=== PATIENT | female | born 1975 | race Caucasian/White ===

== ENCOUNTER → 2017-01-15 | Outpatient (CLI) | payer OTHER ==
--- NOTE | 2017-01-16 10:35 | MM ---
Reason for exam: screening (asymptomatic). Last mammogram was performed 1 year ago. History: Family history of breast cancer in maternal aunt. Physical Findings: A clinical breast exam by your physician is recommended on an annual basis and results should be correlated with mammographic findings. MG Screening Mammo w CAD Bilateral CC and MLO view(s) were taken. Prior study comparison: January 13, 2016, bilateral MG 3d screening mammo w/cad. July 21, 2014, bilateral MG screening mammo w CAD. The breast tissue is extremely dense which could obscure a lesion on mammography. Finding: There are typically benign round calcifications. There is no discrete abnormality. No significant changes in finding since January 13, 2016 and July 21, 2014. ASSESSMENT: Benign, BI-RAD 2 RECOMMENDATION: Routine screening mammogram of both breasts in 1 year.
== END | disposition home or self-care (01) ==
LOC: RADMAMWWP 08:58
PROVIDERS: ATTEND Obstetrics & Gynecology
DX: Z12.31 Encounter for screening mammogram for malignant neoplasm of breast (principal)

== ENCOUNTER 2018-01-26 17:43 | Inpatient (IN) | payer MEDICAID, OTHER ==
[2018-01-26 17:58] VITALS: RESP 16
--- NOTE | 2018-01-26 18:12 | ED ---
General Adult HPI - General Source: patient, RN notes reviewed Mode of arrival: ambulatory Limitations: no limitations <Deven Feng - Last Filed: 01/26/18 18:11> <Bob Sharma - Last Filed: 01/26/18 21:58> - General Chief complaint: Psychiatric Symptoms Stated complaint: SUICIDAL Time Seen by Provider: 01/26/18 17:58 - History of Present Illness Initial comments: Patient 42-year-old female who presents emergency room today with a chief complaint of suicidal ideation. Patient does admit that she stopped taking her medications. She states he will causing weight gain. She states she stopped them one week ago. Patient denies any thoughts of hurting anyone else. She denies any other physical complaints. Patient denies any recent fever, chills, shortness of breath, chest pain, back pain, abdominal pain, nausea or vomiting, headaches or visual changes, or any other complaints. (Deven Feng) - Related Data Home Medications Medication Instructions Recorded Confirmed ARIPiprazole [Abilify] 10 mg PO DAILY 01/26/18 01/26/18 Multivitamins, Thera [Multivitamin 1 tab PO DAILY 01/26/18 01/26/18 (formulary)] Vilazodone HCl [Viibryd] 20 mg PO DAILY 01/26/18 01/26/18 Allergies Allergy/AdvReac Type Severity Reaction Status Date / Time ibuprofen [From Motrin] Allergy Intermediate Rash/Hives Verified 01/26/18 18:09 Review of Systems ROS Other: All systems not noted in ROS Statement are negative. <Deven Feng - Last Filed: 01/26/18 18:11> ROS Other: All systems not noted in ROS Statement are negative. <Bob Sharma - Last Filed: 01/26/18 21:58> ROS Statement: Those systems with pertinent positive or pertinent negative responses have been documented in the HPI. Past Medical History Past Medical History: No Reported History, COPD Additional Past Medical History / Comment(s): scoliosis History of Any Multi-Drug Resistant Organisms: None Reported Past Surgical History: Tubal Ligation Past Anesthesia/Blood Transfusion Reactions: No Reported Reaction Past Psychological History: Anxiety, Depression Smoking Status: Current every day smoker Past Alcohol Use History: None Reported Past Drug Use History: None Reported - Past Family History Mother Family Medical History: No Reported History <Deven Feng - Last Filed: 01/26/18 18:11> General Exam Limitations: no limitations <Deven Feng - Last Filed: 01/26/18 18:11> <Bob Sharma - Last Filed: 01/26/18 21:58> - General Exam Comments Initial Comments: General: The patient is awake and alert, in no distress, and does not appear acutely ill. Eye: Pupils are equal, round and reactive to light, extra-ocular movements are intact. No nystagmus. There is normal conjunctiva bilaterally. No signs of icterus. Ears, nose, mouth and throat: There are moist mucous membranes and no oral lesions. Neck: The neck is supple, there is no tenderness or JVD. Cardiovascular: There is a regular rate and rhythm. No murmur, rub or gallop is appreciated. Respiratory: Lungs are clear to auscultation, respirations are non-labored, breath sounds are equal. No wheezes, stridor, rales, or rhonchi. Musculoskeletal: Normal ROM, no tenderness. Strength 5/5. Sensation intact. Pulses equal bilaterally 2+. Neurological: A&O x 3. CN II-XII intact, There are no obvious motor or sensory deficits. Coordination appears grossly intact. Speech is normal. Skin: Skin is warm and dry and no rashes or lesions are noted. Psychiatric: Cooperative. (Deven Feng) Vital Signs 01/26/18 17:54 Temperature 96.2 F L Pulse Rate 101 H Respiratory 16 Rate Blood Pressure 126/73 O2 Sat by Pulse 98 Oximetry - Lab Data Lab Results 01/26/18 Range/Units 18:44 Urine Opiates Screen Not Detected (NotDetected) Ur Oxycodone Screen Not Detected (NotDetected) Urine Methadone Screen Not Detected (NotDetected) Ur Propoxyphene Screen Not Detected (NotDetected) Ur Barbiturates Screen Not Detected (NotDetected) U Tricyclic Antidepress Not Detected (NotDetected) Ur Phencyclidine Scrn Not Detected (NotDetected) Ur Amphetamines Screen Not Detected (NotDetected) U Methamphetamines Scrn Not Detected (NotDetected) U Benzodiazepines Scrn Not Detected (NotDetected) Urine Cocaine Screen Not Detected (NotDetected) U Marijuana (THC) Screen Not Detected (NotDetected) Disposition <Deven Feng - Last Filed: 01/26/18 18:11> <Bob Sharma - Last Filed: 01/26/18 21:58> Clinical Impression: Depression, Suicidal ideation Disposition: ADMITTED IP TO THIS HOSP Condition: Stable
[2018-01-26 19:09] LABS: Amphetamine Screen,Urine Not Detected (NotDetected); Benzodiazepines Screen,Urine Not Detected (NotDetected); Cocaine Screen,Urine Not Detected (NotDetected); Opiate Screen,Urine Not Detected (NotDetected); Phencyclidine Screen,Urine Not Detected (NotDetected); Tricyclic Antidepressant,Urine Not Detected (NotDetected); Urn Cannabinoid Scrn Not Detected (NotDetected)
[2018-01-26 19:10] LABS: Barbiturate Screen,Urine Not Detected (NotDetected); Methadone Screen, Urine Not Detected (NotDetected); Oxycodone Screen, Urine Not Detected (NotDetected)
[2018-01-26] MEDS ORDERED: LORazepam 1 MG TAB PO PRN (22:16)
[2018-01-26] MEDS ORDERED: MAG HYDROX/AL HYDROX/SIMETH 30 ML CUP PO PRN (22:16)
[2018-01-26] MEDS ORDERED: MAGNESIUM HYDROXIDE 2,400 MG/10 ML CUP PO PRN (22:16)
[2018-01-26] MEDS ORDERED: ACETAMINOPHEN TAB 325 MG TAB PO PRN (22:16)
[2018-01-27 09:12] LABS: Basophils % (A) 0 %; Eosinophils # (A) 0.3 k/uL (0-0.7); Eosinophils % (A) 3 %; HCT 43.4 % (34.0-46.0); HGB 14.4 gm/dL (11.4-16.0); Lymphocytes # (A) 2.3 k/uL (1.0-4.8); Lymphocytes % (A) 20 %; MCH 31.2 pg (25.0-35.0); MCHC 33.1 g/dL (31.0-37.0); MCV 94.2 fL (80.0-100.0); Mean Platelet Volume 6.9; Monocytes # (A) 0.4 k/uL (0-1.0); Monocytes % (A) 3 %; Neutrophils # (A) 8.5 k/uL (1.3-7.7); Neutrophils % (A) 73 %; Platelet Count 392 k/uL (150-450); RBC 4.61 m/uL (3.80-5.40); RDW 12.8 % (11.5-15.5); WBC 11.6 k/uL (3.8-10.6)
[2018-01-27 09:15] LABS: ALT 26 U/L (9-52); AST 24 U/L (14-36); Albumin 3.8 g/dL (3.5-5.0); Alkaline Phosphatase 64 U/L (38-126); Anion Gap 8 mmol/L; Blood Urea Nitrogen 7 mg/dL (7-17); Calcium 9.2 mg/dL (8.4-10.2); Carbon Dioxide 25 mmol/L (22-30); Chloride 107 mmol/L (98-107); Cholesterol 188 mg/dL (<200); Glucose 140 mg/dL (74-99); HDL Cholesterol 45 mg/dL (40-60); LDL Cholesterol,Calculated 111 mg/dL (0-99); Potassium 4.3 mmol/L (3.5-5.1); Sodium 140 mmol/L (137-145); Total Bilirubin 0.2 mg/dL (0.2-1.3); Total Protein 6.2 g/dL (6.3-8.2); Triglycerides 159 mg/dL (<150)
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
[2018-01-27] MEDS: VENLAFAXINE HCL ER 37.5 MG CAP PO SCH (10:12)
[2018-01-27] MEDS: NICOTINE 14MG/24HR PATCH TRANSDERM SCH (10:12)
[2018-01-27] MEDS: ARIPiprazole 5 MG TAB PO SCH (10:12)
--- NOTE | 2018-01-27 14:01 | P.CONS ---
History of Present Illness - Reason for Consult Consult date: 01/27/18 Medical management - Chief Complaint Severe depression - History of Present Illness This is this is a 42-year-old female with past medical history noted below significant for underlying depression presented to the emergency room with suicidal thought. Patient said that she quit taking her medication a while ago with concerns about weight gain. She started feeling more depressed recently. She presented to the emergency room with suicidal thoughts. There was no specific plan or weapons involved. Patient was evaluated by psychiatry and is currently admitted for further evaluation. She does not have any specific concerns are now. I was asked to see her for medical management. Review of Systems Review of system: 14 points review of systems were obtained and were negative except to what were mentioned in the HPI. Past Medical History Past Medical History: No Reported History, COPD Additional Past Medical History / Comment(s): scoliosis History of Any Multi-Drug Resistant Organisms: None Reported Past Surgical History: Tubal Ligation Past Anesthesia/Blood Transfusion Reactions: No Reported Reaction Past Psychological History: Anxiety, Depression Smoking Status: Current every day smoker Past Alcohol Use History: None Reported Additional Past Alcohol Use History / Comment(s): "through seventh month of " Past Drug Use History: None Reported - Past Family History Mother Family Medical History: No Reported History Medications and Allergies Home Medications Medication Instructions Recorded Confirmed Type ARIPiprazole [Abilify] 10 mg PO DAILY 01/26/18 01/27/18 History Multivitamins, Thera [Multivitamin 1 tab PO DAILY 01/26/18 01/27/18 History (formulary)] Vilazodone HCl [Viibryd] 20 mg PO DAILY 01/26/18 01/27/18 History Allergies Allergy/AdvReac Type Severity Reaction Status Date / Time ibuprofen [From Motrin] Allergy Intermediate Rash/Hives Verified 01/26/18 18:09 Physical Exam Vitals: Vital Signs Temp Pulse Pulse Resp BP BP Pulse Ox 01/27/18 04:22 97.6 F 97 16 109/59 01/26/18 21:41 97.5 F L 85 16 147/81 01/26/18 17:54 96.2 F L 101 H 16 126/73 98 Intake and Output 01/26/18 01/27/18 01/27/18 22:59 06:59 14:59 Other: Weight 71.8 kg General: The patient is awake and alert, in no distress Eye: there is normal conjunctiva bilaterally. Neck: The neck is supple, there is no JVD. Cardiovascular: Normal S1-S2, no S3-S4, no murmurs. Respiratory: Lungs clear to auscultation bilaterally Gastrointestinal: Abdomen is soft, nontender Musculoskeletal: There is no pedal edema. Neurological:. Speech is normal. Skin: Skin is warm and dry Results CBC & Chem 7: 01/27/18 08:42 01/27/18 08:42 Labs: Abnormal Lab Results - Last 24 Hours (Table) 01/27/18 01/27/18 Range/Units 08:42 08:42 WBC 11.6 H (3.8-10.6) k/uL Neutrophils # 8.5 H (1.3-7.7) k/uL Glucose 140 H (74-99) mg/dL Total Protein 6.2 L (6.3-8.2) g/dL Triglycerides 159 H (<150) mg/dL LDL Cholesterol, Calc 111 H (0-99) mg/dL Assessment and Plan Assessment: 1. Major depressive disorder with suicidal thoughts. Patient is evaluated and managed by psychiatry. Today, I reviewed her medication list and lab work results. She is stable from a medical standpoint. Continue psychiatric management. I will follow-up on her on as needed basis.
[2018-01-27 18:35] VITALS: BMI 28.9
[2018-01-27 20:22] LABS: Hemoglobin A1C 5.1 % (4.0-6.0)
[2018-01-27] MEDS ORDERED: MELATONIN 3 MG TABLET PO SCH (21:00)
[2018-01-28 07:05] VITALS: BP 113/57; PULSE 76; TEMP 98.5
[2018-01-28] MEDS: VENLAFAXINE HCL ER 37.5 MG CAP PO SCH (09:01)
[2018-01-28] MEDS: NICOTINE 14MG/24HR PATCH TRANSDERM SCH (09:01)
[2018-01-28] MEDS: ARIPiprazole 5 MG TAB PO SCH (09:01)
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
== END 2018-01-28 14:52 | disposition home or self-care (01) | DRG 885 ==
LOC: EC 17:43 → 3MHU 21:05
PROVIDERS: ADMIT Psychiatry & Neurology Psychiatry; ATTEND Psychiatry & Neurology Psychiatry
DX: F33.1 Major depressive disorder, recurrent, moderate (principal); R45.851 Suicidal ideations; M41.9 Scoliosis, unspecified; F17.200 Nicotine dependence, unspecified, uncomplicated; J44.9 Chronic obstructive pulmonary disease, unspecified; F41.9 Anxiety disorder, unspecified; Z79.899 Other long term (current) drug therapy; Z88.6 Allergy status to analgesic agent; Z91.5 Personal history of self-harm
CPT/HCPCS: 80053; 80061; 80306; 82075; 83036; 84443; 85025; 99285

== ENCOUNTER → 2018-01-31 | Outpatient (CLI) | payer OTHER | END | disposition home or self-care (01) | LOC: LABWHC1 13:55 | PROVIDERS: ATTEND Family Medicine | DX: Z77.011 Contact with and (suspected) exposure to lead (principal) | CPT/HCPCS: 36415; 83655 ==

== ENCOUNTER → 2018-08-23 | Outpatient (CLI) | payer OTHER ==
--- NOTE | 2018-08-23 13:22 | XR ---
Lumbar spine HISTORY: Trauma and pain 3 views of the lumbar spine, correlation 07/10/2014 lumbar spine There is a levoscoliosis centered at L2. Lumbar vertebral bodies show preserved height and bone mineralization. Loss of disc height present L4 -5, L5-S1 and there is associated spondylosis, vacuum phenomenon. Sclerosis present in the posterior elements compatible with facet arthropathy. IMPRESSION: Degenerative disc disease, facet arthropathy, scoliosis. Findings may progressed in the i nterval.
== END ==
LOC: RADUSYALE 12:52
PROVIDERS: ATTEND Emergency Medicine
DX: M51.36 Other intervertebral disc degeneration, lumbar region (principal); M46.96 Unspecified inflammatory spondylopathy, lumbar region; M41.86 Other forms of scoliosis, lumbar region
CPT/HCPCS: 72100

== ENCOUNTER → 2019-03-25 | Outpatient (CLI) | payer BC ==
[2019-03-26 01:10] LABS: Progesterone 0.5 ng/mL
== END | disposition home or self-care (01) ==
LOC: LABWHC1 15:57
PROVIDERS: ATTEND Obstetrics & Gynecology
DX: N93.8 Other specified abnormal uterine and vaginal bleeding (principal); Z13.29 Encounter for screening for other suspected endocrine disorder
CPT/HCPCS: 36415; 82670; 83001; 83002; 84144; 84146; 84439; 84443; 84479

== ENCOUNTER → 2019-03-27 | Outpatient (CLI) | payer BC ==
--- NOTE | 2019-03-28 13:03 | MM ---
Reason for exam: screening (asymptomatic). Last mammogram was performed 2 years and 2 months ago. History: Family history of breast cancer in maternal aunt. Took hormonal contraceptives for 16 years beginning at age 18. Physical Findings: A clinical breast exam by your physician is recommended on an annual basis and results should be correlated with mammographic findings. MG Screening Mammo w CAD Bilateral CC and MLO view(s) were taken. Prior study comparison: January 15, 2017, bilateral MG screening mammo w CAD. January 13, 2016, bilateral MG 3d screening mammo w/cad. The breast tissue is heterogeneously dense. This may lower the sensitivity of mammography. There are benign appearing scattered round calcifications bilaterally. There is no discrete abnormality. ASSESSMENT: Negative, BI-RAD 1 RECOMMENDATION: Routine screening mammogram of both breasts in 1 year.
== END | disposition home or self-care (01) ==
LOC: RADMAMWWP 15:20
PROVIDERS: ATTEND Obstetrics & Gynecology
DX: Z12.31 Encounter for screening mammogram for malignant neoplasm of breast (principal)
CPT/HCPCS: 77067

== ENCOUNTER 2019-05-12 15:45 | Emergency (ER) | payer BC, OTHER ==
[2019-05-12 15:57] VITALS: BP 124/83; PULSE 106; RESP 18; TEMP 98.8
--- NOTE | 2019-05-12 16:29 | ED ---
General Adult HPI - General Chief complaint: Recheck/Abnormal Lab/Rx Stated complaint: Fatigue Time Seen by Provider: 05/12/19 16:05 Source: patient, RN notes reviewed Mode of arrival: ambulatory Limitations: no limitations - History of Present Illness Initial comments: Patient is a pleasant 43-year-old female presenting to the emergency department with fatigue. Patient states symptoms have progressively worsened over the past days. Patient is sleeping October 13 hours per day. Patient does not have interest in activities. Patient admits she does feel depressed. Patient states she stopped her antidepressant medication around 1 month ago. Patient denies any suicidal or homicidal thoughts. No hallucinations. Patient is sometimes having concentration issues. Patient uses as an example that she went into a room today and forgot when she went into the room. Patient states she has had some sinus congestion and left ear discomfort. Patient did go to urgent care 2 days ago and was started on amoxicillin. Patient states there might be mild improvement of symptoms. No fevers. - Related Data Home Medications Medication Instructions Recorded Confirmed Amoxicillin 500 mg PO Q8H 05/12/19 05/12/19 Ibuprofen [Motrin] 300 mg PO Q8HR PRN 05/12/19 05/12/19 Venlafaxine HCl [Effexor XR] 75 mg PO DAILY 05/12/19 05/12/19 Previous Rx's Medication Instructions Recorded ARIPiprazole [Abilify] 5 mg PO DAILY #14 tab 01/28/18 Allergies Allergy/AdvReac Type Severity Reaction Status Date / Time ibuprofen [From Motrin] Allergy Intermediate Rash/Hives Verified 05/12/19 16:09 Review of Systems ROS Statement: Those systems with pertinent positive or pertinent negative responses have been documented in the HPI. ROS Other: All systems not noted in ROS Statement are negative. Constitutional: Denies: fever Eyes: Denies: eye pain ENT: Denies: ear pain Respiratory: Denies: cough Cardiovascular: Denies: chest pain Endocrine: Reports: fatigue Gastrointestinal: Denies: abdominal pain Genitourinary: Denies: urgency Musculoskeletal: Denies: back pain Skin: Denies: rash Neurological: Denies: headache Psychiatric: Reports: depression. Denies: homicidal thoughts, suicidal thoughts Past Medical History Past Medical History: COPD Additional Past Medical History / Comment(s): scoliosis History of Any Multi-Drug Resistant Organisms: None Reported Past Surgical History: Tubal Ligation Past Anesthesia/Blood Transfusion Reactions: No Reported Reaction Past Psychological History: Anxiety, Depression Smoking Status: Current every day smoker Past Alcohol Use History: Occasional Past Drug Use History: None Reported - Past Family History Mother Family Medical History: No Reported History General Exam Limitations: no limitations General appearance: alert, in no apparent distress Head exam: Present: atraumatic Eye exam: Present: normal appearance, PERRL ENT exam: Present: normal oropharynx, TM's normal bilaterally Neck exam: Present: normal inspection Respiratory exam: Present: normal lung sounds bilaterally Cardiovascular Exam: Present: regular rate, normal rhythm GI/Abdominal exam: Present: soft. Absent: tenderness Extremities exam: Present: normal inspection Neurological exam: Present: alert. Absent: motor sensory deficit Psychiatric exam: Present: normal affect, normal mood Skin exam: Present: normal color Course Vital Signs 05/12/19 15:53 Temperature 98.8 F Pulse Rate 106 H Respiratory 18 Rate Blood Pressure 124/83 O2 Sat by Pulse 95 Oximetry Medical Decision Making - Medical Decision Making Lungs discussion had with patient regarding her symptoms and she agrees her symptoms are likely related to her depression and admits that she also did recently lose her job. Patient states she does have a follow-up appointment with [facility] tomorrow. Patient also is agreeable to close follow-up to primary care physician. Patient is offered further evaluation including blood work and urinalysis however refuses. Disposition Clinical Impression: Fatigue Disposition: HOME SELF-CARE Condition: Stable Instructions (If sedation given, give patient instructions): Fatigue (ED), Depression (ED) Additional Instructions: Please do follow-up with your primary care physician in the next couple days for recheck. Please do follow-up with [facility] tomorrow as planned. Return for thoughts of self-harm, ear sinus problems, worsening symptoms or other concerns. Continue antibiotics as prescribed. [id number] Claritin as directed. Saline nasal spray. Is patient prescribed a controlled substance at d/c from ED?: No Referrals: Qi Smith MD [Primary Care Provider] - 1-2 days Time of Disposition: 16:29
== END 2019-05-12 16:30 | disposition home or self-care (01) ==
LOC: EC 15:45
DX: R53.83 Other fatigue (principal); F32.9 Major depressive disorder, single episode, unspecified; R09.81 Nasal congestion; Z56.0 Unemployment, unspecified; R41.0 Disorientation, unspecified; F41.9 Anxiety disorder, unspecified; F17.200 Nicotine dependence, unspecified, uncomplicated; Z88.6 Allergy status to analgesic agent; Z79.899 Other long term (current) drug therapy
CPT/HCPCS: 99283

== ENCOUNTER 2019-09-09 13:17 | Emergency (ER) | payer OTHER ==
[2019-09-09 13:23] VITALS: TEMP 97.9
--- NOTE | 2019-09-09 14:19 | ED ---
ENT HPI - General Source: patient Mode of arrival: ambulatory Limitations: no limitations <Nataly Osman - Last Filed: 09/09/19 14:48> <Maryellen Eng - Last Filed: 09/13/19 23:41> - General Chief complaint: ENT Stated complaint: Ear Pain/Diarrhea Time Seen by Provider: 09/09/19 13:58 - History of Present Illness Initial comments: 43-year-old female with history of recurrent ear infections, hearing aides presented emergency department for chief complaint of left ear pain and drainage 6 days. Patient states that she has had ear pain with some drainage for the past 6 days. Patient states she was concerned to another infection. Patient admits to sinus pressure and congestion. Patient states she felt like she had a fever yesterday. Denies rashes. Denies ringing of the ears or hearing loss. Denies dizziness. No visual changes. Admits to a few loose stools. Denies namita diarrhea or abdominal pain. Patient denies any vomiting. Patient denies cough chest pain. Patient states she cannot get in to her primary care provider she decided to present to emergency department for evaluation of the left ear pain. Upon arrival patient appears well signs of acute distress. Patient states she is tolerating oral intake. State she was vaccinated as a child. (Nataly Osman) - Related Data Home Medications Medication Instructions Recorded Confirmed Amoxicillin 500 mg PO Q8H 05/12/19 05/12/19 Ibuprofen [Motrin] 300 mg PO Q8HR PRN 05/12/19 05/12/19 Venlafaxine HCl [Effexor XR] 75 mg PO DAILY 05/12/19 05/12/19 Previous Rx's Medication Instructions Recorded ARIPiprazole [Abilify] 5 mg PO DAILY #14 tab 01/28/18 Amoxicillin 875 mg PO Q12HR 10 Days #20 tablet 09/09/19 Fluticasone Nasal [place] [Flonase 1 spray EA NOSTRIL DAILY 7 Days #1 09/09/19 Nasal [place]] bottle Allergies Allergy/AdvReac Type Severity Reaction Status Date / Time ibuprofen [From Motrin] Allergy Intermediate Rash/Hives Verified 09/09/19 13:23 Review of Systems ROS Other: All systems not noted in ROS Statement are negative. <Nataly Osman - Last Filed: 09/09/19 14:48> ROS Other: All systems not noted in ROS Statement are negative. <Maryellen Eng - Last Filed: 09/13/19 23:41> ROS Statement: Those systems with pertinent positive or pertinent negative responses have been documented in the HPI. Past Medical History Past Medical History: COPD Additional Past Medical History / Comment(s): scoliosis History of Any Multi-Drug Resistant Organisms: None Reported Past Surgical History: Tubal Ligation Past Anesthesia/Blood Transfusion Reactions: No Reported Reaction Past Psychological History: Anxiety, Depression Smoking Status: Current every day smoker Past Alcohol Use History: Occasional Past Drug Use History: None Reported - Past Family History Mother Family Medical History: No Reported History <Yenny Osmanbonnie Bustamatne - Last Filed: 09/09/19 14:48> General Exam Limitations: no limitations <Yenny Osmanbonnie Bustamante - Last Filed: 09/09/19 14:48> - General Exam Comments Initial Comments: General: The patient is awake and alert, in no distress, and does not appear acutely ill. Eye: +3 mm pupils are equal, round and reactive to light, extra-ocular movements are intact. No nystagmus. There is normal conjunctiva bilaterally. No signs of icterus. Tympanic membrane of the left ear reveals effusion. There is no lesions of the external auditory canal. No obvious tympanic membrane perforation. No blood in the tympanic membrane or external auditory canal. Normal examination of the right tympanic membrane. No tenderness to palpation of the auricle or pinna. Patient has no tenderness to palpation of the mastoid, no mastoid swelling/redness. Ears, nose, mouth and throat: There are moist mucous membranes and no oral lesions. No nuchal rigidity. Neck: The neck is supple, there is no tenderness or JVD. Cardiovascular: There is a regular rate and rhythm. No murmur, rub or gallop is appreciated. Respiratory: Lungs are clear to auscultation, respirations are non-labored, breath sounds are equal. No wheezes, stridor, rales, or rhonchi. Gastrointestinal: Soft, non-distended, non-tender abdomen without masses or organomegaly noted. There is no rebound or guarding present. Musculoskeletal: Normal ROM, no tenderness. Strength 5/5. Sensation intact. Radial pulses equal bilaterally 2+. Neurological: A&O x 3. CN II-XII intact, There are no obvious motor or sensory deficits. Coordination appears grossly intact. Speech is normal. Skin: Skin is warm and dry and no rashes or lesions are noted. Psychiatric: Cooperative, appropriate mood & affect, normal judgment. (Nataly Osman) Course Vital Signs 09/09/19 09/09/19 13:22 14:26 Temperature 97.9 F Pulse Rate 101 H 84 Respiratory 16 18 Rate Blood Pressure 131/91 130/86 O2 Sat by Pulse 96 98 Oximetry Medical Decision Making <Nataly Osman - Last Filed: 09/09/19 14:48> <Maryellen Eng - Last Filed: 09/13/19 23:41> - Medical Decision Making 43-year-old female presents immersed her in for evaluation of left ear pain x 6 days. Physical exam concerning for otitis media. Patient be treated with amoxicillin. Patient given ENT follow-up. Return parameters were discussed. Patient was discharged appearing well agreeable to discharge care plan and importance of follow-up. Discussed case and care plan with attending who was agreeable. (Nataly Osman) I was available for consultation in the emergency department. The history and physical exam were done by the midlevel provider. I was consulted for this patients care. I reviewed the case with the midlevel provider and based on their presentation of the patient, I agree with the assessment, medical decision making and plan of care as documented. Chart was dictated using JumpChat dictation software. Attempts were made to correct any dictation errors however some typographical errors may persist. (Maryellen Eng) Disposition Is patient prescribed a controlled substance at d/c from ED?: No Time of Disposition: 14:16 <Nataly Osman - Last Filed: 09/09/19 14:48> <Maryellen Eng - Last Filed: 09/13/19 23:41> Clinical Impression: Otitis media, Acute effusion of left ear, Left ear pain Disposition: HOME SELF-CARE Condition: Good Instructions (If sedation given, give patient instructions): Ear Infection (ED) Additional Instructions: Please use medication as discussed. Please follow-up with family doctor in the next 2 days, if symptoms persist please follow-up with ENT or present to the ER. Please return to emergency room if the symptoms increase or worsen or for any other concerns-increasing pain, pain behind the ear. Prescriptions: Amoxicillin 875 mg PO Q12HR 10 Days #20 tablet Fluticasone Nasal [place] [Flonase Nasal [place]] 1 spray EA NOSTRIL DAILY 7 Days #1 bottle Referrals: Qi Smith MD [Primary Care Provider] - 1-2 days Tito Frausto MD [STAFF PHYSICIAN] - 1-2 days
[2019-09-09 14:47] VITALS: BP 130/86; PULSE 84; RESP 18
== END 2019-09-09 14:26 | disposition home or self-care (01) ==
LOC: EC 13:17
DX: H65.192 Other acute nonsuppurative otitis media, left ear (principal); F41.9 Anxiety disorder, unspecified; F32.9 Major depressive disorder, single episode, unspecified; F17.200 Nicotine dependence, unspecified, uncomplicated; Z79.899 Other long term (current) drug therapy; Z88.6 Allergy status to analgesic agent
CPT/HCPCS: 99282

== ENCOUNTER 2019-09-21 11:20 | Emergency (ER) | payer OTHER ==
[2019-09-21 11:46] VITALS: BP 121/84; PULSE 100; RESP 18; TEMP 98.6
--- NOTE | 2019-09-21 12:55 | ED ---
General Adult HPI - General Chief complaint: ENT Stated complaint: ear pain Time Seen by Provider: 09/21/19 11:59 Source: patient, RN notes reviewed Mode of arrival: ambulatory Limitations: no limitations - History of Present Illness Initial comments: 43-year-old female since to the emergency department for left ear pain. States she has had left ear pain for about 10 days. States she was seen at that time and diagnosed with an ear infection. States the pain has improved somewhat but it is still painful. States she has decreased hearing out of this ear. States she did not follow up with ENT or primary care. She did take her antibiotic as directed.Patient has no other complaints at this time including shortness of breath, chest pain, abdominal pain, nausea or vomiting, headache, or visual changes. - Related Data Home Medications Medication Instructions Recorded Confirmed Amoxicillin 500 mg PO Q8H 05/12/19 05/12/19 Ibuprofen [Motrin] 300 mg PO Q8HR PRN 05/12/19 05/12/19 Venlafaxine HCl [Effexor XR] 75 mg PO DAILY 05/12/19 05/12/19 Previous Rx's Medication Instructions Recorded ARIPiprazole [Abilify] 5 mg PO DAILY #14 tab 01/28/18 Amoxicillin 875 mg PO Q12HR 10 Days #20 tablet 09/09/19 Fluticasone Nasal [place] [Flonase 1 spray EA NOSTRIL DAILY 7 Days #1 09/09/19 Nasal [place]] bottle Amoxicillin/Potassium Clav 1 tab PO Q12HR #20 tab 09/21/19 [Augmentin 875-125 Tablet] Allergies Allergy/AdvReac Type Severity Reaction Status Date / Time ibuprofen [From Motrin] Allergy Intermediate Rash/Hives Verified 09/21/19 11:46 Review of Systems ROS Statement: Those systems with pertinent positive or pertinent negative responses have been documented in the HPI. ROS Other: All systems not noted in ROS Statement are negative. Past Medical History Past Medical History: COPD Additional Past Medical History / Comment(s): scoliosis History of Any Multi-Drug Resistant Organisms: None Reported Past Surgical History: Tubal Ligation Past Anesthesia/Blood Transfusion Reactions: No Reported Reaction Past Psychological History: Anxiety, Depression Smoking Status: Current every day smoker Past Alcohol Use History: Occasional Past Drug Use History: None Reported - Past Family History Mother Family Medical History: No Reported History General Exam Limitations: no limitations General appearance: alert, in no apparent distress Head exam: Present: atraumatic, normocephalic, normal inspection Eye exam: Present: normal appearance, PERRL, EOMI. Absent: scleral icterus, conjunctival injection, periorbital swelling ENT exam: Present: normal exam, normal oropharynx, mucous membranes moist, normal external ear exam. Absent: TM's normal bilaterally (Left him in a memory and is not erythematous however there is a small rupture noted in the mid eardrum) Neck exam: Present: normal inspection, full ROM. Absent: tenderness, meningismus, lymphadenopathy Respiratory exam: Present: normal lung sounds bilaterally. Absent: respiratory distress, wheezes, rales, rhonchi, stridor Cardiovascular Exam: Present: regular rate, normal rhythm, normal heart sounds. Absent: systolic murmur, diastolic murmur, rubs, gallop, clicks Course Vital Signs 09/21/19 11:44 Temperature 98.6 F Pulse Rate 100 Respiratory 18 Rate Blood Pressure 121/84 O2 Sat by Pulse 97 Oximetry Medical Decision Making - Medical Decision Making HPI and physical exam as documented. There is a small tympanic membrane perforation. Patient did finish course of amoxicillin. I see any erythema however given that there is perforation patient will be placed on Augmentin and continue nasal spray. I stressed that she needs to follow up with ENT as well as primary care. Patient will keep water out of her ear. Discussed methods of doing this. She will return if she has any worsening symptoms. Disposition Clinical Impression: Tympanic membrane perforation Disposition: HOME SELF-CARE Condition: Good Instructions (If sedation given, give patient instructions): Ruptured Eardrum (ED), Ear Infection (ED) Additional Instructions: Please continue to use nasal spray. Take Augmentin as directed. This was prescribed to [place] on . Take Motrin and Tylenol for pain. Keep water out of ear year even when showering. Follow up with primary care and ENT in 1-2 days. Return to the emergency department if you have any worsening symptoms. Prescriptions: Amoxicillin/Potassium Clav [Augmentin 875-125 Tablet] 1 tab PO Q12HR #20 tab Is patient prescribed a controlled substance at d/c from ED?: No Referrals: Qi Smith MD [Primary Care Provider] - 1-2 days Diimtris Reese DO [Doctor of Osteopathic Medicine] - 1-2 days Time of Disposition: 12:53
== END 2019-09-21 13:10 | disposition home or self-care (01) ==
LOC: EC 11:20
DX: H72.92 Unspecified perforation of tympanic membrane, left ear (principal); F41.9 Anxiety disorder, unspecified; F32.9 Major depressive disorder, single episode, unspecified; F17.200 Nicotine dependence, unspecified, uncomplicated; Z79.899 Other long term (current) drug therapy; Z88.6 Allergy status to analgesic agent
CPT/HCPCS: 99282

== ENCOUNTER → 2019-09-29 | Outpatient (CLI) | payer OTHER ==
--- NOTE | 2019-09-29 08:33 | US ---
EXAMINATION TYPE: US pelvic complete DATE OF EXAM: 09/29/2019 COMPARISON: NONE CLINICAL HISTORY: R10.2 pelvic pain, N93.8 dysfunctional uterine. DUB TECHNIQUE: Transabdominal (TA). Transabdominal sonographic images of the pelvis were acquired. Date of LMP: 08/31/2019 EXAM MEASUREMENTS: Uterus: 9.1 x 5.2 x 5.6 cm Endometrial Stripe: .5 cm Right Ovary: 2.9 x 1.4 x 1.9 cm Left Ovary: 2.2 x 2.7 x 1.9 cm 1. Uterus: Anteverted wnl 2. Endometrium: wnl 3. Right Ovary: wnl 4. Left Ovary: wnl 5. Bilateral Adnexa: wnl 6. Posterior cul-de-sac: wnl IMPRESSION: Unremarkable pelvic ultrasound. Endometrial thickness is within normal limits. No discret e uterine mass is seen.
== END | disposition home or self-care (01) ==
LOC: RADUSWWP 08:00
PROVIDERS: ATTEND Obstetrics & Gynecology
DX: N93.8 Other specified abnormal uterine and vaginal bleeding (principal); R10.2 Pelvic and perineal pain
CPT/HCPCS: 76856

== ENCOUNTER 2019-09-30 11:39 | Emergency (ER) | payer OTHER ==
[2019-09-30 11:50] VITALS: TEMP 97.8
[2019-09-30] MEDS ORDERED: SODIUM CHLORIDE 0.9% 1,000 ML IV STA ×2 (12:00)
[2019-09-30] MEDS ORDERED: ONDANSETRON 4 MG/2 ML VIAL IVP STA (12:00)
--- NOTE | 2019-09-30 12:03 | ED ---
Abdominal Pain HPI - General Chief Complaint: Abdominal Pain Stated Complaint: rt sided abd pain Time Seen by Provider: 09/30/19 11:52 Source: patient, RN notes reviewed, old records reviewed Mode of arrival: ambulatory Limitations: no limitations - History of Present Illness Initial Comments: This patient's a 43-year-old female presents emergency department today for chief complaint of right lower quadrant abdominal pain, with some radiation towards her back. Patient reports that she has had no significant fevers or chills. She reports that she's been having this pain for the past 3 days. Patient denies any associated chest pain or shortness of breath. She denies any change in urination or bowel habits Patient is currently on her menstrual cycle. She reports that history of irregular menses for the past few months. - Related Data Home Medications Medication Instructions Recorded Confirmed Amoxicillin 500 mg PO Q8H 05/12/19 05/12/19 Ibuprofen [Motrin] 300 mg PO Q8HR PRN 05/12/19 05/12/19 Venlafaxine HCl [Effexor XR] 75 mg PO DAILY 05/12/19 05/12/19 Previous Rx's Medication Instructions Recorded ARIPiprazole [Abilify] 5 mg PO DAILY #14 tab 01/28/18 Amoxicillin 875 mg PO Q12HR 10 Days #20 tablet 09/09/19 Fluticasone Nasal [place] [Flonase 1 spray EA NOSTRIL DAILY 7 Days #1 09/09/19 Nasal [place]] bottle Amoxicillin/Potassium Clav 1 tab PO Q12HR #20 tab 09/21/19 [Augmentin 875-125 Tablet] Docusate [Colace] 100 mg PO DAILY #12 capsule 09/30/19 Allergies Allergy/AdvReac Type Severity Reaction Status Date / Time ibuprofen [From Motrin] Allergy Intermediate Rash/Hives Verified 09/21/19 11:46 Review of Systems ROS Statement: Those systems with pertinent positive or pertinent negative responses have been documented in the HPI. ROS Other: All systems not noted in ROS Statement are negative. Past Medical History Past Medical History: COPD Additional Past Medical History / Comment(s): scoliosis History of Any Multi-Drug Resistant Organisms: None Reported Past Surgical History: Tubal Ligation Past Anesthesia/Blood Transfusion Reactions: No Reported Reaction Past Psychological History: Anxiety, Depression Smoking Status: Current every day smoker Past Alcohol Use History: Rare Past Drug Use History: None Reported - Past Family History Mother Family Medical History: No Reported History General Exam - General Exam Comments Initial Comments: 43-year-old female. No distress. Limitations: no limitations Head exam: Present: atraumatic, normocephalic, normal inspection Eye exam: Present: normal appearance, PERRL, EOMI. Absent: scleral icterus, conjunctival injection, periorbital swelling ENT exam: Present: normal exam, mucous membranes moist Neck exam: Present: normal inspection. Absent: tenderness, meningismus, lymphadenopathy Respiratory exam: Present: normal lung sounds bilaterally. Absent: respiratory distress, wheezes, rales, rhonchi, stridor Cardiovascular Exam: Present: regular rate, normal rhythm, normal heart sounds. Absent: systolic murmur, diastolic murmur, rubs, gallop, clicks GI/Abdominal exam: Present: soft, tenderness (minmal RLQ tenderness), normal bowel sounds. Absent: distended, guarding, rebound, rigid Extremities exam: Present: normal inspection, full ROM, normal capillary refill. Absent: tenderness, pedal edema, joint swelling, calf tenderness Back exam: Present: normal inspection Neurological exam: Present: alert, oriented X3, CN II-XII intact Course Vital Signs 09/30/19 09/30/19 11:47 15:10 Temperature 97.8 F Pulse Rate 81 78 Respiratory 18 16 Rate Blood Pressure 128/86 119/80 O2 Sat by Pulse 98 99 Oximetry Medical Decision Making - Medical Decision Making 43-year-old male presents today for a urinalysis for concern for lower quadrant abdominal pain. Symptoms for the past 3 days. She had an outpatient ultrasound yesterday done by her [facility]. This was negative for any acute process. Patient's blood work was reviewed and urinalysis was negative for any acute process. Due to persistent pain discussed week and do further imaging today such as CT for rule out appendicitis. CT was completed and shows evidence of any acute changes. There is a solitary pulmonary nodule discussed follow-up with her primary care doctor regards to this. Discussed the patient's pain could seem to be ligament strain and close PCP follow-up. All questions were answered. - Lab Data Result diagrams: 09/30/19 12:48 09/30/19 12:48 Lab Results 09/30/19 09/30/19 09/30/19 Range/Units 12:48 12:48 12:48 WBC 10.9 H (3.8-10.6) k/uL RBC 4.41 (3.80-5.40) m/uL Hgb 14.1 (11.4-16.0) gm/dL Hct 41.3 (34.0-46.0) % MCV 93.6 (80.0-100.0) fL MCH 32.1 (25.0-35.0) pg MCHC 34.3 (31.0-37.0) g/dL RDW 12.4 (11.5-15.5) % Plt Count 436 (150-450) k/uL Neutrophils % 66 % Lymphocytes % 25 % Monocytes % 4 % Eosinophils % 2 % Basophils % 0 % Neutrophils # 7.3 (1.3-7.7) k/uL Lymphocytes # 2.8 (1.0-4.8) k/uL Monocytes # 0.4 (0-1.0) k/uL Eosinophils # 0.2 (0-0.7) k/uL Basophils # 0.0 (0-0.2) k/uL PT (9.0-12.0) sec INR (<1.2) APTT (22.0-30.0) sec Sodium 141 (137-145) mmol/L Potassium 4.6 (3.5-5.1) mmol/L Chloride 107 (98-107) mmol/L Carbon Dioxide 26 (22-30) mmol/L Anion Gap 8 mmol/L BUN 17 (7-17) mg/dL Creatinine 0.68 (0.52-1.04) mg/dL Est GFR (CKD-EPI)AfAm >90 (>60 ml/min/1.73 sqM) Est GFR (CKD-EPI)NonAf >90 (>60 ml/min/1.73 sqM) Glucose 95 (74-99) mg/dL Calcium 9.8 (8.4-10.2) mg/dL Total Bilirubin 0.4 (0.2-1.3) mg/dL AST 18 (14-36) U/L ALT 14 (9-52) U/L Alkaline Phosphatase 80 (38-126) U/L Total Protein 7.6 (6.3-8.2) g/dL Albumin 4.4 (3.5-5.0) g/dL Amylase 34 (30-110) U/L Lipase 48 (23-300) U/L Urine Color Urine Appearance (Clear) Urine pH (5.0-8.0) Ur Specific [place] (1.001-1.035) Urine Protein (Negative) Urine Glucose (UA) (Negative) Urine Ketones (Negative) Urine Blood (Negative) Urine Nitrite (Negative) Urine Bilirubin (Negative) Urine Urobilinogen (<2.0) mg/dL Ur Leukocyte Esterase (Negative) Urine HCG, Qual Not Detected (Not Detectd) 09/30/19 09/30/19 Range/Units 12:48 12:48 WBC (3.8-10.6) k/uL RBC (3.80-5.40) m/uL Hgb (11.4-16.0) gm/dL Hct (34.0-46.0) % MCV (80.0-100.0) fL MCH (25.0-35.0) pg MCHC (31.0-37.0) g/dL RDW (11.5-15.5) % Plt Count (150-450) k/uL Neutrophils % % Lymphocytes % % Monocytes % % Eosinophils % % Basophils % % Neutrophils # (1.3-7.7) k/uL Lymphocytes # (1.0-4.8) k/uL Monocytes # (0-1.0) k/uL Eosinophils # (0-0.7) k/uL Basophils # (0-0.2) k/uL PT 9.8 (9.0-12.0) sec INR 0.9 (<1.2) APTT 27.0 (22.0-30.0) sec Sodium (137-145) mmol/L Potassium (3.5-5.1) mmol/L Chloride (98-107) mmol/L Carbon Dioxide (22-30) mmol/L Anion Gap mmol/L BUN (7-17) mg/dL Creatinine (0.52-1.04) mg/dL Est GFR (CKD-EPI)AfAm (>60 ml/min/1.73 sqM) Est GFR (CKD-EPI)NonAf (>60 ml/min/1.73 sqM) Glucose (74-99) mg/dL Calcium (8.4-10.2) mg/dL Total Bilirubin (0.2-1.3) mg/dL AST (14-36) U/L ALT (9-52) U/L Alkaline Phosphatase (38-126) U/L Total Protein (6.3-8.2) g/dL Albumin (3.5-5.0) g/dL Amylase (30-110) U/L Lipase (23-300) U/L Urine Color Light Yellow Urine Appearance Clear (Clear) Urine pH 6.0 (5.0-8.0) Ur Specific [place] 1.005 (1.001-1.035) Urine Protein Negative (Negative) Urine Glucose (UA) Negative (Negative) Urine Ketones Negative (Negative) Urine Blood Negative (Negative) Urine Nitrite Negative (Negative) Urine Bilirubin Negative (Negative) Urine Urobilinogen <2.0 (<2.0) mg/dL Ur Leukocyte Esterase Negative (Negative) Urine HCG, Qual (Not Detectd) - Radiology Data Radiology results: report reviewed No CT evidence for acute process. No bowel structure. Mild. Colonic fecal stasis. 7 x 6 monitor left basal nodule nodule consolidation nonemergent follow-up CT chest to assess for additional pulmonary nodules. The patient's pelvic ultrasound yesterday shows no evidence of any acute changes. Disposition Clinical Impression: Constipation, Pulmonary nodule, Right sided abdominal pain Disposition: HOME SELF-CARE Condition: Good Instructions (If sedation given, give patient instructions): Abdominal Pain (ED) Additional Instructions: Patient advised use a stool softeners as prescribed. Follow-up with your [facility] care physician in regards to further testing for possible lung nodule. Patient should rest, remain hydrated. Prescriptions: Docusate [Colace] 100 mg PO DAILY #12 capsule Is patient prescribed a controlled substance at d/c from ED?: No Referrals: Efren Madera MD [Primary Care Provider] - 1-2 days Time of Disposition: 15:07
--- NOTE | 2019-09-30 12:50 | XR ---
EXAMINATION TYPE: XR KUB DATE OF EXAM: 09/30/2019 12:42 PM CLINICAL HISTORY: Abdominal pain. TECHNIQUE: Two Upright KUB images of the abdomen are obtained. COMPARISON: None. FINDINGS: Scattered gas is seen in non-distended stomach and small bowel loops. Gas and fecal materia l is seen in non-distended colon. Tubal ligation clips in the pelvis are present. Slight levoconvex s coliotic curvature lumbar spine. Lung bases are clear. IMPRESSION: Overall nonobstructive bowel gas pattern.
[2019-09-30 13:03] LABS: Basophils % (A) 0 %; Eosinophils # (A) 0.2 k/uL (0-0.7); Eosinophils % (A) 2 %; HCT 41.3 % (34.0-46.0); HGB 14.1 gm/dL (11.4-16.0); Lymphocytes # (A) 2.8 k/uL (1.0-4.8); Lymphocytes % (A) 25 %; MCH 32.1 pg (25.0-35.0); MCHC 34.3 g/dL (31.0-37.0); MCV 93.6 fL (80.0-100.0); Mean Platelet Volume 5.7; Monocytes # (A) 0.4 k/uL (0-1.0); Monocytes % (A) 4 %; Neutrophils # (A) 7.3 k/uL (1.3-7.7); Neutrophils % (A) 66 %; Platelet Count 436 k/uL (150-450); RBC 4.41 m/uL (3.80-5.40); RDW 12.4 % (11.5-15.5); WBC 10.9 k/uL (3.8-10.6)
[2019-09-30 13:12] LABS: ALT 14 U/L (9-52); AST 18 U/L (14-36); African American GFR (CKD) >90 (>60 ml/min/1.73 sqM); Albumin 4.4 g/dL (3.5-5.0); Alkaline Phosphatase 80 U/L (38-126); Amylase 34 U/L (30-110); Anion Gap 8 mmol/L; Blood Urea Nitrogen 17 mg/dL (7-17); Calcium 9.8 mg/dL (8.4-10.2); Carbon Dioxide 26 mmol/L (22-30); Chloride 107 mmol/L (98-107); Glucose 95 mg/dL (74-99); Potassium 4.6 mmol/L (3.5-5.1); Sodium 141 mmol/L (137-145); Total Bilirubin 0.4 mg/dL (0.2-1.3); Total Protein 7.6 g/dL (6.3-8.2)
[2019-09-30 13:18] LABS: INR 0.9 (<1.2); Prothrombin Time 9.8 sec (9.0-12.0)
[2019-09-30 13:22] LABS: Appearance,Urine Clear (Clear); Bilirubin,Urine Negative (Negative); Blood,Urine Negative (Negative); Color,Urine Light Yellow; Glucose,Urine (UA) Negative (Negative); Ketones,Urine Negative (Negative); Leukocyte Esterase,Urine Negative (Negative); Nitrite,Urine Negative (Negative); Protein,Urine Negative (Negative); Specific Gravity,Urine 1.005 (1.001-1.035); Urobilinogen,Urine <2.0 mg/dL (<2.0)
--- NOTE | 2019-09-30 14:45 | CT ---
EXAMINATION TYPE: CT abdomen pelvis w con DATE OF EXAM: 09/30/2019 HISTORY: right lower quadrant pain CT DLP: 678.6mGycm Automated Exposure Control for Dose Reduction was Utilized. CONTRAST: CT scan of the abdomen and pelvis is performed without oral but with IV Contrast, patient injected wi th 100 mL of Isovue 300. COMPARISON: KUB x-ray earlier today. FINDINGS: LUNG BASES: Dependent atelectasis left lung base. There is 7 x 6 mm subpleural nodule or nodular cons olidation left lower lobe axial image 4. Additional mild scattered linear scarring and/or atelectasis bilaterally. LIVER/GB: No significant abnormality is appreciated. PANCREAS: No significant abnormality is seen. SPLEEN: Small splenule anterior to the spleen axial image 16. ADRENALS: No significant abnormality is seen. KIDNEYS: Symmetric cortical medullary uptake and excretion without hydronephrosis seen bilaterally. S imple appearing exophytic 2.4 cm cyst laterally midpole of the left kidney. Subcentimeter lesion lowe r pole right kidney coronal image 47 too small to further characterize presumed benign. BOWEL: Low-lying cecum into the anterior right pelvis. Appendix within normal limits ascending from c ecum coronal image 41 for reference. No surrounding inflammatory change noted. Prominence of fecal ma terial in the cecum. No suspicious bowel dilatation UTERUS/ADNEXA: Anteverted heterogeneous uterus. Tubal ligation clips along the periphery. LYMPH NODES: No greater than 1cm abdominal or pelvic lymph nodes are appreciated. OSSEOUS STRUCTURES: Levoconvex scoliotic curvature. Disc space narrowing with endplate sclerosis left L4-L5 level. Mild to moderate disc space narrowing L5-S1 level. Facet arthropathy lower lumbar level s. OTHER: No significant abnormality noted. IMPRESSION: 1. No CT evidence for acute appendicitis. No bowel obstruction. Mild to moderate proximal colonic fec al stasis. 2. There is 7 x 6 mm left basilar nodule or nodular consolidation. Nonemergent follow-up chest CT is advised to assess for additional pulmonary nodules.
[2019-09-30 15:11] VITALS: BP 119/80; PULSE 78; RESP 16
== END 2019-09-30 15:37 | disposition home or self-care (01) ==
LOC: EC 11:39
DX: K59.00 Constipation, unspecified (principal); R91.1 Solitary pulmonary nodule; F41.9 Anxiety disorder, unspecified; F32.9 Major depressive disorder, single episode, unspecified; F17.200 Nicotine dependence, unspecified, uncomplicated; Z79.899 Other long term (current) drug therapy; Z88.6 Allergy status to analgesic agent
CPT/HCPCS: 36415; 80053; 82150; 83690; 85025; 85610; 85730; 81003; 81025; 74018; 74177; 99285; 96374; 96361 ×2; J2405; Q9967

== ENCOUNTER → 2019-10-03 | Outpatient (CLI) | payer OTHER ==
--- NOTE | 2019-10-03 11:06 | XR ---
EXAMINATION TYPE: XR chest 2V DATE OF EXAM: 10/03/2019 COMPARISON: 08/15/1915 TECHNIQUE: PA and lateral views submitted. HISTORY: Left lower lobe nodule FINDINGS: The lungs are clear and there is no pneumothorax, pleural effusion, or focal pneumonia. Curvature t he spine. Hypertrophic changes seen. Mild hyperinflation correlate for COPD. No definite pulmonary no dule by standard chest x-ray. IMPRESSION: 1. No acute process. No definite pulmonary nodule seen by x-ray. If there is a history of previous pu lmonary nodule consider follow-up CT scan
[2019-10-03 11:07] LABS: Basophils # (A) 0.1 k/uL (0-0.2); Basophils % (A) 1 %; Eosinophils # (A) 0.2 k/uL (0-0.7); Eosinophils % (A) 2 %; HCT 45.3 % (34.0-46.0); HGB 14.5 gm/dL (11.4-16.0); Lymphocytes # (A) 2.1 k/uL (1.0-4.8); Lymphocytes % (A) 21 %; MCH 30.5 pg (25.0-35.0); MCHC 32.1 g/dL (31.0-37.0); MCV 95.2 fL (80.0-100.0); Mean Platelet Volume 6.4; Monocytes # (A) 0.6 k/uL (0-1.0); Monocytes % (A) 5 %; Neutrophils # (A) 7.1 k/uL (1.3-7.7); Neutrophils % (A) 70 %; Platelet Count 453 k/uL (150-450); RBC 4.76 m/uL (3.80-5.40); RDW 12.6 % (11.5-15.5); WBC 10.2 k/uL (3.8-10.6)
--- NOTE | 2019-10-03 11:07 | XR ---
EXAMINATION TYPE: XR Hip RT and AP Pelvis DATE OF EXAM: 10/03/2019 COMPARISON: NONE HISTORY: Pain TECHNIQUE: 3 views submitted FINDINGS: There is postsurgical change involving the pelvis. Joint spaces preserved and there is no e rosive change. No acute fracture. Sclerosis involving the right SI joint suggestive of sacroiliitis. Mild hypertrophic change of the acetabulum. IMPRESSION: 1. Right sided sacroiliitis. 2. Correlate for femoral acetabular impingement.
[2019-10-03 16:24] LABS: C Reactive Protein <0.4 mg/dL (0.0-0.8); Chol/HDL Ratio 4.79; Cholesterol 206 mg/dL (0-200); Creatine Kinase 106 U/L (26-186); Glucose 90 mg/dL (70-110); LDL Cholesterol,Calculated 141.4 mg/dL (0.0-131.0)
[2019-10-03 17:20] LABS: Hepatitis A Antibody IgM Non-Reactive (Non-Reactive); Hepatitis B Core IgM Non-Reactive (Non-Reactive); Hepatitis B Surface Antigen Non-Reactive (Non-Reactive); Hepatitis C IgG Antibody Non-Reactive (Non-Reactive)
== END | disposition home or self-care (01) ==
LOC: LABWHC1 09:55
PROVIDERS: ATTEND Internal Medicine
DX: M46.1 Sacroiliitis, not elsewhere classified (principal); R91.1 Solitary pulmonary nodule; E03.9 Hypothyroidism, unspecified; E55.9 Vitamin D deficiency, unspecified; D64.9 Anemia, unspecified; M81.0 Age-related osteoporosis without current pathological fracture; Z13.0 Encounter for screening for diseases of the blood and blood-forming organs and certain disorders involving the immune mechanism
CPT/HCPCS: 36415; 71046; 73502; 80061; 80074; 82306; 82550; 82947; 84439; 84443; 85025; 86140

== ENCOUNTER 2019-10-07 20:10 | Emergency (ER) | payer OTHER ==
--- NOTE | 2019-10-07 20:36 | ED ---
General Adult HPI - General Chief complaint: Abdominal Pain Stated complaint: Pelvic pain, back pain Time Seen by Provider: 10/07/19 20:17 Source: patient Mode of arrival: ambulatory Limitations: no limitations - History of Present Illness Initial comments: 43-year-old female presenting with multiple complaints. Patient states she is concerned that she has constipation, possible vaginal infection or a urinary tract infection. Patient states that she has pressure in her bladder. She states she is also had increased vaginal discharge. She states she occasionally has a pain in her low back. She denies any upper or mid back pain. Patient denies history of kidney stones. Denies hematuria. Denies diarrhea or vomiting. Denies any upper abdominal pain, chest pain or SOB. Denies any severe unilateral pelvic pain. Patient states is more midline she states it feels like when she was constipated last week. Last normal bowel movements 3-4 days ago, 1 very tiny hard stool yesterday. Patient denies . She states she is monogamous. She denies concern for sexually transmitted diseases. Denies external lesions. Patient denies fevers or flulike symptoms. Remaining ROS (-). Upon arrival patient appears well, no signs of acute distress. - Related Data Home Medications Medication Instructions Recorded Confirmed Amoxicillin 500 mg PO Q8H 05/12/19 05/12/19 Ibuprofen [Motrin] 300 mg PO Q8HR PRN 05/12/19 05/12/19 Venlafaxine HCl [Effexor XR] 75 mg PO DAILY 05/12/19 05/12/19 Previous Rx's Medication Instructions Recorded ARIPiprazole [Abilify] 5 mg PO DAILY #14 tab 01/28/18 Amoxicillin 875 mg PO Q12HR 10 Days #20 tablet 09/09/19 Fluticasone Nasal [place] [Flonase 1 spray EA NOSTRIL DAILY 7 Days #1 09/09/19 Nasal [place]] bottle Amoxicillin/Potassium Clav 1 tab PO Q12HR #20 tab 09/21/19 [Augmentin 875-125 Tablet] Docusate [Colace] 100 mg PO DAILY #12 capsule 09/30/19 Polyethylene Glycol 3350 [Miralax] 17 gm PO DAILY PRN #7 packet 10/07/19 Allergies Allergy/AdvReac Type Severity Reaction Status Date / Time ibuprofen [From Motrin] Allergy Intermediate Rash/Hives Verified 10/07/19 20:15 Review of Systems ROS Statement: Those systems with pertinent positive or pertinent negative responses have been documented in the HPI. ROS Other: All systems not noted in ROS Statement are negative. Past Medical History Past Medical History: COPD Additional Past Medical History / Comment(s): scoliosis History of Any Multi-Drug Resistant Organisms: None Reported Past Surgical History: Tubal Ligation Past Anesthesia/Blood Transfusion Reactions: No Reported Reaction Past Psychological History: Anxiety, Depression Smoking Status: Current every day smoker Past Alcohol Use History: None Reported Past Drug Use History: None Reported - Past Family History Mother Family Medical History: No Reported History General Exam - General Exam Comments Initial Comments: General: The patient is awake and alert, in no distress, and does not appear acutely ill. Eye: +3 mm pupils are equal, round and reactive to light, extra-ocular movements are intact. No nystagmus. There is normal conjunctiva bilaterally. No signs of icterus. Ears, nose, mouth and throat: There are moist mucous membranes and no oral lesions. Neck: The neck is supple, there is no tenderness or JVD. Cardiovascular: There is a regular rate and rhythm. No murmur, rub or gallop is appreciated. Respiratory: Lungs are clear to auscultation, respirations are non-labored, breath sounds are equal. No wheezes, stridor, rales, or rhonchi. Gastrointestinal: Soft, non-distended, non-tender abdomen without masses or organomegaly noted. There is no rebound or guarding present. No CVA tenderness. Bowel sounds are unremarkable. Pelvic exam revealed scant amount of white vaginal discharge with some mild vaginal mucosal irritation. No external lesions. No cervical motion or adnexal tenderness. Musculoskeletal: Normal ROM, no tenderness. Strength 5/5. Sensation intact. Pulses equal bilaterally 2+. Neurological: A&O x 3. CN II-XII intact grossly, There are no obvious motor or sensory deficits. Coordination appears grossly intact. Speech is normal. Skin: Skin is warm and dry and no rashes or lesions are noted. Psychiatric: Cooperative, appropriate mood & affect, normal judgment. Limitations: no limitations Course Vital Signs 10/07/19 10/07/19 20:11 22:20 Temperature 97.6 F 98.0 F Pulse Rate 114 H 89 Respiratory 16 19 Rate Blood Pressure 144/90 124/76 O2 Sat by Pulse 98 96 Oximetry Medical Decision Making - Medical Decision Making 43-year-old female presents emergency department for evaluation of lower abdominal discomfort midline. Concerned she is constipated versus urinary tract infection. Urinalysis unremarkable. Patient did have a CT last week with no acute intra-abdominal process. Patient is minimal tenderness on examination. No rebound or guarding. KUB revealed colonic stool. No evidence of obstruction. Pelvic exam revealed mild amount of thick white discharge. This some vaginal mucosa irritation concerning for vaginitis. Given 1 tablet of Diflucan. Patient will was given an enema she states she had a bowel movement. Requesting discharge. At this afternoon discussing case attained provider if the patient is stable for discharge with outpatient primary care follow-up. Return parameters discussed patient was discharged appearing well - Lab Data Lab Results 10/07/19 10/07/19 10/07/19 Range/Units 20:30 20:30 21:20 Urine Color Colorless Urine Appearance Clear (Clear) Urine pH 6.5 (5.0-8.0) Ur Specific [place] 1.001 (1.001-1.035) Urine Protein Negative (Negative) Urine Glucose (UA) Negative (Negative) Urine Ketones Negative (Negative) Urine Blood Negative (Negative) Urine Nitrite Negative (Negative) Urine Bilirubin Negative (Negative) Urine Urobilinogen <2.0 (<2.0) mg/dL Ur Leukocyte Esterase Negative (Negative) Urine HCG, Qual Not Detected (Not Detectd) Trichomonas Ag (Rapid) Negative (Negative) Disposition Clinical Impression: Constipation, Vaginal discharge, Vaginitis Disposition: HOME SELF-CARE Condition: Good Instructions (If sedation given, give patient instructions): Constipation (ED), High Fiber Diet (ED) Additional Instructions: Please use medication as discussed. Please follow-up with family doctor in the next 2 days. Please return to emergency room if the symptoms increase or worsen or for any other concerns. Prescriptions: Polyethylene Glycol 3350 [Miralax] 17 gm PO DAILY PRN #7 packet PRN Reason: Constipation Is patient prescribed a controlled substance at d/c from ED?: No Referrals: Efren Madera MD [Primary Care Provider] - 1-2 days Time of Disposition: 22:14
[2019-10-07 20:50] LABS: Appearance,Urine Clear (Clear); Bilirubin,Urine Negative (Negative); Blood,Urine Negative (Negative); Color,Urine Colorless; Glucose,Urine (UA) Negative (Negative); Ketones,Urine Negative (Negative); Leukocyte Esterase,Urine Negative (Negative); Nitrite,Urine Negative (Negative); PH, Urine 6.5 (5.0-8.0); Protein,Urine Negative (Negative); Specific Gravity,Urine 1.001 (1.001-1.035); Urobilinogen,Urine <2.0 mg/dL (<2.0)
--- NOTE | 2019-10-07 21:04 | XR ---
EXAMINATION TYPE: XR KUB 2 views DATE OF EXAM: 10/07/2019 8:41 PM CLINICAL HISTORY: Pain, particularly on the right TECHNIQUE: 2 upright views COMPARISON: 09/30/2019 FINDINGS: Scattered gas is seen in non-distended small bowel loops. Gas and fecal material is seen in non-distended colon. Gas distended, but not dilated, hepatic flexure is noted in the right upper daksha drant - associated with evidence of excessive stool within the descending and sigmoid colon. These no nspecific findings can correlate with clinical diagnosis of constipation. There is no pneumoperitoneu m. There is no visceromegaly or mass. No abnormal calcification appreciated. Visualized lung bases and pleural spaces are negative. IMPRESSION: No definite acute process as discussed.
[2019-10-07] MEDS ORDERED: FLUCONAZOLE 150 MG TAB PO STA (21:14)
[2019-10-07 22:30] VITALS: BP 124/76; PULSE 89; RESP 19; TEMP 98
[2019-10-09 13:45] LABS: C. trachomatis,PCR Negative (Neg,Equiv); Chlamydia trachomatis Source Vagina; N. gonorrhoeae,PCR Negative (Neg,Equiv); Neisseria Source Vagina
== END 2019-10-07 22:22 | disposition home or self-care (01) ==
LOC: EC 20:10
DX: K59.00 Constipation, unspecified (principal); N76.0 Acute vaginitis; M54.5 Low back pain; F41.9 Anxiety disorder, unspecified; F32.9 Major depressive disorder, single episode, unspecified; F17.200 Nicotine dependence, unspecified, uncomplicated; Z98.51 Tubal ligation status; Z79.899 Other long term (current) drug therapy; Z88.6 Allergy status to analgesic agent
CPT/HCPCS: 74018; 81003; 81025; 87070; 87491; 87591; 87808; 99284

== ENCOUNTER → 2019-12-29 | Outpatient (CLI) | payer OTHER ==
--- NOTE | 2019-12-30 10:33 | XR ---
Right wrist and right hand HISTORY: Carpal tunnel, pain For views of the right wrist, 3 views of the right hand Slight remodeling present at the radiocarpal joint. No fracture or dislocation. Alignment and bone mi neralization maintained. Question some widening of the scapholunate distance. Small ossific density p resent at the dorsal aspect of the proximal interphalangeal joint of the fourth digit of the right menard nd appears well-corticated and not felt likely to be acute. IMPRESSION: No acute abnormality. Question scapholunate distance widening, wrist MRI may be of benefi t. Additional findings above.
[2019-12-30 20:22] LABS: DNA Double-Stranded NEGATIVE (NEGATIVE)
== END | disposition home or self-care (01) ==
LOC: LABWHC1 15:45
PROVIDERS: ATTEND Internal Medicine
DX: M79.641 Pain in right hand (principal); M81.0 Age-related osteoporosis without current pathological fracture; G56.01 Carpal tunnel syndrome, right upper limb; R22.31 Localized swelling, mass and lump, right upper limb
CPT/HCPCS: 36415; 85652; 86038; 86225; 86431

== ENCOUNTER → 2020-09-14 | Outpatient (CLI) | payer OTHER ==
--- NOTE | 2020-09-15 07:10 | CT ---
EXAMINATION TYPE: CT chest w con DATE OF EXAM: 09/14/2020 COMPARISON: CT abdomen and pelvis September 30, 2019 HISTORY: nodules. Prior abnormal exam. Chest mass/lump. Wheezing per patient. CT DLP: 347.3 mGycm. Automated Exposure Control for Dose Reduction was Utilized. TECHNIQUE: CT scan of the thorax is performed following with IV Contrast, patient injected with 100 mL of Isovue 300. FINDINGS: LUNGS: Stable 7 x 6 mm subpleural groundglass nodule left lower lobe axial image 40. Mild linear scar ring in both bases just above diaphragm. No additional suspicious nodules measuring over 4 mm in size . No pleural effusion or pneumothorax seen bilaterally. Tracheobronchial tree is patent. MEDIASTINUM: There are no greater than 1 cm hilar or mediastinal lymph nodes. No cardiomegaly or pe ricardial effusion is seen. OTHER: Hyperdense 1.1 cm focus posterior right hepatic dome image 50 is nonspecific favored benign, p ossible transient vascular phenomenon. Prominence of bilateral renal pelvis without calyceal dilatati on the right extrarenal pelvis. Simple appearing 2.4 cm thin-walled cyst laterally midpole of left ki dney. Dextroconvex scoliosis centered mid thoracic spine. IMPRESSION: Stable 7 x 6 mm subpleural groundglass nodule left lower lobe presumed benign. No additio nal suspicious greater than 4 mm nodules or thoracic adenopathy noted.
== END | disposition home or self-care (01) ==
LOC: RADCTMAIN 18:07
PROVIDERS: ATTEND Internal Medicine
DX: R91.1 Solitary pulmonary nodule (principal); Z88.6 Allergy status to analgesic agent
CPT/HCPCS: 71260; Q9967

== ENCOUNTER → 2020-09-27 | Outpatient (CLI) | payer OTHER ==
--- NOTE | 2020-09-27 20:47 | US ---
EXAMINATION TYPE: US pelvic complete DATE OF EXAM: 09/27/2020 COMPARISON: 09/29/2019 CLINICAL HISTORY: 44-year-old female N93.8 Dysfunctional uterine bleeding. DUB, 4, para 3, mi scarriage 1, history of tubal ligation. TECHNIQUE: Transabdominal sonographic images of the pelvis were acquired. Date of LMP: 08/25/2020 FINDINGS: EXAM MEASUREMENTS: Uterus: 9.6 x 5.7 x 6.1 cm Endometrial Stripe: 1.2 cm Right Ovary: 3.6 x 2.3 x 2.6 cm Left Ovary: 2.9 x 1.1 x 1.9 cm 1. Uterus: Anteverted. 2. Endometrium: appears wnl 3. Right Ovary: 2.3 x 1.7 x 1.9cm hypoechoic area 4. Left Ovary: wnl 5. Bilateral Adnexa: wnl 6. Posterior cul-de-sac: wnl IMPRESSION: 1. Endometrial stripe is thickened at 1.2 cm and should correspond to the secretory phase of the mens trual cycle. Clinically correlate. 2. A 2.3 cm hemorrhagic cyst or corpus luteum in the right ovary.
== END | disposition home or self-care (01) ==
LOC: RADUSWWP 16:26
PROVIDERS: ATTEND Obstetrics & Gynecology
DX: R93.89 Abnormal findings on diagnostic imaging of other specified body structures (principal); N83.201 Unspecified ovarian cyst, right side
CPT/HCPCS: 76856

== ENCOUNTER → 2020-10-18 | Outpatient (CLI) | payer OTHER ==
[2020-10-18 23:52] LABS: Estradiol 57.8 pg/mL; Luteinizing Hormone 2.7 mIU/mL; T4, Free (Free Thyroxine) 1.1 ng/dL (0.80-1.80)
[2020-10-18 23:53] LABS: Follicle Stimulating Hormone 16.6 mIU/mL
== END | disposition home or self-care (01) ==
LOC: LABWHC1 15:16
PROVIDERS: ATTEND Obstetrics & Gynecology
DX: N93.8 Other specified abnormal uterine and vaginal bleeding (principal)
CPT/HCPCS: 36415; 82670; 83001; 83002; 84439; 84443

== ENCOUNTER → 2021-02-18 | Outpatient (CLI) | payer OTHER ==
[2021-02-18 12:51] LABS: Basophils # (A) 0.1 k/uL (0-0.2); Basophils % (A) 0 %; Eosinophils # (A) 0.2 k/uL (0-0.7); Eosinophils % (A) 1 %; HCT 41.4 % (34.0-46.0); HGB 13.1 gm/dL (11.4-16.0); Lymphocytes # (A) 2.2 k/uL (1.0-4.8); Lymphocytes % (A) 19 %; MCH 28.3 pg (25.0-35.0); MCHC 31.8 g/dL (31.0-37.0); MCV 89.2 fL (80.0-100.0); Mean Platelet Volume 6.8; Monocytes # (A) 0.6 k/uL (0-1.0); Monocytes % (A) 5 %; Neutrophils # (A) 8.8 k/uL (1.3-7.7); Neutrophils % (A) 73 %; Platelet Count 396 k/uL (150-450); RBC 4.64 m/uL (3.80-5.40); RDW 14.9 % (11.5-15.5)
[2021-02-18 13:02] LABS: ALT 25 U/L (4-34); AST 32 U/L (14-36); African American GFR (CKD) >90 (>60 ml/min/1.73 sqM); Albumin 4.5 g/dL (3.5-5.0); Alkaline Phosphatase 118 U/L (38-126); Anion Gap 8 mmol/L; Blood Urea Nitrogen 15 mg/dL (7-17); Calcium 9.5 mg/dL (8.4-10.2); Carbon Dioxide 27 mmol/L (22-30); Chloride 101 mmol/L (98-107); GGT 30 U/L (12-43); Glucose 94 mg/dL (74-99); Non-African American GFR(CKD) >90 (>60 ml/min/1.73 sqM); Potassium 4.7 mmol/L (3.5-5.1); Sodium 136 mmol/L (137-145); Total Bilirubin 0.2 mg/dL (0.2-1.3); Total Protein 7.7 g/dL (6.3-8.2)
--- NOTE | 2021-02-18 15:49 | XR ---
Right foot and right calcaneus HISTORY: S 90.31 XA 2 views of the calcaneus, 3 views the right foot There is no radio opaque foreign body. Bone mineralization, joint spaces and alignment are maintained . There is a plantar calcaneal spur present. Some spurring present at the tibiotalar joint suspected suggesting osteoarthritic change. There is no fracture or dislocation. IMPRESSION: No acute abnormality.
== END | disposition home or self-care (01) ==
LOC: RADXRMAIN 10:52
PROVIDERS: ATTEND Internal Medicine
DX: S90.31XA Contusion of right foot, initial encounter (principal)
CPT/HCPCS: 36415; 80053; 82977; 85025

== ENCOUNTER 2021-04-22 10:51 | Emergency (ER) | payer OTHER ==
[2021-04-22] MEDS ORDERED: SODIUM CHLORIDE 0.9% 1,000 ML IV STA (11:27)
--- NOTE | 2021-04-22 11:32 | ED ---
General Adult HPI - General Chief complaint: Dizziness Stated complaint: Dizziness, Cough Time Seen by Provider: 04/22/21 11:00 Source: patient Mode of arrival: wheelchair Limitations: no limitations - History of Present Illness Initial comments: 45-year-old female with a past medical history of COPD, scoliosis presents to the emergency room for a chief complaint of lightheadedness. Patient reports this lightheadedness started yesterday when she woke up. She denies the room spinning. She denies losing consciousness or falling. Patient states that smoking seemed to worsen her lightheadedness throat the day yesterday. Today she felt a little bit better however the lightheadedness returned. Patient did notice lightheadedness worsening yesterday when going from sitting to standing but does not really notice that today.patient also admits to a dry cough. She reports she felt wheezy this morning but that has since resolved. Patient has no other complaints at this time including shortness of breath, chest pain, abdominal pain, nausea or vomiting, headache, or visual changes. - Related Data Home Medications Medication Instructions Recorded Confirmed Atorvastatin Calcium [Lipitor] 20 mg PO DAILY 04/22/21 04/22/21 Metoprolol Succinate (ER) [Toprol 25 mg PO DAILY 04/22/21 04/22/21 Xl] Venlafaxine HCl ER [Effexor Xr] 150 mg PO DAILY 04/22/21 04/22/21 lisinopriL 10 mg PO BID 04/22/21 04/22/21 Previous Rx's Medication Instructions Recorded ARIPiprazole [Abilify] 5 mg PO DAILY #14 tab 01/28/18 Allergies Allergy/AdvReac Type Severity Reaction Status Date / Time ibuprofen [From Motrin] Allergy Intermediate Rash/Hives Verified 04/22/21 11:36 Review of Systems ROS Statement: Those systems with pertinent positive or pertinent negative responses have been documented in the HPI. ROS Other: All systems not noted in ROS Statement are negative. Past Medical History Past Medical History: COPD Additional Past Medical History / Comment(s): scoliosis History of Any Multi-Drug Resistant Organisms: None Reported Past Surgical History: Tubal Ligation Past Anesthesia/Blood Transfusion Reactions: No Reported Reaction Past Psychological History: Anxiety, Depression Smoking Status: Current every day smoker Past Alcohol Use History: None Reported Past Drug Use History: None Reported - Past Family History Mother Family Medical History: No Reported History General Exam Limitations: no limitations General appearance: alert, in no apparent distress Head exam: Present: atraumatic, normocephalic, normal inspection Eye exam: Present: normal appearance, PERRL, EOMI. Absent: scleral icterus, conjunctival injection, periorbital swelling ENT exam: Present: normal exam, mucous membranes moist Neck exam: Present: normal inspection, full ROM. Absent: tenderness, meningismus, lymphadenopathy Respiratory exam: Present: normal lung sounds bilaterally. Absent: respiratory distress, wheezes, rales, rhonchi, stridor Cardiovascular Exam: Present: regular rate, normal rhythm, normal heart sounds. Absent: systolic murmur, diastolic murmur, rubs, gallop, clicks GI/Abdominal exam: Present: soft, normal bowel sounds. Absent: distended, tenderness, guarding, rebound, rigid Neurological exam: Present: alert Course Vital Signs 04/22/21 04/22/21 04/22/21 10:53 11:52 12:44 Temperature 98.2 F Pulse Rate 95 78 Pulse Rate [ 68 Sitting Concrete Laborer] Pulse Rate [ 84 Standing Concrete Laborer ] Pulse Rate [ 66 Supine Concrete Laborer] Respiratory 18 18 Rate Blood Pressure 138/82 136/96 Blood Pressure 124/78 [Right Arm Sitting] Blood Pressure 130/83 [Right Arm Standing] Blood Pressure 111/71 [Right Arm Supine] O2 Sat by Pulse 99 99 Oximetry EKG Findings - EKG Comments: EKG Findings:: Normal sinus rhythm, ventricular rate 84, MA interval 160, QTC 451 Medical Decision Making - Medical Decision Making Vitals are stable. Patient is well-appearing. CBC CMP unremarkable. EKG nonischemic. Troponin is negative. Browne virus is negative. Chest x-ray shows no acute pulmonary disease. Patient was given a liter of fluid and had significant improvement in symptoms. No longer having any lightheadedness. Vitals have remained stable. At this time patient is febrile discharge home and follow up with primary care. If she has any worsening symptoms or expenses any syncopal events she will immediately return to the emergency room. - Lab Data Result diagrams: 04/22/21 11:42 04/22/21 11:42 Lab Results 04/22/21 04/22/21 04/22/21 Range/Units 11:42 11:42 11:42 WBC 12.2 H (3.8-10.6) k/uL RBC 4.49 (3.80-5.40) m/uL Hgb 13.5 (11.4-16.0) gm/dL Hct 39.9 (34.0-46.0) % MCV 88.9 (80.0-100.0) fL MCH 30.2 (25.0-35.0) pg MCHC 33.9 (31.0-37.0) g/dL RDW 14.4 (11.5-15.5) % Plt Count 376 (150-450) k/uL MPV 6.8 Neutrophils % 73 % Lymphocytes % 18 % Monocytes % 5 % Eosinophils % 3 % Basophils % 0 % Neutrophils # 8.9 H (1.3-7.7) k/uL Lymphocytes # 2.2 (1.0-4.8) k/uL Monocytes # 0.6 (0-1.0) k/uL Eosinophils # 0.3 (0-0.7) k/uL Basophils # 0.0 (0-0.2) k/uL Sodium 138 (137-145) mmol/L Potassium 4.1 (3.5-5.1) mmol/L Chloride 106 (98-107) mmol/L Carbon Dioxide 24 (22-30) mmol/L Anion Gap 8 mmol/L BUN 10 (7-17) mg/dL Creatinine 0.67 (0.52-1.04) mg/dL Est GFR (CKD-EPI)AfAm >90 (>60 ml/min/1.73 sqM) Est GFR (CKD-EPI)NonAf >90 (>60 ml/min/1.73 sqM) Glucose 118 H (74-99) mg/dL Calcium 9.1 (8.4-10.2) mg/dL Magnesium 1.8 (1.6-2.3) mg/dL Total Bilirubin 0.2 (0.2-1.3) mg/dL AST 24 (14-36) U/L ALT 17 (4-34) U/L Alkaline Phosphatase 104 (38-126) U/L Troponin I <0.012 (0.000-0.034) ng/mL Total Protein 7.4 (6.3-8.2) g/dL Albumin 4.3 (3.5-5.0) g/dL Coronavirus (PCR) (Not Detectd) 04/22/21 Range/Units 11:42 WBC (3.8-10.6) k/uL RBC (3.80-5.40) m/uL Hgb (11.4-16.0) gm/dL Hct (34.0-46.0) % MCV (80.0-100.0) fL MCH (25.0-35.0) pg MCHC (31.0-37.0) g/dL RDW (11.5-15.5) % Plt Count (150-450) k/uL MPV Neutrophils % % Lymphocytes % % Monocytes % % Eosinophils % % Basophils % % Neutrophils # (1.3-7.7) k/uL Lymphocytes # (1.0-4.8) k/uL Monocytes # (0-1.0) k/uL Eosinophils # (0-0.7) k/uL Basophils # (0-0.2) k/uL Sodium (137-145) mmol/L Potassium (3.5-5.1) mmol/L Chloride (98-107) mmol/L Carbon Dioxide (22-30) mmol/L Anion Gap mmol/L BUN (7-17) mg/dL Creatinine (0.52-1.04) mg/dL Est GFR (CKD-EPI)AfAm (>60 ml/min/1.73 sqM) Est GFR (CKD-EPI)NonAf (>60 ml/min/1.73 sqM) Glucose (74-99) mg/dL Calcium (8.4-10.2) mg/dL Magnesium (1.6-2.3) mg/dL Total Bilirubin (0.2-1.3) mg/dL AST (14-36) U/L ALT (4-34) U/L Alkaline Phosphatase (38-126) U/L Troponin I (0.000-0.034) ng/mL Total Protein (6.3-8.2) g/dL Albumin (3.5-5.0) g/dL Coronavirus (PCR) Not Detected (Not Detectd) Disposition Clinical Impression: Lightheadedness Disposition: HOME SELF-CARE Condition: Good Instructions (If sedation given, give patient instructions): Lightheadedness (ED) Additional Instructions: Please follow-up with your doctor in one to 2 days. Return to the emergency room for any worsening symptoms. Is patient prescribed a controlled substance at d/c from ED?: No Referrals: Efren Madera MD [Primary Care Provider] - 1-2 days Time of Disposition: 13:16
[2021-04-22 12:07] LABS: Basophils % (A) 0 %; Eosinophils # (A) 0.3 k/uL (0-0.7); Eosinophils % (A) 3 %; HCT 39.9 % (34.0-46.0); HGB 13.5 gm/dL (11.4-16.0); Lymphocytes # (A) 2.2 k/uL (1.0-4.8); Lymphocytes % (A) 18 %; MCH 30.2 pg (25.0-35.0); MCHC 33.9 g/dL (31.0-37.0); MCV 88.9 fL (80.0-100.0); Mean Platelet Volume 6.8; Monocytes # (A) 0.6 k/uL (0-1.0); Monocytes % (A) 5 %; Neutrophils # (A) 8.9 k/uL (1.3-7.7); Neutrophils % (A) 73 %; Platelet Count 376 k/uL (150-450); RBC 4.49 m/uL (3.80-5.40); RDW 14.4 % (11.5-15.5); WBC 12.2 k/uL (3.8-10.6)
--- NOTE | 2021-04-22 12:15 | XR ---
EXAMINATION TYPE: XR chest 2V DATE OF EXAM: 04/22/2021 COMPARISON: 10/03/2019 CT 09/14/2020 HISTORY: Dizziness for 2 days TECHNIQUE: Frontal and lateral views of the chest are obtained. FINDINGS: Heart size is within normal limits. Multiple overlying leads. Trachea is midline. No pleur al effusion or pneumothorax. Mild bibasilar densities most likely due to overlying soft tissues. No d efinite focal consolidation. Mild degenerative changes of the thoracic spine. IMPRESSION: 1. No acute pulmonary disease.
[2021-04-22 12:21] LABS: ALT 17 U/L (4-34); AST 24 U/L (14-36); African American GFR (CKD) >90 (>60 ml/min/1.73 sqM); Albumin 4.3 g/dL (3.5-5.0); Alkaline Phosphatase 104 U/L (38-126); Anion Gap 8 mmol/L; Blood Urea Nitrogen 10 mg/dL (7-17); Calcium 9.1 mg/dL (8.4-10.2); Carbon Dioxide 24 mmol/L (22-30); Chloride 106 mmol/L (98-107); Glucose 118 mg/dL (74-99); Magnesium 1.8 mg/dL (1.6-2.3); Non-African American GFR(CKD) >90 (>60 ml/min/1.73 sqM); Potassium 4.1 mmol/L (3.5-5.1); Sodium 138 mmol/L (137-145); Total Bilirubin 0.2 mg/dL (0.2-1.3); Total Protein 7.4 g/dL (6.3-8.2)
[2021-04-22 13:49] VITALS: BP 114/66; PULSE 77; RESP 16; TEMP 98.6
== END 2021-04-22 13:51 | disposition home or self-care (01) ==
LOC: EC 10:51
DX: R42 Dizziness and giddiness (principal); J44.9 Chronic obstructive pulmonary disease, unspecified; F17.200 Nicotine dependence, unspecified, uncomplicated; Z79.899 Other long term (current) drug therapy; Z88.6 Allergy status to analgesic agent
CPT/HCPCS: 36415; 71046; 80053; 83735; 84484; 85025; 87635; 93005; 96360; 96361; 99284

== ENCOUNTER → 2021-08-05 | Outpatient (CLI) | payer OTHER ==
[2021-08-05 18:21] LABS: Basophils # (A) 0.04 X 10*3/uL (0.00-0.10); Basophils % (A) 0.3 %; Eosinophils # (A) 0.15 X 10*3/uL (0.04-0.35); Eosinophils % (A) 1.2 %; HCT 42.9 % (37.2-46.3); HGB 13.9 g/dL (12.0-15.0); Lymphocytes # (A) 2.31 X 10*3/uL (0.90-5.00); Lymphocytes % (A) 17.9 %; MCH 30.4 pg (27.0-32.0); MCHC 32.4 g/dL (32.0-37.0); MCV 93.9 fL (80.0-97.0); Mean Platelet Volume 9.8 fL (9.5-12.2); Monocytes # (A) 0.85 X 10*3/uL (0.20-1.00); Monocytes % (A) 6.6 %; Neutrophils # (A) 9.49 X 10*3/uL (1.80-7.70); Neutrophils % (A) 73.6 %; Platelet Count 371 X 10*3/uL (140-440); RBC 4.57 X 10*6/uL (4.10-5.20); RDW 13.6 % (11.5-14.5); WBC 12.89 X 10*3/uL (4.50-10.00)
[2021-08-05 20:22] LABS: Erythrocyte Sedimentation Rate 8 mm/Hr (0-20)
[2021-08-05 23:44] LABS: ALT 25 U/L (8-44); AST 31 U/L (13-35); African American GFR (CKD) 120.4 (60.0-200.0); Alkaline Phosphatase 112 U/L (41-126); BUN/Creat Ratio 17.14 Ratio (12.00-20.00); C Reactive Protein <0.4 mg/dL (0.0-0.8); Calcium 9.1 mg/dL (8.7-10.3); Carbon Dioxide 22.5 mmol/L (21.6-31.8); Chloride 106 mmol/L (96-109); Chol/HDL Ratio 3.22; Cholesterol 158 mg/dL (0-200); Creatine Kinase 263 U/L (26-186); Globulin 2.3 g/dL (1.6-3.3); Glucose 101 mg/dL (70-110); LDL Cholesterol,Calculated 84.2 mg/dL (0.0-131.0); Magnesium 1.9 mg/dL (1.5-2.4); Non-African American GFR(CKD) 103.9 (60.0-200.0); Phosphorus 2.6 mg/dL (2.4-5.1); Potassium 4.3 mmol/L (3.5-5.5); Sodium 138 mmol/L (135-145); Total Bilirubin 0.2 mg/dL (0.3-1.2); Total Protein 6.9 g/dL (6.2-8.2)
== END | disposition home or self-care (01) ==
LOC: LABWHC1 09:07
PROVIDERS: ATTEND Internal Medicine
DX: Z00.00 Encounter for general adult medical examination without abnormal findings (principal); E78.5 Hyperlipidemia, unspecified; E87.8 Other disorders of electrolyte and fluid balance, not elsewhere classified; E03.9 Hypothyroidism, unspecified; E55.9 Vitamin D deficiency, unspecified; D64.9 Anemia, unspecified; I10 Essential (primary) hypertension; J44.9 Chronic obstructive pulmonary disease, unspecified; R32 Unspecified urinary incontinence
CPT/HCPCS: 36415; 80053; 80061; 82306; 82550; 83735; 84100; 84443; 85025; 85652; 86140

== ENCOUNTER → 2021-09-21 | Outpatient (CLI) | payer OTHER ==
--- NOTE | 2021-09-21 14:22 | XR ---
KUB HISTORY: Left flank pain Portable KUB on 2 images correlated to prior KUB 10/07/2019, CT 09/30/2019 Fallopian tubal ligation clips are present within the pelvis. Bone mineralization is stable, there is a spinal curvature. There is retained fecal debris present throughout the distribution of the colon. There are overlying artifacts. No evident pneumoperitoneum or bowel obstruction. No pathologic calci fication evident. IMPRESSION: Correlate for possible fecal stasis.
== END | disposition home or self-care (01) ==
LOC: RADXRMAIN 10:38
PROVIDERS: ATTEND Internal Medicine
DX: R10.9 Unspecified abdominal pain (principal)
CPT/HCPCS: 74018

== ENCOUNTER → 2021-10-06 | Outpatient (CLI) | payer OTHER ==
[2021-10-06 23:21] LABS: Basophils # (A) 0.05 X 10*3/uL (0.00-0.10); Basophils % (A) 0.3 %; Eosinophils # (A) 0.19 X 10*3/uL (0.04-0.35); Eosinophils % (A) 1.3 %; HCT 41.1 % (37.2-46.3); HGB 13.2 g/dL (12.0-15.0); Lymphocytes # (A) 3.31 X 10*3/uL (0.90-5.00); Lymphocytes % (A) 22.4 %; MCH 29.5 pg (27.0-32.0); MCHC 32.1 g/dL (32.0-37.0); MCV 91.9 fL (80.0-97.0); Mean Platelet Volume 10.1 fL (9.5-12.2); Monocytes # (A) 0.84 X 10*3/uL (0.20-1.00); Monocytes % (A) 5.7 %; Neutrophils # (A) 10.33 X 10*3/uL (1.80-7.70); Neutrophils % (A) 69.8 %; Platelet Count 407 X 10*3/uL (140-440); RBC 4.47 X 10*6/uL (4.10-5.20); RDW 14.9 % (11.5-14.5)
[2021-10-07 00:54] LABS: Erythrocyte Sedimentation Rate 7 mm/Hr (0-20)
[2021-10-07 04:44] LABS: Chol/HDL Ratio 3.39 Ratio; Creatine Kinase 119 U/L (26-186); LDL Cholesterol,Calculated 64.6 mg/dL (0.0-131.0); Magnesium 1.7 mg/dL (1.5-2.4); Phosphorus 3.2 mg/dL (2.4-5.1)
[2021-10-07 05:37] LABS: ALT 16 U/L (8-44); AST 16 U/L (13-35); African American GFR (CKD) 119.6 (60.0-200.0); Albumin 3.8 g/dL (3.8-4.9); Alkaline Phosphatase 79 U/L (41-126); Blood Urea Nitrogen 4.9 mg/dL (9.0-27.0); C Reactive Protein <0.30 mg/dL (0.00-0.80); Carbon Dioxide 21.6 mmol/L (21.6-31.8); Chloride 101 mmol/L (96-109); Globulin 2.2 g/dL (1.6-3.3); Glucose 122 mg/dL (70-110); Non-African American GFR(CKD) 103.2 (60.0-200.0); Potassium 3.7 mmol/L (3.5-5.5); Sodium 139 mmol/L (135-145); Total Bilirubin <0.20 mg/dL (0.30-1.20); Total Protein 6.1 g/dL (6.2-8.2)
--- NOTE | 2021-10-07 09:02 | XR ---
EXAM TYPE: LUMBAR SPINE X RAY SERIES COMPARISON: NONE HISTORY: Low back pain TECHNIQUE: 4 views are submitted. FINDINGS: Alignment is anatomic. The pedicles are intact. The transverse processes are intact. There is no s pondylolysis or spondylolisthesis. Curvature of the spine facet arthropathy L5-S1. There is generati ve disc disease at all levels most marked at L4-5 and L5-S1. Facet arthropathy involving the lower rosa m mbar spine. IMPRESSION: 1. Multilevel moderate to severe degenerative disc disease with facet arthropathy. Foraminal encroach ment L4-5 and L5-S1 is SPECT with severe degenerative disc disease. Recommend follow-up MRI.
--- NOTE | 2021-10-07 09:03 | XR ---
EXAMINATION TYPE: XR thoracic spine complete DATE OF EXAM: 10/06/2021 COMPARISON: NONE HISTORY: Pain TECHNIQUE: 3 views submitted FINDINGS: Alignment is anatomic. There is no compression deformities. Hypertrophic and degenerative changes sp ine. No compression deformities. IMPRESSION: 1. Multilevel moderate degenerative disc disease
== END | disposition home or self-care (01) ==
LOC: LABWHC1 16:20
PROVIDERS: ATTEND Internal Medicine
DX: M51.36 Other intervertebral disc degeneration, lumbar region (principal); M51.34 Other intervertebral disc degeneration, thoracic region; M51.37 Other intervertebral disc degeneration, lumbosacral region; J44.9 Chronic obstructive pulmonary disease, unspecified; I10 Essential (primary) hypertension; E78.5 Hyperlipidemia, unspecified; E03.9 Hypothyroidism, unspecified; E55.9 Vitamin D deficiency, unspecified; F32.9 Major depressive disorder, single episode, unspecified; E66.9 Obesity, unspecified; M47.819 Spondylosis without myelopathy or radiculopathy, site unspecified; M19.90 Unspecified osteoarthritis, unspecified site
CPT/HCPCS: 36415; 72072; 72110; 80053; 80061; 82306; 82550; 83735; 84100; 84443; 85025; 85652; 86140

== ENCOUNTER 2021-10-12 12:55 | Emergency (ER) | payer OTHER ==
--- NOTE | 2021-10-12 15:35 | ED ---
Psych HPI - General Chief Complaint: Psychiatric Symptoms Stated Complaint: Withdrawal from medication Time Seen by Provider: 10/12/21 14:45 Source: patient, RN notes reviewed Mode of arrival: ambulatory Limitations: no limitations - History of Present Illness Initial Comments: This a 45-year-old female presents emergency from chief complaint of needing psychiatric help. Patient states that she recently stopped her Risperdal SHE did not like the way of feeling. Patient states that she started having hallucinations, paranoia. Patient states that she is not using any illicit drug use no alcohol abuse. No physical complaints of the recent back pain which is improving. She was on Flexeril 5 mg for this. - Related Data Home Medications Medication Instructions Recorded Confirmed Atorvastatin Calcium [Lipitor] 20 mg PO DAILY 04/22/21 04/22/21 Metoprolol Succinate (ER) [Toprol 25 mg PO DAILY 04/22/21 04/22/21 Xl] Venlafaxine HCl ER [Effexor Xr] 150 mg PO DAILY 04/22/21 04/22/21 lisinopriL 10 mg PO BID 04/22/21 04/22/21 Previous Rx's Medication Instructions Recorded ARIPiprazole [Abilify] 5 mg PO DAILY #14 tab 01/28/18 Allergies Allergy/AdvReac Type Severity Reaction Status Date / Time ibuprofen [From Motrin] Allergy Intermediate Rash/Hives Verified 10/12/21 13:39 Review of Systems ROS Statement: Those systems with pertinent positive or pertinent negative responses have been documented in the HPI. ROS Other: All systems not noted in ROS Statement are negative. Past Medical History Past Medical History: COPD Additional Past Medical History / Comment(s): scoliosis History of Any Multi-Drug Resistant Organisms: None Reported Past Surgical History: Tubal Ligation Past Anesthesia/Blood Transfusion Reactions: No Reported Reaction Past Psychological History: Anxiety, Depression Smoking Status: Current every day smoker Past Alcohol Use History: None Reported Past Drug Use History: None Reported - Past Family History Mother Family Medical History: No Reported History General Exam Limitations: no limitations General appearance: alert, in no apparent distress Head exam: Present: atraumatic, normocephalic, normal inspection Neck exam: Present: normal inspection, full ROM. Absent: tenderness, meningismus, lymphadenopathy Respiratory exam: Present: normal lung sounds bilaterally. Absent: respiratory distress, wheezes, rales, rhonchi, stridor Cardiovascular Exam: Present: regular rate, normal rhythm, normal heart sounds. Absent: systolic murmur, diastolic murmur, rubs, gallop, clicks Psychiatric exam: Present: flat affect Skin exam: Present: warm, dry, intact, normal color. Absent: rash Course Vital Signs 10/12/21 13:39 Temperature 98.9 F Pulse Rate 100 Respiratory 20 Rate Blood Pressure 138/94 O2 Sat by Pulse 96 Oximetry Medical Decision Making - Medical Decision Making patient was evaluated by EPS patient will be discharged in stable condition. Psychiatrists did not recommend inpatient treatment. Disposition Clinical Impression: Depression, Medication reaction Disposition: HOME SELF-CARE Condition: Stable Instructions (If sedation given, give patient instructions): Depression (ED) Additional Instructions: Please return to the Emergency Department if symptoms worsen or any other concerns. Is patient prescribed a controlled substance at d/c from ED?: No Referrals: Efren Madera MD [Primary Care Provider] - 1-2 days Time of Disposition: 17:09
[2021-10-12 17:35] VITALS: BP 132/88; PULSE 89; RESP 18; TEMP 97.8
== END 2021-10-12 17:34 | disposition home or self-care (01) ==
LOC: EC 12:55
DX: F32.A Depression, unspecified (principal); J44.9 Chronic obstructive pulmonary disease, unspecified; F41.9 Anxiety disorder, unspecified; F17.200 Nicotine dependence, unspecified, uncomplicated; Z98.51 Tubal ligation status; Z88.6 Allergy status to analgesic agent
CPT/HCPCS: 82075; 99283

== ENCOUNTER 2022-09-01 01:40 | Emergency (ER) | payer OTHER ==
[2022-09-01 02:32] VITALS: BP 130/42; PULSE 107; RESP 18; TEMP 97.5
--- NOTE | 2022-09-01 03:19 | ED ---
General Adult HPI - General Chief complaint: Anxiety Stated complaint: emotional distress Time Seen by Provider: 09/01/22 03:06 Source: patient Mode of arrival: ambulatory - History of Present Illness Initial comments: Dictation was produced using [employer] dictation software. please excuse any grammatical, word or spelling errors. Chief Complaint: 46-year-old male presents emergency department for feelings of emotional distress History of Present Illness: [id number] female she presents emergency department for feeling emotionally distressed. Patient is a frequent or of [facility]. States that she's been talking to her ex and her interactions with that person has caused her to feel area upset causing her to cry a lot. Patient states she is on depression medications however has not been compliant. She has an appointment with [facility] in a month. Patient has no other complaints. The ROS documented in this emergency department record has been reviewed and confirmed by me. Those systems with pertinent positive or negative responses have been documented in the HPI. All other systems are other negative and/or noncontributory. PHYSICAL EXAM: General Impression: Alert and oriented x3, not in acute distress HEENT: Normocephalic atraumatic, extra-ocular movements intact, pupils equal and reactive to light bilaterally, mucous membranes moist. Cardiovascular: Heart regular rate and rhythm Chest: Able to complete full sentences, no retractions, no tachypnea Abdomen: abdomen soft, non-tender, non-distended, no organomegaly Musculoskeletal: Pulses present and equal in all extremities, no peripheral edema Motor: no focal deficits noted Neurological: CN II-XII grossly intact, no focal motor or sensory deficits noted Skin: Intact with no visualized rashes Psych: Normal affect and mood ED course: 46-year-old well-appearing female presents emergency Department feeling anxious and emotionally distressed because of recent interactions with her ex significant other. Vital signs upon arrival are within acceptable limits. Patient's well-appearing at the bedside. Patient has no medical complaints. Patient given one pill of [facility] preferred pharmacy. Patient told to follow-up with the mental health. - Related Data Home Medications Medication Instructions Recorded Confirmed Atorvastatin Calcium [Lipitor] 20 mg PO DAILY 04/22/21 04/22/21 Metoprolol Succinate (ER) [Toprol 25 mg PO DAILY 04/22/21 04/22/21 Xl] Venlafaxine HCl ER [Effexor Xr] 150 mg PO DAILY 04/22/21 04/22/21 lisinopriL [Prinivil] 10 mg PO BID 04/22/21 04/22/21 Previous Rx's Medication Instructions Recorded ARIPiprazole [Abilify] 5 mg PO DAILY #14 tab 01/28/18 ALPRAZolam [Xanax] 0.25 mg PO ONCE PRN #1 tab 09/01/22 Allergies Allergy/AdvReac Type Severity Reaction Status Date / Time ibuprofen [From Motrin] Allergy Intermediate Rash/Hives Verified 09/01/22 02:32 Review of Systems ROS Statement: Those systems with pertinent positive or pertinent negative responses have been documented in the HPI. ROS Other: All systems not noted in ROS Statement are negative. Past Medical History Past Medical History: COPD Additional Past Medical History / Comment(s): scoliosis History of Any Multi-Drug Resistant Organisms: None Reported Past Surgical History: Tubal Ligation Past Anesthesia/Blood Transfusion Reactions: No Reported Reaction Past Psychological History: Anxiety, Depression Smoking Status: Current every day smoker Past Alcohol Use History: None Reported Past Drug Use History: None Reported - Past Family History Mother Family Medical History: No Reported History Course Vital Signs 09/01/22 02:28 Temperature 97.5 F L Pulse Rate 107 H Respiratory 18 Rate Blood Pressure 130/42 O2 Sat by Pulse 98 Oximetry Disposition Clinical Impression: Anxiety Disposition: HOME SELF-CARE Instructions (If sedation given, give patient instructions): Generalized Anxiety Disorder (ED) Prescriptions: ALPRAZolam [Xanax] 0.25 mg PO ONCE PRN #1 tab PRN Reason: Anxiety Is patient prescribed a controlled substance at d/c from ED?: Yes If prescribed controlled substance>3 days was MAPS reviewed?: Prescribed <3 Days Referrals: Efren Madera MD [Primary Care Provider] - 1-2 days Time of Disposition: 03:18
== END 2022-09-01 03:40 | disposition home or self-care (01) ==
LOC: EC 01:40
DX: F41.9 Anxiety disorder, unspecified (principal); F17.200 Nicotine dependence, unspecified, uncomplicated; Z88.6 Allergy status to analgesic agent
CPT/HCPCS: 99283

== ENCOUNTER 2022-09-01 03:51 | Inpatient (IN) | payer MEDICAID, OTHER ==
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
[2022-09-01] MEDS ORDERED: MAG HYDROX/AL HYDROX/SIMETH 30 ML CUP PO PRN (05:33)
[2022-09-01] MEDS ORDERED: ACETAMINOPHEN TAB 325 MG TAB PO PRN (05:33)
[2022-09-01] MEDS ORDERED: HALOPERIDOL LACTATE 5 MG/ML 1 ML VIAL IM PRN (05:33)
[2022-09-01] MEDS ORDERED: LORazepam 1 MG TAB PO PRN (05:33)
[2022-09-01] MEDS ORDERED: MAGNESIUM HYDROXIDE 2,400 MG/10 ML CUP PO PRN (05:33)
[2022-09-01] MEDS ORDERED: LORazepam 2 MG/ML INJ IM PRN (05:36)
[2022-09-01] MEDS ORDERED: haloperidoL 5 MG TAB PO PRN (05:37)
[2022-09-01 06:56] LABS: Appearance,Urine Clear (Clear); Bilirubin,Urine Negative (Negative); Blood,Urine Negative (Negative); Color,Urine Colorless; Glucose,Urine (UA) Negative (Negative); Ketones,Urine Negative (Negative); Leukocyte Esterase,Urine Negative (Negative); Nitrite,Urine Negative (Negative); PH, Urine 6.5 (5.0-8.0); Protein,Urine Negative (Negative); Specific Gravity,Urine 1.003 (1.001-1.035); Urobilinogen,Urine <2.0 mg/dL (<2.0)
[2022-09-01] MEDS ORDERED: ARIPiprazole 2 MG TAB PO SCH (09:00)
[2022-09-01] MEDS: NICOTINE 14MG/24HR PATCH TRANSDERM SCH (09:40)
[2022-09-01] MEDS: VENLAFAXINE HCL ER 150 MG CAP PO SCH (09:41)
[2022-09-01] MEDS: lisinopriL 10 MG TAB PO SCH ×2 (09:41→21:03)
[2022-09-01] MEDS: ATORVASTATIN 20 MG TAB PO SCH (09:41)
[2022-09-01] MEDS ORDERED: traZODone HCL 50 MG TAB PO PRN (11:43)
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
[2022-09-01] MEDS ORDERED: LORazepam 1 MG/0.5 ML VIAL IM PRN (16:29)
[2022-09-01 20:48] LABS: Urine Alcohol Negative (Negative); Urine Barbiturate Negative (Negative); Urine Cocaine Negative (Negative); Urine Methadone Negative (Negative); Urine Opiates Negative (Negative); Urine Phencyclidine Negative (Negative)
[2022-09-01] MEDS: PALIPERIDONE 3 MG TAB.ER.24 PO SCH (21:03)
[2022-09-02] MEDS: VENLAFAXINE HCL ER 150 MG CAP PO SCH (08:02)
[2022-09-02] MEDS: lisinopriL 10 MG TAB PO SCH ×2 (08:02→20:12)
[2022-09-02] MEDS: NICOTINE 14MG/24HR PATCH TRANSDERM SCH (08:02)
[2022-09-02] MEDS: ATORVASTATIN 20 MG TAB PO SCH (08:02)
[2022-09-02 10:36] LABS: Basophils # (A) 0.1 k/uL (0-0.2); Basophils % (A) 1 %; Eosinophils # (A) 0.2 k/uL (0-0.7); Eosinophils % (A) 2 %; HCT 40.4 % (34.0-46.0); HGB 13.3 gm/dL (11.4-16.0); Lymphocytes # (A) 2.6 k/uL (1.0-4.8); Lymphocytes % (A) 23 %; MCHC 32.9 g/dL (31.0-37.0); MCV 94.3 fL (80.0-100.0); Mean Platelet Volume 7.6; Monocytes # (A) 0.6 k/uL (0-1.0); Monocytes % (A) 5 %; Neutrophils # (A) 7.5 k/uL (1.3-7.7); Neutrophils % (A) 68 %; Platelet Count 373 k/uL (150-450); RBC 4.28 m/uL (3.80-5.40); RDW 13.1 % (11.5-15.5); WBC 11.1 k/uL (3.8-10.6)
[2022-09-02 10:57] LABS: ALT 18 U/L (4-34); AST 21 U/L (14-36); African American GFR (CKD) >90 (>60 ml/min/1.73 sqM); Albumin 3.7 g/dL (3.5-5.0); Alkaline Phosphatase 89 U/L (38-126); Anion Gap 8 mmol/L; Bilirubin, Delta 0.3 mg/dL (0.0-0.2); Blood Urea Nitrogen 6 mg/dL (7-17); Calcium 8.7 mg/dL (8.4-10.2); Carbon Dioxide 23 mmol/L (22-30); Chloride 105 mmol/L (98-107); Glucose 94 mg/dL (74-99); Non-African American GFR(CKD) >90 (>60 ml/min/1.73 sqM); Potassium 4.1 mmol/L (3.5-5.1); Sodium 136 mmol/L (137-145); Total Bilirubin 0.3 mg/dL (0.2-1.3); Total Protein 6.1 g/dL (6.3-8.2)
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
[2022-09-02 16:52] LABS: Chol/HDL Ratio 3.25 Ratio; LDL Cholesterol,Calculated 91.3 mg/dL (0.0-131.0)
[2022-09-02] MEDS: PALIPERIDONE 3 MG TAB.ER.24 PO SCH (20:12)
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
[2022-09-03] MEDS: NICOTINE 14MG/24HR PATCH TRANSDERM SCH (08:58)
[2022-09-03] MEDS: lisinopriL 10 MG TAB PO SCH ×2 (08:58→20:22)
[2022-09-03] MEDS: ATORVASTATIN 20 MG TAB PO SCH (08:58)
[2022-09-03] MEDS: VENLAFAXINE HCL ER 150 MG CAP PO SCH (08:58)
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
[2022-09-03] MEDS: PALIPERIDONE 3 MG TAB.ER.24 PO SCH (20:22)
[2022-09-04] MEDS: lisinopriL 10 MG TAB PO SCH ×2 (08:41→20:44)
[2022-09-04] MEDS: VENLAFAXINE HCL ER 150 MG CAP PO SCH (08:41)
[2022-09-04] MEDS: NICOTINE 14MG/24HR PATCH TRANSDERM SCH (08:41)
[2022-09-04] MEDS: ATORVASTATIN 20 MG TAB PO SCH (08:41)
[2022-09-04] MEDS ORDERED: traZODone HCL 50 MG TAB PO PRN (18:15)
[2022-09-04] MEDS: PALIPERIDONE 3 MG TAB.ER.24 PO SCH (20:44)
[2022-09-05 07:10] VITALS: BP 107/58; PULSE 80; RESP 16; TEMP 98.1
[2022-09-05] MEDS: VENLAFAXINE HCL ER 150 MG CAP PO SCH (08:53)
[2022-09-05] MEDS: lisinopriL 10 MG TAB PO SCH (08:53)
[2022-09-05] MEDS: ATORVASTATIN 20 MG TAB PO SCH (08:53)
[2022-09-05] MEDS: NICOTINE 14MG/24HR PATCH TRANSDERM SCH (08:53)
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
== END 2022-09-05 12:48 | disposition home or self-care (01) | DRG 885 ==
LOC: EC 03:51 → 3MHU 05:23
PROVIDERS: ADMIT Psychiatry & Neurology Psychiatry; ATTEND Psychiatry & Neurology Psychiatry
DX: F31.9 Bipolar disorder, unspecified (principal); R45.851 Suicidal ideations; D72.829 Elevated white blood cell count, unspecified; E78.5 Hyperlipidemia, unspecified; F17.210 Nicotine dependence, cigarettes, uncomplicated; F43.23 Adjustment disorder with mixed anxiety and depressed mood; G47.00 Insomnia, unspecified; I10 Essential (primary) hypertension; J44.9 Chronic obstructive pulmonary disease, unspecified; M41.9 Scoliosis, unspecified; Z20.822 Contact with and (suspected) exposure to COVID-19; Z59.00 Homelessness unspecified; Z59.86 Financial insecurity; Z79.899 Other long term (current) drug therapy
CPT/HCPCS: 80053; 80061; 80306; 81003; 81025; 82075; 82248; 83036; 84443; 85025; 87635; 99285

== ENCOUNTER 2022-10-03 20:19 | Inpatient (IN) | payer MEDICAID, OTHER ==
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
[2022-10-03 20:52] LABS: Appearance,Urine Clear (Clear); Bilirubin,Urine Negative (Negative); Blood,Urine Negative (Negative); Color,Urine Light Yellow; Glucose,Urine (UA) Negative (Negative); Ketones,Urine 1+ (Negative); Leukocyte Esterase,Urine Negative (Negative); Nitrite,Urine Negative (Negative); Protein,Urine Negative (Negative); Specific Gravity,Urine 1.003 (1.001-1.035); Urobilinogen,Urine <2.0 mg/dL (<2.0)
[2022-10-04] MEDS ORDERED: MAG HYDROX/AL HYDROX/SIMETH 30 ML CUP PO PRN (03:15)
[2022-10-04] MEDS ORDERED: MAGNESIUM HYDROXIDE 2,400 MG/10 ML CUP PO PRN (03:15)
[2022-10-04] MEDS ORDERED: LORazepam 2 MG/ML INJ IM PRN (03:19)
[2022-10-04] MEDS ORDERED: LORazepam 1 MG TAB PO PRN (03:19)
[2022-10-04] MEDS ORDERED: HALOPERIDOL LACTATE 5 MG/ML 1 ML VIAL IM PRN (03:20)
[2022-10-04] MEDS ORDERED: haloperidoL 5 MG TAB PO PRN (03:20)
[2022-10-04] MEDS ORDERED: LORazepam 1 MG/0.5 ML VIAL IM PRN (08:02)
[2022-10-04] MEDS: NICOTINE 14MG/24HR PATCH TRANSDERM SCH (09:04)
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
[2022-10-04] MEDS: PALIPERIDONE 3 MG TAB.ER.24 PO SCH (13:01)
[2022-10-04] MEDS ORDERED: ALBUTEROL HFA INHALER INHALATION PRN (16:31)
--- NOTE | 2022-10-04 16:34 | P.CONS ---
History of Present Illness - Reason for Consult Consult date: 10/04/22 - History of Present Illness Patient is a 46-year-old female with PMH of COPD, hypertension, nicotine abuse, dyslipidemia that presents the ED for behavioral disturbances. She has been admitted to mental health unit for further management of symptoms. [facility] has been consulted for medical management of this patient. Patient has no complaints today. Patient reports drinking alcohol socially. Patient reports marijuana occasionally She also smokes a pack of cigarettes daily. Patient currently denies any headache, lower extremity edema, nausea vomiting, fever chills, cough, chest pain, shortness of breath, palpitations, changes in urination or bowel habits. No changes in appetite or weight. She denies any dizziness, numbness/weakness/tingling of the extremities. Review of systems is performed and is negative except above. General: non toxic, no distress, appears at stated age Derm: warm, dry Head: atraumatic, normocephalic, symmetric Eyes: EOMI, no lid lag, anicteric sclera Mouth: no lip lesion, mucus membranes moist Cardiovascular: S1S2 reg, no murmur, positive posterior tibial pulse bilateral Lungs: Decreased BS bilateral, no rhonchi, no rales , no accessory muscle use Abdominal: soft, nontender to palpation, no guarding, no appreciable organomegaly Ext: no gross muscle atrophy, no edema, no contractures Neuro: no focal neuro deficits Psych: Alert, oriented, appropriate affect #COPD not in acute exacerbation #Dyslipidemia #Hypertension #Nicotine abuse #Marijuana use Albuterol nebulized treatments as needed for shortness of breath and wheezing. Restart Lipitor. Restart Lisinopril. Monitor vitals, adjust medications as necessary. Continue nicotine patch. Patient advised against illicit substance abuse. Thank you for this consultation. Please call [facility] with additional questions or concerns. Past Medical History Past Medical History: COPD Additional Past Medical History / Comment(s): scoliosis History of Any Multi-Drug Resistant Organisms: None Reported Past Surgical History: Tubal Ligation Past Anesthesia/Blood Transfusion Reactions: No Reported Reaction Past Psychological History: Anxiety, Depression Smoking Status: Current every day smoker Past Alcohol Use History: None Reported Additional Past Alcohol Use History / Comment(s): "through seventh month of " Past Drug Use History: None Reported - Past Family History Mother Family Medical History: Cancer Medications and Allergies Home Medications Medication Instructions Recorded Confirmed Type Atorvastatin Calcium [Lipitor] 20 mg PO DAILY 04/22/21 09/01/22 History lisinopriL [Prinivil] 10 mg PO BID 04/22/21 09/01/22 History Nicotine 14Mg/24Hr Patch [Habitrol] 1 patch TRANSDERM DAILY 14 Days 09/05/22 Rx patch Paliperidone [Invega] 3 mg PO HS 30 Days tab 09/05/22 Rx Venlafaxine HCl ER [Effexor XR] 150 mg PO DAILY 30 Days cap 09/05/22 Rx traZODone HCL [Desyrel] 25 mg PO HS PRN 30 Days tab 09/05/22 Rx Allergies Allergy/AdvReac Type Severity Reaction Status Date / Time ibuprofen [From Motrin] Allergy Intermediate Rash/Hives Verified 09/01/22 05:37 Physical Exam Vitals: Vital Signs Temp Pulse Pulse Resp BP BP Pulse Ox 10/04/22 08:00 98 F 96 16 122/79 96 10/04/22 03:43 97.7 F 96 18 116/76 96 10/04/22 03:31 71 16 107/72 98 10/03/22 20:40 98.2 F 72 18 116/54 98 Intake and Output 10/04/22 10/04/22 10/04/22 06:59 14:59 22:59 Other: Weight 68.039 kg Results Labs: Abnormal Lab Results - Last 24 Hours (Table) 10/03/22 Range/Units 20:43 Urine Ketones 1+ H (Negative)
[2022-10-04] MEDS: lisinopriL 10 MG TAB PO SCH (20:38)
[2022-10-05] MEDS: ACETAMINOPHEN TAB 325 MG TAB PO PRN ×2 (01:09→20:08)
[2022-10-05] MEDS: lisinopriL 10 MG TAB PO SCH ×2 (08:56→20:04)
[2022-10-05] MEDS: NICOTINE 14MG/24HR PATCH TRANSDERM SCH (08:56)
[2022-10-05] MEDS: PALIPERIDONE 3 MG TAB.ER.24 PO SCH (08:57)
[2022-10-05] MEDS: ATORVASTATIN 20 MG TAB PO SCH (08:57)
[2022-10-05] MEDS: VENLAFAXINE HCL 75 MG TAB PO SCH (08:57)
--- NOTE | 2022-10-05 10:17 | P.PN ---
Progress Note - Text Progress Note Date: 10/05/22 S&O: Patient was seen in rounds. She took her morning medicines of Invega and Effexor. She said she feels better today. She said she slept better also last night. She denies any adverse effects from her medications. She does not have any specific complaint. This is a right ambulatory female with good hygiene. She does not show any psychomotor agitation or retardation. Her speech is spontaneous relevant and goal-directed. Mood is mildly angry and affect is somewhat constricted in rang e. But she did not cry/weep like she did yesterday. Continues to deny suicide, homicide thoughts, hallucinations and delusional thinking. She is well oriented with good memory. She is planning on finding a different job to support herself. A: Patient is with depression don't get better overnight without any medication. So personality disorder unspecified appears to be correct diagnosis. P: Continue current medications, therapy and supervision.
[2022-10-05 15:45] LABS: Basophils # (A) 0.1 k/uL (0-0.2); Basophils % (A) 1 %; Eosinophils # (A) 0.2 k/uL (0-0.7); Eosinophils % (A) 2 %; HCT 39.8 % (34.0-46.0); HGB 13.2 gm/dL (11.4-16.0); Hypochromasia Slight; Lymphocytes # (A) 2.7 k/uL (1.0-4.8); Lymphocytes % (A) 26 %; MCH 31.1 pg (25.0-35.0); MCHC 33.2 g/dL (31.0-37.0); MCV 93.7 fL (80.0-100.0); Mean Platelet Volume 7.5; Monocytes # (A) 0.7 k/uL (0-1.0); Monocytes % (A) 7 %; Neutrophils # (A) 6.7 k/uL (1.3-7.7); Neutrophils % (A) 64 %; Platelet Count 384 k/uL (150-450); RBC 4.25 m/uL (3.80-5.40); RDW 12.7 % (11.5-15.5); WBC 10.5 k/uL (3.8-10.6)
[2022-10-05 15:56] LABS: ALT 23 U/L (4-34); AST 27 U/L (14-36); African American GFR (CKD) >90 (>60 ml/min/1.73 sqM); Albumin 4.6 g/dL (3.5-5.0); Alkaline Phosphatase 94 U/L (38-126); Anion Gap 7 mmol/L; Blood Urea Nitrogen 8 mg/dL (7-17); Calcium 9.7 mg/dL (8.4-10.2); Carbon Dioxide 28 mmol/L (22-30); Chloride 103 mmol/L (98-107); Glucose 86 mg/dL (74-99); Non-African American GFR(CKD) >90 (>60 ml/min/1.73 sqM); Potassium 4.4 mmol/L (3.5-5.1); Sodium 138 mmol/L (137-145); Total Bilirubin <0.1 mg/dL (0.2-1.3); Total Protein 7.3 g/dL (6.3-8.2)
[2022-10-05 17:32] VITALS: BMI 24.2
[2022-10-06] MEDS: NICOTINE 14MG/24HR PATCH TRANSDERM SCH (09:14)
[2022-10-06] MEDS: ATORVASTATIN 20 MG TAB PO SCH (09:15)
[2022-10-06] MEDS: lisinopriL 10 MG TAB PO SCH ×2 (09:15→19:57)
[2022-10-06] MEDS: VENLAFAXINE HCL 75 MG TAB PO SCH ×2 (09:15→09:17)
[2022-10-06] MEDS: PALIPERIDONE 3 MG TAB.ER.24 PO SCH (09:15)
--- NOTE | 2022-10-06 09:35 | P.PN ---
Progress Note - Text Progress Note Date: 10/06/22 S&O: Patient was seen in rounds. She is taking her medications and has started to socialize with peers. He said she was crying last night when she was drinking about something that happened in the past. She thinks she is getting better and wishes to go and stay with her brother after discharge. She takes her medications and denies any adverse effects from medication. She participates in group activities. She said she had a good conversation with the father of her children yesterday. This is a right ambulatory female with good hygiene. She does not show any psychomotor agitation or retardation. Her speech is spontaneous relevant and goal-directed. Mood is euthymic and affect is rather labile and got almost tearful at one point today. She denies hallucinations delusional thinking suicide and homicide thoughts. Her sensorium is clear. A&P: Continue Latuda Effexor, therapy and supervision.
[2022-10-06] MEDS: ACETAMINOPHEN TAB 325 MG TAB PO PRN (19:57)
[2022-10-07] MEDS: NICOTINE 14MG/24HR PATCH TRANSDERM SCH (08:58)
[2022-10-07] MEDS: PALIPERIDONE 3 MG TAB.ER.24 PO SCH (08:58)
[2022-10-07] MEDS: ATORVASTATIN 20 MG TAB PO SCH (08:58)
[2022-10-07] MEDS: lisinopriL 10 MG TAB PO SCH ×2 (09:44→20:57)
[2022-10-07] MEDS: ACETAMINOPHEN TAB 325 MG TAB PO PRN (20:57)
--- NOTE | 2022-10-07 23:01 | P.PN ---
Progress Note - Text Progress Note Date: 10/07/22 Interval history: Patient was directable and agreeable to speak with movie writer. She is pleasant on assessment. She reports she is more active, going to groups more but still had crying spells this morning. She reports her mood is "pretty good" despite the crying spells, reports good sleep and appetite. At this time, patient denies any suicidal or homicidal ideation, intent or plan. Denies any auditory or visual hallucinations. Patient denies any side effects from the medications and has been compliant with meds. She prefers to keep her meds the same today. Mental status exam: General Appearance: Patient appears to be stated age is alert, directable, and cooperative. Behavior: No agitated behavior. Patient is calm and directable. Speech: Patient's speech is fluent and non-pressured. Mood/Affect: Mood is improving mildly, affect is congruent and constricted. Suicidality/Homicidality: Patient denies having any suicidal or homicidal ideation intent or plan. Perceptions: Patient denies any auditory or visual hallucinations. Though content/process: There is no evidence of any delusional thought content and thought process is linear and goal-directed. Memory and concentration: AOX3, grossly intact for the purposes of this session Judgment and insight: improving mildly Assessment/Plan: Continue with current diagnosis. Patient continues to meet criteria for inpatient psychiatric admission for symptom stabilization and safety. Patient will be maintained on current psychotropic medication regimen. Monitor for medication compliance and for any psychotropic medication side effects. Will continue to monitor ongoing response to treatment. Encouraged participation in milieu.
[2022-10-08] MEDS: ACETAMINOPHEN TAB 325 MG TAB PO PRN ×2 (08:57→21:19)
[2022-10-08] MEDS: ATORVASTATIN 20 MG TAB PO SCH (08:57)
[2022-10-08] MEDS: NICOTINE 14MG/24HR PATCH TRANSDERM SCH (08:57)
[2022-10-08] MEDS: lisinopriL 10 MG TAB PO SCH ×2 (08:57→21:19)
[2022-10-08] MEDS: PALIPERIDONE 3 MG TAB.ER.24 PO SCH (08:57)
[2022-10-08] MEDS: VENLAFAXINE HCL 75 MG TAB PO SCH (08:58)
[2022-10-08 11:19] VITALS: RESP 16; TEMP 97.3
--- NOTE | 2022-10-08 20:39 | P.PN ---
Progress Note - Text Progress Note Date: 10/08/22 Interval history: Patient was found socializing with her roommates in her room and was directable and agreeable to speak with typewriter tester. She is pleasant on assessment. She reports good mood, sleep and appetite today. At this time, patient denies any suicidal or homicidal ideation, intent or plan. Denies any auditory or visual hallucinations. Patient denies any side effects from the medications and has been compliant with meds. She prefers to keep her meds the same today. Mental status exam: General Appearance: Patient appears to be stated age is alert, directable, and cooperative. Behavior: No agitated behavior. Patient is calm and directable. Speech: Patient's speech is fluent and non-pressured. Mood/Affect: Mood is improving mildly, affect is congruent and constricted. Suicidality/Homicidality: Patient denies having any suicidal or homicidal ideation intent or plan. Perceptions: Patient denies any auditory or visual hallucinations. Though content/process: There is no evidence of any delusional thought content and thought process is linear and goal-directed. Memory and concentration: AOX3, grossly intact for the purposes of this session Judgment and insight: improving mildly Assessment/Plan: Continue with current diagnosis. Patient continues to meet criteria for inpatient psychiatric admission for symptom stabilization and safety. Patient will be maintained on current psychotropic medication regimen. Monitor for medication compliance and for any psychotropic medication side effects. Will continue to monitor ongoing response to treatment. Encouraged participation in milieu.
[2022-10-09 09:11] VITALS: BP 117/68; PULSE 94
[2022-10-09] MEDS: VENLAFAXINE HCL 75 MG TAB PO SCH (09:11)
[2022-10-09] MEDS: NICOTINE 14MG/24HR PATCH TRANSDERM SCH (09:12)
[2022-10-09] MEDS: lisinopriL 10 MG TAB PO SCH (09:12)
[2022-10-09] MEDS: ATORVASTATIN 20 MG TAB PO SCH (09:12)
[2022-10-09] MEDS: PALIPERIDONE 3 MG TAB.ER.24 PO SCH (09:12)
[2022-10-09] MEDS: ACETAMINOPHEN TAB 325 MG TAB PO PRN (09:13)
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
== END 2022-10-09 13:57 | disposition home or self-care (01) | DRG 881 ==
LOC: EC 20:19 → 3MHU 10-04 03:09
PROVIDERS: ADMIT Psychiatry & Neurology Psychiatry; ATTEND Psychiatry & Neurology Psychiatry
DX: F32.9 Major depressive disorder, single episode, unspecified (principal); R45.851 Suicidal ideations; E78.5 Hyperlipidemia, unspecified; F60.89 Other specific personality disorders; J44.9 Chronic obstructive pulmonary disease, unspecified; Z20.822 Contact with and (suspected) exposure to COVID-19; F12.90 Cannabis use, unspecified, uncomplicated; Z28.310 Unvaccinated for COVID-19; F41.9 Anxiety disorder, unspecified; I10 Essential (primary) hypertension; M41.9 Scoliosis, unspecified; M54.30 Sciatica, unspecified side; Z71.6 Tobacco abuse counseling; F17.210 Nicotine dependence, cigarettes, uncomplicated; Z79.899 Other long term (current) drug therapy; Z56.0 Unemployment, unspecified; Z62.811 Personal history of psychological abuse in childhood; Z59.86 Financial insecurity; Z88.6 Allergy status to analgesic agent; Z71.41 Alcohol abuse counseling and surveillance of alcoholic; Z71.51 Drug abuse counseling and surveillance of drug abuser
CPT/HCPCS: 80053; 81003; 81025; 82075; 84439; 84443; 85025; 87635; 99285

== ENCOUNTER 2023-02-24 13:42 | Emergency (ER) | payer OTHER ==
[2023-02-24 13:47] VITALS: BP 130/87; PULSE 90; RESP 16; TEMP 97.9
[2023-02-24] MEDS ORDERED: ACETAMINOPHEN TAB 500 MG TAB PO STA (13:51)
[2023-02-24] MEDS ORDERED: PHENAZOPYRIDINE 200 MG TAB PO STA (13:51)
[2023-02-24 14:12] LABS: Appearance,Urine Clear (Clear); Bilirubin,Urine Negative (Negative); Blood,Urine Negative (Negative); Color,Urine Colorless; Glucose,Urine (UA) Negative (Negative); Ketones,Urine Negative (Negative); Leukocyte Esterase,Urine Negative (Negative); Nitrite,Urine Negative (Negative); Protein,Urine Negative (Negative); Specific Gravity,Urine 1.001 (1.001-1.035); Urobilinogen,Urine <2.0 mg/dL (<2.0)
[2023-02-24] MEDS ORDERED: ACET/COD 300 MG/30 MG STARTER PACK 6 TAB BTL PO STA (15:02)
[2023-02-24] MEDS ORDERED: Acetaminophen-Codeine 300-30mg TAB PO STA (15:02)
--- NOTE | 2023-02-24 15:09 | ED ---
Back Pain HPI - General Chief Complaint: Back Pain/Injury Stated Complaint: R leg/back pain Time Seen by Provider: 02/24/23 13:51 Source: patient, RN notes reviewed, old records reviewed Limitations: no limitations - History of Present Illness Initial Comments: This is a 47-year-old female to the ER for evaluation patient presents today for evaluation of possible urinary tract infection history of the same with started recently on antibiotics yesterday for possible urinary infection versus upper respiratory infection. Patient has no recent trauma she also has a history of chronic back pain and headache or complaints today for headaches. Also complaining of back pain today. This patient does state that his back pain is similar to prior back pain. Again no trauma. MD Complaint: back pain, back injury, other (History of sciatica) -: days(s) Similar Symptoms Previously: Yes Radiation: buttocks, right leg Severity: moderate Severity scale (1-10): 4 Quality: sharp Consistency: constant Improves With: none Worsens With: none Context: unknown Associated Symptoms: denies other symptoms - Related Data Home Medications Medication Instructions Recorded Confirmed Atorvastatin Calcium [Lipitor] 20 mg PO DAILY 04/22/21 09/01/22 lisinopriL [Prinivil] 10 mg PO BID 04/22/21 09/01/22 Previous Rx's Medication Instructions Recorded Nicotine 14Mg/24Hr Patch [Habitrol] 1 patch TRANSDERM DAILY 15 Days 10/09/22 patch Paliperidone [Invega] 3 mg PO DAILY 30 Days tab 10/09/22 Venlafaxine HCl [Effexor] 150 mg PO DAILY 30 Days tab 10/09/22 Albuterol Inhaler [Ventolin Hfa 2 puff INHALATION TID #8 gm 01/05/23 Inhaler] Albuterol Nebulized [Ventolin 2.5 mg INHALATION Q4H PRN #75 ml 01/05/23 Nebulized] Azithromycin [Zithromax Z Pack] 1 tab PO DIRECTED #6 tab 01/05/23 predniSONE 50 mg PO DAILY #5 tab 01/05/23 Allergies Allergy/AdvReac Type Severity Reaction Status Date / Time ibuprofen [From Motrin] Allergy Intermediate Rash/Hives Verified 01/05/23 11:39 Review of Systems ROS Statement: Those systems with pertinent positive or pertinent negative responses have been documented in the HPI. ROS Other: All systems not noted in ROS Statement are negative. Past Medical History Past Medical History: COPD, Osteoarthritis (OA) Additional Past Medical History / Comment(s): scoliosis History of Any Multi-Drug Resistant Organisms: None Reported Past Surgical History: Tubal Ligation Past Anesthesia/Blood Transfusion Reactions: No Reported Reaction Past Psychological History: Anxiety, Depression Smoking Status: Current every day smoker Past Alcohol Use History: None Reported Past Drug Use History: None Reported - Past Family History Mother Family Medical History: Cancer General Exam - General Exam Comments Initial Comments: Patient is able to amply without difficulty patient was able to amply to the emergency department under her own strength, patient denies any neurological dysfunction, able to urinate with normal bowel movements. No loss of bowel or bladder, no sensation or weakness Limitations: no limitations General appearance: alert, in no apparent distress Head exam: Present: atraumatic, normocephalic, normal inspection Eye exam: Present: normal appearance, PERRL, EOMI. Absent: scleral icterus, conjunctival injection, periorbital swelling ENT exam: Present: normal exam, mucous membranes moist Neck exam: Present: normal inspection. Absent: tenderness, meningismus, lymphadenopathy Respiratory exam: Present: normal lung sounds bilaterally. Absent: respiratory distress, wheezes, rales, rhonchi, stridor Cardiovascular Exam: Present: regular rate, normal rhythm, normal heart sounds. Absent: systolic murmur, diastolic murmur, rubs, gallop, clicks GI/Abdominal exam: Present: soft, normal bowel sounds. Absent: distended, tenderness, guarding, rebound, rigid Extremities exam: Present: normal inspection, full ROM, normal capillary refill. Absent: tenderness, pedal edema, joint swelling, calf tenderness Back exam: Present: normal inspection Neurological exam: Present: alert, oriented X3, CN II-XII intact Psychiatric exam: Present: normal affect, normal mood Skin exam: Present: warm, dry, intact, normal color. Absent: rash Course Vital Signs 02/24/23 13:44 Temperature 97.9 F Pulse Rate 90 Respiratory 16 Rate Blood Pressure 130/87 O2 Sat by Pulse 98 Oximetry - Reevaluation(s) Reevaluation #1: 02/24/23 15:04 Medical records reviewed Reevaluation #2: 02/24/23 15:04 patient informed results and questions answered Reevaluation #3: 02/24/23 15:04 Patient's pain is improved Reevaluation #4: 02/24/23 15:05 Was pt. sent in by a medical professional or institution? @ -no p Did you speak to anyone other than the patient for history? @ -no Did you review nursing and triage notes? @ -agree Were old charts reviewed? @ -prior admissions and ER evaluaions are reviewed Differential Diagnosis? @ -Sciatica, chronic back pain EKG interpreted by me (3pts min.)? @ -no X-rays interpreted by me (1pt min.)? @ -no CT interpreted by me (1pt min.)? @ -no U/S interpreted by me (1pt. min.)? @ -no What testing was considered but not performed? (CT, X-rays, U/S, labs)? Why? @ -no What meds were considered but not given? Why? @ -no patient with no current complaints Did you discuss the management of the patient with other professionals? @ -no Did you reconcile home meds? @ -no Was smoking cessation discussed for >3mins.? @ -no Was critical care preformed (if so, how long)? @ -no Were there social determinants of health that impacted care today? How? (Homelessness, low income, unemployed, alcoholism, drug addiction, transportation, low edu. Level, literacy, decrease access to med. care, penitentiary, rehab)? @ -no Was there de-escalation of care discussed even if they declined? (Discuss DNR or withdrawal of care, Hospice)? @ -no What co-morbidities impacted this encounter? (DM, HTN, Smoking, COPD, CAD, Cancer, CVA, Hep., AIDS, mental health diagnosis, sleep apnea, morbid obesity)? @ -none Was patient admitted / discharged? @ -DC Undiagnosed new problem with uncertain prognosis? @ -multiple falls history of, R elbow abrasion Drug Therapy requiring intensive monitoring for toxicity (Heparin, Nitro, Insulin, Cardizem)? @ -no Were any procedures done? @ -no Diagnosis/symptom? @ -fall, arm abrasion Acute, or Chronic, or Acute on Chronic? @ -acute on chronic Uncomplicated (without systemic symptoms) or Complicated (systemic symptoms)? @ -uncompicated Side effects of treatment? @ -none Exacerbation, Progression, or Severe Exacerbation] @ -no Poses a threat to life or bodily function? @ -no Reevaluation #5: 02/24/23 15:06 Differential Back Pain: Strain, zoster, cauda equina syndrome, epidural abscess, vertebral osteomyelitis, discitis, fracture, subluxation, disc herniation, DJD, spinal stenosis, dissection, AAA, pancreatitis, peptic ulcer disease, pyelonephritis, kidney stone, this is not meant to be an all-inclusive list. Medical Decision Making - Medical Decision Making 47 female to the emergency department for evaluation of sciatic pain, back pain. Possible urinary tract infection, saw primary care yesterday with associated not have the tract infection, still has no urinary tract infection today as well, patient symptoms are improved here in the ER this is just acute on chronic back pain and she'll be discharged home with no recent trauma - Lab Data Lab Results 02/24/23 02/24/23 Range/Units 14:00 14:00 Urine Color Colorless Urine Appearance Clear (Clear) Urine pH 6.0 (5.0-8.0) Ur Specific [place] 1.001 (1.001-1.035) Urine Protein Negative (Negative) Urine Glucose (UA) Negative (Negative) Urine Ketones Negative (Negative) Urine Blood Negative (Negative) Urine Nitrite Negative (Negative) Urine Bilirubin Negative (Negative) Urine Urobilinogen <2.0 (<2.0) mg/dL Ur Leukocyte Esterase Negative (Negative) Urine HCG, Qual Not Detected (Not Detectd) Disposition Clinical Impression: Mid back pain, Thoracic back pain, Sciatica, Chronic pain Disposition: HOME SELF-CARE Condition: Good Instructions (If sedation given, give patient instructions): Chronic Pain (ED) Is patient prescribed a controlled substance at d/c from ED?: No Referrals: Efren Madera MD [Primary Care Provider] - 1-2 days Time of Disposition: 03:05
== END 2023-02-24 15:25 | disposition home or self-care (01) ==
LOC: EC 13:42
DX: G89.29 Other chronic pain (principal); M54.30 Sciatica, unspecified side; J44.9 Chronic obstructive pulmonary disease, unspecified; F17.200 Nicotine dependence, unspecified, uncomplicated; Z79.899 Other long term (current) drug therapy; Z88.6 Allergy status to analgesic agent
CPT/HCPCS: 81003; 81025; 99284

== ENCOUNTER 2023-03-01 14:28 | Emergency (ER) | payer OTHER ==
[2023-03-01] MEDS ORDERED: ORPHENADRINE 30 MG/ML 2 ML VIAL IM STA (14:58)
--- NOTE | 2023-03-01 15:05 | ED ---
Back Pain HPI - General Chief Complaint: Back Pain/Injury Stated Complaint: Abd pain Time Seen by Provider: 03/01/23 14:49 Source: patient, RN notes reviewed, old records reviewed Limitations: no limitations - History of Present Illness Initial Comments: This is a 47-year-old female who presents ambulatory with complaints of right flank pain that wraps around to her right groin. Patient states pain occurred on Sunday after lifting a 40 pound bin of parts at work. She states that she was in the hospital on February 24 for pain and given Tylenol 3 at that time but she does not have anymore left. She believes this is a muscle spasm. Denies any hematuria, no fevers, no dysuria, no nausea vomiting diarrhea. MD Complaint: back pain -: days(s) (2) Similar Symptoms Previously: Yes Place: work Radiation: other (right groin) Severity scale (1-10): 9 Consistency: constant Improves With: immobilization Worsens With: movement (bending or twisting) Context: while lifting (40 pound bin at work) Associated Symptoms: denies other symptoms Treatments Prior to Arrival: other (tyelnol #3) - Related Data Home Medications Medication Instructions Recorded Confirmed Atorvastatin Calcium [Lipitor] 20 mg PO DAILY 04/22/21 03/01/23 lisinopriL [Prinivil] 10 mg PO BID 04/22/21 03/01/23 Amoxic-Pot Clav 875-125Mg 1 tab PO Q12HR 03/01/23 03/01/23 [Augmentin 875-125] Cholecalciferol [Vitamin D3 (25 25 mcg PO DAILY 03/01/23 03/01/23 Mcg = 1000 Iu)] Fluticasone Nasal [place] [Flonase 1 spray EA NOSTRIL DAILY PRN 03/01/23 03/01/23 Nasal [place]] Metoprolol Succinate [Toprol XL] 50 mg PO DAILY 03/01/23 03/01/23 Previous Rx's Medication Instructions Recorded Cyclobenzaprine [Flexeril] 10 mg PO TID PRN #15 tab 03/01/23 Allergies Allergy/AdvReac Type Severity Reaction Status Date / Time ibuprofen [From Motrin] Allergy Intermediate Rash/Hives Verified 03/01/23 14:53 Review of Systems ROS Statement: Those systems with pertinent positive or pertinent negative responses have been documented in the HPI. ROS Other: All systems not noted in ROS Statement are negative. Past Medical History Past Medical History: COPD, Osteoarthritis (OA) Additional Past Medical History / Comment(s): scoliosis History of Any Multi-Drug Resistant Organisms: None Reported Past Surgical History: Tubal Ligation Past Anesthesia/Blood Transfusion Reactions: No Reported Reaction Past Psychological History: Anxiety, Depression Smoking Status: Current every day smoker Past Alcohol Use History: None Reported Past Drug Use History: None Reported - Past Family History Mother Family Medical History: Cancer General Exam Limitations: no limitations General appearance: alert, in no apparent distress Head exam: Present: atraumatic Eye exam: Absent: scleral icterus, conjunctival injection, periorbital swelling Neck exam: Present: full ROM. Absent: tenderness, meningismus Respiratory exam: Absent: respiratory distress, accessory muscle use Cardiovascular Exam: Present: regular rate GI/Abdominal exam: Present: soft Back exam: Present: full ROM, tenderness (Right paraspinal lumbar), paraspinal tenderness (right lumbar). Absent: CVA tenderness (R), CVA tenderness (L), vertebral tenderness, rash noted Neurological exam: Present: alert, oriented X3 Psychiatric exam: Present: normal affect, normal mood Skin exam: Present: warm, dry, normal color. Absent: cyanosis, diaphoretic, petechiae, pallor Course Vital Signs 03/01/23 03/01/23 14:35 16:45 Temperature 98.2 F 98.3 F Pulse Rate 92 80 Respiratory 20 18 Rate Blood Pressure 141/93 119/75 O2 Sat by Pulse 96 99 Oximetry Medical Decision Making - Medical Decision Making Urinalysis shows no evidence of infection, no gross blood. Symptoms are more consistent with musculoskeletal back strain after she states occurred after lifting a 40 pound bin at work. Pain is worse with palpation, bending or twisting motions. She denies any trauma. No bowel or bladder incontinence, no saddle anesthesias. Denies any dysuria. She was given a shot of Norflex and a Lidoderm patch in the ER. Prescription for Flexeril was prescribed. She is agreeable to discharge and following up with her primary care doctor case discussed with Dr. Lezama. Was pt. sent in by a medical professional or institution (, PA, CELL TUBER HAND, urgent care, hospital, or detention...) When possible be specific @ -No Did you speak to anyone other than the patient for history (EMS, parent, family, police, friend...)? What history was obtained from this source @ -No Did you review nursing and triage notes (agree or disagree)? Why? @ -I reviewed and agree with nursing and triage notes Were old charts reviewed (outside hosp., previous admission, EMS record, old EKG, old radiological studies, urgent care reports/EKG's, detention records)? Report findings @ -No old charts were reviewed Differential Diagnosis (chest pain, altered mental status, abdominal pain women, abdominal pain men, vaginal bleeding, weakness, fever, dyspnea, syncope, headache, dizziness, GI bleed, back pain, seizure, CVA, palpatations, mental health, musculoskeletal)? @ -Differential Back Pain: Strain, zoster, cauda equina syndrome, epidural abscess, vertebral osteomyelitis, discitis, fracture, subluxation, disc herniation, DJD, spinal stenosis, dissection, AAA, pancreatitis, peptic ulcer disease, pyelonephritis, kidney stone, this is not meant to be an all-inclusive list. EKG interpreted by me (3pts min.). @ -n/a X-rays interpreted by me (1pt min.). @ -None done CT interpreted by me (1pt min.). @ -None done U/S interpreted by me (1pt. min.). @ -None done What testing was considered but not performed or refused? (CT, X-rays, U/S, labs)? Why? @ -X-ray of the lumbar spine was considered however patient's pain is consistent with a musculoskeletal pain with no pain with palpation to the vertebra. CT was considered however no red flag symptoms including no evidence of bowel or bladder incontinence, saddle anesthesia, history of cancers, fevers or weight loss. What meds were considered but not given or refused? Why? @ -None Did you discuss the management of the patient with other professionals (professionals i.e. , PA, CELL TUBER HAND, lab, RT, psych nurse, oncology social worker, coroner, teacher, president and chief commercial officer, egg caser)? Give summary @ -No Was smoking cessation discussed for >3mins.? @ -No Was critical care preformed (if so, how long)? @ -No Were there social determinants of health that impacted care today? How? (Rut elessness, low income, unemployed, alcoholism, drug addiction, transportation, low edu. Level, literacy, decrease access to med. care, detention, rehab)? @ -No Was there de-escalation of care discussed even if they declined (Discuss DNR or withdrawal of care, Hospice)? DNR status @ -No What co-morbidities impacted this encounter? (DM, HTN, Smoking, COPD, CAD, Cancer, CVA, ARF, Chemo, Hep., AIDS, mental health diagnosis, sleep apnea, morbid obesity)? @ -Scoliosis, depression, COPD Was patient admitted / discharged? Hospital course, mention meds given and route, prescriptions, significant lab abnormalities, going to OR and other pertinent info. @ -Discharged Undiagnosed new problem with uncertain prognosis? @ -No Drug Therapy requiring intensive monitoring for toxicity (Heparin, Nitro, Insulin, Cardizem)? @ -No Were any procedures done? @ -No Diagnosis/symptom? @ -Musculoskeletal back pain Acute, or Chronic, or Acute on Chronic? @ -Acute Uncomplicated (without systemic symptoms) or Complicated (systemic symptoms)? @ -Uncomplicated Side effects of treatment? @ -No Exacerbation, Progression, or Severe Exacerbation? @ -No Poses a threat to life or bodily function? How? (Chest pain, USA, [place], pneumonia, PE, COPD, DKA, ARF, appy, cholecystitis, CVA, Diverticulitis, Homicidal, Suicidal, threat to staff... and all critical care pts) @ -No - Lab Data Lab Results 03/01/23 Range/Units 15:37 Urine Color Yellow Urine Appearance Clear (Clear) Urine pH 6.0 (5.0-8.0) Ur Specific [place] 1.017 (1.001-1.035) Urine Protein Trace H (Negative) Urine Glucose (UA) Negative (Negative) Urine Ketones Trace H (Negative) Urine Blood Trace H (Negative) Urine Nitrite Negative (Negative) Urine Bilirubin Negative (Negative) Urine Urobilinogen 2.0 (<2.0) mg/dL Ur Leukocyte Esterase Negative (Negative) Urine RBC 1 (0-5) /hpf Urine WBC 1 (0-5) /hpf Ur Squamous Epith Cells 1 (0-4) /hpf Hyaline Casts 1 (0-2) /lpf Urine Mucus Few H (None) /hpf Disposition Clinical Impression: Musculoskeletal back pain Disposition: HOME SELF-CARE Condition: Good Instructions (If sedation given, give patient instructions): Acute Low Back Pain (ED), Musculoskeletal Pain (ED) Additional Instructions: Increase your fluid intake. Take Tylenol and Motrin as needed for any pain or discomfort. You can also take the Flexeril as prescribed for any muscle spasms. Do not drink alcohol, drive or operate heavy machinery when taking the Flexeril and follow-up with your primary care doctor this week. Return to the emergency room with any new or concerning symptoms. Prescriptions: Cyclobenzaprine [Flexeril] 10 mg PO TID PRN #15 tab PRN Reason: Muscle Spasm Is patient prescribed a controlled substance at d/c from ED?: No Referrals: Efren Madera MD [Primary Care Provider] - 1-2 days Time of Disposition: 16:07
[2023-03-01 16:03] LABS: Appearance,Urine Clear (Clear); Bilirubin,Urine Negative (Negative); Blood,Urine Trace (Negative); Color,Urine Yellow; Glucose,Urine (UA) Negative (Negative); Hyaline Casts,Urine 1 /lpf (0-2); Ketones,Urine Trace (Negative); Leukocyte Esterase,Urine Negative (Negative); Mucus,Urine Few /hpf; Nitrite,Urine Negative (Negative); Protein,Urine Trace (Negative); RBC,Urine 1 /hpf (0-5); Specific Gravity,Urine 1.017 (1.001-1.035); Squamous Epithelial Cell,Urine 1 /hpf (0-4); WBC,Urine 1 /hpf (0-5)
[2023-03-01] MEDS ORDERED: LIDOCAINE 5% PATCH TOPICAL SCH (16:15)
[2023-03-01 17:04] VITALS: BP 119/75; PULSE 80; RESP 18; TEMP 98.3
== END 2023-03-01 16:46 | disposition home or self-care (01) ==
LOC: EC 14:28
DX: M54.50 Low back pain, unspecified (principal); J44.9 Chronic obstructive pulmonary disease, unspecified; M19.90 Unspecified osteoarthritis, unspecified site; F17.200 Nicotine dependence, unspecified, uncomplicated; Z79.51 Long term (current) use of inhaled steroids; Z79.899 Other long term (current) drug therapy; Z88.6 Allergy status to analgesic agent; X50.0XXA Overexertion from strenuous movement or load, initial encounter
CPT/HCPCS: 81001; 99283; 96372; J2360

== ENCOUNTER 2023-03-06 06:12 | Emergency (ER) | payer OTHER ==
[2023-03-06 06:17] VITALS: TEMP 97
[2023-03-06] MEDS ORDERED: DEXAMETHASONE SOD PHOSPHATE 10 MG/ML 1 ML VIAL IM STA (06:29)
--- NOTE | 2023-03-06 06:34 | ED ---
Back Pain HPI - General Chief Complaint: Back Pain/Injury Stated Complaint: lower back pain Time Seen by Provider: 03/06/23 06:17 Source: patient, RN notes reviewed, old records reviewed Limitations: no limitations - History of Present Illness Initial Comments: This is a nontoxic-appearing 47-year-old female who presents to the emergency room ambulatory with complaints of lower right-sided back pain that radiates down to the front of her right thigh. Patient states she was taking Flexeril as prescribed last week and is now out and requesting more. MD Complaint: back pain -: week(s) Similar Symptoms Previously: Yes Place: home Severity scale (1-10): 10 Quality: sharp Consistency: intermittent Context: while lifting Associated Symptoms: denies other symptoms Treatments Prior to Arrival: other (flexeril) - Related Data Home Medications Medication Instructions Recorded Confirmed Atorvastatin Calcium [Lipitor] 20 mg PO DAILY 04/22/21 03/06/23 lisinopriL [Prinivil] 10 mg PO BID 04/22/21 03/06/23 Amoxic-Pot Clav 875-125Mg 1 tab PO Q12HR 03/01/23 03/06/23 [Augmentin 875-125] Cholecalciferol [Vitamin D3 (25 25 mcg PO DAILY 03/01/23 03/06/23 Mcg = 1000 Iu)] Fluticasone Nasal [place] [Flonase 1 spray EA NOSTRIL DAILY PRN 03/01/23 03/06/23 Nasal [place]] Metoprolol Succinate [Toprol XL] 50 mg PO DAILY 03/01/23 03/06/23 Previous Rx's Medication Instructions Recorded Cyclobenzaprine [Flexeril] 10 mg PO TID PRN #15 tab 03/01/23 methylPREDNISolone Dose Pack 4 mg PO DIRECTED #21 tab 03/06/23 [Medrol Dose Pack] Allergies Allergy/AdvReac Type Severity Reaction Status Date / Time ibuprofen [From Motrin] Allergy Intermediate Rash/Hives Verified 03/06/23 06:15 Review of Systems ROS Statement: Those systems with pertinent positive or pertinent negative responses have been documented in the HPI. ROS Other: All systems not noted in ROS Statement are negative. Past Medical History Past Medical History: COPD, Osteoarthritis (OA) Additional Past Medical History / Comment(s): scoliosis History of Any Multi-Drug Resistant Organisms: None Reported Past Surgical History: Tubal Ligation Past Anesthesia/Blood Transfusion Reactions: No Reported Reaction Past Psychological History: Anxiety, Depression Smoking Status: Current every day smoker Past Alcohol Use History: None Reported Past Drug Use History: None Reported - Past Family History Mother Family Medical History: Cancer General Exam Limitations: no limitations General appearance: alert, in no apparent distress Head exam: Present: atraumatic Eye exam: Present: normal appearance. Absent: scleral icterus, conjunctival injection, periorbital swelling Neck exam: Present: full ROM. Absent: tenderness, meningismus Respiratory exam: Absent: respiratory distress, accessory muscle use Cardiovascular Exam: Present: regular rate Back exam: Present: full ROM. Absent: CVA tenderness (R), CVA tenderness (L), rash noted Expanded Back exam: Absent: saddle anesthesia Neurological exam: Present: alert, oriented X3 Psychiatric exam: Present: normal affect, normal mood Skin exam: Present: warm, dry, normal color. Absent: cyanosis, diaphoretic, petechiae, pallor Course Vital Signs 03/06/23 03/06/23 06:15 13:28 Temperature 97 F L Pulse Rate 95 106 H Respiratory 16 18 Rate Blood Pressure 143/91 118/79 O2 Sat by Pulse 95 97 Oximetry Medical Decision Making - Medical Decision Making I personally seen this patient last week for back pain she states developed after lifting a 40 pound bin of parts at work. Pain was worse with movement. Lumbar paraspinal right sided. I did prescribe a muscle relaxer for her at that time. Patient states that she was taking two 10 mg Flexeril pills at a time to help relieve her back pain and it was not working. She did have an X-ray of her lumbar spine performed September 2021 showing multi level moderate to severe degenerative disc disease with facet arthropathy. Foraminal encroachment L4-L5 L5-S1 with severe degenerative disc disease. Patient has no bowel or bladder incontinence. She ambulates with steady gait. Denies trauma. No fevers. No red flag symptoms. Patient describes pain as radiating from her right lower back to the front of her right thigh. She does have a history of degenerative disc disease. This is likely radiculopathy. She'll be treated with a shot of Decadron and Medrol dose pack. She was encouraged to use topical pain relief creams. I explained that I do not believe the muscle relaxers will improve her pain. Patient also did admit to taking 20 mg of flexeril at a time. She was directed to follow up with her primary care doctor and referred to or thopedi. Case discussed with Dr. Langford Upon discharge patient states now that she is suicidal. EPS will be notified to evaluate patient. EPS did evaluate the patient and patient denies any suicidal ideations. She was discharged home and [facility] Was pt. sent in by a medical professional or institution (, PA, FRONT DESK MANAGER, urgent care, hospital, or [facility]...) When possible be specific @ -No Did you speak to anyone other than the patient for history (EMS, parent, family, police, friend...)? What history was obtained from this source @ -No Did you review nursing and triage notes (agree or disagree)? Why? @ -I reviewed and agree with nursing and triage notes Were old charts reviewed (outside hosp., previous admission, EMS record, old EKG, old radiological studies, urgent care reports/EKG's, [facility] records)? Report findings @ -Previous ER records from last week Differential Diagnosis (chest pain, altered mental status, abdominal pain women, abdominal pain men, vaginal bleeding, weakness, fever, dyspnea, syncope, headache, dizziness, GI bleed, back pain, seizure, CVA, palpatations, mental health, musculoskeletal)? @ -Differential Back Pain: Strain, zoster, cauda equina syndrome, epidural abscess, vertebral osteomyelitis, discitis, fracture, subluxation, disc herniation, DJD, spinal stenosis, dissection, AAA, pancreatitis, peptic ulcer disease, pyelonephritis, kidney stone, this is not meant to be an all-inclusive list. Differential Mental Health Depression, anxiety, bipolar, psychosis, schizophrenia, borderline personality, situational depression, adjustment disorder, behavioral disorder, brain tumor, malingering, substance abuse, encephalopathy, medication reaction, dementia, hypothyroidism, degenerative neurologic disorder, lupus.... This is not meant to be all-inclusive list EKG interpreted by me (3pts min.). @ -n/a X-rays interpreted by me (1pt min.). @ -None done CT interpreted by me (1pt min.). @ -None done U/S interpreted by me (1pt. min.). @ -None done What testing was considered but not performed or refused? (CT, X-rays, U/S, labs)? Why? @ -None What meds were considered but not given or refused? Why? @ -None Did you discuss the management of the patient with other professionals (professionals i.e. , PA, FRONT DESK MANAGER, lab, RT, psych nurse, nephrology social worker, farm management adviser, te acher, commanding officer homicide squad, family independence case manager)? Give summary @ -No Was smoking cessation discussed for >3mins.? @ -No Was critical care preformed (if so, how long)? @ -No Were there social determinants of health that impacted care today? How? (Homelessness, low income, unemployed, alcoholism, drug addiction, transportation, low edu. Level, literacy, decrease access to med. care, care home, rehab)? @ -No Was there de-escalation of care discussed even if they declined (Discuss DNR or withdrawal of care, Hospice)? DNR status @ -No What co-morbidities impacted this encounter? (DM, HTN, Smoking, COPD, CAD, Cancer, CVA, ARF, Chemo, Hep., AIDS, mental health diagnosis, sleep apnea, morbid obesity)? @ -Suicidal ideation at discharge, she did speak with EPS and denied suicidal thoughts. Was patient admitted / discharged? Hospital course, mention meds given and route, prescriptions, significant lab abnormalities, going to OR and other pertinent info. @ -Discharged Undiagnosed new problem with uncertain prognosis? @ -No Drug Therapy requiring intensive monitoring for toxicity (Heparin, Nitro, Insulin, Cardizem)? @ -No Were any procedures done? @ -No Diagnosis/symptom? @ -Back pain, mood disorder Acute, or Chronic, or Acute on Chronic? @ -Acute on chronic Uncomplicated (without systemic symptoms) or Complicated (systemic symptoms)? @ -default Side effects of treatment? @ -No Exacerbation, Progression, or Severe Exacerbation? @ -No Poses a threat to life or bodily function? How? (Chest pain, USA, MD, pneumonia, PE, COPD, DKA, ARF, appy, cholecystitis, CVA, Diverticulitis, Homicidal, Suicidal, threat to staff... and all critical care pts) @ -No - Lab Data Lab Results 03/06/23 03/06/23 Range/Units 07:00 07:00 Urine Color Light Yellow Urine Appearance Clear (Clear) Urine pH 6.0 (5.0-8.0) Ur Specific [place] 1.008 (1.001-1.035) Urine Protein Negative (Negative) Urine Glucose (UA) Negative (Negative) Urine Ketones Negative (Negative) Urine Blood Trace H (Negative) Urine Nitrite Negative (Negative) Urine Bilirubin Negative (Negative) Urine Urobilinogen <2.0 (<2.0) mg/dL Ur Leukocyte Esterase Negative (Negative) Urine RBC 1 (0-5) /hpf Urine WBC <1 (0-5) /hpf Urine Mucus Rare H (None) /hpf Urine Opiates Screen Not Detected (NotDetected) Ur Oxycodone Screen Not Detected (NotDetected) Urine Methadone Screen Not Detected (NotDetected) Ur Propoxyphene Screen Not Detected (NotDetected) Ur Barbiturates Screen Not Detected (NotDetected) U Tricyclic Antidepress Not Detected (NotDetected) Ur Phencyclidine Scrn Not Detected (NotDetected) Ur Amphetamines Screen Not Detected (NotDetected) U Methamphetamines Scrn Not Detected (NotDetected) U Benzodiazepines Scrn Not Detected (NotDetected) Urine Cocaine Screen Not Detected (NotDetected) U Marijuana (THC) Screen Not Detected (NotDetected) Coronavirus (PCR) Not Detected (Not Detectd) Disposition Clinical Impression: Lumbar radiculopathy, Mood disorder Disposition: HOME SELF-CARE Instructions (If sedation given, give patient instructions): Mood Disorders (ED), Acute Low Back Pain (ED) Additional Instructions: Take the Medrol Dose pack as prescribed. Tylenol as needed for pain. You can also use [id number] topical pain medications like BenGay, icy hot, tiger balm or capsaicin creams. Follow-up with your primary care doctor this week. Follow-up with orthopedics for continuation of care of your low back pain. Prescriptions: methylPREDNISolone Dose Pack [Medrol Dose Pack] 4 mg PO DIRECTED #21 tab Is patient prescribed a controlled substance at d/c from ED?: No Referrals: Efren Madera MD [Primary Care Provider] - 1-2 days Ramón Markham MD [Medical Doctor] - 1-2 days Time of Disposition: 13:11
[2023-03-06 07:29] LABS: Amphetamine Screen,Urine Not Detected (NotDetected); Barbiturate Screen,Urine Not Detected (NotDetected); Benzodiazepines Screen,Urine Not Detected (NotDetected); Cocaine Screen,Urine Not Detected (NotDetected); Methadone Screen, Urine Not Detected (NotDetected); Opiate Screen,Urine Not Detected (NotDetected); Oxycodone Screen, Urine Not Detected (NotDetected); Phencyclidine Screen,Urine Not Detected (NotDetected); Tricyclic Antidepressant,Urine Not Detected (NotDetected); Urn Cannabinoid Scrn Not Detected (NotDetected)
[2023-03-06 07:35] LABS: Appearance,Urine Clear (Clear); Bilirubin,Urine Negative (Negative); Blood,Urine Trace (Negative); Color,Urine Light Yellow; Glucose,Urine (UA) Negative (Negative); Ketones,Urine Negative (Negative); Leukocyte Esterase,Urine Negative (Negative); Mucus,Urine Rare /hpf; Nitrite,Urine Negative (Negative); Protein,Urine Negative (Negative); RBC,Urine 1 /hpf (0-5); Specific Gravity,Urine 1.008 (1.001-1.035); Urobilinogen,Urine <2.0 mg/dL (<2.0); WBC,Urine <1 /hpf (0-5)
[2023-03-06 13:30] VITALS: BP 118/79; PULSE 106; RESP 18
== END 2023-03-06 13:46 | disposition home or self-care (01) ==
LOC: EC 06:12
DX: M54.16 Radiculopathy, lumbar region (principal); F39 Unspecified mood [affective] disorder; J44.9 Chronic obstructive pulmonary disease, unspecified; F41.9 Anxiety disorder, unspecified; F32.A Depression, unspecified; F17.200 Nicotine dependence, unspecified, uncomplicated; M19.90 Unspecified osteoarthritis, unspecified site; Z79.1 Long term (current) use of non-steroidal anti-inflammatories (NSAID); Z79.51 Long term (current) use of inhaled steroids; Z88.6 Allergy status to analgesic agent; Z20.822 Contact with and (suspected) exposure to COVID-19
CPT/HCPCS: 82075; 81001; 80306; 87635; 99284; 96372; J1100

== ENCOUNTER 2023-06-26 18:30 | Emergency (ER) | payer OTHER ==
[2023-06-26 19:50] VITALS: BP 134/93; PULSE 89; RESP 18; TEMP 98.2
[2023-06-26] MEDS ORDERED: AMOXIC-POT CLAV 875-125MG 1 EACH TAB PO STA (20:42)
[2023-06-26] MEDS ORDERED: ACET/COD 300 MG/30 MG STARTER PACK 6 TAB BTL PO STA (20:47)
--- NOTE | 2023-06-26 20:51 | ED ---
General Adult HPI - General Chief complaint: Headache Stated complaint: Migraine,Toothache Time Seen by Provider: 06/26/23 20:28 Source: patient Mode of arrival: ambulatory Limitations: no limitations - History of Present Illness Initial comments: Patient is a 47-year-old female presents to the emergency department for dental pain. Patient woke up with dental pain in her left upper teeth this morning which radiates to her ear. States she has had an intermittent headache throughout the day which resolved once arriving to her room in the emergency de partment. Patient states she cannot get in to her dentist for a couple weeks. She denies fever, chills, nausea, vomiting. Denies numbness and tingling, weakness. Denies upper respiratory symptoms. - Related Data Home Medications Medication Instructions Recorded Confirmed Atorvastatin Calcium [Lipitor] 20 mg PO DAILY 04/22/21 03/06/23 lisinopriL [Prinivil] 10 mg PO BID 04/22/21 03/06/23 Amoxic-Pot Clav 875-125Mg 1 tab PO Q12HR 03/01/23 03/06/23 [Augmentin 875-125] Cholecalciferol [Vitamin D3 (25 25 mcg PO DAILY 03/01/23 03/06/23 Mcg = 1000 Iu)] Fluticasone Nasal [place] [Flonase 1 spray EA NOSTRIL DAILY PRN 03/01/23 03/06/23 Nasal [place]] Metoprolol Succinate [Toprol XL] 50 mg PO DAILY 03/01/23 03/06/23 Previous Rx's Medication Instructions Recorded Cyclobenzaprine [Flexeril] 10 mg PO TID PRN #15 tab 03/01/23 methylPREDNISolone Dose Pack 4 mg PO DIRECTED #21 tab 03/06/23 [Medrol Dose Pack] Amoxic-Pot Clav 875-125Mg 1 tab PO BID #14 tab 06/26/23 [Augmentin 875-125] Clindamycin [Cleocin] 450 mg PO Q6H 7 Days #84 cap 07/01/23 HYDROcodone/APAP 7.5-325MG [[place] 1 tab PO Q6HR PRN 3 Days #12 tab 07/01/23 7.5-325] Allergies Allergy/AdvReac Type Severity Reaction Status Date / Time ibuprofen [From Motrin] Allergy Intermediate Rash/Hives Verified 06/28/23 18:37 Review of Systems ROS Statement: Those systems with pertinent positive or pertinent negative responses have been documented in the HPI. ROS Other: All systems not noted in ROS Statement are negative. Past Medical History Past Medical History: COPD, Osteoarthritis (OA) Additional Past Medical History / Comment(s): scoliosis History of Any Multi-Drug Resistant Organisms: None Reported Past Surgical History: Tubal Ligation Past Anesthesia/Blood Transfusion Reactions: No Reported Reaction Past Psychological History: Anxiety, Depression Smoking Status: Current every day smoker Past Alcohol Use History: None Reported Past Drug Use History: None Reported - Past Family History Mother Family Medical History: Cancer General Exam Limitations: no limitations General appearance: alert ENT exam: Present: TM's normal bilaterally. Absent: normal oropharynx (Erythematous gingiva left upper molar. No fluctuance or drainable abscess) Neck exam: Present: normal inspection, full ROM Respiratory exam: Present: normal lung sounds bilaterally. Absent: respiratory distress, wheezes, rales, rhonchi, stridor Cardiovascular Exam: Present: regular rate, normal rhythm, normal heart sounds. Absent: systolic murmur, diastolic murmur, rubs, gallop, clicks Neurological exam: Present: alert Expanded Sensory exam: Upper Extremity Light Touch: Normal, Lower Extremity Light Touch: Normal Motor strength exam: RUE: 5, LUE: 5, RLE: 5, LLE: 5 Skin exam: Present: warm, dry, intact, normal color. Absent: rash Course Vital Signs 06/26/23 19:46 Temperature 98.2 F Pulse Rate 89 Respiratory 18 Rate Blood Pressure 134/93 O2 Sat by Pulse 98 Oximetry Medical Decision Making - Medical Decision Making Was pt. sent in by a medical professional or institution (, PA, FRAME CLEANER, urgent care, hospital, or detention...) When possible be specific @ -No Did you speak to anyone other than the patient for history (EMS, parent, family, police, friend...)? What history was obtained from this source @ -No Did you review nursing and triage notes (agree or disagree)? Why? @ -I reviewed and agree with nursing and triage notes Were old charts reviewed (outside hosp., previous admission, EMS record, old EKG, old radiological studies, urgent care reports/EKG's, detention records)? Report findings @ -No old charts were reviewed Differential Diagnosis (chest pain, altered mental status, abdominal pain women, abdominal pain men, vaginal bleeding, weakness, fever, dyspnea, syncope, head ache, dizziness, GI bleed, back pain, seizure, CVA, palpatations, mental health)? @ -Dental infection, dental abscess, ear infection. EKG interpreted by me (3pts min.). @ -As above X-rays interpreted by me (1pt min.). @ -None done CT interpreted by me (1pt min.). @ -None done U/S interpreted by me (1pt. min.). @ -None done What testing was considered but not performed or refused? (CT, X-rays, U/S, labs)? Why? @ -None What meds were considered but not given or refused? Why? @ -None Did you discuss the management of the patient with other professionals (professionals i.e. , PA, FRAME CLEANER, lab, RT, psych nurse, social service agency director, public safety director, teacher, parking control officer, machine adjuster leader case trim)? Give summary @ -No Was smoking cessation discussed for >3mins.? @ -No Was critical care preformed (if so, how long)? @ -No Were there social determinants of health that impacted care today? How? (Homelessness, low income, unemployed, alcoholism, drug addiction, transportation, low edu. Level, literacy, decrease access to med. care, [facility], rehab)? @ -No Was there de-escalation of care discussed even if they declined (Discuss DNR or withdrawal of care, Hospice)? DNR status @ -No What co-morbidities impacted this encounter? (DM, HTN, Smoking, COPD, CAD, Cancer, CVA, ARF, Chemo, Hep., AIDS, mental health diagnosis, sleep apnea, morbid obesity)? @ -None Was patient admitted / discharged? Hospital course, mention meds given and route, prescriptions, significant lab abnormalities, going to OR and other pertinent info. @ -Suspect patient has dental infection. No fluctuance or drainable abscess. Patient has no systemic symptoms or signs and is discharged in stable condition with antibiotics. She will take Tylenol for pain at home. Undiagnosed new problem with uncertain prognosis? @ -No Drug Therapy requiring intensive monitoring for toxicity (Heparin, Nitro, Insulin, Cardizem)? @ -No Were any procedures done? @ -No Diagnosis/symptom? @ -dental infection Acute, or Chronic, or Acute on Chronic? @ -acute Uncomplicated (without systemic symptoms) or Complicated (systemic symptoms)? @ -uncomplicated Side effects of treatment? @ -No Exacerbation, Progression, or Severe Exacerbation? @ -No Poses a threat to life or bodily function? How? (Chest pain, [place], [place], pneumonia, PE, COPD, DKA, ARF, appy, cholecystitis, CVA, Diverticulitis, Homicidal, Suicidal, threat to staff... and all critical care pts) @ -No Dr. Chopra is my attending Disposition Clinical Impression: Dental infection Disposition: HOME SELF-CARE Condition: Good Instructions (If sedation given, give patient instructions): Dental Abscess (ED), Toothache (ED) Additional Instructions: Take Tylenol for pain. Save Tylenol 3 for severe pain. Please follow-up with your primary care provider and dentist in 1-2 days. Return to the emergency department if you experience new, concerning, or worsening symptoms. Prescriptions: Amoxic-Pot Clav 875-125Mg [Augmentin 875-125] 1 tab PO BID #14 tab Is patient prescribed a controlled substance at d/c from ED?: No Referrals: Efren Madera MD [Primary Care Provider] - 1-2 days
== END 2023-06-26 21:09 | disposition home or self-care (01) ==
LOC: EC 18:30
DX: K04.7 Periapical abscess without sinus (principal); J44.9 Chronic obstructive pulmonary disease, unspecified; F41.9 Anxiety disorder, unspecified; F32.A Depression, unspecified; F17.200 Nicotine dependence, unspecified, uncomplicated; Z79.899 Other long term (current) drug therapy; Z88.6 Allergy status to analgesic agent
CPT/HCPCS: 99283

== ENCOUNTER 2023-06-28 17:17 | Emergency (ER) | payer OTHER ==
--- NOTE | 2023-06-28 18:36 | ED ---
General Adult HPI - General Stated complaint: Near Syncope Source: patient, RN notes reviewed Mode of arrival: ambulatory Limitations: no limitations - History of Present Illness Initial comments: 47-year-old female presents to the emergency department via ems for chief complaint of dental pain x3 days. She states that she was evaluated in our emergency department and states she has tooth infection and has been on antibiotics which she is taking as prescribed. She states that she has associated ear pain on the same side as the dental pain and started along the same time. Patient denies fever, chills, nausea, vomiting. She denies any other symptoms at this time. She was brought in by EMS who states that she had some dizziness but the patient denies dizziness and lightheadedness at this time. - Related Data Home Medications Medication Instructions Recorded Confirmed Atorvastatin Calcium [Lipitor] 20 mg PO DAILY 04/22/21 03/06/23 lisinopriL [Prinivil] 10 mg PO BID 04/22/21 03/06/23 Amoxic-Pot Clav 875-125Mg 1 tab PO Q12HR 03/01/23 03/06/23 [Augmentin 875-125] Cholecalciferol [Vitamin D3 (25 25 mcg PO DAILY 03/01/23 03/06/23 Mcg = 1000 Iu)] Fluticasone Nasal [place] [Flonase 1 spray EA NOSTRIL DAILY PRN 03/01/23 03/06/23 Nasal [place]] Metoprolol Succinate [Toprol XL] 50 mg PO DAILY 03/01/23 03/06/23 Previous Rx's Medication Instructions Recorded Cyclobenzaprine [Flexeril] 10 mg PO TID PRN #15 tab 03/01/23 methylPREDNISolone Dose Pack 4 mg PO DIRECTED #21 tab 03/06/23 [Medrol Dose Pack] Amoxic-Pot Clav 875-125Mg 1 tab PO BID #14 tab 06/26/23 [Augmentin 875-125] Clindamycin [Cleocin] 450 mg PO Q6H 7 Days #84 cap 07/01/23 HYDROcodone/APAP 7.5-325MG [[place] 1 tab PO Q6HR PRN 3 Days #12 tab 07/01/23 7.5-325] Allergies Allergy/AdvReac Type Severity Reaction Status Date / Time ibuprofen [From Motrin] Allergy Intermediate Rash/Hives Verified 06/28/23 18:37 Review of Systems ROS Statement: Those systems with pertinent positive or pertinent negative responses have been documented in the HPI. ROS Other: All systems not noted in ROS Statement are negative. Past Medical History Past Medical History: COPD, Osteoarthritis (OA) Additional Past Medical History / Comment(s): scoliosis History of Any Multi-Drug Resistant Organisms: None Reported Past Surgical History: Tubal Ligation Past Anesthesia/Blood Transfusion Reactions: No Reported Reaction Past Psychological History: Anxiety, Depression Smoking Status: Current every day smoker Past Alcohol Use History: None Reported Past Drug Use History: None Reported - Past Family History Mother Family Medical History: Cancer General Exam - General Exam Comments Initial Comments: Visual Physical Exam Vital signs reviewed General: Well-appearing, nontoxic, no acute distress. Head: Normocephalic, atraumatic Eyes: PERRLA, EOMI ENT: Airway patent Chest: Nonlabored breathing Skin: No visual rash, normal skin tone Neuro: Alert and oriented 3 Musculoskeletal: No gross abnormalities Limitations: no limitations General appearance: alert, in no apparent distress Head exam: Present: atraumatic, normocephalic, normal inspection Eye exam: Present: normal appearance, PERRL, EOMI. Absent: scleral icterus, conjunctival injection, periorbital swelling ENT exam: Present: mucous membranes moist, TM's normal bilaterally, normal external ear exam, other (Overall poor dentition with dental caries, right sided impacted molar) Neck exam: Present: normal inspection. Absent: tenderness, meningismus, lymphadenopathy Respiratory exam: Present: normal lung sounds bilaterally. Absent: respiratory distress, wheezes, rales, rhonchi, stridor Cardiovascular Exam: Present: regular rate, normal rhythm, normal heart sounds. Absent: systolic murmur, diastolic murmur, rubs, gallop, clicks GI/Abdominal exam: Present: soft, normal bowel sounds. Absent: distended, tenderness, guarding, rebound, rigid Extremities exam: Present: normal inspection, full ROM, normal capillary refill. Absent: tenderness, pedal edema, joint swelling, calf tenderness Back exam: Present: normal inspection Neurological exam: Present: alert, oriented X3 Psychiatric exam: Present: normal affect, normal mood Skin exam: Present: warm, dry, intact, normal color. Absent: rash Course Vital Signs 06/28/23 06/28/23 18:33 19:27 Temperature 98.2 F 97.6 F Pulse Rate 83 82 Respiratory 18 16 Rate Blood Pressure 111/74 111/72 O2 Sat by Pulse 96 Oximetry Medical Decision Making - Medical Decision Making Was pt. sent in by a medical professional or institution (SUZANNE Armijo, KNOWLEDGE MANAGER, urgent ca re, hospital, or shelter...) When possible be specific @ -[No] Did you speak to anyone other than the patient for history (EMS, parent, family, police, friend...)? What history was obtained from this source @ -[EMS] Did you review nursing and triage notes (agree or disagree)? Why? @ -[I reviewed and agree with nursing and triage notes] Were old charts reviewed (outside hosp., previous admission, EMS record, old EKG, old radiological studies, urgent care reports/EKG's, shelter records)? Report findings @ -[No old charts were reviewed] Differential Diagnosis (chest pain, altered mental status, abdominal pain women, abdominal pain men, vaginal bleeding, weakness, fever, dyspnea, syncope, headache, dizziness, GI bleed, back pain, seizure, CVA, palpatations, mental health, musculoskeletal)? @ -[Dental impaction, dental caries, otitis media, otitis externa, this list is not all-inclusive] EKG interpreted by me (3pts min.). @ -[None] X-rays interpreted by me (1pt min.). @ -[None done] CT interpreted by me (1pt min.). @ -[None done] U/S interpreted by me (1pt. min.). @ -[None done] What testing was considered but not performed or refused? (CT, X-rays, U/S, labs)? Why? @ -[None] What meds were considered but not given or refused? Why? @ -[None] Did you discuss the management of the patient with other professionals (professionals i.e. SUZANNE Armijo, KNOWLEDGE MANAGER, lab, RT, psych nurse, social work program coordinator, adult parole officer, teacher, giving officer, child support case officer)? Give summary @ -[No] Was smoking cessation discussed for >3mins.? @ -[No] Was critical care preformed (if so, how long)? @ -[No] Were there social determinants of health that impacted care today? How? (Homele ssness, low income, unemployed, alcoholism, drug addiction, transportation, low edu. Level, literacy, decrease access to med. care, detention, rehab)? @ -[No] Was there de-escalation of care discussed even if they declined (Discuss DNR or withdrawal of care, Hospice)? DNR status @ -[No] What co-morbidities impacted this encounter? (DM, HTN, Smoking, COPD, CAD, Cancer, CVA, ARF, Chemo, Hep., AIDS, mental health diagnosis, sleep apnea, morbid obesity)? @ -[None] Was patient admitted / discharged? Hospital course, mention meds given and route, prescriptions, significant lab abnormalities, going to OR and other pertinent info. @ -[Discharged. Patient presented to emergency department chief complaint of dental pain that has been going on for around 3 days. She was evaluated in the emergency department was given antibiotics Tylenol 3 starter pack. She reports continued pain. She states that she is continuing her antibiotics. Today patient would like something for her pain. Patient has extensive dental caries and an impacted molar on the right side. She is complaining of ear pain. Her ear canals are clear and TMs are nonerythematous, nonbulging. Discussed with patient that the origin of her ear pain is likely from her teeth. Patient was given another Tylenol #3 started pack and strongly encouraged to follow up with a dentist. Patient stable at time of discharge. ] Undiagnosed new problem with uncertain prognosis? @ -[No] Drug Therapy requiring intensive monitoring for toxicity (Heparin, Nitro, Insulin, Cardizem)? @ -[No] Were any procedures done? @ -[No] Diagnosis/symptom? @ -[dental caries] Acute, or Chronic, or Acute on Chronic? @ -acute Uncomplicated (without systemic symptoms) or Complicated (systemic symptoms)? @ -uncomplicated Side effects of treatment? @ -[No] Exacerbation, Progression, or Severe Exacerbation? @ -[No] Poses a threat to life or bodily function? How? (Chest pain, [place], [place], pneumonia, PE, COPD, DKA, ARF, appy, cholecystitis, CVA, Diverticulitis, Homicidal, Suicidal, threat to staff... and all critical care pts) @ -[No] Disposition Clinical Impression: Pain due to dental caries Disposition: HOME SELF-CARE Condition: Stable Instructions (If sedation given, give patient instructions): Toothache (ED) Additional Instructions: Continue antibiotics as prescribed. Follow-up with a local dentist for further management. Return to the emergency department for new or worsening symptoms. Is patient prescribed a controlled substance at d/c from ED?: No Referrals: None,Stated [REFERRING] - 1-2 days Time of Disposition: 19:21
[2023-06-28] MEDS ORDERED: ACET/COD 300 MG/30 MG STARTER PACK 6 TAB BTL PO STA (19:20)
[2023-06-28 19:28] VITALS: BP 111/72; PULSE 82; RESP 16; TEMP 97.6
== END 2023-06-28 19:29 | disposition home or self-care (01) ==
LOC: EC 17:17
DX: K02.9 Dental caries, unspecified (principal); J44.9 Chronic obstructive pulmonary disease, unspecified; F41.9 Anxiety disorder, unspecified; F32.A Depression, unspecified; M19.90 Unspecified osteoarthritis, unspecified site; F17.200 Nicotine dependence, unspecified, uncomplicated; Z79.899 Other long term (current) drug therapy; Z88.6 Allergy status to analgesic agent
CPT/HCPCS: 99284

== ENCOUNTER 2023-07-01 00:05 | Emergency (ER) | payer OTHER ==
[2023-07-01 00:33] VITALS: RESP 18; TEMP 98.9
[2023-07-01] MEDS ORDERED: DEXAMETHASONE SOD PHOSPHATE 4 MG/ML 1 ML VIAL IM STA (02:03)
[2023-07-01] MEDS ORDERED: CLINDAMYCIN 150 MG CAP PO STA (02:03)
[2023-07-01] MEDS ORDERED: Acetaminophen-Codeine 300-30mg TAB PO STA (02:03)
[2023-07-01] MEDS ORDERED: ACET/COD 300 MG/30 MG STARTER PACK 6 TAB BTL PO STA (02:05)
--- NOTE | 2023-07-01 02:07 | ED ---
General Adult HPI - General Chief complaint: Dental/Oral Stated complaint: toothache Time Seen by Provider: 07/01/23 01:41 Source: patient, EMS, RN notes reviewed, old records reviewed Mode of arrival: EMS Limitations: no limitations - History of Present Illness Initial comments: Patient is a 47-year-old female with past medical history remarkable for a nxiety, COPD presents in the department complaining of tooth pain. Has been ongoing for over a week. Was seen last week for similar complaints. Was given antibiotics as well as follow-up with dentistry. Has yet to follow up with a dentist. Antibiotic is complete and she still having pain. I have some swelling over the right side of her face as well. Presents for further evaluation. No trauma. No fevers. No nausea, vomiting, diarrhea. No other acute complaints. No difficulty swallowing. No floor the mouth swelling. No stridor. No difficulty breathing. - Related Data Home Medications Medication Instructions Recorded Confirmed Atorvastatin Calcium [Lipitor] 20 mg PO DAILY 04/22/21 03/06/23 lisinopriL [Prinivil] 10 mg PO BID 04/22/21 03/06/23 Amoxic-Pot Clav 875-125Mg 1 tab PO Q12HR 03/01/23 03/06/23 [Augmentin 875-125] Cholecalciferol [Vitamin D3 (25 25 mcg PO DAILY 03/01/23 03/06/23 Mcg = 1000 Iu)] Fluticasone Nasal [place] [Flonase 1 spray EA NOSTRIL DAILY PRN 03/01/23 03/06/23 Nasal [place]] Metoprolol Succinate [Toprol XL] 50 mg PO DAILY 03/01/23 03/06/23 Previous Rx's Medication Instructions Recorded Cyclobenzaprine [Flexeril] 10 mg PO TID PRN #15 tab 03/01/23 methylPREDNISolone Dose Pack 4 mg PO DIRECTED #21 tab 03/06/23 [Medrol Dose Pack] Amoxic-Pot Clav 875-125Mg 1 tab PO BID #14 tab 06/26/23 [Augmentin 875-125] Clindamycin [Cleocin] 450 mg PO Q6H 7 Days #84 cap 07/01/23 Allergies Allergy/AdvReac Type Severity Reaction Status Date / Time ibuprofen [From Motrin] Allergy Intermediate Rash/Hives Verified 06/28/23 18:37 Review of Systems ROS Statement: Those systems with pertinent positive or pertinent negative responses have been documented in the HPI. Review of Systems: CONST: Denies fever EYES: Denies blurry vision ENT: Endorses toothache C/V: Denies Chest pain RESP: Denies shortness of breath GI: Denies abdominal pain : Denies dysuria SKIN: Denies rash. MSK: Denies joint pain. NEURO: Denies headache ROS Other: All systems not noted in ROS Statement are negative. Past Medical History Past Medical History: COPD, Osteoarthritis (OA) Additional Past Medical History / Comment(s): scoliosis History of Any Multi-Drug Resistant Organisms: None Reported Past Surgical History: Tubal Ligation Past Anesthesia/Blood Transfusion Reactions: No Reported Reaction Past Psychological History: Anxiety, Depression Smoking Status: Current every day smoker Past Alcohol Use History: None Reported Past Drug Use History: None Reported - Past Family History Mother Family Medical History: Cancer General Exam - General Exam Comments Initial Comments: General: Appears in no acute distress. HEAD: Normal with no signs of head trauma. EYES: PERRLA, EOMI, conjunctiva normal, no discharge. Pupils are 3 mm equal bilaterally. ENT: Hearing grossly intact, normal oropharynx. Uvula midline. No floor the mouth swelling. Mild tongue was swelling on the right but it appears that there is abrasion there as well. Tenderness to palpation of tooth #32. No obvious abscess seen. Gumline is erythematous. Mild swelling in the cheek. No stridor. Tolerating oral secretions without difficulty. Posterior oropharynx within acceptable limits. No obvious edema or erythema. RESPIRATORY: Clear breath sounds bilaterally. No wheezes, rales, or rhonchi. C/V: Regular rate and rhythm. S1 and S2 auscultated, peripheral pulses 2+ and intact throughout ABD: Abd is soft, nontender, nondistended EXT: Normal range of motion, no obvious deformity SKIN: No rashes or lesions observed on exposed skin. NEURO: Alert and oriented x 4. Cranial nerves II-XII intact. No focal sensory or strength deficits. Limitations: no limitations Course Vital Signs 07/01/23 00:30 Temperature 98.9 F Pulse Rate 84 Respiratory 18 Rate Blood Pressure 154/93 O2 Sat by Pulse 98 Oximetry Medical Decision Making - Medical Decision Making Was pt. sent in by a medical professional or institution (, PA, GLASS PRESSER, urgent care, hospital, or alf...) When possible be specific @ -No Did you speak to anyone other than the patient for history (EMS, parent, family, police, friend...)? What history was obtained from this source @ -No Did you review nursing and triage notes (agree or disagree)? Why? @ -I reviewed and agree with nursing and triage notes Were old charts reviewed (outside hosp., previous admission, EMS record, old EKG, old radiological studies, urgent care reports/EKG's, alf records)? Report findings @ -No old charts were reviewed Differential Diagnosis (chest pain, altered mental status, abdominal pain women, abdominal pain men, vaginal bleeding, weakness, fever, dyspnea, syncope, headache, dizziness, GI bleed, back pain, seizure, CVA, palpatations, mental health, musculoskeletal)? @ -Toothache, cavity, dental abscess, Harjit angina, this is not all inclusive. EKG interpreted by me (3pts min.). @ -None done X-rays interpreted by me (1pt min.). @ -None done CT interpreted by me (1pt min.). @ -None done U/S interpreted by me (1pt. min.). @ -None done What testing was considered but not performed or refused? (CT, X-rays, U/S, labs)? Why? @ -None What meds were considered but not given or refused? Why? @ -None Did you discuss the management of the patient with other professionals (professionals i.e. , PA, GLASS PRESSER, lab, RT, psych nurse, health care social worker, watch repairer, teacher, public information officer, patient case manager)? Give summary @ -No Was smoking cessation discussed for >3mins.? @ -No Was critical care preformed (if so, how long)? @ -No Were there social determinants of health that impacted care today? How? (Homelessness, low income, unemployed, alcoholism, drug addiction, transportation, low edu. Level, literacy, decrease access to med. care, half-way, rehab)? @ -No Was there de-escalation of care discussed even if they declined (Discuss DNR or withdrawal of care, Hospice)? DNR status @ -No What co-morbidities impacted this encounter? (DM, HTN, Smoking, COPD, CAD, Cancer, CVA, ARF, Chemo, Hep., AIDS, mental health diagnosis, sleep apnea, morbid obesity)? @ -None Was patient admitted / discharged? Hospital course, mention meds given and route, prescriptions, significant lab abnormalities, going to OR and other pertinent info. @ -Based on the patient's presentation and physical exam, presents to toothache. Exam is relatively unremarkable except for her tooth pain and some localized swelling. Was on antibiotics, but states that since they stopped she is still having pain. Requesting additional antibiotics and treatment. Has not yet followed up with a dentist. No evidence of Harjit syndrome at this time. Patient was started on clindamycin, given a dose of steroid, as well as a starter pack Tylenol threes. She was in agreement with this plan. Vital signs within acceptable limits. Strict return precautions discussed. She is to follow-up with a dentist which she understands. I will provide the patient with a prescription for clindamycin. I instructed the patient to follow up with their PCP in the next 1-3 days. . I explained that the patient should return to the emergency department if they experience any worsening symptoms. Strict return precautions were discussed with the patient. The patient expressed understanding of these instructions. I answered all questions that the patient had. The patient was discharged home in good condition with their prescriptions and follow up information. Undiagnosed new problem with uncertain prognosis? @ -No Drug Therapy requiring intensive monitoring for toxicity (Heparin, Nitro, Insulin, Cardizem)? @ -No Were any procedures done? @ -No Diagnosis/symptom? @ -Toothache Acute, or Chronic, or Acute on Chronic? @ -Acute Uncomplicated (without systemic symptoms) or Complicated (systemic symptoms)? @ -Complicated Side effects of treatment? @ -No Exacerbation, Progression, or Severe Exacerbation? @ -No Poses a threat to life or bodily function? How? (Chest pain, [place], [place], pneumonia, PE, COPD, DKA, ARF, appy, cholecystitis, CVA, Diverticulitis, Homicidal, Suicidal, threat to staff... and all critical care pts) @ -No Disposition Clinical Impression: Tooth ache Disposition: HOME SELF-CARE Condition: Good Instructions (If sedation given, give patient instructions): Toothache (ED) Prescriptions: Clindamycin [Cleocin] 450 mg PO Q6H 7 Days #84 cap Is patient prescribed a controlled substance at d/c from ED?: No Referrals: Efren Madera MD [Primary Care Provider] - 1-2 days Time of Disposition: 01:58
[2023-07-01 02:29] VITALS: BP 155/96; PULSE 91
== END 2023-07-01 02:29 | disposition home or self-care (01) ==
LOC: EC 00:05
DX: K08.89 Other specified disorders of teeth and supporting structures (principal); J44.9 Chronic obstructive pulmonary disease, unspecified; M19.90 Unspecified osteoarthritis, unspecified site; F41.9 Anxiety disorder, unspecified; F32.A Depression, unspecified; F17.200 Nicotine dependence, unspecified, uncomplicated; Z79.899 Other long term (current) drug therapy; Z88.6 Allergy status to analgesic agent
CPT/HCPCS: 99283; 96372; J1100

== ENCOUNTER 2023-07-01 19:58 | Emergency (ER) | payer OTHER ==
[2023-07-01 20:02] VITALS: BP 109/74; PULSE 100; RESP 20; TEMP 98
[2023-07-01] MEDS ORDERED: HYDROcodone/APAP 7.5-325MG 1 EACH TAB PO ONE (20:32)
--- NOTE | 2023-07-01 20:38 | ED ---
ENT HPI - General Chief complaint: Dental/Oral Stated complaint: Dental pain Time Seen by Provider: 07/01/23 20:05 Source: patient Mode of arrival: ambulatory Limitations: no limitations - History of Present Illness Initial comments: 47-year-old female presents to the emergency department reporting a toothache. States that she was seen yesterday in the emergency room for same complaint. She was started on antibiotics and Tylenol threes. States she's been taking the Tylenol threes however continues to have pain. She denies any difficulty swallowing. No shortness of breath. She has been taking the antibiotics as directed. No fevers. Patient requesting additional pain control. No other alleviating, precipitating or modifying factors - Related Data Home Medications Medication Instructions Recorded Confirmed Atorvastatin Calcium [Lipitor] 20 mg PO DAILY 04/22/21 03/06/23 lisinopriL [Prinivil] 10 mg PO BID 04/22/21 03/06/23 Amoxic-Pot Clav 875-125Mg 1 tab PO Q12HR 03/01/23 03/06/23 [Augmentin 875-125] Cholecalciferol [Vitamin D3 (25 25 mcg PO DAILY 03/01/23 03/06/23 Mcg = 1000 Iu)] Fluticasone Nasal [place] [Flonase 1 spray EA NOSTRIL DAILY PRN 03/01/23 03/06/23 Nasal [place]] Metoprolol Succinate [Toprol XL] 50 mg PO DAILY 03/01/23 03/06/23 Previous Rx's Medication Instructions Recorded Cyclobenzaprine [Flexeril] 10 mg PO TID PRN #15 tab 03/01/23 methylPREDNISolone Dose Pack 4 mg PO DIRECTED #21 tab 03/06/23 [Medrol Dose Pack] Amoxic-Pot Clav 875-125Mg 1 tab PO BID #14 tab 06/26/23 [Augmentin 875-125] Clindamycin [Cleocin] 450 mg PO Q6H 7 Days #84 cap 07/01/23 HYDROcodone/APAP 7.5-325MG [[place] 1 tab PO Q6HR PRN 3 Days #12 tab 07/01/23 7.5-325] Allergies Allergy/AdvReac Type Severity Reaction Status Date / Time ibuprofen [From Motrin] Allergy Intermediate Rash/Hives Verified 06/28/23 18:37 Review of Systems ROS Statement: Those systems with pertinent positive or pertinent negative responses have been documented in the HPI. ROS Other: All systems not noted in ROS Statement are negative. Past Medical History Past Medical History: COPD, Osteoarthritis (OA) Additional Past Medical History / Comment(s): scoliosis History of Any Multi-Drug Resistant Organisms: None Reported Past Surgical History: Tubal Ligation Past Anesthesia/Blood Transfusion Reactions: No Reported Reaction Past Psychological History: Anxiety, Depression Smoking Status: Current every day smoker Past Alcohol Use History: None Reported Past Drug Use History: None Reported - Past Family History Mother Family Medical History: Cancer General Exam Limitations: no limitations General appearance: alert, in no apparent distress Head exam: Present: atraumatic, normocephalic, normal inspection Eye exam: Present: normal appearance, PERRL, EOMI. Absent: scleral icterus, conjunctival injection, periorbital swelling ENT exam: Present: normal exam, mucous membranes moist, other (No signs of ludwigs. No dental abscess. no drooling, trismus, hoarseness, stridor) Neck exam: Present: normal inspection. Absent: tenderness, meningismus, lymphadenopathy Respiratory exam: Present: normal lung sounds bilaterally. Absent: respiratory distress, wheezes, rales, rhonchi, stridor Cardiovascular Exam: Present: regular rate, normal rhythm, normal heart sounds. Absent: systolic murmur, diastolic murmur, rubs, gallop, clicks GI/Abdominal exam: Present: soft, normal bowel sounds. Absent: distended, tenderness, guarding, rebound, rigid Extremities exam: Present: normal inspection, full ROM, normal capillary refill. Absent: tenderness, pedal edema, joint swelling, calf tenderness Back exam: Present: normal inspection Neurological exam: Present: alert, oriented X3, CN II-XII intact Psychiatric exam: Present: normal affect, normal mood Skin exam: Present: warm, dry, intact, normal color. Absent: rash Course Vital Signs 07/01/23 20:00 Temperature 98 F Pulse Rate 100 Respiratory 20 Rate Blood Pressure 109/74 O2 Sat by Pulse 98 Oximetry Medical Decision Making - Medical Decision Making Was pt. sent in by a medical professional or institution (, PA, CASING TRIMMER, urgent care, hospital, or longterm...) When possible be specific @ -No Did you speak to anyone other than the patient for history (EMS, parent, family, police, friend...)? What history was obtained from this source @ -No Did you review nursing and triage notes (agree or disagree)? Why? @ -I reviewed and agree with nursing and triage notes Were old charts reviewed (outside hosp., previous admission, EMS record, old EKG, old radiological studies, urgent care reports/EKG's, longterm records)? Report findings @ -I reviewed the patient's ER chart from yesterday Differential Diagnosis (chest pain, altered mental status, abdominal pain women, abdominal pain men, vaginal bleeding, weakness, fever, dyspnea, syncope, headache, dizziness, GI bleed, back pain, seizure, CVA, palpatations, mental health, musculoskeletal)? @ -Dental abscess, Harjit's angina, dentalgia, dental carries, impacted molar EKG interpreted by me (3pts min.). @ -Not done X-rays interpreted by me (1pt min.). @ -None done CT interpreted by me (1pt min.). @ -None done U/S interpreted by me (1pt. min.). @ -None done What testing was considered but not performed or refused? (CT, X-rays, U/S, labs)? Why? @ -None What meds were considered but not given or refused? Why? @ -None Did you discuss the management of the patient with other professionals (professionals i.e. , PA, CASING TRIMMER, lab, RT, psych nurse, criminal justice social worker, brick and blocker aid labor, teacher, senior administrative services officer, case worker)? Give summary @ -No Was smoking cessation discussed for >3mins.? @ -No Was critical care preformed (if so, how long)? @ -No Were there social determinants of health that impacted care today? How? (Homelessness, low income, unemployed, alcoholism, drug addiction, transportation, low edu. Level, literacy, decrease access to med. care, halfway, rehab)? @ -No Was there de-escalation of care discussed even if they declined (Discuss DNR or withdrawal of care, Hospice)? DNR status @ -No What co-morbidities impacted this encounter? (DM, HTN, Smoking, COPD, CAD, Cancer, CVA, ARF, Chemo, Hep., AIDS, mental health diagnosis, sleep apnea, mor bid obesity)? @ -None Was patient admitted / discharged? Hospital course, mention meds given and route, prescriptions, significant lab abnormalities, going to OR and other pertinent info. @ -Upon arrival patient was placed in room 33. Thorough history and physical exam was performed. I did order her a [place]. Patient will be discharged home with a 3 day supply. Instructed on proper use and side effects. Patient is to continue to take her antibiotic. Follow up with her dentist return for any new or worsening symptoms Undiagnosed new problem with uncertain prognosis? @ -No Drug Therapy requiring intensive monitoring for toxicity (Heparin, Nitro, Insulin, Cardizem)? @ -No Were any procedures done? @ -No Diagnosis/symptom? @ -acute dentalgia Acute, or Chronic, or Acute on Chronic? @ -acute Uncomplicated (without systemic symptoms) or Complicated (systemic symptoms)? @ -uncomplicated Side effects of treatment? @ -No Exacerbation, Progression, or Severe Exacerbation? @ -No Poses a threat to life or bodily function? How? (Chest pain, [place], [place], pneumonia, PE, COPD, DKA, ARF, appy, cholecystitis, CVA, Diverticulitis, Homicidal, Suicidal, threat to staff... and all critical care pts) @ -No Disposition Clinical Impression: Toothache Disposition: HOME SELF-CARE Condition: Stable Instructions (If sedation given, give patient instructions): Toothache (ED) Additional Instructions: Take the pain medication and antibiotics as directed. Follow up with your dentist and return for any new or worsening symptoms Prescriptions: HYDROcodone/APAP 7.5-325MG [[place] 7.5-325] 1 tab PO Q6HR PRN 3 Days #12 tab PRN Reason: Pain Is patient prescribed a controlled substance at d/c from ED?: Yes When asked, does pt state using other controlled substances?: No If prescribed controlled substance>3 days was MAPS reviewed?: Prescribed <3 Days If opioid is for acute pain is fill amount 7 days or less?: Yes Referrals: Efren Madera MD [Primary Care Provider] - 1-2 days Time of Disposition: 20:38
== END 2023-07-01 20:42 | disposition home or self-care (01) ==
LOC: EC 19:58
DX: K08.89 Other specified disorders of teeth and supporting structures (principal); J44.9 Chronic obstructive pulmonary disease, unspecified; F17.200 Nicotine dependence, unspecified, uncomplicated; Z88.6 Allergy status to analgesic agent; Z86.59 Personal history of other mental and behavioral disorders
CPT/HCPCS: 99282

== ENCOUNTER 2023-07-23 10:02 | Emergency (ER) | payer OTHER ==
--- NOTE | 2023-07-23 10:41 | ED ---
Recheck HPI - General Chief Complaint: Recheck/Abnormal Lab/Rx Stated Complaint: Found Black Mold in Home Time Seen by Provider: 07/23/23 10:20 Source: patient, RN notes reviewed Mode of arrival: ambulatory - History of Present Illness Initial Comments: This is a 47-year-old female who presents to the emergency department for black mold exposure. Patient states that the health department found back mold in their home 2 weeks ago. She has remained asymptomatic. States that the house is in the process of being cleaned out and she is in the process of moving. She presents here with her family per the instruction of the health department for a chest x-ray. Denies any fevers, chills, sore throat, cough, dyspnea, chest pain, palpitations, abdominal pain, nausea, vomiting, diarrhea, back pain, or headaches. MD Complaint: other (Black mold exposure) - Related Data Home Medications Medication Instructions Recorded Confirmed Atorvastatin Calcium [Lipitor] 20 mg PO DAILY 04/22/21 03/06/23 lisinopriL [Prinivil] 10 mg PO BID 04/22/21 03/06/23 Amoxic-Pot Clav 875-125Mg 1 tab PO Q12HR 03/01/23 03/06/23 [Augmentin 875-125] Cholecalciferol [Vitamin D3 (25 25 mcg PO DAILY 03/01/23 03/06/23 Mcg = 1000 Iu)] Fluticasone Nasal [place] [Flonase 1 spray EA NOSTRIL DAILY PRN 03/01/23 03/06/23 Nasal [place]] Metoprolol Succinate [Toprol XL] 50 mg PO DAILY 03/01/23 03/06/23 Previous Rx's Medication Instructions Recorded Cyclobenzaprine [Flexeril] 10 mg PO TID PRN #15 tab 03/01/23 methylPREDNISolone Dose Pack 4 mg PO DIRECTED #21 tab 03/06/23 [Medrol Dose Pack] Amoxic-Pot Clav 875-125Mg 1 tab PO BID #14 tab 06/26/23 [Augmentin 875-125] Clindamycin [Cleocin] 450 mg PO Q6H 7 Days #84 cap 07/01/23 HYDROcodone/APAP 7.5-325MG [[place] 1 tab PO Q6HR PRN 3 Days #12 tab 07/01/23 7.5-325] Allergies Allergy/AdvReac Type Severity Reaction Status Date / Time ibuprofen [From Motrin] Allergy Intermediate Rash/Hives Verified 07/23/23 10:18 Review of Systems ROS Statement: Those systems with pertinent positive or pertinent negative responses have been documented in the HPI. ROS Other: All systems not noted in ROS Statement are negative. Past Medical History Past Medical History: COPD, Osteoarthritis (OA) Additional Past Medical History / Comment(s): scoliosis History of Any Multi-Drug Resistant Organisms: None Reported Past Surgical History: Tubal Ligation Past Anesthesia/Blood Transfusion Reactions: No Reported Reaction Past Psychological History: Anxiety, Depression Smoking Status: Current every day smoker Past Alcohol Use History: None Reported Past Drug Use History: None Reported - Past Family History Mother Family Medical History: Cancer General Exam Limitations: no limitations General appearance: alert, in no apparent distress Head exam: Present: atraumatic, normocephalic, normal inspection Respiratory exam: Present: normal lung sounds bilaterally. Absent: respiratory distress, wheezes, rales, rhonchi, stridor Cardiovascular Exam: Present: regular rate, normal rhythm, normal heart sounds. Absent: systolic murmur, diastolic murmur, rubs, gallop, clicks Neurological exam: Present: alert, oriented X3, CN II-XII intact Psychiatric exam: Present: normal affect, normal mood Skin exam: Present: warm, dry, intact, normal color. Absent: rash Course Vital Signs 07/23/23 07/23/23 10:16 11:35 Temperature 98.0 F 97.8 F Pulse Rate 68 62 Respiratory 18 16 Rate Blood Pressure 113/74 109/73 O2 Sat by Pulse 96 97 Oximetry Medical Decision Making - Medical Decision Making This is a 39-year-old female who presents to the emergency department for black mold exposure. Was pt. sent in by a medical professional or institution? @ -No Did you speak to anyone other than the patient for history? @ -No Did you review nursing and triage notes? @ -Yes, and I agree, it is accurate with regards to the patient's symptoms. Were old charts reviewed? @ -No Differential Diagnosis? @ -Not applicable EKG interpreted by me (3pts min.)? @ -Not obtained X-rays interpreted by me (1pt min.)? @ -Chest x-ray obtained, my interpretation identifies no localized consolidations or infiltrates. CT interpreted by me (1pt min.)? @ -Not obtained U/S interpreted by me (1pt. min.)? @ -Not obtained What testing was considered but not performed? (CT, X-rays, U/S, labs)? Why? @ -None What meds were considered but not given? Why? @ -None Did you discuss the management of the patient with other professionals? @ -No Did you reconcile home meds? @ -No Was smoking cessation discussed for >3mins.? @ -I discussed smoking cessation for greater than 3 minutes. The risk of smoking were discussed with the patient including but not limited to risks of cancer, stroke, coronary artery disease and COPD. Also discussed with patient were multiple methods of quitting smoking. Lastly we discussed the financial cost of smoking. Was critical care preformed (if so, how long)? @ -No Were there social determinants of health that impacted care today? How? (Homelessness, low income, unemployed, alcoholism, drug addiction, transportation, low edu. Level, literacy, decrease access to med. care, retirement, rehab)? @ -No Was there de-escalation of care discussed even if they declined? (Discuss DNR or withdrawal of care, Hospice)? @ -No What co-morbidities impacted this encounter? (DM, HTN, Smoking, COPD, CAD, Cancer, CVA, Hep., AIDS, mental health diagnosis, sleep apnea, morbid obesity)? @ -COPD, smoking Was patient admitted / discharged? @ -Discharged. Chest x-ray obtained revealing no acute process. Patient discharged home in stable condition. Advised to limit the exposure to the mold as much as possible to reduce the risk of developing symptoms and to otherwise follow up with her primary care provider. Undiagnosed new problem with uncertain prognosis? @ -None Drug Therapy requiring intensive monitoring for toxicity (Heparin, Nitro, Insulin, Cardizem)? @ -None Were any procedures done? @ -None Diagnosis/symptom? @ -Mold exposure Acute, or Chronic, or Acute on Chronic? @ -Acute Uncomplicated (without systemic symptoms) or Complicated (systemic symptoms)? @ -Uncomplicated Side effects of treatment? @ -None Exacerbation, Progression, or Severe Exacerbation] @ -Not applicable Poses a threat to life or bodily function? @ -No Return precautions reviewed in depth, the patient is instructed to return to the emergency department with any new, worsening, or concerning symptoms. Patient verbalized understanding. This case was discussed in detail with the attending ED physician, Dr. Langford. Presentation, findings, and treatment plan discussed in detail as well. - Radiology Data Radiology results: report reviewed, image reviewed Disposition Clinical Impression: Mold exposure, Nicotine dependence Disposition: HOME SELF-CARE Instructions (If sedation given, give patient instructions): How Your Lungs Work (ED) Additional Instructions: Return to the emergency department with any new, worsening, or concerning symptoms. Follow up with your primary care provider in 1-2 days. Is patient prescribed a controlled substance at d/c from ED?: No Referrals: Efren Madera MD [Primary Care Provider] - 1-2 days
--- NOTE | 2023-07-23 11:07 | XR ---
EXAMINATION TYPE: XR chest 2V DATE OF EXAM: 07/23/2023 COMPARISON: 01/05/2023 HISTORY: Chest pain TECHNIQUE: Frontal and lateral views of the chest are obtained. FINDINGS: There is no focal air space opacity. No evidence for pneumothorax. No pleural effusion. The cardiac silhouette size is within normal limits. The osseous structures are grossly intact. IMPRESSION: 1. No acute cardiopulmonary process.
[2023-07-23 11:36] VITALS: BP 109/73; PULSE 62; RESP 16; TEMP 97.8
== END 2023-07-23 11:42 | disposition home or self-care (01) ==
LOC: EC 10:02
DX: Z77.120 Contact with and (suspected) exposure to mold (toxic) (principal); F17.200 Nicotine dependence, unspecified, uncomplicated; J44.9 Chronic obstructive pulmonary disease, unspecified; M19.90 Unspecified osteoarthritis, unspecified site; F41.9 Anxiety disorder, unspecified; F32.A Depression, unspecified; Z88.6 Allergy status to analgesic agent; Z79.51 Long term (current) use of inhaled steroids; Z79.899 Other long term (current) drug therapy
CPT/HCPCS: 71046; 99283; 99406

== ENCOUNTER 2023-08-11 15:33 | Emergency (ER) | payer OTHER ==
[2023-08-11 18:39] LABS: Appearance,Urine Cloudy (Clear); Bilirubin,Urine Negative (Negative); Blood,Urine Large (Negative); Color,Urine Red; Glucose,Urine (UA) Negative (Negative); Ketones,Urine 2+ (Negative); Leukocyte Esterase,Urine Small (Negative); Nitrite,Urine Negative (Negative); PH, Urine 5.5 (5.0-8.0); Protein,Urine 1+ (Negative); RBC,Urine >182 /hpf (0-5); Specific Gravity,Urine 1.018 (1.001-1.035); Squamous Epithelial Cell,Urine 5 /hpf (0-4); Urobilinogen,Urine <2.0 mg/dL (<2.0); WBC,Urine >182 /hpf (0-5)
[2023-08-11 18:41] LABS: Amphetamine Screen,Urine Not Detected (NotDetected); Barbiturate Screen,Urine Not Detected (NotDetected); Benzodiazepines Screen,Urine Not Detected (NotDetected); Cocaine Screen,Urine Not Detected (NotDetected); Methadone Screen, Urine Not Detected (NotDetected); Opiate Screen,Urine Not Detected (NotDetected); Oxycodone Screen, Urine Not Detected (NotDetected); Phencyclidine Screen,Urine Not Detected (NotDetected); Tricyclic Antidepressant,Urine Not Detected (NotDetected); Urn Cannabinoid Scrn Not Detected (NotDetected)
--- NOTE | 2023-08-11 18:44 | ED ---
Psych HPI - General Source: patient Mode of arrival: ambulatory <Jreel Peterson - Last Filed: 08/12/23 04:10> <Nasir Mabry - Last Filed: 08/12/23 12:00> - General Chief Complaint: Psychiatric Symptoms Stated Complaint: suicidal/mental health Time Seen by Provider: 08/11/23 16:07 - History of Present Illness Initial Comments: 47-year-old female presenting for mental health evaluation. Patient states that she has been having thoughts of suicide. She states that she intends to take a bottle of Seroquel. She has no homicidal ideations. She denies any physical complaints today no abdominal pain, chest pain, difficulty breathing, extremity pain. (Jerel Peterson) - Related Data Home Medications Medication Instructions Recorded Confirmed Atorvastatin Calcium [Lipitor] 20 mg PO DAILY 04/22/21 08/11/23 lisinopriL [Prinivil] 10 mg PO BID 04/22/21 08/11/23 Cholecalciferol [Vitamin D3 (25 25 mcg PO DAILY 03/01/23 08/11/23 Mcg = 1000 Iu)] Metoprolol Succinate [Toprol XL] 50 mg PO DAILY 03/01/23 08/11/23 Albuterol Inhaler [Ventolin Hfa 1 - 2 puff INHALATION RT-Q6H PRN 08/11/23 08/11/23 Inhaler] Nystatin 100,000 Unit/gm Powd 1 applic TOPICAL BID PRN 08/11/23 08/11/23 [Mycostatin Powder] Nystatin/Triamcin 1 applic TOPICAL BID PRN 08/11/23 08/11/23 [Nystatin-Triamcinolone Cream] Paliperidone [Invega] 9 mg PO HS 08/11/23 08/11/23 Venlafaxine HCl [Effexor XR] 150 mg PO DAILY 08/11/23 08/11/23 Allergies Allergy/AdvReac Type Severity Reaction Status Date / Time ibuprofen [From Motrin] Allergy Intermediate Rash/Hives Verified 08/11/23 19:03 Review of Systems ROS Other: All systems not noted in ROS Statement are negative. <Jerel Peterson - Last Filed: 08/12/23 04:10> ROS Other: All systems not noted in ROS Statement are negative. <Nasir Mabry - Last Filed: 08/12/23 12:00> ROS Statement: Those systems with pertinent positive or pertinent negative responses have been documented in the HPI. Past Medical History Past Medical History: COPD, Osteoarthritis (OA) Additional Past Medical History / Comment(s): scoliosis History of Any Multi-Drug Resistant Organisms: None Reported Past Surgical History: Tubal Ligation Past Anesthesia/Blood Transfusion Reactions: No Reported Reaction Past Psychological History: Anxiety, Depression Smoking Status: Current every day smoker Past Alcohol Use History: None Reported Past Drug Use History: None Reported - Past Family History Mother Family Medical History: Cancer <Jerel Peterson - Last Filed: 08/12/23 04:10> General Exam Limitations: no limitations General appearance: alert, in no apparent distress Head exam: Present: atraumatic, normocephalic, normal inspection Eye exam: Present: normal appearance, EOMI Neck exam: Present: normal inspection, full ROM Respiratory exam: Present: normal lung sounds bilaterally. Absent: respiratory distress, wheezes, rales, rhonchi, stridor Cardiovascular Exam: Present: regular rate, normal rhythm, normal heart sounds. Absent: systolic murmur, diastolic murmur, rubs, gallop, clicks Neurological exam: Present: alert, oriented X3, CN II-XII intact Psychiatric exam: Present: normal affect, normal mood, suicidal ideation. Absent: homicidal ideation Skin exam: Present: warm, dry, intact, normal color. Absent: rash <Jerel Peterson - Last Filed: 08/12/23 04:10> Course Vital Signs 08/11/23 08/11/23 08/11/23 16:01 17:04 18:00 Temperature 98.0 F Pulse Rate 80 80 86 Respiratory 20 20 16 Rate Blood Pressure 117/78 130/86 118/68 O2 Sat by Pulse 94 L 98 98 Oximetry 08/11/23 08/12/23 19:24 07:39 Temperature 97.8 F Pulse Rate 66 93 Respiratory 19 16 Rate Blood Pressure 148/65 130/76 O2 Sat by Pulse 97 97 Oximetry Medical Decision Making <Jerel Peterson - Last Filed: 08/12/23 04:10> - Medical Decision Making Was pt. sent in by a medical professional or institution (, PA, OFFICE MACHINE TECHNICIAN, urgent care, hospital, or skilled nursing...) When possible be specific @ -[No] Did you speak to anyone other than the patient for history (EMS, parent, family, police, friend...)? What history was obtained from this source @ -[No] Did you review nursing and triage notes (agree or disagree)? Why? @ -[I reviewed and agree with nursing and triage notes] Were old charts reviewed (outside hosp., previous admission, EMS record, old EKG, old radiological studies, urgent care reports/EKG's, skilled nursing records)? Report findings @ -[No old charts were reviewed] Differential Diagnosis (chest pain, altered mental status, abdominal pain women, abdominal pain men, vaginal bleeding, weakness, fever, dyspnea, syncope, headache, dizziness, GI bleed, back pain, seizure, CVA, palpatations, mental health, musculoskeletal)? @ -Differential Mental Health Depression, anxiety, bipolar, psychosis, schizophrenia, borderline personality, situational depression, adjustment disorder, behavioral disorder, brain tumor, malingering, substance abuse, encephalopathy, medication reaction, dementia, hypothyroidism, degenerative neurologic disorder, lupus.... This is not meant to be all-inclusive list EKG interpreted by me (3pts min.). @ -[As above] X-rays interpreted by me (1pt min.). @ -[None done] CT interpreted by me (1pt min.). @ -[None done] U/S interpreted by me (1pt. min.). @ -[None done] What testing was considered but not performed or refused? (CT, X-rays, U/S, labs)? Why? @ -[None] What meds were considered but not given or refused? Why? @ -[None] Did you discuss the management of the patient with other professionals (professionals i.e. , PA, OFFICE MACHINE TECHNICIAN, lab, RT, psych nurse, manager social responsibility, gin inspector, teacher, affirmative action officer, assistant case manager)? Give summary @ -[No] Was smoking cessation discussed for >3mins.? @ -[No] Was critical care preformed (if so, how long)? @ -[No] Were there social determinants of health that impacted care today? How? (Homelessness, low income, unemployed, alcoholism, drug addiction, transportation, low edu. Level, literacy, decrease access to med. care, [facility], rehab)? @ -[No] Was there de-escalation of care discussed even if they declined (Discuss DNR or withdrawal of care, Hospice)? DNR status @ -[No] What co-morbidities impacted this encounter? (DM, HTN, Smoking, COPD, CAD, Cancer, CVA, ARF, Chemo, Hep., AIDS, mental health diagnosis, sleep apnea, morbid obesity)? @ -[None] Was patient admitted / discharged? Hospital course, mention meds given and route, prescriptions, significant lab abnormalities, going to OR and other pertinent info. @ -47-year-old female presenting for mental health evaluation. She is medically cleared and awaiting EPS evaluation. Patient had to petitioned while waiting. (Jerel Peterson) - Lab Data Lab Results 08/11/23 Range/Units 18:10 Urine Color Red Urine Appearance Cloudy H (Clear) Urine pH 5.5 (5.0-8.0) Ur Specific [place] 1.018 (1.001-1.035) Urine Protein 1+ H (Negative) Urine Glucose (UA) Negative (Negative) Urine Ketones 2+ H (Negative) Urine Blood Large H (Negative) Urine Nitrite Negative (Negative) Urine Bilirubin Negative (Negative) Urine Urobilinogen <2.0 (<2.0) mg/dL Ur Leukocyte Esterase Small H (Negative) Urine RBC >182 H (0-5) /hpf Urine WBC >182 H (0-5) /hpf Ur Squamous Epith Cells 5 H (0-4) /hpf Urine Opiates Screen Not Detected (NotDetected) Ur Oxycodone Screen Not Detected (NotDetected) Urine Methadone Screen Not Detected (NotDetected) Ur Propoxyphene Screen Not Detected (NotDetected) Ur Barbiturates Screen Not Detected (NotDetected) U Tricyclic Antidepress Not Detected (NotDetected) Ur Phencyclidine Scrn Not Detected (NotDetected) Ur Amphetamines Screen Not Detected (NotDetected) U Methamphetamines Scrn Not Detected (NotDetected) U Benzodiazepines Scrn Not Detected (NotDetected) Urine Cocaine Screen Not Detected (NotDetected) U Marijuana (THC) Screen Not Detected (NotDetected) Disposition <Jerel Peterson - Last Filed: 08/12/23 04:10> Is patient prescribed a controlled substance at d/c from ED?: No <Nasir Mabry - Last Filed: 08/12/23 12:00> Clinical Impression: Suicidal ideations Disposition: HOME SELF-CARE Condition: Good Instructions (If sedation given, give patient instructions): Help Prevent Malcolm icide (ED) Referrals: Efren Madera MD [Primary Care Provider] - 1-2 days
[2023-08-12] MEDS ORDERED: MELATONIN 5 MG TABLET PO SCH (00:15)
[2023-08-12 12:38] VITALS: BP 135/87; PULSE 84; RESP 20; TEMP 98.7
== END 2023-08-12 12:38 | disposition home or self-care (01) ==
LOC: EC 15:33
DX: R45.851 Suicidal ideations (principal); J44.9 Chronic obstructive pulmonary disease, unspecified; M19.90 Unspecified osteoarthritis, unspecified site; F17.200 Nicotine dependence, unspecified, uncomplicated; Z79.899 Other long term (current) drug therapy; Z88.6 Allergy status to analgesic agent
CPT/HCPCS: 80306; 81001; 82075; 99285

== ENCOUNTER 2023-11-04 16:53 | Emergency (ER) | payer OTHER ==
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
[2023-11-04] MEDS ORDERED: ALPRAZolam 0.5 MG TAB PO STA ×2 (20:36)
[2023-11-04 21:08] VITALS: BP 136/96; PULSE 104; RESP 18; TEMP 98.2
== END 2023-11-04 21:05 | disposition home or self-care (01) ==
LOC: EC 16:53
DX: F41.9 Anxiety disorder, unspecified (principal); J44.9 Chronic obstructive pulmonary disease, unspecified; M19.90 Unspecified osteoarthritis, unspecified site; F32.A Depression, unspecified; F17.200 Nicotine dependence, unspecified, uncomplicated; Z79.899 Other long term (current) drug therapy; Z88.6 Allergy status to analgesic agent
CPT/HCPCS: 99283

== ENCOUNTER 2023-12-12 16:57 | Emergency (ER) | payer OTHER ==
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
[2023-12-12 18:05] LABS: Basophils # (A) 0.1 k/uL (0-0.2); Basophils % (A) 0 %; Eosinophils # (A) 0.2 k/uL (0-0.7); Eosinophils % (A) 2 %; HCT 45.1 % (34.0-46.0); HGB 15.1 gm/dL (11.4-16.0); Lymphocytes # (A) 3.5 k/uL (1.0-4.8); Lymphocytes % (A) 32 %; MCH 32.1 pg (25.0-35.0); MCHC 33.4 g/dL (31.0-37.0); Mean Platelet Volume 7.4; Monocytes # (A) 0.7 k/uL (0-1.0); Monocytes % (A) 7 %; Neutrophils # (A) 6.4 k/uL (1.3-7.7); Neutrophils % (A) 57 %; Platelet Count 310 k/uL (150-450); RDW 12.8 % (11.5-15.5); WBC 11.1 k/uL (3.8-10.6)
[2023-12-12 18:14] LABS: ALT 20 U/L (4-34); AST 25 U/L (14-36); African American GFR (CKD) >90 (>60 ml/min/1.73 sqM); Albumin 4.3 g/dL (3.5-5.0); Alkaline Phosphatase 79 U/L (38-126); Anion Gap 6 mmol/L; Blood Urea Nitrogen 6 mg/dL (7-17); Calcium 9.4 mg/dL (8.4-10.2); Carbon Dioxide 27 mmol/L (22-30); Chloride 107 mmol/L (98-107); Glucose 99 mg/dL (74-99); Non-African American GFR(CKD) >90 (>60 ml/min/1.73 sqM); Potassium 3.8 mmol/L (3.5-5.1); Sodium 140 mmol/L (137-145); Total Bilirubin 0.4 mg/dL (0.2-1.3); Total Protein 7.5 g/dL (6.3-8.2)
[2023-12-12 22:09] VITALS: BP 144/91; PULSE 61; RESP 17; TEMP 97.7
== END 2023-12-13 07:05 ==
LOC: EC 16:57
DX: F32.A Depression, unspecified (principal); F32.9 Major depressive disorder, single episode, unspecified; R45.851 Suicidal ideations; F41.9 Anxiety disorder, unspecified; J44.9 Chronic obstructive pulmonary disease, unspecified; M19.90 Unspecified osteoarthritis, unspecified site; F17.200 Nicotine dependence, unspecified, uncomplicated; Z79.899 Other long term (current) drug therapy; Z88.6 Allergy status to analgesic agent; Z20.822 Contact with and (suspected) exposure to COVID-19
CPT/HCPCS: 36415; 80053; 81025; 82075; 85025; 87636; 99285

== ENCOUNTER 2024-01-29 10:20 | Emergency (ER) | payer OTHER ==
--- NOTE | 2024-01-29 11:01 | ED ---
General Adult HPI - General Chief complaint: Psychiatric Symptoms Stated complaint: Suicidal Ideations Time Seen by Provider: 01/29/24 10:33 Source: patient, RN notes reviewed, old records reviewed Mode of arrival: ambulatory Limitations: no limitations - History of Present Illness Initial comments: 48-year-old female presenting for evaluation of depression, suicidal ideation. Patient denies current plan. She denies suicide attempts. Patient reluctant to address why she is more depressed with increased suicidal ideation. Patient without physical complaint. - Related Data Home Medications Medication Instructions Recorded Confirmed Atorvastatin Calcium [Lipitor] 20 mg PO DAILY 04/22/21 01/29/24 lisinopriL [Prinivil] 10 mg PO BID 04/22/21 01/29/24 Cholecalciferol [Vitamin D3 (25 25 mcg PO DAILY 03/01/23 01/29/24 Mcg = 1000 Iu)] Metoprolol Succinate [Toprol XL] 50 mg PO DAILY 03/01/23 01/29/24 Albuterol Inhaler [Ventolin Hfa 1 - 2 puff INHALATION RT-Q6H PRN 08/11/23 01/29/24 Inhaler] FLUoxetine HCL [PROzac] 20 mg PO HS 12/12/23 01/29/24 Citalopram Hydrobromide [CeleXA] 40 mg PO DAILY 01/29/24 01/29/24 OLANZapine [ZyPREXA] 20 mg PO HS 01/29/24 01/29/24 QUEtiapine [SEROquel] 50 mg PO HS 01/29/24 01/29/24 Allergies Allergy/AdvReac Type Severity Reaction Status Date / Time ibuprofen [From Motrin] Allergy Intermediate Rash/Hives Verified 01/29/24 10:33 Review of Systems ROS Statement: Those systems with pertinent positive or pertinent negative responses have been documented in the HPI. ROS Other: All systems not noted in ROS Statement are negative. Past Medical History Past Medical History: COPD, Osteoarthritis (OA) Additional Past Medical History / Comment(s): scoliosis History of Any Multi-Drug Resistant Organisms: None Reported Past Surgical History: Tubal Ligation Past Anesthesia/Blood Transfusion Reactions: No Reported Reaction Past Psychological History: Anxiety, Depression Smoking Status: Current every day smoker Past Alcohol Use History: None Reported Past Drug Use History: None Reported - Past Family History Mother Family Medical History: Cancer General Exam Limitations: no limitations General appearance: alert, in no apparent distress Head exam: Present: atraumatic, normocephalic Eye exam: Present: normal appearance, PERRL ENT exam: Present: normal exam Neck exam: Present: normal inspection. Absent: tenderness, meningismus Respiratory exam: Present: normal lung sounds bilaterally. Absent: respiratory distress, wheezes Cardiovascular Exam: Present: regular rate, normal rhythm GI/Abdominal exam: Present: soft. Absent: distended, tenderness, guarding Extremities exam: Present: normal inspection, normal capillary refill. Absent: pedal edema Neurological exam: Present: alert, oriented X3, CN II-XII intact. Absent: motor sensory deficit Psychiatric exam: Present: depressed, anxious, suicidal ideation Skin exam: Present: warm, dry, intact Course Vital Signs 01/29/24 10:31 Temperature 98.1 F Pulse Rate 114 H Respiratory 18 Rate Blood Pressure 155/78 O2 Sat by Pulse 98 Oximetry Medical Decision Making - Medical Decision Making Was pt. sent in by a medical professional or institution (, PA, MEDICATION AIDE, urgent care, hospital, or [facility]...) When possible be specific @ -No Did you speak to anyone other than the patient for history (EMS, parent, family, police, friend...)? What history was obtained from this source @ -No Did you review nursing and triage notes (agree or disagree)? Why? @ -I reviewed and agree with nursing and triage notes Were old charts reviewed (outside hosp., previous admission, EMS record, old EKG, old radiological studies, urgent care reports/EKG's, [facility] records)? Report findings @ -No old charts were reviewed Differential Diagnosis (chest pain, altered mental status, abdominal pain women, abdominal pain men, vaginal bleeding, weakness, fever, dyspnea, syncope, headache, dizziness, GI bleed, back pain, seizure, CVA, palpatations, mental health, musculoskeletal)? @ -Differential Mental Health Depression, anxiety, bipolar, psychosis, schizophrenia, borderline personality, situational depression, adjustment disorder, behavioral disorder, brain tumor, malingering, substance abuse, encephalopathy, medication reaction, dementia, hypothyroidism, degenerative neurologic disorder, lupus.... This is not meant to be all-inclusive list EKG interpreted by me (3pts min.). @ -As above X-rays interpreted by me (1pt min.). @ -None done CT interpreted by me (1pt min.). @ -None done U/S interpreted by me (1pt. min.). @ -None done What testing was considered but not performed or refused? (CT, X-rays, U/S, labs)? Why? @ -None What meds were considered but not given or refused? Why? @ -None Did you discuss the management of the patient with other professionals (professionals i.e. DrGlenn, PA, MEDICATION AIDE, lab, RT, psych nurse, psychotherapist social worker, physician relations representative, teacher, business development officer, case making machine operator)? Give summary @ -No Was smoking cessation discussed for >3mins.? @ -No Was critical care preformed (if so, how long)? @ -No Were there social determinants of health that impacted care today? How? (Homelessness, low income, unemployed, alcoholism, drug addiction, transportation, low edu. Level, literacy, decrease access to med. care, senior care, rehab)? @ -No Was there de-escalation of care discussed even if they declined (Discuss DNR or withdrawal of care, Hospice)? DNR status @ -No What co-morbidities impacted this encounter? (DM, HTN, Smoking, COPD, CAD, Cancer, CVA, ARF, Chemo, Hep., AIDS, mental health diagnosis, sleep apnea, morbid obesity)? @ -Depression and anxiety. Was patient admitted / discharged? Hospital course, mention meds given and route, prescriptions, significant lab abnormalities, going to OR and other pertinent info. @ -Patient evaluated by EPS and was able to sign a safety plan, stable for discharge at this point. Undiagnosed new problem with uncertain prognosis? @ -No Drug Therapy requiring intensive monitoring for toxicity (Heparin, Nitro, Insulin, Cardizem)? @ -No Were any procedures done? @ -No Diagnosis/symptom? @ -Depression Acute, or Chronic, or Acute on Chronic? @ -[Acute on chronic Uncomplicated (without systemic s or Complicated (systemic symptoms)? @ -Default Side effects of treatment? @ -No Exacerbation, Progression, or Severe Exacerbation? @ -No Poses a threat to life or bodily function? How? (Chest pain, [place], [place], pneumonia, PE, COPD, DKA, ARF, appy, cholecystitis, CVA, Diverticulitis, Homicidal, Suicidal, threat to staff... and all critical care pts) @ -No Disposition Clinical Impression: Depression Disposition: HOME SELF-CARE Condition: Fair Instructions (If sedation given, give patient instructions): Depression (ED) Is patient prescribed a controlled substance at d/c from ED?: No Referrals: Efren Madera MD [Primary Care Provider] - 1-2 days Time of Disposition: 13:18
[2024-01-29 11:33] VITALS: BP 155/78; RESP 18; TEMP 98.1
[2024-01-29 13:52] VITALS: PULSE 93
== END 2024-01-29 13:40 | disposition home or self-care (01) ==
LOC: EC 10:20
DX: F32.A Depression, unspecified (principal); J44.9 Chronic obstructive pulmonary disease, unspecified; F41.9 Anxiety disorder, unspecified; F17.200 Nicotine dependence, unspecified, uncomplicated; Z79.899 Other long term (current) drug therapy; Z88.6 Allergy status to analgesic agent
CPT/HCPCS: 82075; 99284

== ENCOUNTER 2024-05-04 00:14 | Emergency (ER) | payer OTHER ==
[2024-05-04 00:25] VITALS: TEMP 97.8
[2024-05-04] MEDS: SODIUM CHLORIDE 0.9% 1,000 ML IV STA (00:38)
[2024-05-04 00:49] LABS: Basophils # (A) 0.1 k/uL (0-0.2); Basophils % (A) 0 %; Eosinophils # (A) 0.2 k/uL (0-0.7); Eosinophils % (A) 1 %; HCT 43.6 % (34.0-46.0); HGB 14.4 gm/dL (11.4-16.0); Lymphocytes # (A) 3.2 k/uL (1.0-4.8); Lymphocytes % (A) 23 %; MCH 31.9 pg (25.0-35.0); MCHC 33.1 g/dL (31.0-37.0); MCV 96.4 fL (80.0-100.0); Mean Platelet Volume 7.3; Monocytes # (A) 0.6 k/uL (0-1.0); Monocytes % (A) 4 %; Neutrophils # (A) 9.7 k/uL (1.3-7.7); Neutrophils % (A) 70 %; Platelet Count 274 k/uL (150-450); RBC 4.52 m/uL (3.80-5.40); RDW 12.9 % (11.5-15.5); WBC 13.8 k/uL (3.8-10.6)
[2024-05-04 00:58] LABS: ALT 16 U/L (4-34); AST 22 U/L (14-36); African American GFR (CKD) >90 (>60 ml/min/1.73 sqM); Albumin 3.3 g/dL (3.5-5.0); Alkaline Phosphatase 87 U/L (38-126); Anion Gap 7 mmol/L; Appearance,Urine Clear (Clear); Bilirubin,Urine Negative (Negative); Blood Urea Nitrogen 9 mg/dL (7-17); Blood,Urine Negative (Negative); Calcium 7.7 mg/dL (8.4-10.2); Carbon Dioxide 20 mmol/L (22-30); Chloride 113 mmol/L (98-107); Color,Urine Colorless; Glucose 138 mg/dL (74-99); Glucose,Urine (UA) Negative (Negative); Ketones,Urine Negative (Negative); Leukocyte Esterase,Urine Negative (Negative); Lipase 44 U/L (23-300); Nitrite,Urine Negative (Negative); Non-African American GFR(CKD) >90 (>60 ml/min/1.73 sqM); PH, Urine 6.5 (5.0-8.0); Protein,Urine Negative (Negative); Sodium 140 mmol/L (137-145); Specific Gravity,Urine 1.005 (1.001-1.035); Total Bilirubin 0.3 mg/dL (0.2-1.3); Total Protein 5.6 g/dL (6.3-8.2); Urobilinogen,Urine <2.0 mg/dL (<2.0)
[2024-05-04] MEDS: MORPHINE SULFATE 2 MG/ML SYRINGE IVP ONE (02:16)
[2024-05-04] MEDS: FAMOTIDINE 20 MG/2 ML VIAL IV STA (02:18)
--- NOTE | 2024-05-04 03:34 | CT ---
EXAM: CT Abdomen and Pelvis With Intravenous Contrast CLINICAL HISTORY: ITS.REASON CT Reason: abd pain - right periumbilical TECHNIQUE: Axial computed tomography images of the abdomen and pelvis with intravenous contrast. CTDI is 21.4 mGy and DLP is 935.3 mGy-cm. This CT exam was performed using one or more of the following dose reduction techniques: automated exposure control, adjustment of the mA and/or kV according to patient size, and/or use of iterative reconstruction technique. COMPARISON: No relevant prior studies available. FINDINGS: Lung bases: Unremarkable. No mass. No consolidation. ABDOMEN: Liver: Unremarkable. No mass. Gallbladder and bile ducts: Contracted gallbladder with cholelithiasis. No ductal dilation. Pancreas: Unremarkable. No mass. No ductal dilation. Spleen: Unremarkable. No splenomegaly. Adrenals: Unremarkable. No mass. Kidneys and ureters: LEFT renal cyst measures 2.1 cm. No hydronephrosis. Stomach and bowel: Diverticulosis, without acute diverticulitis. No small bowel obstruction. No free intraperitoneal air. PELVIS: Appendix: Normal appendix. Bladder: Unremarkable. No mass. Reproductive: Unremarkable as visualized. ABDOMEN and PELVIS: Intraperitoneal space: Unremarkable. No free air. No significant fluid collection. Bones/joints: Degenerative changes of the spine. No acute fracture. No dislocation. Soft tissues: Unremarkable. Vasculature: Atherosclerotic changes of the aorta. No abdominal aortic aneurysm. Lymph nodes: Unremarkable. No enlarged lymph nodes. IMPRESSION: Diverticulosis, without acute diverticulitis. No small bowel obstruction. No free intraperitoneal air.
--- NOTE | 2024-05-04 04:05 | ED ---
Abdominal Pain HPI - General Chief Complaint: Abdominal Pain Stated Complaint: Abd pain Time Seen by Provider: 05/04/24 00:20 Source: patient Mode of arrival: EMS Limitations: no limitations - History of Present Illness Initial Comments: 48-year-old female who presents emergency department reporting abdominal pain. States has been going on for the past 2 weeks. Reports to sharp pains in her mid abdomen. Denies any provocative factors. No fevers. No nausea or vomiting. No dysuria, hematuria or difficulty voiding. Denies black or bloody stools. No concern for . No abnormal vaginal bleeding or discharge. No other alleviating, precipitating modifying factors - Related Data Home Medications Medication Instructions Recorded Confirmed Atorvastatin Calcium [Lipitor] 20 mg PO DAILY 04/22/21 01/29/24 lisinopriL [Prinivil] 10 mg PO BID 04/22/21 01/29/24 Cholecalciferol [Vitamin D3 (25 25 mcg PO DAILY 03/01/23 01/29/24 Mcg = 1000 Iu)] Metoprolol Succinate [Toprol XL] 50 mg PO DAILY 03/01/23 01/29/24 Albuterol Inhaler [Ventolin Hfa 1 - 2 puff INHALATION RT-Q6H PRN 08/11/23 01/29/24 Inhaler] FLUoxetine HCL [PROzac] 20 mg PO HS 12/12/23 01/29/24 Citalopram Hydrobromide [CeleXA] 40 mg PO DAILY 01/29/24 01/29/24 OLANZapine [ZyPREXA] 20 mg PO HS 01/29/24 01/29/24 QUEtiapine [SEROquel] 50 mg PO HS 01/29/24 01/29/24 Previous Rx's Medication Instructions Recorded Acetaminophen-Codeine 300-30mg 1 tab PO Q6HR PRN #12 tablet 05/04/24 [Tylenol #3] Ondansetron Odt [Zofran Odt] 4 mg PO Q8HR PRN #20 tab 05/04/24 Allergies Allergy/AdvReac Type Severity Reaction Status Date / Time ibuprofen [From Motrin] Allergy Intermediate Rash/Hives Verified 05/04/24 00:25 Review of Systems ROS Statement: Those systems with pertinent positive or pertinent negative responses have been documented in the HPI. ROS Other: All systems not noted in ROS Statement are negative. Past Medical History Past Medical History: COPD, Osteoarthritis (OA) Additional Past Medical History / Comment(s): scoliosis History of Any Multi-Drug Resistant Organisms: None Reported Past Surgical History: Tubal Ligation Past Anesthesia/Blood Transfusion Reactions: No Reported Reaction Past Psychological History: Anxiety, Depression Smoking Status: Current every day smoker Past Alcohol Use History: None Reported Past Drug Use History: None Reported - Past Family History Mother Family Medical History: Cancer General Exam Limitations: no limitations General appearance: alert, in no apparent distress Head exam: Present: atraumatic, normocephalic, normal inspection Eye exam: Present: normal appearance, PERRL, EOMI. Absent: scleral icterus, conjunctival injection, periorbital swelling ENT exam: Present: normal exam, mucous membranes moist Neck exam: Present: normal inspection. Absent: tenderness, meningismus, lymphadenopathy Respiratory exam: Present: normal lung sounds bilaterally. Absent: respiratory distress, wheezes, rales, rhonchi, stridor Cardiovascular Exam: Present: regular rate, normal rhythm, normal heart sounds. Absent: systolic murmur, diastolic murmur, rubs, gallop, clicks GI/Abdominal exam: Present: soft, normal bowel sounds. Absent: distended, tenderness, guarding, rebound, rigid Extremities exam: Present: normal inspection, full ROM, normal capillary refill. Absent: tenderness, pedal edema, joint swelling, calf tenderness Back exam: Present: normal inspection Neurological exam: Present: alert, oriented X3, CN II-XII intact Psychiatric exam: Present: normal affect, normal mood Skin exam: Present: warm, dry, intact, normal color. Absent: rash Course Vital Signs 05/04/24 05/04/24 05/04/24 00:19 02:05 02:17 Temperature 97.8 F Pulse Rate 80 82 70 Respiratory 18 17 16 Rate Blood Pressure 111/73 95/80 102/78 O2 Sat by Pulse 95 96 98 Oximetry 05/04/24 04:14 Temperature Pulse Rate 78 Respiratory 15 Rate Blood Pressure 126/96 O2 Sat by Pulse 98 Oximetry Medical Decision Making - Medical Decision Making Was pt. sent in by a medical professional or institution (, PA, TICKET DISPENSER CHANGER, urgent care, hospital, or [facility]...) When possible be specific @ -No Did you speak to anyone other than the patient for history (EMS, parent, family, police, friend...)? What history was obtained from this source @ -Spoke with EMS for history Did you review nursing and triage notes (agree or disagree)? Why? @ -I reviewed and agree with nursing and triage notes Were old charts reviewed (outside hosp., previous admission, EMS record, old EKG, old radiological studies, urgent care reports/EKG's, [facility] records)? Report findings @ -No old charts were reviewed Differential Diagnosis (chest pain, altered mental status, abdominal pain women, abdominal pain men, vaginal bleeding, weakness, fever, dyspnea, syncope, headache, dizziness, GI bleed, back pain, seizure, CVA, palpatations, mental health, musculoskeletal)? @ -Differential Abdominal Pain Women: Appendicitis, Cholecystitis, diverticulosis, ischemic bowel, pancreatitis, hepatitis, UTI, gastroenteritis, AAA, incarcerated hernia, bowel obstruction, constipation, inflammatory bowel, hepatitis, peptic ulcer disease, splenic infarction, perforated viscus, vulvitis, ovarian torsion, PID, kidney stone, placenta abruption, this is not meant to be an all-inclusive list EKG interpreted by me (3pts min.). @ -As above X-rays interpreted by me (1pt min.). @ -None done CT interpreted by me (1pt min.). @ -yes and demonstrates gallstones U/S interpreted by me (1pt. min.). @ -None done What testing was considered but not performed or refused? (CT, X-rays, U/S, labs)? Why? @ -None What meds were considered but not given or refused? Why? @ -None Did you discuss the management of the patient with other professionals (professionals i.e. , PA, TICKET DISPENSER CHANGER, lab, RT, psych nurse, manager social work, donor services coordinator, teacher, certified juvenile probation officer, caseworker protective services)? Give summary @ -No Was smoking cessation discussed for >3mins.? @ -No Was critical care preformed (if so, how long)? @ -No Were there social determinants of health that impacted care today? How? (Ho melessness, low income, unemployed, alcoholism, drug addiction, transportation, low edu. Level, literacy, decrease access to med. care, residential, rehab)? @ -No Was there de-escalation of care discussed even if they declined (Discuss DNR or withdrawal of care, Hospice)? DNR status @ -No What co-morbidities impacted this encounter? (DM, HTN, Smoking, COPD, CAD, Cancer, CVA, ARF, Chemo, Hep., AIDS, mental health diagnosis, sleep apnea, morbid obesity)? @ -None Was patient admitted / discharged? Hospital course, mention meds given and route, prescriptions, significant lab abnormalities, going to OR and other pertinent info. @ -Upon arrival patient seen and evaluated. Labs conducted. CT was performed. Patient has improvement in her pain at this time. Results are discussed. Patient has gallstones. She will be discharged home at this time instructed to follow-up with a surgeon in regards to her symptoms. Return for any new or worsening is not. Patient agreeable to plan was discharged in stable condition Undiagnosed new problem with uncertain prognosis? @ -No Drug Therapy requiring intensive monitoring for toxicity (Heparin, Nitro, Insulin, Cardizem)? @ -No Were any procedures done? @ -No Diagnosis/symptom? @ -Acute abdominal pain, acute cholelithiasis Acute, or Chronic, or Acute on Chronic? @ -Acute Uncomplicated (without systemic symptoms) or Complicated (systemic symptoms)? @ -Complicated Side effects of treatment? @ -No Exacerbation, Progression, or Severe Exacerbation? @ -No Poses a threat to life or bodily function? How? (Chest pain, [place], [place], pneumonia, PE, COPD, DKA, ARF, appy, cholecystitis, CVA, Diverticulitis, Homicidal, Suicidal, threat to staff... and all critical care pts) @ -No - Lab Data Result diagrams: 05/04/24 00:34 05/04/24 00:34 Lab Results 05/04/24 05/04/24 05/04/24 Range/Units 00:34 00:34 00:34 WBC 13.8 H (3.8-10.6) k/uL RBC 4.52 (3.80-5.40) m/uL Hgb 14.4 (11.4-16.0) gm/dL Hct 43.6 (34.0-46.0) % MCV 96.4 (80.0-100.0) fL MCH 31.9 (25.0-35.0) pg MCHC 33.1 (31.0-37.0) g/dL RDW 12.9 (11.5-15.5) % Plt Count 274 (150-450) k/uL MPV 7.3 Neutrophils % 70 % Lymphocytes % 23 % Monocytes % 4 % Eosinophils % 1 % Basophils % 0 % Neutrophils # 9.7 H (1.3-7.7) k/uL Lymphocytes # 3.2 (1.0-4.8) k/uL Monocytes # 0.6 (0-1.0) k/uL Eosinophils # 0.2 (0-0.7) k/uL Basophils # 0.1 (0-0.2) k/uL Sodium 140 (137-145) mmol/L Potassium 3.0 L (3.5-5.1) mmol/L Chloride 113 H (98-107) mmol/L Carbon Dioxide 20 L (22-30) mmol/L Anion Gap 7 mmol/L BUN 9 (7-17) mg/dL Creatinine 0.51 L (0.52-1.04) mg/dL Est GFR (CKD-EPI)AfAm >90 (>60 ml/min/1.73 sqM) Est GFR (CKD-EPI)NonAf >90 (>60 ml/min/1.73 sqM) Glucose 138 H (74-99) mg/dL Plasma Lactic Acid Jose (0.7-2.0) mmol/L Calcium 7.7 L (8.4-10.2) mg/dL Total Bilirubin 0.3 (0.2-1.3) mg/dL AST 22 (14-36) U/L ALT 16 (4-34) U/L Alkaline Phosphatase 87 (38-126) U/L Total Protein 5.6 L (6.3-8.2) g/dL Albumin 3.3 L (3.5-5.0) g/dL Lipase 44 (23-300) U/L Urine Color Colorless Urine Appearance Clear (Clear) Urine pH 6.5 (5.0-8.0) Ur Specific [place] 1.005 (1.001-1.035) Urine Protein Negative (Negative) Urine Glucose (UA) Negative (Negative) Urine Ketones Negative (Negative) Urine Blood Negative (Negative) Urine Nitrite Negative (Negative) Urine Bilirubin Negative (Negative) Urine Urobilinogen <2.0 (<2.0) mg/dL Ur Leukocyte Esterase Negative (Negative) 05/04/24 Range/Units 00:34 WBC (3.8-10.6) k/uL RBC (3.80-5.40) m/uL Hgb (11.4-16.0) gm/dL Hct (34.0-46.0) % MCV (80.0-100.0) fL MCH (25.0-35.0) pg MCHC (31.0-37.0) g/dL RDW (11.5-15.5) % Plt Count (150-450) k/uL MPV Neutrophils % % Lymphocytes % % Monocytes % % Eosinophils % % Basophils % % Neutrophils # (1.3-7.7) k/uL Lymphocytes # (1.0-4.8) k/uL Monocytes # (0-1.0) k/uL Eosinophils # (0-0.7) k/uL Basophils # (0-0.2) k/uL Sodium (137-145) mmol/L Potassium (3.5-5.1) mmol/L Chloride (98-107) mmol/L Carbon Dioxide (22-30) mmol/L Anion Gap mmol/L BUN (7-17) mg/dL Creatinine (0.52-1.04) mg/dL Est GFR (CKD-EPI)AfAm (>60 ml/min/1.73 sqM) Est GFR (CKD-EPI)NonAf (>60 ml/min/1.73 sqM) Glucose (74-99) mg/dL Plasma Lactic Acid Jose 1.9 (0.7-2.0) mmol/L Calcium (8.4-10.2) mg/dL Total Bilirubin (0.2-1.3) mg/dL AST (14-36) U/L ALT (4-34) U/L Alkaline Phosphatase (38-126) U/L Total Protein (6.3-8.2) g/dL Albumin (3.5-5.0) g/dL Lipase (23-300) U/L Urine Color Urine Appearance (Clear) Urine pH (5.0-8.0) Ur Specific [place] (1.001-1.035) Urine Protein (Negative) Urine Glucose (UA) (Negative) Urine Ketones (Negative) Urine Blood (Negative) Urine Nitrite (Negative) Urine Bilirubin (Negative) Urine Urobilinogen (<2.0) mg/dL Ur Leukocyte Esterase (Negative) Disposition Clinical Impression: RUQ pain, Cholelithiasis Disposition: HOME SELF-CARE Condition: Stable Instructions (If sedation given, give patient instructions): Gallstones (ED) Additional Instructions: Please eat a diet low in fats. Take the pain and nausea medications as needed. Follow-up with the surgeon to talk about having your gallbladder taken out and return for any new or worsening symptoms Prescriptions: Acetaminophen-Codeine 300-30mg [Tylenol #3] 1 tab PO Q6HR PRN #12 tablet PRN Reason: pain Ondansetron Odt [Zofran Odt] 4 mg PO Q8HR PRN #20 tab PRN Reason: Nausea Is patient prescribed a controlled substance at d/c from ED?: Yes When asked, does pt state using other controlled substances?: No If prescribed controlled substance>3 days was MAPS reviewed?: Prescribed <3 Days Referrals: Efren Madera MD [Primary Care Provider] - 1-2 days Dixon Cervantes MD [STAFF PHYSICIAN] - 1-2 days Deven Rolle MD [Medical Doctor] - 1-2 days Nisha Flores MD [STAFF PHYSICIAN] - 1-2 days Time of Disposition: 04:03
[2024-05-04] MEDS: ONDANSETRON 4 MG ODT STARTER PACK 2 TAB BTL PO STA (04:13)
[2024-05-04] MEDS: ACET/COD 300 MG/30 MG STARTER PACK 6 TAB BTL PO STA (04:13)
[2024-05-04 04:15] VITALS: BP 126/96; PULSE 78; RESP 15
== END 2024-05-04 04:18 | disposition home or self-care (01) ==
LOC: EC 00:14
DX: K80.20 Calculus of gallbladder without cholecystitis without obstruction (principal); F17.200 Nicotine dependence, unspecified, uncomplicated; Z88.6 Allergy status to analgesic agent
CPT/HCPCS: 36415; 80053; 83605; 83690; 85025; 81003; 74177; 99284; 96374; 96375; 96361 ×2; J3490; J2270; S0119; Q9967

== ENCOUNTER → 2024-05-13 | Outpatient (CLI) | payer OTHER ==
--- NOTE | 2024-05-14 08:25 | XR ---
EXAMINATION TYPE: XR lumbosacral spine min 4V, XR sacroiliac joint comp BILAT DATE OF EXAM: 05/13/2024 2:59 PM CLINICAL INDICATION:Female, 48 years old with history of M46.1 M51.37 sacroiliitis, NOT ELSEWHERE CL ASSIFIED; [facility] COMPARISON: 10/06/2021 TECHNIQUE: XR lumbosacral spine min 4V, XR sacroiliac joint comp BILAT - Frontal, lateral , bilateral oblique and coned in L5-S1 lateral views of the spine. FINDINGS: No evidence of any acute osseous pathology. No evidence of loss of vertebral body height i s seen. There is slight scoliotic alignment of the lumbar vertebral bodies at L4-L5. Moderate scatter ed disc space narrowing at L4-L5. Multilevel marginal osteophyte formation throughout the visualized spine findings worse at L4-L5. There is facet joint arthropathy throughout the spine. Scattered at le ast mild neural foraminal stenosis at L5-S1. Sacroiliac joints demonstrate degeneration with osteophy te formation bilaterally most pronounced inferiorly. Adjacent sclerosis iliac bone joints.. IMPRESSION: 1. No acute fracture. 2. Mild degeneration changes of the sacroiliac joints 2. 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
== END | disposition home or self-care (01) ==
LOC: RADXRMAIN 14:31
PROVIDERS: ATTEND Internal Medicine
DX: M46.1 Sacroiliitis, not elsewhere classified (principal); M51.36 Other intervertebral disc degeneration, lumbar region; M53.3 Sacrococcygeal disorders, not elsewhere classified
CPT/HCPCS: 72110; 72202

== ENCOUNTER → 2024-05-13 | Outpatient (CLI) | payer OTHER ==
[2024-05-13 19:22] LABS: BUN/Creat Ratio 17.43 Ratio (12.00-20.00); Blood Urea Nitrogen 12.2 mg/dL (9.0-27.0); Calcium 10.2 mg/dL (8.7-10.3); Chloride 104 mmol/L (96-109); Glucose 98 mg/dL (70-110); Magnesium 1.9 mg/dL (1.5-2.4); Potassium 4.3 mmol/L (3.5-5.5); Sodium 141 mmol/L (135-145); T4, Free (Free Thyroxine) 1.27 ng/dL (0.80-1.80)
== END | disposition home or self-care (01) ==
LOC: LABWHC1 14:05
PROVIDERS: ATTEND Internal Medicine
DX: K80.20 Calculus of gallbladder without cholecystitis without obstruction (principal); E03.9 Hypothyroidism, unspecified; M46.1 Sacroiliitis, not elsewhere classified; M51.37 Other intervertebral disc degeneration, lumbosacral region
CPT/HCPCS: 36415; 80048; 83735; 84439; 84443; 85652

== ENCOUNTER → 2024-07-29 | Outpatient (CLI) | payer OTHER ==
--- NOTE | 2024-07-29 09:59 | NM ---
Nuclear medicine hepatobiliary scan. HISTORY: Pain. DOSAGE: The patient received 8 0z Ensure plus and 5 mCi of Technetium 99m Choletec. FINDINGS: There is normal hepatic extraction. The gallbladder is seen by 35 minutes. There is bilia ry to bowel clearance by 20 minutes. Ejection fraction is 93%. IMPRESSION: 1. Normal hepatobiliary exam
== END | disposition home or self-care (01) ==
LOC: RADNMMAIN 06:51
PROVIDERS: ATTEND Internal Medicine
DX: K80.20 Calculus of gallbladder without cholecystitis without obstruction (principal)
CPT/HCPCS: 78226

== ENCOUNTER 2024-09-24 16:55 | Inpatient (IN) | payer MEDICAID, OTHER ==
--- NOTE | 2024-09-24 17:31 | ED ---
General Adult HPI - General Chief complaint: Psychiatric Symptoms Stated complaint: mental health Time Seen by Provider: 09/24/24 17:00 Source: patient Mode of arrival: ambulatory Limitations: no limitations - History of Present Illness Initial comments: Dictation was produced using [employer] dictation software. please excuse any grammatical, word or spelling errors. Chief Complaint: 48-year-old female suicidal ideation History of Present Illness: Patient is a 48-year-old female presents to the emergency department suicidal ideation. Patient states that she wants to overdose on pills. She has been seen for psychiatric issues in the emergency department in the past. Patient denies making any attempt. She denies any physical complaints. The ROS documented in this emergency department record has been reviewed and confirmed by me. Those systems with pertinent positive or negative responses have been documented in the HPI. All other systems are other negative and/or noncontributory. - Related Data Home Medications Medication Instructions Recorded Confirmed Atorvastatin Calcium [Lipitor] 20 mg PO DAILY 04/22/21 01/29/24 lisinopriL [Prinivil] 10 mg PO BID 04/22/21 01/29/24 Cholecalciferol [Vitamin D3 (25 25 mcg PO DAILY 03/01/23 01/29/24 Mcg = 1000 Iu)] Metoprolol Succinate [Toprol XL] 50 mg PO DAILY 03/01/23 01/29/24 Albuterol Inhaler [Ventolin Hfa 1 - 2 puff INHALATION RT-Q6H PRN 08/11/23 01/29/24 Inhaler] FLUoxetine HCL [PROzac] 20 mg PO HS 12/12/23 01/29/24 Citalopram Hydrobromide [CeleXA] 40 mg PO DAILY 01/29/24 01/29/24 OLANZapine [ZyPREXA] 20 mg PO HS 01/29/24 01/29/24 QUEtiapine [SEROquel] 50 mg PO HS 01/29/24 01/29/24 Previous Rx's Medication Instructions Recorded Acetaminophen-Codeine 300-30mg 1 tab PO Q6HR PRN #12 tablet 05/04/24 [Tylenol #3] Ondansetron Odt [Zofran Odt] 4 mg PO Q8HR PRN #20 tab 05/04/24 Allergies Allergy/AdvReac Type Severity Reaction Status Date / Time ibuprofen [From Motrin] Allergy Intermediate Rash/Hives Verified 09/24/24 17:05 Review of Systems ROS Statement: Those systems with pertinent positive or pertinent negative responses have been documented in the HPI. ROS Other: All systems not noted in ROS Statement are negative. Past Medical History Past Medical History: COPD, Osteoarthritis (OA) Additional Past Medical History / Comment(s): scoliosis History of Any Multi-Drug Resistant Organisms: None Reported Past Surgical History: Tubal Ligation Past Anesthesia/Blood Transfusion Reactions: No Reported Reaction Past Psychological History: Anxiety, Depression Smoking Status: Current every day smoker Past Alcohol Use History: None Reported Past Drug Use History: None Reported - Past Family History Mother Family Medical History: Cancer General Exam - General Exam Comments Initial Comments: General: Well-appearing, nontoxic, no acute distress. Head: Normocephalic, atraumatic Eyes: PERRLA, EOMI ENT: Airway patent Chest: Nonlabored breathing Skin: No visual rash, normal skin tone Neuro: Alert and oriented 3 Musculoskeletal: No gross abnormalities Limitations: no limitations Course Vital Signs 09/24/24 16:58 Temperature 98.6 F Pulse Rate 75 Respiratory 20 Rate Blood Pressure 116/77 O2 Sat by Pulse 95 Oximetry Medical Decision Making - Medical Decision Making Was pt. sent in by a medical professional or institution (, PA, [facility], urgent care, hospital, or [facility]...) When possible be specific @ -No Did you speak to anyone other than the patient for history (EMS, parent, family, police, friend...)? What history was obtained from this source @ -No Did you review nursing and triage notes (agree or disagree)? Why? @ -I reviewed and agree with nursing and triage notes Were old charts reviewed (outside hosp., previous admission, EMS record, old EKG, old radiological studies, urgent care reports/EKG's, [facility] records)? Report findings @ -No old charts were reviewed Differential Diagnosis (chest pain, altered mental status, abdominal pain women, abdominal pain men, vaginal bleeding, musculoskeletal, weakness, fever, dyspnea, syncope, headache, dizziness, GI bleed, back pain, seizure, CVA, palpatations, mental health)? @ -Differential Mental Health: Depression, anxiety, bipolar, psychosis, schizophrenia, borderline personality, situational depression, adjustment disorder, behavioral disorder, brain tumor, malingering, substance abuse, encephalopathy, medication reaction, dementia, hypothyroidism, degenerative neurologic disorder, lupus.... This is not meant to be all-inclusive list EKG interpreted by me (3pts min.). @ -None done X-rays interpreted by me (1pt min.). @ -None done CT interpreted by me (1pt min.). @ -None done U/S interpreted by me (1pt. min.). @ -None done What testing was considered but not performed or refused? (CT, X-rays, U/S, labs)? Why? @ -None What meds were considered but not given or refused? Why? @ -None Was smoking cessation discussed for >3mins.? @ -No Were there social determinants of health that impacted care today? How? (Homelessness, low income, unemployed, alcoholism, drug addiction, transportation, low edu. Level, literacy, decrease access to med. care, skilled nursing, rehab)? @ -No Was there de-escalation of care discussed even if they declined (Discuss DNR or withdrawal of care, Hospice)? DNR status @ -No What co-morbidities impacted this encounter? (DM, HTN, Smoking, COPD, CAD, Cancer, CVA, ARF, Chemo, Hep., AIDS, mental health diagnosis, sleep apnea, mo rbid obesity)? @ -None Was patient admitted / discharged? Hospital course, mention meds given and route, prescriptions, significant lab abnormalities, going to OR and other pertinent info. @ -48-year-old female with history of psychiatric illness presents with suicidal ideation. Vital signs stable. Physical examination is benign. Patient medically cleared for EPS evaluation. Patient eval by EPS recommended inpatient psych admission. Patient will sign in voluntarily. Did you discuss the management of the patient with other professionals (professionals i.e. , PA, [facility], lab, RT, psych nurse, clinical social worker, supervisor locomotive, teacher, corporate officer, case repairer)? Give summary @ -No Was critical care preformed (if so, how long)? @ -No Undiagnosed new problem with uncertain prognosis? @ -No Drug Therapy requiring intensive monitoring for toxicity (Heparin, Nitro, Insulin, Cardizem)? @ -No Were any procedures done? @ -No Diagnosis/symptom? Acute, or Chronic, or Acute on Chronic? Uncomplicated (without systemic symptoms) or Complicated (systemic symptoms)? @ -Suicide ideation Side effects of treatment? @ -No Exacerbation, Progression, or Severe Exacerbation? @ -No Poses a threat to life or bodily function? How? (Chest pain, USA, RI, pneumonia, PE, COPD, DKA, ARF, appy, cholecystitis, CVA, Diverticulitis, Homicidal, Suicidal, threat to staff... and all critical care pts) @ -yes - Lab Data Lab Results 09/24/24 Range/Units 17:18 Urine Opiates Screen Not Detected (NotDetected) Ur Oxycodone Screen Not Detected (NotDetected) Urine Methadone Screen Not Detected (NotDetected) Ur Barbiturates Screen Not Detected (NotDetected) U Tricyclic Antidepress Not Detected (NotDetected) Ur Phencyclidine Scrn Not Detected (NotDetected) Ur Amphetamines Screen Not Detected (NotDetected) U Methamphetamines Scrn Not Detected (NotDetected) U Benzodiazepines Scrn Not Detected (NotDetected) Urine Cocaine Screen Not Detected (NotDetected) U Marijuana (THC) Screen Not Detected (NotDetected) Disposition Clinical Impression: Suicidal ideation Disposition: ADMITTED IP TO THIS HOSP Condition: Fair Referrals: Efren Madera MD [Primary Care Provider] - 1-2 days Decision Time: 18:59
[2024-09-24 18:14] LABS: Amphetamine Screen,Urine Not Detected (NotDetected); Barbiturate Screen,Urine Not Detected (NotDetected); Benzodiazepines Screen,Urine Not Detected (NotDetected); Cocaine Screen,Urine Not Detected (NotDetected); Methadone Screen, Urine Not Detected (NotDetected); Opiate Screen,Urine Not Detected (NotDetected); Oxycodone Screen, Urine Not Detected (NotDetected); Phencyclidine Screen,Urine Not Detected (NotDetected); Tricyclic Antidepressant,Urine Not Detected (NotDetected); Urn Cannabinoid Scrn Not Detected (NotDetected)
[2024-09-24] MEDS ORDERED: MAG HYDROX/AL HYDROX/SIMETH 355 ML BOTTLE PO PRN (20:50)
[2024-09-24] MEDS ORDERED: MAGNESIUM HYDROXIDE 2,400 MG/30 ML CUP PO PRN (20:50)
[2024-09-24] MEDS ORDERED: ALBUTEROL INHALER 60 PUFF/8 GM INHALER (MHU) INHALATION PRN (20:53)
[2024-09-24] MEDS ORDERED: hydrOXYzine HCL 50 MG/ML 1 ML VIAL IM PRN (21:11)
[2024-09-24 21:19] VITALS: RESP 16
[2024-09-24] MEDS: lisinopriL 20 MG TAB PO SCH (22:13)
[2024-09-25 05:24] LABS: Appearance,Urine Clear (Clear); Bilirubin,Urine Negative (Negative); Blood,Urine Negative (Negative); Color,Urine Colorless; Glucose,Urine (UA) Negative (Negative); Ketones,Urine Negative (Negative); Leukocyte Esterase,Urine Negative (Negative); Nitrite,Urine Negative (Negative); PH, Urine 6.5 (5.0-8.0); Protein,Urine Negative (Negative); Specific Gravity,Urine 1.001 (1.001-1.035); Urobilinogen,Urine <2.0 mg/dL (<2.0)
[2024-09-25 07:06] LABS: Basophils % (A) 1 %; Eosinophils # (A) 0.2 k/uL (0-0.7); Eosinophils % (A) 3 %; HCT 41.1 % (34.0-46.0); HGB 13.8 gm/dL (11.4-16.0); Lymphocytes # (A) 2.5 k/uL (1.0-4.8); Lymphocytes % (A) 40 %; MCH 32.5 pg (25.0-35.0); MCHC 33.5 g/dL (31.0-37.0); MCV 96.9 fL (80.0-100.0); Mean Platelet Volume 7.1; Monocytes # (A) 0.5 k/uL (0-1.0); Monocytes % (A) 7 %; Neutrophils # (A) 2.8 k/uL (1.3-7.7); Neutrophils % (A) 46 %; Platelet Count 264 k/uL (150-450); RBC 4.25 m/uL (3.80-5.40); RDW 12.7 % (11.5-15.5); WBC 6.2 k/uL (3.8-10.6)
[2024-09-25 07:28] LABS: ALT 20 U/L (4-34); AST 29 U/L (14-36); African American GFR (CKD) >90 (>60 ml/min/1.73 sqM); Albumin 3.8 g/dL (3.5-5.0); Alkaline Phosphatase 87 U/L (38-126); Anion Gap 5 mmol/L; Blood Urea Nitrogen 13 mg/dL (7-17); Calcium 8.8 mg/dL (8.4-10.2); Carbon Dioxide 29 mmol/L (22-30); Chloride 105 mmol/L (98-107); Glucose 101 mg/dL (74-99); Non-African American GFR(CKD) >90 (>60 ml/min/1.73 sqM); Potassium 4.1 mmol/L (3.5-5.1); Sodium 139 mmol/L (137-145); Total Bilirubin 0.3 mg/dL (0.2-1.3); Total Protein 6.4 g/dL (6.3-8.2)
[2024-09-25] MEDS: FLUoxetine HCL 20 MG CAP PO SCH ×2 (08:21→09:50)
[2024-09-25] MEDS: METOPROLOL SUCCINATE (ER) 50 MG TAB.ER.24H PO SCH (08:22)
[2024-09-25] MEDS: LOSARTAN 50 MG TAB PO SCH (08:22)
[2024-09-25] MEDS: ATORVASTATIN 20 MG TAB PO SCH (08:22)
[2024-09-25] MEDS: CHOLECALCIFEROL 25 MCG (1000 IU) TABLET PO SCH (08:22)
[2024-09-25] MEDS: OLANZapine 7.5 MG TAB PO SCH (08:22)
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
[2024-09-25] MEDS: NICOTINE 14MG/24HR PATCH TRANSDERM SCH (09:53)
[2024-09-25] MEDS: FLUoxetine HCL 20 MG CAP PO ONE (09:53)
[2024-09-25] MEDS: hydrOXYzine pamoate 25 MG CAP PO PRN ×2 (13:23→18:44)
--- NOTE | 2024-09-25 13:52 | P.CON ---
Consult Note - . Consult date: 09/25/24 Assessment/Plan:: Dictation medical consult Date of service 09/25/24 Consult requested by mental health unit. History and chief complaint: Patient presented to the emergency room with a complaint of suicidal ideation and with the refueling has been severely depressed because of unable to find job to live. Patient has been admitted to the mental health unit in November of this year. And has been also followed by [facility]. Patient from the [facility] has been on fluoxetine 40 mg capsule 1 capsule at bedtime. She also on olanzapine 15 mg at bedtime She also on Vistaril 25 mg capsule and she allowed to take it 4 times a day by the health department of the [facility] department. In regarding patient previous health problem she had history of underlying schizophrenia and mental and stability. And has been followed by the psychiatry in the [facility]. Patient has also medical history of hypertension however her blood pressure has been fairly well-controlled with underlying medication for metoprolol succinate ER 50 mg daily and losartan 50 mg every morning Patient had history of COPD secondary to smoking and she was taken Ventolin HFA 90 mg microgram and she take 1 puff to 2 puffs 4 times daily as needed. She has also used to be on Celexa 20 mg and they discontinued in the mental health unit as in the [facility] she was on melatonin as well. She has a history of hyperlipidemia and she was taken atorvastatin 20 mg 1 tablet at bedtime. She was also on on olanzapine 10 mg once a day as well as fluoxetine 20 mg once a day. She was seen in ER at [facility] few weeks ago and they gave her amoxicillin for sinusitis. With the also exacerbation of COPD. 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 And she had a rash under her chin and supposedly to be seen by the dermatology according to her insurance.. Patient stated that she was feeling bad depressed and crying and unable to get rid of it and she had suicidal ideation she was sleeping 13 to 16-hour now she is feeling better. She had history of separation from her boyfriend who has she has a 2 boys from him. She lived with her ex-boyfriend at this time but there is no relation between them. She had prominent to that 25 years ago daughter and she lived in [place] and she is living. She had been stressed out and trying to find a job headache she had no nausea and vomiting and the review of system LBM was normal and her urine admitted to community health and transferred from [facility] to [facility] in [place] in December 19. Occasionally she used marijuana but not recently and occasionally uses beer twice a month. Her family history her brother has disability because of mental health and bipolar. Allergy to ibuprofen. And she is not . On physical examination the patient was conscious alert oriented and able to ambulate and speak naturally and no evidence of CVA or strokes in the past. In reviewing of the blood pressure and and the vital sign indicating that she had lower blood pressure with the doubling up on her medication and I did clarify that and discontinue some of the medication that she has been using to get her blood pressure into the right number and track without being feel weak or exhausted. The examination the head was normocephalic atraumatic pupil was equal reactive conjunctiva was pink sclera was nonicteric extraocular muscle movement is intact. Oropharynx was negative and natural teeth Neck was supple no JVD no thyromegaly no lymphadenopathy trachea midline. Chest is clear to auscultation percussion with a mild increased anteroposterior diameter with a history of chronic smoking. The heart PMI in the fifth intercostal space normal S1-S2 no gallop and no arrhythmias. The abdomen was soft positive bowel sound and the extremities no edema and positive pulses. Assessment: 1. Patient admitted to the hospital due to suicidal ideation 2. History of hypertension however her blood pressure on the low side with symptoms of fatigue will be adjusted 3. History of chronic smoker with COPD and uses a inhaler currently no wheezes and no symptoms. With normal oxygen saturation. 4. Social economic disturbance with inability to find a job or to take care of of herself. 5. History of hyperlipidemia and that will be rechecked as outpatient when patient discharged home. Plan: 1. I add I did adjust her medication and will see if the blood pressure stabilizes. 2. Continue the inhaler on a as needed basis. 3. Patient stable medically and please call me if you have any further questions number 4. Will follow the patient as outpatient if there is no any fourth or request or needed for the revisit. 5. Thank you for the consult
[2024-09-26] MEDS: FLUoxetine HCL 20 MG CAP PO SCH (08:46)
[2024-09-26] MEDS ORDERED: FLUoxetine HCL 20 MG CAP PO SCH (09:00)
--- NOTE | 2024-09-26 11:51 | P.PN ---
Progress Note - Text Progress Note Date: 09/26/24 Chief complaint: Depression Interval History: Patient was seen [wandering the hallways] and was directable and agreeable to speak with scientific technical writer in the office. Patient notes that she is feeling better. Currently she is rating her depression 8/10 with 10 being worst of (previous 10/10). Patient reports that her anxiety 6/10 with 10 being worse (previous 10/10). She notes that she is not as hypersomniac and got 9 hours of sleep versus 13-16. She notes improvements with her energy. He notes that her appetite and concentration have where returned to normal. She voiced future thoughts including getting a job and being with her kids.. At this time patient denies any suicidal or homical ideations, intent or plan. Patient denies any auditory, visual hallucinations and denies any paranoia or delusions. Patient feels that some of her current sleepiness is related to the adjustment in the Prozac. Mental Status Exam: General Appearance: [Patient appears to be stated age is alert, directable, and cooperative.] Behavior: [Patient is calmly seated without any agitated behavior.] Speech: Patient's speech is fluent and nonpressured. Mood/Affect: Mood is moderately dysphoric, affect is congruent and constricted. Suicidality/Homicidality: Patient denies having any suicidal or homicidal ideation intent or plan. Perceptions: Patient denies any visual hallucinations [and denies any auditory hallucinations] Though content/process: [There is no evidence of any delusional thought content and thought process is linear and goal-directed.] Memory and concentration: AOX3, grossly intact for the purposes of this session Judgment and insight: Improving mildly IMPRESSIONS: Major depressive disorder recurrent moderate episode Tobacco use disorder Assessment: Patient appears to be responding positively to the medication but still suffers from moderate to severe depression. Additionally she is in a stable environment versus being with her ex which could decompensate her again. [place] that continued hospitalization is needed to stabilize prior to discharge. PLAN: -Patient is admitted under voluntary status to [facility] for stabilization of psychiatric symptoms and safety. Patient has signed adult voluntary form and medication consent and is placed in patient's chart. -Medications : * Prozac 60 mg take once daily by mouth to address depression/anxiety * Olanzapine 15 mg at night for depression * Vistaril 25 mg 4 times daily as needed for anxiety -Ativan and Haldol PRN for agitation/aggression -Patient was informed of the risks, benefits and side effects of the medication and patient verbally consented to taking the medications. Patient signed med consent form and was placed in chart. -Internal Medicine consult to perform medical evaluation and physical. -NRT -nicotine patch -SW on board for discharge planning. Encourage patient to participate in groups to work on coping skills. 09/25/24 09:29
--- NOTE | 2024-09-26 16:05 | P.PN ---
Subjective Progress Note Date: 09/26/24 Progress note Date of service 09/26/[address] Madera Patient seen today evaluated [id number] reviewed her data Patient stated that her blood pressure was low this morning and continued to be low despite that she had history of hypertension in the past on the review the data indicating that her blood pressure started on the night of 09 25 24 with the blood pressure 96/60 with a mean 72 mmHg and today has been also on the low side 107/75 as well as the last [id number] Her losartan has been discontinued also Toprol-XL has been cut down to 25 only once a day and will monitor her blood pressure and if still continued to be low we will discontinue the beta-desi completely Probably in association of the antipsychotic medication and antidepressant medication her blood pressure started to come down more than usual as outpatient. On examination: She is conscious alert oriented x 3 She stated that she feels better from her suicidal ideation and she is not thinking of it at this time HEENT was negative Head was normocephalic atraumatic, pupils equal reactive, conjunctiva was pink, sclera nonicteric Oropharynx was normal and hearing normal Neck was supple no JVD no thyromegaly no lymphadenopathy trachea midline Chest clear to auscultation percussion she had history of smoking in the past and history of COPD Heart regular sinus rhythm Abdomen soft positive bowel sounds and no complaint of tenderness or abdominal pain Extremities no edema and positive pulses Neurologically stable ambulatory no lateralizing sign Psychiatry she has underlying major depressive disorder so far by the psychiatrist. Assessment: 1. Underlying history of hypertension currently on the hypotensive side 2. Major depressive disorder 3. COPD with a history of smoking. Plan: Discussed with the patient We discontinue losartan and we decreased the beta-desi Toprol-XL to 25 mg and will continue monitor her blood pressure Please let me know if her blood pressure still on the low side thank you Objective - Vital Signs Vital signs: Vital Signs Temp 98.0 F 09/26/24 07:02 Pulse 63 09/26/24 07:02 Resp 16 09/26/24 07:02 BP 93/44 09/26/24 07:02 Pulse Ox 95 09/25/24 06:39 FiO2 Intake & Output 09/25/24 09/26/24 09/26/24 18:59 06:59 18:59 Weight 76 kg - Labs CBC & Chem 7: 10/31/24 07:02 09/25/24 06:43
[2024-09-27] MEDS: ACETAMINOPHEN TAB 325 MG TAB PO PRN (08:26)
[2024-09-27] MEDS: METOPROLOL SUCCINATE (ER) 25 MG TAB.ER.24H PO SCH (08:26)
--- NOTE | 2024-09-27 20:09 | P.PN ---
Progress Note - Text Progress Note Date: 09/27/24 Interval history: Patient was was directable and agreeable to speak with junior underwriter. She was sleeping prior to the assessment. She reports her mood is "pretty good". She states "I don't have any more crying spells". At this time patient denies any suicidal or homicidal ideation, intent or plan. Denies any auditory or visual hallucinations. Patient denies any side effects from the medications and has been compliant with meds. She is hopeful for discharge on Sunday. Mental status exam: General Appearance: Patient appears to be stated age is alert, directable, and cooperative. Behavior: No agitated behavior. Patient is calm and directable. Speech: Patient's speech is fluent and non-pressured. Mood/Affect: Mood is improving mildly, affect is congruent and constricted. Suicidality/Homicidality: Patient denies having any suicidal or homicidal ideation intent or plan. Perceptions: Patient denies any auditory or visual hallucinations. Though content/process: There is no evidence of any delusional thought content and thought process is linear and goal-directed. Memory and concentration: AOX3, grossly intact for the purposes of this session Judgment and insight: improving mildly Assessment/Plan: Continue with current diagnosis. Patient continues to meet criteria for inpatient psychiatric admission for symptom stabilization and safety. Patient will be maintained on current psychotropic medication regimen. Monitor for medication compliance and for any psychotropic medication side effects. Will continue to monitor ongoing response to treatment. Encouraged participation in milieu.
--- NOTE | 2024-09-28 21:14 | P.PN ---
Progress Note - Text Progress Note Date: 09/28/24 Interval history: Patient was was directable and agreeable to speak with adjusto writer operator. She is calm, cooperative and polite. She reports her mood is "pretty good" and denies any concerns today. At this time patient denies any suicidal or homicidal ideation, intent or plan. Denies any auditory or visual hallucinations. Patient denies any side effects from the medications and has been compliant with meds. She is hopeful for discharge on Sunday. Mental status exam: General Appearance: Patient appears to be stated age is alert, directable, and cooperative. Behavior: No agitated behavior. Patient is calm and directable. Speech: Patient's speech is fluent and non-pressured. Mood/Affect: Mood is improving mildly, affect is congruent and constricted. Suicidality/Homicidality: Patient denies having any suicidal or homicidal ideation intent or plan. Perceptions: Patient denies any auditory or visual hallucinations. Though content/process: There is no evidence of any delusional thought content and thought process is linear and goal-directed. Memory and concentration: AOX3, grossly intact for the purposes of this session Judgment and insight: improving mildly Assessment/Plan: Continue with current diagnosis. Patient continues to meet criteria for inpatient psychiatric admission for symptom stabilization and safety. Patient will be maintained on current psychotropic medication regimen. Monitor for medication compliance and for any psychotropic medication side effects. Will continue to monitor ongoing response to treatment. Encouraged participation in milieu.
--- NOTE | 2024-09-29 12:02 | P.PN ---
Progress Note - Text Progress Note Date: 09/29/24 Interval History: Patient was seen in her room, and was directable and agreeable to speak with leandro kirkpatrick in the office. Patient states that she is feeling better today. She states that she is sleeping well at night. She claims that she is attending groups. She endorses a good appetite. She does state that she is feeling a bit sleepy during the day. At this time patient denies any suicidal or homicidal ideations, intent or plan. Patient denies any auditory, visual hallucinations and denies any p aranoia or delusions. Mental Status Exam: General Appearance: [Patient appears to be stated age is alert, directable, and cooperative. Disheveled, dressed casually. Behavior: [Patient is calmly seated without any agitated behavior.] Speech: Patient's speech is fluent and nonpressured. Mood/Affect: Mood is a bit better, affect is congruent and constricted. Suicidality/Homicidality: Patient denies having any suicidal or homicidal ideation intent or plan. Perceptions: Patient denies any visual hallucinations and denies any auditory hallucinations Though content/process: There is no evidence of any delusional thought content and thought process is linear and goal-directed.] Memory and concentration: AOX3, grossly intact for the purposes of this session Judgment and insight: Improving mildly IMPRESSIONS: Major depressive disorder recurrent moderate episode Tobacco use disorder PLAN: -Patient is admitted under voluntary status to [facility] for stabilization of psychiatric symptoms and safety. Patient has signed adult voluntary form and medication consent and is placed in patient's chart. -Medications : * Prozac 60 mg take once daily by mouth to address depression/anxiety * decrease Olanzapine 10mg at night for depression * Vistaril 25 mg 4 times daily as needed for anxiety -Ativan and Haldol PRN for agitation/aggression -NRT -nicotine patch -SW on board for discharge planning. Encourage patient to participate in groups to work on coping skills. Discharge in 1-2 days if patient continues to improve.
[2024-09-29 16:31] VITALS: BMI 30.9
[2024-09-29] MEDS: OLANZapine 10 MG TAB PO SCH (21:55)
[2024-09-30 06:59] VITALS: TEMP 97.9
--- NOTE | 2024-09-30 11:19 | P.PN ---
Progress Note - Text Progress Note Date: 09/30/24 Interval History: Patient was seen in her room, and was directable and agreeable to speak with leandro kirkpatrick in the office. Patient states that she is feeling pretty good today. She reports more energy today. She states that she is slept really well last night. She is feeling better with the lower dose of olanzapine. She states that she has not attended any groups today, radio news writer encouraged her to do so. She endorses a good appetite. She states that she will return home upon discharge, and that her children's father will pick her up when she is released. At this time patient denies any suicidal or homicidal ideations, intent or plan. Patient denies any auditory, visual hallucinations and denies any paranoia or delusions. Mental Status Exam: General Appearance: [Patient appears to be stated age is alert, directable, and cooperative. Disheveled, dressed casually. Behavior: [Patient is calmly seated without any agitated behavior.] Speech: Patient's speech is fluent and nonpressured. Mood/Affect: Mood is a pretty good, affect is congruent and constricted. improving mildly Suicidality/Homicidality: Patient denies having any suicidal or homicidal ideation intent or plan. Perceptions: Patient denies any visual hallucinations and denies any auditory hallucinations Though content/process: There is no evidence of any delusional thought content and thought process is linear and goal-directed.] Memory and concentration: AOX3, grossly intact for the purposes of this session Judgment and insight: Improving mildly IMPRESSIONS: Depressive disorder unspecified Tobacco use disorder PLAN: -Patient is admitted under voluntary status to [facility] for stabilization of psychiatric symptoms and safety. Patient has signed adult voluntary form and medication consent and is placed in patient's chart. -Medications : * Prozac 60 mg take once daily by mouth to address depression/anxiety * Olanzapine 10mg at night for depression/mood stabilization * Vistaril 25 mg 4 times daily as needed for anxiety -Ativan and Haldol PRN for agitation/aggression -NRT -nicotine patch -SW on board for discharge planning. Encourage patient to participate in groups to work on coping skills. Discharge tomorrow if patient continues to improve.
[2024-10-01 08:35] VITALS: BP 113/79; PULSE 73
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
== END 2024-10-01 12:43 | disposition home or self-care (01) | DRG 751 ==
LOC: EC 16:55 → 3MHU 20:47
PROVIDERS: ADMIT Psychiatry & Neurology Psychiatry; ATTEND Psychiatry & Neurology Psychiatry
DX: F33.2 Major depressive disorder, recurrent severe without psychotic features (principal); R45.851 Suicidal ideations; F20.9 Schizophrenia, unspecified; E78.5 Hyperlipidemia, unspecified; F17.210 Nicotine dependence, cigarettes, uncomplicated; F41.9 Anxiety disorder, unspecified; G47.10 Hypersomnia, unspecified; I10 Essential (primary) hypertension; J44.9 Chronic obstructive pulmonary disease, unspecified; M41.9 Scoliosis, unspecified; Z56.0 Unemployment, unspecified; Z79.899 Other long term (current) drug therapy; Z81.8 Family history of other mental and behavioral disorders; Z88.6 Allergy status to analgesic agent; Z91.51 Personal history of suicidal behavior; Z98.51 Tubal ligation status; Z86.59 Personal history of other mental and behavioral disorders; Z71.6 Tobacco abuse counseling; Z11.52 Encounter for screening for COVID-19
CPT/HCPCS: 80053; 80306; 81003; 81025; 82075; 83036; 84443; 85025; 87635; 99285

== ENCOUNTER 2024-10-27 16:30 | Inpatient (IN) | payer MEDICAID, OTHER ==
[2024-10-27] MEDS: LORazepam 1 MG TAB PO STA (17:16)
[2024-10-27 17:56] LABS: Basophils # (A) 0.1 k/uL (0-0.2); Basophils % (A) 0 %; Eosinophils # (A) 0.1 k/uL (0-0.7); Eosinophils % (A) 1 %; HCT 45.4 % (34.0-46.0); HGB 15.1 gm/dL (11.4-16.0); Lymphocytes # (A) 2.5 k/uL (1.0-4.8); Lymphocytes % (A) 23 %; MCH 31.6 pg (25.0-35.0); MCHC 33.3 g/dL (31.0-37.0); MCV 94.9 fL (80.0-100.0); Mean Platelet Volume 7.3; Monocytes # (A) 0.5 k/uL (0-1.0); Monocytes % (A) 5 %; Neutrophils # (A) 7.7 k/uL (1.3-7.7); Neutrophils % (A) 70 %; Platelet Count 339 k/uL (150-450); RBC 4.78 m/uL (3.80-5.40); RDW 13.3 % (11.5-15.5)
[2024-10-27 17:57] LABS: ALT 21 U/L (4-34); AST 27 U/L (14-36); African American GFR (CKD) >90 (>60 ml/min/1.73 sqM); Albumin 4.6 g/dL (3.5-5.0); Alcohol <10 mg/dL; Alkaline Phosphatase 97 U/L (38-126); Anion Gap 6 mmol/L; Blood Urea Nitrogen 5 mg/dL (7-17); Calcium 9.5 mg/dL (8.4-10.2); Carbon Dioxide 29 mmol/L (22-30); Chloride 106 mmol/L (98-107); Glucose 120 mg/dL (74-99); Non-African American GFR(CKD) >90 (>60 ml/min/1.73 sqM); Potassium 4.1 mmol/L (3.5-5.1); Sodium 141 mmol/L (137-145); Total Bilirubin 0.4 mg/dL (0.2-1.3); Total Protein 7.8 g/dL (6.3-8.2)
--- NOTE | 2024-10-27 18:20 | ED ---
General Adult HPI - General Chief complaint: Psychiatric Symptoms Stated complaint: anxiety, suicidal Time Seen by Provider: 10/27/24 16:50 Source: patient, EMS, RN notes reviewed, old records reviewed Mode of arrival: EMS Limitations: no limitations - History of Present Illness Initial comments: Patient is a 48-year-old female who presents emergency department complaining of what sounds like a panic attack as well as suicidal ideations. Wants to talk with psychiatry. States she is having suicidal ideations due to worsening stress. No specific plans. Denies homicidal ideations, times complaints. Denies hallucinations. Patient was having heart palpitations as well as chest discomfort and was hyperventilating earlier when she was thinking about the stress. States she was able to calm her self down which resolved all symptoms. Believes she had a panic attack which she has had in the past. However she presents for further evaluation at this time. Denies any current chest symptoms. - Related Data Home Medications Medication Instructions Recorded Confirmed Atorvastatin Calcium [Lipitor] 20 mg PO DAILY 04/22/21 10/27/24 Cholecalciferol [Vitamin D3 (25 25 mcg PO DAILY 03/01/23 10/27/24 Mcg = 1000 Iu)] Metoprolol Succinate [Toprol XL] 50 mg PO DAILY 03/01/23 10/27/24 Albuterol Inhaler [Ventolin Hfa 1 - 2 puff INHALATION RT-Q6H PRN 08/11/23 10/27/24 Inhaler] Previous Rx's Medication Instructions Recorded FLUoxetine HCL [PROzac] 60 mg PO DAILY 30 Days #90 cap 10/01/24 Nicotine 14Mg/24Hr Patch [Habitrol] 1 patch TRANSDERM DAILY 14 Days 10/01/24 #14 patch OLANZapine [ZyPREXA] 10 mg PO HS 30 Days #30 tab 10/01/24 hydrOXYzine pamoate [Vistaril] 25 mg PO BID PRN 30 Days #60 cap 10/01/24 Allergies Allergy/AdvReac Type Severity Reaction Status Date / Time ibuprofen [From Motrin] Allergy Intermediate Rash/Hives Verified 10/27/24 18:54 Review of Systems ROS Statement: Those systems with pertinent positive or pertinent negative responses have been documented in the HPI. Review of Systems: CONST: Denies fever EYES: Denies blurry vision ENT: Denies nasal congestion C/V: Denies Chest pain RESP: Denies shortness of breath GI: Denies abdominal pain : Denies dysuria SKIN: Denies rash. MSK: Denies joint pain. NEURO: Denies headache ROS Other: All systems not noted in ROS Statement are negative. Past Medical History Past Medical History: COPD, Osteoarthritis (OA) Additional Past Medical History / Comment(s): scoliosis History of Any Multi-Drug Resistant Organisms: None Reported Past Surgical History: Tubal Ligation Past Anesthesia/Blood Transfusion Reactions: No Reported Reaction Past Psychological History: Anxiety, Depression Smoking Status: Current every day smoker Past Alcohol Use History: None Reported Past Drug Use History: Marijuana - Past Family History Mother Family Medical History: Cancer General Exam - General Exam Comments Initial Comments: General: Appears anxious HEAD: Normal with no signs of head trauma. EYES: EOMI ENT: Hearing grossly intact, normal oropharynx. RESPIRATORY: Clear breath sounds bilaterally. No wheezes, rales, or rhonchi. C/V: Regular rate and rhythm. S1 and S2 auscultated, peripheral pulses 2+ and intact throughout ABD: Abd is soft, nontender, nondistended EXT: no obvious deformity SKIN: No rashes or lesions observed on exposed skin. NEURO: Alert and oriented x 4 Limitations: no limitations Course Vital Signs 10/27/24 10/27/24 16:36 20:08 Temperature 98.3 F 98.4 F Pulse Rate 71 80 Respiratory 16 16 Rate Blood Pressure 125/84 118/77 O2 Sat by Pulse 96 96 Oximetry Medical Decision Making - Medical Decision Making Was pt. sent in by a medical professional or institution (, PA, DONOR RECRUITMENT MANAGER, urgent care, hospital, or detention...) When possible be specific @ -No Did you speak to anyone other than the patient for history (EMS, parent, family, police, friend...)? What history was obtained from this source @ -No Did you review nursing and triage notes (agree or disagree)? Why? @ -I reviewed and agree with nursing and triage notes Were old charts reviewed (outside hosp., previous admission, EMS record, old EKG, old radiological studies, urgent care reports/EKG's, detention records)? Report findings @ -No old charts were reviewed Differential Diagnosis (chest pain, altered mental status, abdominal pain women, abdominal pain men, vaginal bleeding, weakness, fever, dyspnea, syncope, headache, dizziness, GI bleed, back pain, seizure, CVA, palpatations, mental health, musculoskeletal)? @ -Differential Mental Health Depression, anxiety, bipolar, psychosis, schizophrenia, borderline personality, situational depression, adjustment disorder, behavioral disorder, brain tumor, malingering, substance abuse, encephalopathy, medication reaction, dementia, hypothyroidism, degenerative neurologic disorder, lupus.... This is not meant to be all-inclusive list EKG interpreted by me (3pts min.). @ -As above X-rays interpreted by me (1pt min.). @ -Chest x-ray reveals no obvious acute cardiopulmonary process CT interpreted by me (1pt min.). @ -None done U/S interpreted by me (1pt. min.). @ -None done What testing was considered but not performed or refused? (CT, X-rays, U/S, labs)? Why? @ -None What meds were considered but not given or refused? Why? @ -None Did you discuss the management of the patient with other professionals (professionals i.e. , PA, DONOR RECRUITMENT MANAGER, lab, RT, psych nurse, social science research assistant, labor gang supervisor, teacher, booking police officer, manager of case management)? Give summary @ -EPS notified of the consult Was smoking cessation discussed for >3mins.? @ -No Was critical care preformed (if so, how long)? @ -No Were there social determinants of health that impacted care today? How? (Homelessness, low income, unemployed, alcoholism, drug addiction, transportation, low edu. Level, literacy, decrease access to med. care, intermediate, rehab)? @ -No Was there de-escalation of care discussed even if they declined (Discuss DNR or withdrawal of care, Hospice)? DNR status @ -No What co-morbidities impacted this encounter? (DM, HTN, Smoking, COPD, CAD, Cancer, CVA, ARF, Chemo, Hep., AIDS, mental health diagnosis, sleep apnea, morbid obesity)? @ -None Was patient admitted / discharged? Hospital course, mention meds given and route, prescriptions, significant lab abnormalities, going to OR and other pertinent info. @ -Patient presents emergency department complaining of what sounds like a panic attack or anxiety in addition to suicidal ideations. Denies any current chest discomfort or palpitations. Denies any other acute complaints at this time. Presents for further evaluation at this time. Vitals are within acceptable limits. Patient be symptomatically treated with oral Ativan. Patient's laboratory studies unremarkable including undetectable troponin. COVID-negative. Alcohol negative. EKG shows no signs of acute ischemia. Chest x-ray reveals no obvious acute cardiopulmonary process at this time. Updated the patient. She remains asymptomatic. At this time, patient is medically cleared for evaluation by psychiatry. Disposition is pending psychiatric evaluation. EPS notified of the consult. EPS evaluated the patient. Determined that she does meet inpatient criteria. Patient admitted to inpatient psychiatry in stable condition. Undiagnosed new problem with uncertain prognosis? @ -No Drug Therapy requiring intensive monitoring for toxicity (Heparin, Nitro, Insulin, Cardizem)? @ -No Were any procedures done? @ -No Diagnosis/symptom? @ -Anxiety, suicidal ideation Acute, or Chronic, or Acute on Chronic? @ -Acute Uncomplicated (without systemic symptoms) or Complicated (systemic symptoms)? @ -Complicated Side effects of treatment? @ -None Exacerbation, Progression, or Severe Exacerbation] @ -No Poses a threat to life or bodily function? @ -Possibly, yes - Lab Data Result diagrams: 10/27/24 17:18 10/27/24 17:18 Lab Results 10/27/24 10/27/24 10/27/24 Range/Units 17:18 17:18 17:18 WBC 11.0 H (3.8-10.6) k/uL RBC 4.78 (3.80-5.40) m/uL Hgb 15.1 (11.4-16.0) gm/dL Hct 45.4 (34.0-46.0) % MCV 94.9 (80.0-100.0) fL MCH 31.6 (25.0-35.0) pg MCHC 33.3 (31.0-37.0) g/dL RDW 13.3 (11.5-15.5) % Plt Count 339 (150-450) k/uL MPV 7.3 Neutrophils % 70 % Lymphocytes % 23 % Monocytes % 5 % Eosinophils % 1 % Basophils % 0 % Neutrophils # 7.7 (1.3-7.7) k/uL Lymphocytes # 2.5 (1.0-4.8) k/uL Monocytes # 0.5 (0-1.0) k/uL Eosinophils # 0.1 (0-0.7) k/uL Basophils # 0.1 (0-0.2) k/uL Sodium 141 (137-145) mmol/L Potassium 4.1 (3.5-5.1) mmol/L Chloride 106 (98-107) mmol/L Carbon Dioxide 29 (22-30) mmol/L Anion Gap 6 mmol/L BUN 5 L (7-17) mg/dL Creatinine 0.60 (0.52-1.04) mg/dL Est GFR (CKD-EPI)AfAm >90 (>60 ml/min/1.73 sqM) Est GFR (CKD-EPI)NonAf >90 (>60 ml/min/1.73 sqM) Glucose 120 H (74-99) mg/dL Calcium 9.5 (8.4-10.2) mg/dL Total Bilirubin 0.4 (0.2-1.3) mg/dL AST 27 (14-36) U/L ALT 21 (4-34) U/L Alkaline Phosphatase 97 (38-126) U/L Troponin I <0.012 (0.000-0.034) ng/mL Total Protein 7.8 (6.3-8.2) g/dL Albumin 4.6 (3.5-5.0) g/dL Serum Alcohol <10 mg/dL SARS-CoV-2 (PCR) (Not Detectd) 10/27/24 Range/Units 17:18 WBC (3.8-10.6) k/uL RBC (3.80-5.40) m/uL Hgb (11.4-16.0) gm/dL Hct (34.0-46.0) % MCV (80.0-100.0) fL MCH (25.0-35.0) pg MCHC (31.0-37.0) g/dL RDW (11.5-15.5) % Plt Count (150-450) k/uL MPV Neutrophils % % Lymphocytes % % Monocytes % % Eosinophils % % Basophils % % Neutrophils # (1.3-7.7) k/uL Lymphocytes # (1.0-4.8) k/uL Monocytes # (0-1.0) k/uL Eosinophils # (0-0.7) k/uL Basophils # (0-0.2) k/uL Sodium (137-145) mmol/L Potassium (3.5-5.1) mmol/L Chloride (98-107) mmol/L Carbon Dioxide (22-30) mmol/L Anion Gap mmol/L BUN (7-17) mg/dL Creatinine (0.52-1.04) mg/dL Est GFR (CKD-EPI)AfAm (>60 ml/min/1.73 sqM) Est GFR (CKD-EPI)NonAf (>60 ml/min/1.73 sqM) Glucose (74-99) mg/dL Calcium (8.4-10.2) mg/dL Total Bilirubin (0.2-1.3) mg/dL AST (14-36) U/L ALT (4-34) U/L Alkaline Phosphatase (38-126) U/L Troponin I (0.000-0.034) ng/mL Total Protein (6.3-8.2) g/dL Albumin (3.5-5.0) g/dL Serum Alcohol mg/dL SARS-CoV-2 (PCR) Not Detected (Not Detectd) - EKG Data -: EKG Interpreted by Me EKG Comments: 12-lead Electrocardiogram Interpretation Note EKG was reviewed and interpreted by myself. 12-lead ECG performed at 1707 is interpreted by me as revealing normal sinus rhythm with incomplete right bundle branch block at a rate of 69 beats per minute. [place] is normal. AL interval is 172 ms, QRS duration is 112 ms, QTc is more than 457 ms. There were no ST or T wave abnormalities to suggest myocardial ischemia or injury. R wave progression across the precordium was satisfactory. By my interpretation this EKG is non- diagnostic for acute ischemia. Disposition Clinical Impression: Acute anxiety, Suicidal ideations Disposition: TRANSFER TO PSYCH HOSP/UNIT Condition: Stable Referrals: Efren Madera MD [Primary Care Provider] - 1-2 days
--- NOTE | 2024-10-27 18:48 | XR ---
EXAMINATION TYPE: XR chest 2V DATE OF EXAM: 10/27/2024 6:24 PM COMPARISON: Chest radiographs from 07/15/2023 CLINICAL INDICATION: Female, 48 years old with history of chest pain; TECHNIQUE: XR chest 2V Frontal and lateral views of the chest. FINDINGS: Lungs/Pleura: There is no evidence of pleural effusion, focal consolidation, or pneumothorax. Pulmonary vascularity: Unremarkable. Heart/mediastinum: Cardiomediastinal silhouette is unremarkable. Musculoskeletal: No acute osseous pathology. IMPRESSION: No acute cardiopulmonary disease/process. [facility], , 10/27/2024 6:46 PM
[2024-10-27] MEDS ORDERED: LORazepam 2 MG/ML INJ IM PRN (23:06)
[2024-10-27] MEDS ORDERED: MAG HYDROX/AL HYDROX/SIMETH 355 ML BOTTLE PO PRN (23:06)
[2024-10-27] MEDS ORDERED: ACETAMINOPHEN TAB 325 MG TAB PO PRN (23:06)
[2024-10-27] MEDS ORDERED: MAGNESIUM HYDROXIDE 2,400 MG/30 ML CUP PO PRN (23:06)
[2024-10-27 23:21] LABS: Amphetamine Screen,Urine Not Detected (NotDetected); Barbiturate Screen,Urine Not Detected (NotDetected); Benzodiazepines Screen,Urine Detected (NotDetected); Cocaine Screen,Urine Not Detected (NotDetected); Methadone Screen, Urine Not Detected (NotDetected); Opiate Screen,Urine Not Detected (NotDetected); Oxycodone Screen, Urine Not Detected (NotDetected); Phencyclidine Screen,Urine Not Detected (NotDetected); Tricyclic Antidepressant,Urine Not Detected (NotDetected); Urn Cannabinoid Scrn Not Detected (NotDetected)
[2024-10-28] MEDS ORDERED: ALBUTEROL INHALER 60 PUFF/8 GM INHALER (MHU) INHALATION PRN (02:00)
[2024-10-28 07:49] LABS: Basophils % (A) 0 %; Eosinophils # (A) 0.2 k/uL (0-0.7); Eosinophils % (A) 3 %; HCT 44.4 % (34.0-46.0); HGB 14.8 gm/dL (11.4-16.0); Lymphocytes # (A) 1.7 k/uL (1.0-4.8); Lymphocytes % (A) 23 %; MCH 32.5 pg (25.0-35.0); MCHC 33.4 g/dL (31.0-37.0); MCV 97.3 fL (80.0-100.0); Mean Platelet Volume 6.7; Monocytes # (A) 0.4 k/uL (0-1.0); Monocytes % (A) 5 %; Neutrophils % (A) 67 %; Platelet Count 322 k/uL (150-450); RBC 4.56 m/uL (3.80-5.40); RDW 12.7 % (11.5-15.5); WBC 7.5 k/uL (3.8-10.6)
[2024-10-28 08:10] LABS: ALT 20 U/L (4-34); AST 23 U/L (14-36); African American GFR (CKD) >90 (>60 ml/min/1.73 sqM); Albumin 4.2 g/dL (3.5-5.0); Alkaline Phosphatase 109 U/L (38-126); Anion Gap 5 mmol/L; Bilirubin, Delta 0.1 mg/dL (0.0-0.2); Bilirubin,Unconjugated 0.2 mg/dL (0.0-1.1); Blood Urea Nitrogen 8 mg/dL (7-17); Calcium 9.3 mg/dL (8.4-10.2); Carbon Dioxide 29 mmol/L (22-30); Chloride 105 mmol/L (98-107); Glucose 100 mg/dL (74-99); Non-African American GFR(CKD) >90 (>60 ml/min/1.73 sqM); Potassium 4.3 mmol/L (3.5-5.1); Sodium 139 mmol/L (137-145); Total Bilirubin 0.3 mg/dL (0.2-1.3); Total Protein 7.1 g/dL (6.3-8.2)
[2024-10-28] MEDS: ATORVASTATIN 20 MG TAB PO SCH (08:31)
[2024-10-28] MEDS: FLUoxetine HCL 20 MG CAP PO SCH (08:31)
[2024-10-28] MEDS: NICOTINE 14MG/24HR PATCH TRANSDERM SCH (08:31)
[2024-10-28] MEDS: CHOLECALCIFEROL 25 MCG (1000 IU) TABLET PO SCH (08:31)
[2024-10-28] MEDS: METOPROLOL SUCCINATE (ER) 50 MG TAB.ER.24H PO SCH (08:31)
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
[2024-10-28] MEDS: hydrOXYzine pamoate 25 MG CAP PO PRN (13:40)
[2024-10-28 15:03] LABS: Chol/HDL Ratio 3.35 Ratio; LDL Cholesterol,Calculated 88.5 mg/dL (0.0-131.0); VLDL Calculation 19.46 mg/dL (5.00-40.00)
--- NOTE | 2024-10-28 16:21 | P.CON ---
Consult Note - . Consult date: 10/28/24 Assessment/Plan:: Consult medical Date of service 10/28/[address] Madera Patient admitted yesterday during the evening hour with the underlying psychiatric disorder with the panic attack and suicidal ideation Patient had several admission to the mental health floor with the underlying history of major depressive disorder and has been on under several medication. History she had history of recurrent urinary tract infection, hypertension, major depressive depressive disorder, hyperlipidemia, inhaler 10 to Leane HFA 2 puffs 4 times daily. With the history of COPD and smoking. Medication at home. Fluoxetine 20 mg once a day olanzapine 10 mg once a day Vitamin BNC complexes Aleve to 20 mg capsule twice a day as needed Atorvastatin 20 mg 1 tablet at at bedtime Metoprolol succinate ER 50 mg once a day. She also has been on losartan 50 mg a day also She is on Ventolin HFA inhaler 2 puffs 4 times daily Social history she is single she used to have a boyfriend and she is 2 para 2 from him. She smoked 5 cigarettes a day no vaping She stated do not smoke marijuana and do not do street drugs She has also drink beer to beer or wine cooler a month. Review of system She had history of skin lesion around her chin and mouth and she was advised to see dermatology after she get approval from her insurance. Otherwise she has history of COPD with the inhaler No current chest pain however at the time they did cardiac panel in the ER on this admission was negative. No GERD disease no symptoms of dyspepsia. She had history of musculoskeletal with neck muscle spasm resolved. No history of diabetes mellitus or thyroid disease. No other added symptoms in the 14 [place]. On the exam Her vital signs today 90 8.8F oral and her pulse rate 76 bpm and regular sinus her EKG was sinus rhythm with a right bundle branch block Respiratory rate 18/min nonlabored and her blood pressure on admission 125/84 as well as today 135/82 with the pulse ox 96% and her chest x-ray done in the ER was no acute cardiopulmonary disease or process. Reviewed her laboratories found that she had mild elevation of white WBC and the 11 and probably she may have recurrent UTI with the dysuria and we will UA with reflex for culture as not done in the ER. Her laboratory was blood glucose 120 nonfasting and no evidence of alcohol her liver enzyme within normal limit and her electrolytes also normal with the GFR more than 90. Her hemoglobin 15.1 with a hematocrit 45.4 and no evidence of anemia and her troponin was less than 0.012. Patient seen [id number] and examined: Head was normocephalic atraumatic pupil was equal reactive conjunctiva was pink sclera was nonicteric Oropharynx natural teeth uvula midline Neck was supple no JVD no thyromegaly no lymphadenopathy trachea midline Chest was clear to auscultation percussion no wheezes no rhonchi's Heart was PMI in the fifth intercostal space normal S1-S2 no gallop Abdomen soft positive bowel sound and extremity no edema She is obesity no with a BMI 31.2. Assessment: 1. She had a history of COPD secondary to smoking 2. History of hypertension however currently controlled 3. History of recurrent UTI with the dysuria we will be repeating the urine analysis with reflex specially with the elevated white count to 11. 4. Panic attacks and history of major depression and suicidal ideation. 5. Chronic smoker. Recommendation plan: 1. Ordered urine analysis with reflex to culture and the treatment depend on the result 2. Encourage oral intake of fluid 3. Continue with the inhaler 2 puffs 4 times daily as needed. 4. Continue the current medication added to the psychiatric medication per Dr. Mireles psychiatrist. Patient seen in the mental health floor Thank you for the consult
[2024-10-28] MEDS: OLANZapine 10 MG TAB PO SCH (20:36)
[2024-10-28] MEDS: traZODone HCL 50 MG TAB PO PRN (20:36)
--- NOTE | 2024-10-29 11:49 | P.PN ---
Progress Note - Text Progress Note Date: 10/29/24 Interval History: Patient was seen today for for psychiatric follow-up. She was laying in her b ed. Claims that she is not going to many groups at this time. She claims that her mood and anxiety been mildly improving since yesterday. She states that she was able to sleep fairly last 90 did take a trazodone. She continues to be fairly concrete, evasive superficial. Poor understanding of treatment. Denies any problems with appetite at this time. At this time she is denying any suicidal homicidal ideations intent or plan, denying any auditory or visual hallucinations. Not reporting any side effects. MENTAL STATUS EXAM: General Appearance: Patient appears to be older than her stated age is alert, directable, and attempts to cooperate. Shuffled appearance. Patient appears to have fair hygiene and grooming. Behavior: Patient is seated without any agitated behavior. Patient is more cooperative today Speech: Patient's speech is fluent and nonpressured. [place], improving mildly Mood/Affect: Patient reports their mood is severely depressed and anxious, affect is congruent and constricted. Suicidality/Homicidality: Patient denies having any homicidal ideation intent or plan. Endorse suicidal thoughts with plans of overdosing Perceptions: Patient denies any visual hallucinations and denies any auditory hallucinations Though content/process: There is no evidence of any delusional thought content and thought process is linear and goal-directed. Poverty of content, evasive, improving mildly Memory and concentration: AOX3, grossly intact for the purposes of this session. Judgment and insight: Poor, improving mildly IMPRESSIONS: Major depressive disorder recurrent severe episode Cannabis use disorder Nicotine dependence PLAN: -Patient is admitted under voluntary status to MHU for stabilization of psychiatric symptoms and safety. Patient has signed adult voluntary form and medication consent and is placed in patient's chart. -Medications : Prozac 60 mg take once daily by mouth for depression/anxiety, Olanzapine 10 mg at night for mood stabilization/insomnia. Vistaril 25 mg 4 times daily as needed for anxiety. trazodone 50 mg qhs prn for insomnia -Ativan and Haldol PRN for agitation/aggression -NRT -nicotine patch -SW on board for discharge planning. Encourage patient to participate in groups to work on coping skills.
[2024-10-29 17:34] LABS: Appearance,Urine Clear (Clear); Bilirubin,Urine Negative (Negative); Blood,Urine Negative (Negative); Color,Urine Colorless; Glucose,Urine (UA) Negative (Negative); Ketones,Urine Negative (Negative); Leukocyte Esterase,Urine Negative (Negative); Nitrite,Urine Negative (Negative); PH, Urine 6.5 (5.0-8.0); Protein,Urine Negative (Negative); Specific Gravity,Urine 1.001 (1.001-1.035); Urobilinogen,Urine <2.0 mg/dL (<2.0)
--- NOTE | 2024-10-30 11:30 | P.PN ---
Progress Note - Text Progress Note Date: 10/30/24 Interval History: Patient was seen today for for psychiatric follow-up. She was laying in her b ed, continues to appear disheveled in appearance. She claims that she is doing a bit better today with regards to her mood. Continues to be fairly concrete. States that she slept about 5 hours last night, claims that she wants remain on the same medications. Continues to have fairly minimal insight. Poor understanding of treatment. Denies any problems with appetite at this time. At this time she is denying any suicidal homicidal ideations intent or plan, denying any auditory or visual hallucinations. Not reporting any side effects. MENTAL STATUS EXAM: General Appearance: Patient appears to be older than her stated age is alert, directable, and attempts to cooperate. Disheveled appearance. Patient appears to have fair hygiene and grooming. Behavior: Patient is seated without any agitated behavior. Patient is more cooperative today Speech: Patient's speech is fluent and nonpressured. [place] Mood/Affect: Patient reports their mood is severely depressed and anxious, affect is congruent and constricted. Suicidality/Homicidality: Patient denies having any homicidal ideation intent or plan. Denies any suicidal thoughts today. Perceptions: Patient denies any visual hallucinations and denies any auditory hallucinations Though content/process: There is no evidence of any delusional thought content and thought process is linear and goal-directed. Poverty of content, improving mildly Memory and concentration: AOX3, grossly intact for the purposes of this session. Judgment and insight: Poor, improving mildly IMPRESSIONS: Major depressive disorder recurrent severe episode Cannabis use disorder Nicotine dependence PLAN: -Patient is admitted under voluntary status to MHU for stabilization of psychiatric symptoms and safety. Patient has signed adult voluntary form and medication consent and is placed in patient's chart. -Medications : increase Prozac 80 mg take once daily by mouth for depression/anxiety, Olanzapine 10 mg at night for mood stabilization/insomnia. Vistaril 25 mg 4 times daily as needed for anxiety. trazodone 50 mg qhs prn for insomnia -Ativan and Haldol PRN for agitation/aggression -NRT -nicotine patch -SW on board for discharge planning. Encourage patient to participate in groups to work on coping skills. hopeful for discharge early next week if patient is improving psychiatrically.
[2024-10-31] MEDS: FLUoxetine HCL 20 MG CAP PO SCH (09:02)
--- NOTE | 2024-10-31 13:29 | P.PN ---
Progress Note - Text Interval History: Patient was seen resting in bed and was directable and agreeable to speak with engineering writer in the office. When asked how she was doing today she initially stated "I do not think the Prozac is working." She explained that she continues to feel a lot of anxiety, "all day every day". However she has found hydroxyzine helpful for this and notices that it helps her to feel more calm after its administered. Additionally she does report that she is "not crying" as she was when she came into the hospital. She describes her mood overall today as "pretty good" and has been eating and sleeping well. We discussed that today was the first day she received the higher dose of Prozac, and we will continue to watch for improvement in her anxiety and mood.. At this time patient denies any suicidal or homicidal ideations, intent or plan. Patient denies any auditory, visual hallucinations and denies any paranoia or delusions. Patient denies any side effects from the medications and has been compliant with meds. Mental Status Exam: General Appearance: Patient appears to be older than state age and is alert, directable, and cooperative. Behavior: Patient is calmly seated without any agitated behavior. Speech: Patient's speech is fluent and non-pressured. Slightly faster than normal pace and louder volume. Mood/Affect: Mood is "pretty good", affect is congruent and constricted. Suicidality/Homicidality: Patient denies having any suicidal or homicidal ideation intent or plan. Perceptions: Patient denies any visual hallucinations and denies any auditory hallucinations Though content/process: There is no evidence of any delusional thought content and thought process is linear and goal-directed. Memory and concentration: AOX3, grossly intact for the purposes of this session Judgment and insight: Improving mildly ASSESSMENT: Paula Le is a 48 year old woman with a history of major depressive d isorder, cannabis use disorder, and nicotine dependence who presented with a significant exacerbation of depressive symptoms. She has noticed improvement in her mood with current treatment. She does continue to experience some anxiety which is responsive to Vistaril. Will continue to reassess and monitor symptoms and engagement in therapeutic activities on the unit. - Major depressive disorder, severe, recurrent - Cannabis use disorder - Nicotine dependence PLAN: -Patient continues to meet criteria for inpatient psychiatric admission for symptom stabilization and safety. Patient has signed adult voluntary form and medication consent and was placed in patient's chart. -Medications: - Continue Prozac 80 mg daily for depression/anxiety (received this dose for the first time on 10/31/24) - Continue Olanzapine 10 mg at bedtime for mood stabilization/insomnia - Continue Vistaril 25 mg, four times daily PRN anxiety - Continue Trazodone 50 mg at bedtime PRN insomnia -When necessary Ativan and Haldol for agitation/aggression. -NRT - nicotine patch -SW on board for discharge planning. Encouraged the patient to participate in milieu.
[2024-10-31] MEDS: LORazepam 1 MG TAB PO PRN (17:37)
--- NOTE | 2024-11-01 16:12 | P.PN ---
Progress Note - Text Interval History: Patient was seen resting in bed and was directable and agreeable to speak with insurance underwriter sales. She reports her mood as "better" today and feels things are improving. She received 1 dose of Vistaril as needed in the last 24 hours for anxiety. She endorses sleeping well and has been eating. She was excited to share that she won bingo today during group and received a pair of gloves as a prize. At this time patient denies any suicidal or homicidal ideations, intent or plan. Patient denies any auditory, visual hallucinations and denies any paranoia or delusions. Patient denies any side effects from the medications and has been compliant with meds. Mental Status Exam: General Appearance: Patient appears to be older than state age and is alert, directable, and cooperative. Behavior: Patient is calmly resting in bed without any agitated behavior. Speech: Patient's speech is fluent and non-pressured. Conversational volume. Mood/Affect: Mood is "better", affect is congruent and constricted. Suicidality/Homicidality: Patient denies having any suicidal or homicidal ideation intent or plan. Perceptions: Patient denies any visual hallucinations and denies any auditory hallucinations Though content/process: There is no evidence of any delusional thought content and thought process is linear and goal-directed. Memory and concentration: AOX3, grossly intact for the purposes of this session Judgment and insight: Improving mildly ASSESSMENT: - Major depressive disorder, severe, recurrent - Cannabis use disorder - Nicotine dependence PLAN: -Patient continues to meet criteria for inpatient psychiatric admission for symptom stabilization and safety. Patient has signed adult voluntary form and medication consent and was placed in patient's chart. -Medications: - Continue Prozac 80 mg daily for depression/anxiety (received this dose for the first time on 10/31/24) - Continue Olanzapine 10 mg at bedtime for mood stabilization/insomnia - Continue Vistaril 25 mg, four times daily PRN anxiety - Continue Trazodone 50 mg at bedtime PRN insomnia -When necessary Ativan and Haldol for agitation/aggression. -NRT - nicotine patch -SW on board for discharge planning. Encouraged the patient to participate in milieu.
--- NOTE | 2024-11-02 14:06 | P.PN ---
Progress Note - Text Interval History: Patient was seen resting in bed and was directable and agreeable to speak with real estate underwriter. She describes her mood as "good" today but is feeling some anxiety about "getting out of here." She is looking forward to being back with her family. At this time patient denies any suicidal or homicidal ideations, intent or plan. Patient denies any auditory, visual hallucinations and denies any paranoia or delusions. Patient denies any side effects from the medications and has been compliant with meds. Mental Status Exam: General Appearance: Patient appears to be older than state age and is alert, directable, and cooperative. Behavior: Patient is calmly resting in bed without any agitated behavior. Speech: Patient's speech is fluent and non-pressured. Conversational volume. Mood/Affect: Mood is "good", affect is congruent and constricted. Suicidality/Homicidality: Patient denies having any suicidal or homicidal id eation intent or plan. Perceptions: Patient denies any visual hallucinations and denies any auditory hallucinations Though content/process: There is no evidence of any delusional thought content and thought process is linear and goal-directed. Memory and concentration: AOX3, grossly intact for the purposes of this session Judgment and insight: Improving mildly ASSESSMENT: - Major depressive disorder, severe, recurrent - Cannabis use disorder - Nicotine dependence PLAN: -Patient continues to meet criteria for inpatient psychiatric admission for symptom stabilization and safety. Patient has signed adult voluntary form and medication consent and was placed in patient's chart. -Medications: - Continue Prozac 80 mg daily for depression/anxiety (received this dose for the first time on 10/31/24) - Continue Olanzapine 10 mg at bedtime for mood stabilization/insomnia - Continue Vistaril 25 mg, four times daily PRN anxiety - Continue Trazodone 50 mg at bedtime PRN insomnia -When necessary Ativan and Haldol for agitation/aggression. -NRT - nicotine patch -SW on board for discharge planning. Encouraged the patient to participate in milieu.
[2024-11-03 09:03] VITALS: BP 117/78; PULSE 68; RESP 18; TEMP 98.1
--- NOTE | 2024-11-03 11:07 | P.DS ---
Providers Date of admission: 10/27/24 23:01 Expected date of discharge: 11/03/24 Attending physician: Eben Mireles MD Consults: 10/27/24 23:06 Consult Physician Routine Consulting Provider: Efren Madera Consult Reason/Comments: Medical H&P Do you want consulting provider notified?: Yes Primary care physician: Efren Madera - Discharge Diagnosis(es) (1) Major depressive disorder, recurrent severe without psychotic features Current Visit: Yes Status: Acute Priority: High (2) Cannabis use disorder Current Visit: Yes Status: Acute Priority: Medium (3) Nicotine dependence Current Visit: Yes Status: Acute Priority: Low Hospital Course: Admission HPI: Admission note was completed by publications writer "Patient is a 48-year-old female, single currently unemployed and living with her ex, has 2 kids. living in a hotel currently. Patient presented to the hospital yesterday for evaluation. Patient apparently was complaining of a panic attack, having suicidal ideations, worsening stress at home. She was just discharged from mental health unit last month. She claims that she came to the hospital because her panic attacks were getting worse she was having shortness of breath she was also crying. She states that she wanted to . Claims that she is stressed about her finances, unable to find a job. She states that she has been trying to look however has been unsuccessful. She states that she has been also living in a hotel which has been difficult. Claims that she is having "sadness" endorsing depression anxiety. States that her sleep and appetite are poor. She claims that she has been fairly inconsistent with her medications. She denies any current suicidal or homicidal thoughts or access to guns. She is denying any auditory or visual hallucinations. She claims that she smokes marijuana occasionally, smokes nicotine products daily. Denies any other recreational drug use" Hospital course: Upon admission to the unit patient was directable and agreeable to commence treatment and signed adult voluntary form. Patient got along well with other patients on the unit and followed unit protocol. Patient was compliant with the medications and denied any side effects throughout hospital course. Patient was started on Prozac increased to a dose of 80 mg daily for depression/anxiety, olanzapine 10 mg nightly for mood stabilization/insomnia, Vistaril as needed for anxiety. Trazodone 50 mg nightly as needed for insomnia. Patient spoke of her stressors and engaged in therapy both group and individual. Patient was also seen by medical team for history and physical exam. Throughout the course of the hospitalization patient gradually improved with regards to mood, anxiety, suicidal thoughts, sleep and returned back to their baseline level of functioning. On the day of discharge patient denied any suicidal or homicidal ideations intent or plan denied any auditory or visual hallucinations. Patient endorsed wanting to live for their health and family. The patient denied any access to guns or weapons. Patient denied any paranoia and did not endorse any delusions. Patient does have a significant history of substance abuse and was counseled on abstaining from all substances including alcohol and marijuana. Patient elected to do outpatient substance use treatment program through their outpatient provider. Patient was also counseled on the medications and need for regular compliance and was encouraged to follow-up with their outpatient appoi ntment for mental health and also for primary care. Prior to discharge a family meeting will be arranged by forensic social worker to answer any questions and ensure safety upon discharge incuding making sure that guns/weapons are either removed from the home or locked away. Mental status exam: General Appearance: Patient appears to be stated age is alert, pleasant, and cooperative. Patient is in no acute distress and has improved hygiene and grooming Behavior: Patient is calmly seated without any agitated behavior. Speech: Patient's speech is fluent and nonpressured. Mood/Affect: Patient reports their mood is "good", affect is congruent and euthymic. Suicidality/Homicidality: Patient denies having any suicidal or homicidal ideation intent or plan. Perceptions: Patient denies any auditory or visual hallucinations. Though content/process: There is no evidence of any delusional thought content and thought process is linear and goal-directed. Memory and concentration: AOX3, grossly intact for the purposes of this session. Can spell "WORLD" backwards correctly. Judgment and insight: Chronically poor, however has improved with guarded prognosis Impression: Major depressive disorder recurrent severe without psychotic features Cannabis use disorder Nicotine dependence Plan: -Continue with discharge today as patient has improved and stabilized psychiatrically and is not currently an imminent threat to themself and/or others. Patient will remain at chronically elevated risk for harm to self and/or others due to their impulsivity and substance abuse. -Continue medications: Prozac 80 mg daily for mood/anxiety, Zyprexa 10 mg nightly for mood stabilization/insomnia, Vistaril as needed for anxiety, trazodone as needed for insomnia -Patient was counseled on the need for medication compliance and appropriate follow-up at mental health and also primary care for medical issues. Patient verbalized understanding and agreed. -Social work to help coordinate patients discharge today. also to ensure safe home environment that guns/weapons are either removed from the home or locked away. Social work also to arrange for patients follow up appointments with [facility] for psychiatric care along with follow up with primary care provider. -Patient counseled on abstaining from recreational drugs and marijuana and alcohol. Was informed/educated on the adverse effects on their physical and mental health. Patient verbally agreed and understood. -Patient was instructed to return to the hospital or seek immediate medical care if their psychiatric or medical symptoms do worsen or reoccur. Allergies Allergy/AdvReac Type Severity Reaction Status Date / Time ibuprofen [From Motrin] Allergy Intermediate Rash/Hives Verified 10/27/24 18:54 Laboratory Results WBC 7.5 k/uL (3.8-10.6) 10/28/24 07:25 RBC 4.56 m/uL (3.80-5.40) 10/28/24 07:25 Hgb 14.8 gm/dL (11.4-16.0) 10/28/24 07:25 Hct 44.4 % (34.0-46.0) 10/28/24 07:25 MCV 97.3 fL (80.0-100.0) 10/28/24 07:25 MCH 32.5 pg (25.0-35.0) 10/28/24 07:25 MCHC 33.4 g/dL (31.0-37.0) 10/28/24 07:25 RDW 12.7 % (11.5-15.5) 10/28/24 07:25 Plt Count 322 k/uL (150-450) 10/28/24 07:25 MPV 6.7 10/28/24 07:25 Neutrophils % 67 % 10/28/24 07:25 Lymphocytes % 23 % 10/28/24 07:25 Monocytes % 5 % 10/28/24 07:25 Eosinophils % 3 % 10/28/24 07:25 Basophils % 0 % 10/28/24 07:25 Neutrophils # 5.0 k/uL (1.3-7.7) 10/28/24 07:25 Lymphocytes # 1.7 k/uL (1.0-4.8) 10/28/24 07:25 Monocytes # 0.4 k/uL (0-1.0) 10/28/24 07:25 Eosinophils # 0.2 k/uL (0-0.7) 10/28/24 07:25 Basophils # 0.0 k/uL (0-0.2) 10/28/24 07:25 Sodium 139 mmol/L (137-145) 10/28/24 07:25 Potassium 4.3 mmol/L (3.5-5.1) 10/28/24 07:25 Chloride 105 mmol/L (98-107) 10/28/24 07:25 Carbon Dioxide 29 mmol/L (22-30) 10/28/24 07:25 Anion Gap 5 mmol/L 10/28/24 07:25 BUN 8 mg/dL (7-17) 10/28/24 07:25 Creatinine 0.72 mg/dL (0.52-1.04) 10/28/24 07:25 Est GFR (CKD-EPI)AfAm >90 (>60 ml/min/1.73 sqM) 10/28/24 07:25 Est GFR (CKD-EPI)NonAf >90 (>60 ml/min/1.73 sqM) 10/28/24 07:25 Glucose 100 mg/dL (74-99) H 10/28/24 07:[address] Glu mg/dL 123 mg/dL 10/28/24 07:25 Hemoglobin A1c 5.9 % (<=6.0) 10/28/24 07:25 Calcium 9.3 mg/dL (8.4-10.2) 10/28/24 07:25 Total Bilirubin 0.3 mg/dL (0.2-1.3) 10/28/24 07:25 Conjugated Bilirubin 0.0 mg/dL (0.0-0.3) 10/28/24 07:25 Unconjugated Bilirubin 0.2 mg/dL (0.0-1.1) 10/28/24 07:25 Delta Bilirubin 0.1 mg/dL (0.0-0.2) 10/28/24 07:25 AST 23 U/L (14-36) 10/28/24 07:25 ALT 20 U/L (4-34) 10/28/24 07:25 Alkaline Phosphatase 109 U/L (38-126) 10/28/24 07:25 Troponin I <0.012 ng/mL (0.000-0.034) 10/27/24 17:18 Total Protein 7.1 g/dL (6.3-8.2) 10/28/24 07:25 Albumin 4.2 g/dL (3.5-5.0) 10/28/24 07:25 Triglycerides 97.30 mg/dL (0.00-149.00) 10/28/24 07:25 Cholesterol 154.00 mg/dL (0.00-200.00) 10/28/24 07:25 LDL Cholesterol, Calc 88.5 mg/dL (0.0-131.0) 10/28/24 07:25 VLDL Cholesterol, Calc 19.46 mg/dL (5.00-40.00) 10/28/24 07:25 HDL Cholesterol 46.00 mg/dL (40.00-60.00) 10/28/24 07:25 Cholesterol/HDL Ratio 3.35 Ratio 10/28/24 07:25 TSH 1.810 mIU/L (0.465-4.680) 10/28/24 07:25 Urine Color Colorless 10/29/24 17:26 Urine Appearance Clear (Clear) 10/29/24 17:26 Urine pH 6.5 (5.0-8.0) 10/29/24 17:26 Ur Specific [employer] 1.001 (1.001-1.035) 10/29/24 17:26 Urine Protein Negative (Negative) 10/29/24 17:26 Urine Glucose (UA) Negative (Negative) 10/29/24 17:26 Urine Ketones Negative (Negative) 10/29/24 17:26 Urine Blood Negative (Negative) 10/29/24 17:26 Urine Nitrite Negative (Negative) 10/29/24 17:26 Urine Bilirubin Negative (Negative) 10/29/24 17:26 Urine Urobilinogen <2.0 mg/dL (<2.0) 10/29/24 17:26 Ur Leukocyte Esterase Negative (Negative) 10/29/24 17:26 Urine Opiates Screen Not Detected (NotDetected) 10/27/24 17:18 Ur Oxycodone Screen Not Detected (NotDetected) 10/27/24 17:18 Urine Methadone Screen Not Detected (NotDetected) 10/27/24 17:18 Ur Barbiturates Screen Not Detected (NotDetected) 10/27/24 17:18 U Tricyclic Antidepress Not Detected (NotDetected) 10/27/24 17:18 Ur Phencyclidine Scrn Not Detected (NotDetected) 10/27/24 17:18 Ur Amphetamines Screen Not Detected (NotDetected) 10/27/24 17:18 U Methamphetamines Scrn Not Detected (NotDetected) 10/27/24 17:18 U Benzodiazepines Scrn Detected (NotDetected) H 10/27/24 17:18 Urine Cocaine Screen Not Detected (NotDetected) 10/27/24 17:18 U Marijuana (THC) Screen Not Detected (NotDetected) 10/27/24 17:18 Serum Alcohol <10 mg/dL 10/27/24 17:18 SARS-CoV-2 (PCR) Not Detected (Not Detectd) 10/27/24 17:18 Vital Signs Temp 98.1 F 11/03/24 09:02 Pulse 68 11/03/24 09:02 Resp 18 11/03/24 09:02 BP 117/78 11/03/24 09:02 Pulse Ox 96 11/02/24 08:29 FiO2 Intake & Output 11/02/24 11/03/24 11/03/24 18:59 06:59 18:59 Weight 78.2 kg Patient Condition at Discharge: Stable Plan - Discharge Summary Discharge Rx Participant: Yes New Discharge Prescriptions: New traZODone HCL [Desyrel] 50 mg PO HS PRN 30 Days #30 tab PRN Reason: Insomnia FLUoxetine HCL [PROzac] 80 mg PO DAILY 30 Days #60 cap Continue Atorvastatin Calcium [Lipitor] 20 mg PO DAILY Metoprolol Succinate [Toprol XL] 50 mg PO DAILY 30 Days #30 tab OLANZapine [ZyPREXA] 10 mg PO HS 30 Days #30 tab Cholecalciferol [Vitamin D3 (25 Mcg = 1000 Iu)] 25 mcg PO DAILY Albuterol Inhaler [Ventolin Hfa Inhaler] 1 - 2 puff INHALATION RT-Q6H PRN PRN Reason: Shortness Of Breath Nicotine 14Mg/24Hr Patch [Habitrol] 1 patch TRANSDERM DAILY 14 Days #14 patch hydrOXYzine pamoate [Vistaril] 25 mg PO BID PRN 30 Days #60 cap PRN Reason: Anxiety Discontinued FLUoxetine HCL [PROzac] 60 mg PO DAILY 30 Days #90 cap Discharge Medication List Atorvastatin Calcium [Lipitor] 20 mg PO DAILY 04/22/21 [History] Cholecalciferol [Vitamin D3 (25 Mcg = 1000 Iu)] 25 mcg PO DAILY 03/01/23 [History] Albuterol Inhaler [Ventolin Hfa Inhaler] 1 - 2 puff INHALATION RT-Q6H PRN 08/11/23 [History] FLUoxetine HCL [PROzac] 80 mg PO DAILY 30 Days #60 cap 11/03/24 [Rx] Metoprolol Succinate [Toprol XL] 50 mg PO DAILY 30 Days #30 tab 11/03/24 [Rx] Nicotine 14Mg/24Hr Patch [Habitrol] 1 patch TRANSDERM DAILY 14 Days #14 patch 11/03/24 [Rx] OLANZapine [ZyPREXA] 10 mg PO HS 30 Days #30 tab 11/03/24 [Rx] hydrOXYzine pamoate [Vistaril] 25 mg PO BID PRN 30 Days #60 cap 11/03/24 [Rx] traZODone HCL [Desyrel] 50 mg PO HS PRN 30 Days #30 tab 11/03/24 [Rx] Follow up Appointment(s)/Referral(s): [facility] [Outside] - 11/06/24 10:00 am (11/06/2024 10:00AM - 11:00AM MALVIN JOHNSON 11/10/2024 1:00PM - 1:30PM [address] ) Efren Madera MD [Primary Care Provider] - 1-2 days Activity/Diet/Wound Care/Special Instructions: Avoid the use of street drugs and alcohol. Take all medications as prescribed. When you are in need of refills on your medications, please contact your medical provider and/or outpatient psychiatrist/provider to have this done. Please go to your scheduled outpatient appointment for aftercare treatment. If symptoms return or become worse, call the crisis line at and/or go to the nearest emergency room for evaluation. National Suicide Hotline 988 Discharge Disposition: HOME SELF-CARE
== END 2024-11-03 11:55 | disposition home or self-care (01) | DRG 751 ==
LOC: EC 16:30 → 3MHU 23:01
PROVIDERS: ADMIT Psychiatry & Neurology Psychiatry; ATTEND Psychiatry & Neurology Psychiatry
DX: F33.2 Major depressive disorder, recurrent severe without psychotic features (principal); F12.10 Cannabis abuse, uncomplicated; F17.200 Nicotine dependence, unspecified, uncomplicated; F41.0 Panic disorder [episodic paroxysmal anxiety]; R45.851 Suicidal ideations; J44.9 Chronic obstructive pulmonary disease, unspecified; M19.90 Unspecified osteoarthritis, unspecified site; I10 Essential (primary) hypertension; E78.5 Hyperlipidemia, unspecified; Z88.6 Allergy status to analgesic agent; Z87.440 Personal history of urinary (tract) infections; Z59.01 Sheltered homelessness; Z56.0 Unemployment, unspecified; Z62.819 Personal history of unspecified abuse in childhood
CPT/HCPCS: 36415; 71046; 80053; 80061; 80306; 80320; 81003; 82075; 82248; 83036; 84443; 84484; 85025; 87635; 93005; 99285

== ENCOUNTER 2024-12-10 17:07 | Inpatient (IN) | payer MEDICAID, OTHER ==
--- NOTE | 2024-12-10 18:09 | ED ---
Psych HPI - General Chief Complaint: Psychiatric Symptoms Stated Complaint: mental health Time Seen by Provider: 12/10/24 17:23 Source: patient, RN notes reviewed Mode of arrival: ambulatory - History of Present Illness Initial Comments: This is a 49-year-old female presenting with suicidal ideation x 3 days. Patient endorses increased number of life stressors especially financial which have caused her to consider suicide by overdose. Patient states she had considered taking her boyfriend's Seroquel and attempt to overdose but has not done so. Endorses history of wrist cutting in 1995. Endorses current use of Prozac, hydroxyzine and olanzapine, which she is taking as prescribed, stating they do not seem to be working. Endorses marijuana use. Denies homicidal ideat ion or misuse of other medication. MD Complaint: suicidal ideation, feels depressed Onset/Timin -: days(s) Associated Psychiatric Symptoms: depression, suicidal ideation History of same: Yes Quality: constant Context: significant life stressor Associated Symptoms: denies other symptoms If Self Harm: admits thoughts of self harm, has plan - Related Data Home Medications Medication Instructions Recorded Confirmed Atorvastatin Calcium [Lipitor] 20 mg PO DAILY 04/22/21 12/10/24 Cholecalciferol [Vitamin D3 (25 25 mcg PO DAILY 03/01/23 12/10/24 Mcg = 1000 Iu)] Albuterol Inhaler [Ventolin Hfa 2 puff INHALATION RT-Q6H PRN 08/11/23 12/10/24 Inhaler] Losartan [Cozaar] 50 mg PO DAILY 12/10/24 12/10/24 Nicotine 21Mg/24Hr Patch [Habitrol] 1 patch TRANSDERM DAILY 12/10/24 12/10/24 Previous Rx's Medication Instructions Recorded FLUoxetine HCL [PROzac] 80 mg PO DAILY 30 Days #60 cap 11/03/24 Metoprolol Succinate [Toprol XL] 50 mg PO DAILY 30 Days #30 tab 11/03/24 OLANZapine [ZyPREXA] 10 mg PO HS 30 Days #30 tab 11/03/24 hydrOXYzine pamoate [Vistaril] 25 mg PO BID PRN 30 Days #60 cap 11/03/24 traZODone HCL [Desyrel] 50 mg PO HS PRN 30 Days #30 tab 11/03/24 Allergies Allergy/AdvReac Type Severity Reaction Status Date / Time ibuprofen [From Motrin] Allergy Intermediate Rash/Hives Verified 12/10/24 20:03 Review of Systems ROS Statement: Those systems with pertinent positive or pertinent negative responses have been documented in the HPI. ROS Other: All systems not noted in ROS Statement are negative. Past Medical History Past Medical History: COPD, Osteoarthritis (OA) Additional Past Medical History / Comment(s): scoliosis History of Any Multi-Drug Resistant Organisms: Other MDRO Past Surgical History: Tubal Ligation Past Anesthesia/Blood Transfusion Reactions: No Reported Reaction Past Psychological History: Anxiety, Depression Smoking Status: Current every day smoker Past Alcohol Use History: None Reported Past Drug Use History: Marijuana - Past Family History Mother Family Medical History: Cancer General Exam Limitations: no limitations General appearance: alert, in no apparent distress Head exam: Present: atraumatic, normocephalic, normal inspection Eye exam: Present: normal appearance, PERRL, EOMI. Absent: scleral icterus, conjunctival injection, periorbital swelling ENT exam: Present: normal exam, mucous membranes moist Neck exam: Present: normal inspection. Absent: tenderness, meningismus, lymphadenopathy Respiratory exam: Present: normal lung sounds bilaterally. Absent: respiratory distress, wheezes, rales, rhonchi, stridor Cardiovascular Exam: Present: regular rate, normal rhythm, normal heart sounds. Absent: systolic murmur, diastolic murmur, rubs, gallop, clicks GI/Abdominal exam: Present: soft, normal bowel sounds. Absent: distended, tenderness, guarding, rebound, rigid Extremities exam: Present: normal inspection, full ROM, normal capillary refill. Absent: tenderness, pedal edema, joint swelling, calf tenderness Back exam: Present: normal inspection Neurological exam: Present: alert, oriented X3, CN II-XII intact Psychiatric exam: Present: normal affect, normal mood Skin exam: Present: warm, dry, intact, normal color. Absent: rash Course Vital Signs 12/10/24 17:08 Temperature 97.7 F Pulse Rate 65 Respiratory 18 Rate Blood Pressure 136/82 O2 Sat by Pulse 98 Oximetry Medical Decision Making - Medical Decision Making Was pt. sent in by a medical professional or institution (, PA, SINGLE ENDING MACHINE OPERATOR, urgent care, hospital, or penitentiary...) When possible be specific @ -No Did you speak to anyone other than the patient for history (EMS, parent, family, police, friend...)? What history was obtained from this source @ -No Did you review nursing and triage notes (agree or disagree)? Why? @ -I reviewed and agree with nursing and triage notes Were old charts reviewed (outside hosp., previous admission, EMS record, old EKG, old radiological studies, urgent care reports/EKG's, penitentiary records)? Report findings @ -No old charts were reviewed Differential Diagnosis (chest pain, altered mental status, abdominal pain women, abdominal pain men, vaginal bleeding, weakness, fever, dyspnea, syncope, headache, dizziness, GI bleed, back pain, seizure, CVA, palpatations, mental health, musculoskeletal)? @ -Differential Mental Health Depression, anxiety, bipolar, psychosis, schizophrenia, borderline personality, situational depression, adjustment disorder, behavioral disorder, brain tumor, malingering, substance abuse, encephalopathy, medication reaction, dementia, hypothyroidism, degenerative neurologic disorder, lupus.... This is not meant to be all-inclusive list EKG interpreted by me (3pts min.). @ -Not done X-rays interpreted by me (1pt min.). @ -None done CT interpreted by me (1pt min.). @ -None done U/S interpreted by me (1pt. min.). @ -None done What testing was considered but not performed or refused? (CT, X-rays, U/S, labs)? Why? @ -None What meds were considered but not given or refused? Why? @ -None Did you discuss the management of the patient with other professionals (professionals i.e. , PA, SINGLE ENDING MACHINE OPERATOR, lab, RT, psych nurse, outreach and education social worker, recreational vehicle repairer, teacher, public health officer, dependency case manager)? Give summary @ -EPS consult determine to admit patient and conferred information to me. Was smoking cessation discussed for >3mins.? @ -No Was critical care preformed (if so, how long)? @ -No Were there social determinants of health that impacted care today? How? (Homelessness, low income, unemployed, alcoholism, drug addiction, transportation, low edu. Level, literacy, decrease access to med. care, skilled nursing, rehab)? @ -No Was there de-escalation of care discussed even if they declined (Discuss DNR or withdrawal of care, Hospice)? DNR status @ -No What co-morbidities impacted this encounter? (DM, HTN, Smoking, COPD, CAD, Cancer, CVA, ARF, Chemo, Hep., AIDS, mental health diagnosis, sleep apnea, morbid obesity)? @ -Depression Was patient admitted / discharged? Hospital course, mention meds given and route, prescriptions, significant lab abnormalities, going to OR and other pertinent info. @ -Lab work including UA, toxicology and Cepheid test unremarkable. Following EPS consulted, patient to be admitted. Undiagnosed new problem with uncertain prognosis? @ -No Drug Therapy requiring intensive monitoring for toxicity (Heparin, Nitro, Insulin, Cardizem)? @ -No Were any procedures done? @ -No Diagnosis/symptom? @ -Suicidal ideation Acute, or Chronic, or Acute on Chronic? @ -Acute Uncomplicated (without systemic symptoms) or Complicated (systemic symptoms)? @ -Uncomplicated Side effects of treatment? @ -No Exacerbation, Progression, or Severe Exacerbation? @ -No Poses a threat to life or bodily function? How? (Chest pain, [place], [place], pneumonia, PE, COPD, DKA, ARF, appy, cholecystitis, CVA, Diverticulitis, Homicidal, Suicidal, threat to staff... and all critical care pts) @ -Suicidal ideation - Lab Data Result diagrams: 12/11/24 06:52 12/11/24 06:46 Lab Results 12/10/24 12/10/24 12/10/24 Range/Units 18:12 21:37 21:37 Urine Color Urine Appearance (Clear) Urine pH (5.0-8.0) Ur Specific Dwight (1.001-1.035) Urine Protein (Negative) Urine Glucose (UA) (Negative) Urine Ketones (Negative) Urine Blood (Negative) Urine Nitrite (Negative) Urine Bilirubin (Negative) Urine Urobilinogen (<2.0) mg/dL Ur Leukocyte Esterase (Negative) Urine HCG, Qual (Not Detectd) Salicylates 2.1 mg/dL Urine Opiates Screen Not Detected (NotDetected) Ur Oxycodone Screen Not Detected (NotDetected) Urine Methadone Screen Not Detected (NotDetected) Acetaminophen <10.0 ug/mL Ur Barbiturates Screen Not Detected (NotDetected) U Tricyclic Antidepress Not Detected (NotDetected) Ur Phencyclidine Scrn Not Detected (NotDetected) Ur Amphetamines Screen Not Detected (NotDetected) U Methamphetamines Scrn Not Detected (NotDetected) U Benzodiazepines Scrn Not Detected (NotDetected) Urine Cocaine Screen Not Detected (NotDetected) U Marijuana (THC) Screen Not Detected (NotDetected) Influenza Type A (PCR) Not Detected (Not Detectd) Influenza Type B (PCR) Not Detected (Not Detectd) RSV (PCR) Not Detected (Not Detectd) SARS-CoV-2 (PCR) Not Detected (Not Detectd) 12/10/24 12/10/24 Range/Units 21:37 21:37 Urine Color Colorless Urine Appearance Clear (Clear) Urine pH 7.0 (5.0-8.0) Ur Specific Dwight 1.012 (1.001-1.035) Urine Protein Negative (Negative) Urine Glucose (UA) Negative (Negative) Urine Ketones 1+ H (Negative) Urine Blood Negative (Negative) Urine Nitrite Negative (Negative) Urine Bilirubin Negative (Negative) Urine Urobilinogen <2.0 (<2.0) mg/dL Ur Leukocyte Esterase Negative (Negative) Urine HCG, Qual Not Detected (Not Detectd) Salicylates mg/dL Urine Opiates Screen (NotDetected) Ur Oxycodone Screen (NotDetected) Urine Methadone Screen (NotDetected) Acetaminophen ug/mL Ur Barbiturates Screen (NotDetected) U Tricyclic Antidepress (NotDetected) Ur Phencyclidine Scrn (NotDetected) Ur Amphetamines Screen (NotDetected) U Methamphetamines Scrn (NotDetected) U Benzodiazepines Scrn (NotDetected) Urine Cocaine Screen (NotDetected) U Marijuana (THC) Screen (NotDetected) Influenza Type A (PCR) (Not Detectd) Influenza Type B (PCR) (Not Detectd) RSV (PCR) (Not Detectd) SARS-CoV-2 (PCR) (Not Detectd) Disposition Clinical Impression: Suicidal ideation Disposition: ADMITTED IP TO THIS HOSP Condition: Good Is patient prescribed a controlled substance at d/c from ED?: No Time of Disposition: 19:44 Decision Date: 12/10/24 Decision Time: 19:44
[2024-12-10 19:01] LABS: Acetaminophen <10.0 ug/mL; Salicylate 2.1 mg/dL
[2024-12-10 22:12] LABS: Amphetamine Screen,Urine Not Detected (NotDetected); Barbiturate Screen,Urine Not Detected (NotDetected); Benzodiazepines Screen,Urine Not Detected (NotDetected); Cocaine Screen,Urine Not Detected (NotDetected); Methadone Screen, Urine Not Detected (NotDetected); Opiate Screen,Urine Not Detected (NotDetected); Oxycodone Screen, Urine Not Detected (NotDetected); Phencyclidine Screen,Urine Not Detected (NotDetected); Tricyclic Antidepressant,Urine Not Detected (NotDetected); Urn Cannabinoid Scrn Not Detected (NotDetected)
[2024-12-10 22:40] LABS: Influenza A Not Detected (Not Detectd); Influenza B Not Detected (Not Detectd); RSV Not Detected (Not Detectd)
[2024-12-10] MEDS ORDERED: MAG HYDROX/AL HYDROX/SIMETH 355 ML BOTTLE PO PRN (22:43)
[2024-12-10] MEDS ORDERED: MAGNESIUM HYDROXIDE 2,400 MG/30 ML CUP PO PRN (22:43)
[2024-12-10] MEDS ORDERED: OLANZapine 5 MG TAB PO PRN (22:47)
[2024-12-10] MEDS ORDERED: OLANZapine 10 MG VIAL IM PRN (22:47)
[2024-12-10] MEDS ORDERED: hydrOXYzine pamoate 25 MG CAP PO PRN (22:49)
[2024-12-10] MEDS: ATORVASTATIN 20 MG TAB PO SCH (23:12)
[2024-12-10] MEDS: lisinopriL 20 MG TAB PO SCH (23:12)
[2024-12-10] MEDS: hydrOXYzine pamoate 25 MG CAP PO PRN (23:12)
[2024-12-10] MEDS: FLUoxetine HCL 20 MG CAP PO SCH (23:12)
[2024-12-10] MEDS: OLANZapine 10 MG TAB PO SCH (23:13)
[2024-12-10 23:23] VITALS: RESP 16
[2024-12-11] MEDS ORDERED: hydrOXYzine HCL 50 MG/ML 1 ML VIAL IM PRN
[2024-12-11 03:35] LABS: Appearance,Urine Clear (Clear); Bilirubin,Urine Negative (Negative); Blood,Urine Negative (Negative); Color,Urine Colorless; Glucose,Urine (UA) Negative (Negative); Ketones,Urine 1+ (Negative); Leukocyte Esterase,Urine Negative (Negative); Nitrite,Urine Negative (Negative); Protein,Urine Negative (Negative); Specific Gravity,Urine 1.012 (1.001-1.035); Urobilinogen,Urine <2.0 mg/dL (<2.0)
[2024-12-11 08:16] LABS: Basophils % (A) 1 %; Eosinophils # (A) 0.3 k/uL (0-0.7); Eosinophils % (A) 4 %; HCT 43.6 % (34.0-46.0); HGB 14.2 gm/dL (11.4-16.0); Lymphocytes % (A) 31 %; MCH 31.7 pg (25.0-35.0); MCHC 32.7 g/dL (31.0-37.0); MCV 96.9 fL (80.0-100.0); Monocytes # (A) 0.4 k/uL (0-1.0); Monocytes % (A) 7 %; Neutrophils # (A) 3.6 k/uL (1.3-7.7); Neutrophils % (A) 56 %; Platelet Count 345 k/uL (150-450); RDW 12.5 % (11.5-15.5); WBC 6.4 k/uL (3.8-10.6)
[2024-12-11 08:30] LABS: ALT 21 U/L (4-34); AST 27 U/L (14-36); African American GFR (CKD) >90 (>60 ml/min/1.73 sqM); Albumin 4.2 g/dL (3.5-5.0); Alkaline Phosphatase 105 U/L (38-126); Anion Gap 10 mmol/L; Blood Urea Nitrogen 12 mg/dL (7-17); Calcium 9.4 mg/dL (8.4-10.2); Carbon Dioxide 25 mmol/L (22-30); Chloride 105 mmol/L (98-107); Glucose 106 mg/dL (74-99); Non-African American GFR(CKD) >90 (>60 ml/min/1.73 sqM); Potassium 4.7 mmol/L (3.5-5.1); Sodium 140 mmol/L (137-145); Total Bilirubin 0.2 mg/dL (0.2-1.3); Total Protein 7.3 g/dL (6.3-8.2)
[2024-12-11] MEDS: ASPIRIN 81 MG PO SCH (08:36)
[2024-12-11] MEDS: NICOTINE 21MG/24HR PATCH TRANSDERM SCH (08:36)
[2024-12-11] MEDS: LOSARTAN 50 MG TAB PO SCH (08:36)
[2024-12-11] MEDS: ALBUTEROL INHALER 60 PUFF/8 GM INHALER (MHU) INHALATION PRN (08:36)
[2024-12-11] MEDS: METOPROLOL SUCCINATE (ER) 50 MG TAB.ER.24H PO SCH (08:36)
[2024-12-11] MEDS: CHOLECALCIFEROL 25 MCG (1000 IU) TABLET PO SCH (08:37)
--- NOTE | 2024-12-11 12:17 | P.HP ---
Psychiatric H&P - . H&P Date: 12/11/24 History & Physical: Allergies Allergy/AdvReac Type Severity Reaction Status Date / Time ibuprofen from Motrin Allergy Intermediate Rash/Hives Verified 12/10/24 20:03 Vital Signs Temp 98.0 F 12/10/24 23:22 Pulse 91 12/10/24 23:22 Resp 16 12/10/24 23:22 BP 122/82 12/10/24 23:22 Pulse Ox 96 12/10/24 23:22 FiO2 Intake & Output 12/10/24 12/11/24 12/11/24 18:59 06:59 18:59 Weight 77.564 kg 74.021 kg Laboratory Last Values WBC 6.4 k/uL (3.8-10.6) 12/11/24 06:52 RBC 4.50 m/uL (3.80-5.40) 12/11/24 06:52 Hgb 14.2 gm/dL (11.4-16.0) 12/11/24 06:52 Hct 43.6 % (34.0-46.0) 12/11/24 06:52 MCV 96.9 fL (80.0-100.0) 12/11/24 06:52 MCH 31.7 pg (25.0-35.0) 12/11/24 06:52 MCHC 32.7 g/dL (31.0-37.0) 12/11/24 06:52 RDW 12.5 % (11.5-15.5) 12/11/24 06:52 Plt Count 345 k/uL (150-450) 12/11/24 06:52 MPV 7.0 12/11/24 06:52 Neutrophils % 56 % 12/11/24 06:52 Lymphocytes % 31 % 12/11/24 06:52 Monocytes % 7 % 12/11/24 06:52 Eosinophils % 4 % 12/11/24 06:52 Basophils % 1 % 12/11/24 06:52 Neutrophils # 3.6 k/uL (1.3-7.7) 12/11/24 06:52 Lymphocytes # 2.0 k/uL (1.0-4.8) 12/11/24 06:52 Monocytes # 0.4 k/uL (0-1.0) 12/11/24 06:52 Eosinophils # 0.3 k/uL (0-0.7) 12/11/24 06:52 Basophils # 0.0 k/uL (0-0.2) 12/11/24 06:52 Sodium 140 mmol/L (137-145) 12/11/24 06:46 Potassium 4.7 mmol/L (3.5-5.1) 12/11/24 06:46 Chloride 105 mmol/L (98-107) 12/11/24 06:46 Carbon Dioxide 25 mmol/L (22-30) 12/11/24 06:46 Anion Gap 10 mmol/L 12/11/24 06:46 BUN 12 mg/dL (7-17) 12/11/24 06:46 Creatinine 0.77 mg/dL (0.52-1.04) 12/11/24 06:46 Est GFR (CKD-EPI)AfAm >90 (>60 ml/min/1.73 sqM) 12/11/24 06:46 Est GFR (CKD-EPI)NonAf >90 (>60 ml/min/1.73 sqM) 12/11/24 06:46 Glucose 106 mg/dL (74-99) H 12/11/24 06:[address] Glu mg/dL 117 mg/dL 12/11/24 06:52 Hemoglobin A1c 5.7 % (<=6.0) 12/11/24 06:52 Calcium 9.4 mg/dL (8.4-10.2) 12/11/24 06:46 Total Bilirubin 0.2 mg/dL (0.2-1.3) 12/11/24 06:46 AST 27 U/L (14-36) 12/11/24 06:46 ALT 21 U/L (4-34) 12/11/24 06:46 Alkaline Phosphatase 105 U/L (38-126) 12/11/24 06:46 Total Protein 7.3 g/dL (6.3-8.2) 12/11/24 06:46 Albumin 4.2 g/dL (3.5-5.0) 12/11/24 06:46 TSH 1.580 mIU/L (0.465-4.680) 12/11/24 06:46 Urine Color Colorless 12/10/24 21:37 Urine Appearance Clear (Clear) 12/10/24 21:37 Urine pH 7.0 (5.0-8.0) 12/10/24 21:37 Ur Specific [place] 1.012 (1.001-1.035) 12/10/24 21:37 Urine Protein Negative (Negative) 12/10/24 21:37 Urine Glucose (UA) Negative (Negative) 12/10/24 21:37 Urine Ketones 1+ (Negative) H 12/10/24 21:37 Urine Blood Negative (Negative) 12/10/24 21: Urine Nitrite Negative (Negative) 12/10/24 21: Urine Bilirubin Negative (Negative) 12/10/24 21: Urine Urobilinogen <2.0 mg/dL (<2.0) 12/10/24 21:37 Ur Leukocyte Esterase Negative (Negative) 12/10/24 21: Urine HCG, Qual Not Detected (Not Detectd) 12/10/24 21:37 Salicylates 2.1 mg/dL 12/10/24 18:12 Urine Opiates Screen Not Detected (NotDetected) 12/10/24 21:37 Ur Oxycodone Screen Not Detected (NotDetected) 12/10/24 21:37 Urine Methadone Screen Not Detected (NotDetected) 12/10/24 21:37 Acetaminophen <10.0 ug/mL 12/10/24 18:12 Ur Barbiturates Screen Not Detected (NotDetected) 12/10/24 21:37 U Tricyclic Antidepress Not Detected (NotDetected) 12/10/24 21:37 Ur Phencyclidine Scrn Not Detected (NotDetected) 12/10/24 21:37 Ur Amphetamines Screen Not Detected (NotDetected) 12/10/24 21:37 U Methamphetamines Scrn Not Detected (NotDetected) 12/10/24 21:37 U Benzodiazepines Scrn Not Detected (NotDetected) 12/10/24 21:37 Urine Cocaine Screen Not Detected (NotDetected) 12/10/24 21:37 U Marijuana (THC) Screen Not Detected (NotDetected) 12/10/24 21:37 Influenza Type A (PCR) Not Detected (Not Detectd) 12/10/24 21:37 Influenza Type B (PCR) Not Detected (Not Detectd) 12/10/24 21:37 RSV (PCR) Not Detected (Not Detectd) 12/10/24 21:37 SARS-CoV-2 (PCR) Not Detected (Not Detectd) 12/10/24 21:37 12/11/24 12:10 IDENTIFYING DATA: Patient is a 49-year-old female, unemployed and living with ex and children CHIEF COMPLAINT: SI with a plan HPI: Patient presented to the hospital with suicidal ideations. EPS note states, "Pt brought herself to the ER d/t increased depression. Pt feels like her medications are not working. She states that she is consistent with her meds. She admits to being inconsistent with [facility] apts d/t transportation. RN spoke with pt about [facility] providing a ride to her apts as they do they for other pts if they are available to do so. Pt admits to SI with plan and intent to overdose on her ex's Seroquel. She does not feel safe with herself to leave and feels she is a burden. She is struggling finacially and having a hard time finding a job and she feels that her ex is hounding her to do so and it stresses her out more. Pt declined HI but does state she wants to punch her ex in the face. Admits to , not command in nature but voices telling her that she is worthless. Pt has been eating less and feels she may have lost about 10 lbs this month. She is over sleeping and has a lack of motivation. Pt states that her self care has decreased, she states that she showered yesterday for the first time in a week. Pt admits to occasional marijuana use but denies the use of any other substances or etoh." Patient seen and evaluated on the unit and was agreeable with speaking to policy writer sales in office. She states being adherent with medications however does not find them helpful due to crying spells, increase in sleep, decrease in appetite, poor concentration and low energy. She states ongoing stressors include financial as she has not worked in a year. She states living with her children's father as she is homeless and reportedly this has been stressful for her as well. Patient denies any suicidal or homicidal ideations intent or plan. At this time patient denies any auditory or visual hallucinations. Patient denies any flight of ideas racing thoughts and increased in goal directed behavior. Patient admits to using alcohol occasionally, smoking one half pack a day of cigarettes PAST PSYCHIATRIC HISTORY: Patient has a history of MDD, cannabis use disorder. Patient is currently on Prozac 80 mg daily, Zyprexa 10 mg at bedtime. She states previously trying Cymbalta, Paxil, Effexor, Abilify. She reports 7 inpatient hospitalizations in her lifetime, most recent being in October 2024 at this facility. Patient denies any psychiatric outpatient follow-up. Reports 1 remote suicide attempt back in the s via cutting her wrist. PMH: as per ER note ALLERGIES: as per EMR SUBSTANCE USE HISTORY: As per HPI FAMILY PSYCHIATRIC/SUBSTANCE USE HISTORY: She states brother has depression and is taking Zoloft SOCIAL HISTORY: Patient is homeless and unemployed however living at home with her ex and her 2 children. She has 3 children total. Highest level of education is some college. MENTAL STATUS EXAM: General Appearance: Patient appears to be slightly older than stated age is alert, directable, and attempts to cooperate. Patient appears to have fair hygiene and grooming. Behavior: Patient is seated without any agitated behavior. Speech: Patient's speech is fluent and nonpressured. Mood/Affect: Patient reports their mood is depressed, affect is congruent and constricted. Suicidality/Homicidality: Patient denies having any homicidal ideation intent or plan. Denies any suicidal ideations intent or plan Perceptions: Patient denies any visual hallucinations and denies any auditory hallucinations Though content/process: There is no evidence of any delusional thought content and thought process is linear and logical. Memory and concentration: AOX3, grossly intact for the purposes of this session. Can spell "WORLD" backwards Judgment and insight: Poor STRENGTHS/WEAKNESSES: strength is that patient is resilient and has family support. Weakness is that patient does not follow-up with [facility], unemployed has poor judgment and is impulsive INTELLECT: Average IMPRESSIONS: Major depressive disorder, recurrent, moderate Anxiety, unspecified Nicotine dependence PLAN: -Patient is admitted under voluntary status to [facility] for stabilization of psychiatric symptoms and safety. Patient has signed adult voluntary form and medication consent and is placed in patient's chart. -Medications : Start Prozac 80 mg daily and start Zoloft 50 mg daily tomorrow for depression, decrease Zyprexa to 5 mg at bedtime for mood stabilization/sleep given sedation -Atarax and Zyprexa PRN for agitation/aggression -Patient was informed of the risks, benefits and side effects of the medication and patient verbally consented to taking the medications. Patient signed med consent form and was placed in chart. -Internal Medicine consult to perform medical evaluation and physical. -NRT -nicotine patch -SW on board for discharge planning. Encourage patient to participate in groups to work on coping skills.
[2024-12-11 12:52] VITALS: BMI 30.8
[2024-12-11] MEDS ORDERED: NICOTINE 21MG/24HR PATCH TRANSDERM SCH (18:15)
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
[2024-12-11] MEDS: OLANZapine 5 MG TAB PO SCH (20:33)
[2024-12-11] MEDS: traZODone HCL 50 MG TAB PO PRN (20:34)
[2024-12-12] MEDS: SERTRALINE 50 MG TAB PO SCH (08:47)
--- NOTE | 2024-12-12 13:01 | P.PN ---
Progress Note - Text Progress Note Date: 12/12/24 Interval History: Patient was seen wandering the hallways and was directable and agreeable to sp mireya with sign writer hand in the office. She reports feeling well today, decrease in crying spells and feeling more awake. She attributes the change to Zoloft for this and states that her brother is also on Zoloft and has a good response. She reports sleeping okay and that her goal is to attend groups today. She states speaking to her ex and children. Vitamin D levels were slightly low however patient is on vitamin D supplements and reports taking this daily. At this time patient denies any suicidal or homicidal ideations, intent or plan. Patient denies any auditory, visual hallucinations and denies any paranoia or delusions. Patient denies any side effects from the medications and has been compliant with meds. Mental Status Exam: General Appearance: Patient appears to be stated age is alert, directable, and cooperative. Behavior: Patient is calmly seated without any agitated behavior. Speech: Patient's speech is fluent and nonpressured. Mood/Affect: Mood is improving mildly, affect is congruent and constricted. Suicidality/Homicidality: Patient denies having any suicidal or homicidal ideation intent or plan. Perceptions: Patient denies any visual hallucinations and denies any auditory hallucinations Though content/process: There is no evidence of any delusional thought content and thought process is linear and logical. Memory and concentration: AOX3, grossly intact for the purposes of this session Judgment and insight: Improving mildly Assessment Major depressive disorder, recurrent, moderate Anxiety, unspecified Nicotine dependence Plan: -Patient continues to meet criteria for inpatient psychiatric admission for symptom stabilization and safety. Patient has signed adult voluntary form and medication consent and was placed in patient's chart. -Medications: Start Zoloft 50 mg daily today for depression, continue Zyprexa 5 mg at bedtime for mood stabilization/sleep, start trazodone 50 mg at bedtime for sleep -When necessary Atarax and Zyprexa for agitation/aggression. -Labs: Reviewed -NRT -nicotine patch -SW on board for discharge planning. Encouraged the patient to participate in milieu. Anticipate discharge back home with ex and children on Sunday
[2024-12-12] MEDS: traZODone HCL 50 MG TAB PO SCH (20:38)
--- NOTE | 2024-12-13 13:56 | P.PN ---
Subjective Progress Note Date: 12/13/24 Principal diagnosis: major depression recurrent Patient was in her room sleeping at 2:00 in the afternoon. She said she got up and eat meals and was just feel little tired. She came readily to talk to me. she says she slept well last night and had no bad side effects on the me dications. At this time patient denies any suicidal or homicidal ideations, intent or plan. Patient denies any auditory, visual hallucinations and denies any paranoia or delusions. Patient denies any side effects from the medications and has been compliant with meds. Mental Status Exam:her memory was fairly good eye pointed out the tool of looking into the past to learn as to what she did that brought her here to present what she is already doing L Laureano in the future when she is going to do to do well then I asked her if she could tell me the 3 time foci. She said past present future and was able to spell them out fairly well. General Appearance: Patient appears to be stated age is alert, directable, and cooperative. She was wearing pajamas and slightly unkempt. But no body odor an d taking care of basic hygiene Behavior: Patient is calmly seated without any agitated behavior. Speech: Patient's speech is fluent and nonpressured. Mood/Affect: Mood is improving mildly, affect is congruent and constricted. Suicidality/Homicidality: Patient denies having any suicidal or homicidal ideation intent or plan. Perceptions: Patient denies any visual hallucinations and denies any auditory hallucinations Though content/process: There is no evidence of any delusional thought content and thought process is linear and logical. Memory and concentration: AOX3, grossly intact for the purposes of this session Judgment and insight: Improving mildly Assessmentcurrent medicines seem to be adequate Major depressive disorder, recurrent, moderate Anxiety, unspecified Nicotine dependence Plan: -Patient continues to meet criteria for inpatient psychiatric admission for symptom stabilization and safety. Patient has signed adult voluntary form and medication consent and was placed in patient's chart. -Medications: Start Zoloft 50 mg daily today for depression, continue Zyprexa 5 mg at bedtime for mood stabilization/sleep, start trazodone 50 mg at bedtime for sleep -When necessary Atarax and Zyprexa for agitation/aggression. -Labs: Reviewed -NRT -nicotine patch -SW on board for discharge planning. Encouraged the patient to participate in milieu. Anticipate discharge back home with ex and children on Sunday Objective - Vital Signs Vital signs: Vital Signs Temp 97.8 F 12/13/24 06:38 Pulse 90 12/13/24 08:14 Resp 16 12/13/24 06:38 BP 104/72 12/13/24 08:14 Pulse Ox 96 12/13/24 06:38 FiO2 - Labs CBC & Chem 7: 12/11/24 06:52 12/11/24 06:46
[2024-12-13] MEDS: ACETAMINOPHEN TAB 325 MG TAB PO PRN (20:21)
--- NOTE | 2024-12-14 08:52 | P.PN ---
Subjective Progress Note Date: 12/14/24 Principal diagnosis: major depression recurrent Patient came readily to talk to me. She says she slept well last night and had no bad side effects on the medications. At this time patient denies any suicidal or homicidal ideations, intent or plan. Patient denies any auditory, visual hallucinations and denies any paranoia or delusions. Patient denies any side effects from the medications and has been compliant with meds. Mental Status Exam:her memory was fairly good. Adequate self care and is alert and good eye contact, normal response times. She appologized for messy hair but had just awakened in time to go to breakfast. General Appearance: Patient appears to be stated age is alert, directable, and cooperative. She was wearing pajamas and slightly unkempt. But no body odor and taking care of basic hygiene Behavior: Patient is calmly seated without any agitated behavior. Speech: Patient's speech is fluent and nonpressured. Mood/Affect: Mood is improving mildly, affect is congruent and constricted. Suicidality/Homicidality: Patient denies having any suicidal or homicidal ideation intent or plan. Perceptions: Patient denies any visual hallucinations and denies any auditory hallucinations Though content/process: There is no evidence of any delusional thought content and thought process is linear and logical. Memory and concentration: AOX3, grossly intact for the purposes of this session Judgment and insight: Improving mildly Assessment: current medicines seem to be adequate Major depressive disorder, recurrent, moderate Anxiety, unspecified Nicotine dependence Plan: -Patient continues to meet criteria for inpatient psychiatric admission for sym ptom stabilization and safety. Patient has signed adult voluntary form and medication consent and was placed in patient's chart. -Medications: Start Zoloft 50 mg daily today for depression, continue Zyprexa 5 mg at bedtime for mood stabilization/sleep, start trazodone 50 mg at bedtime for sleep -When necessary Atarax and Zyprexa for agitation/aggression. -Labs: Reviewed -NRT -nicotine patch -SW on board for discharge planning. Encouraged the patient to participate in milieu. Anticipate discharge back home with ex and children on Sunday Objective - Vital Signs Vital signs: Vital Signs Temp 97.8 F 12/13/24 06:38 Pulse 90 12/13/24 08:14 Resp 16 12/13/24 06:38 BP 104/72 01/18/25 08:14 Pulse Ox 96 12/13/24 06:38 FiO2 - Labs CBC & Chem 7: 12/11/24 06:52 12/11/24 06:46
[2024-12-14] MEDS ORDERED: NYSTAT-TRIAMCIN 100,000-0.1 UNIT/GM-% CREAM 30 GM TUBE TOPICAL SCH (16:00)
[2024-12-14] MEDS: TRIAMCINOLONE 0.1% CREAM 80 GM TUBE TOPICAL SCH (16:47)
[2024-12-14] MEDS: NYSTATIN 100,000UNIT/GM CREAM 30 GM TUBE TOPICAL SCH (16:48)
[2024-12-14] MEDS: CEPHALEXIN 500 MG CAP PO SCH (17:49)
--- NOTE | 2024-12-14 20:32 | P.CONS ---
History of Present Illness - Reason for Consult Consult date: 12/14/24 Left breast area of redness Requesting physician: Layla Aguirre - Chief Complaint Left breast pain swelling redness x few days - History of Present Illness Patient is a 49-year-old female past medical history significant for COPD osteoarthritis scoliosis anxiety depression current everyday smoker presenting to the hospital 4 days ago for evaluation of suicidal ideation caused by financial and life stressors with the idea of taking her boyfriend Seroquel patient was evaluated in the ER and has been admitted to the psych unit patient subsequent developing pain swelling redness with left breast area with the patient is attributing to the hospital deodorant as started in the hospital patient has been complaining of pain to the left breast to be mostly burning to sharp mild to moderate intense without radiation with associated swelling redness and open wound or any drainage patient denies having any high-grade fever and chills and no temperature has been recorded patient not tachycardic hypotensive or hypoxic she did have a normal white count of 6.4 on admission that was 3 days ago creatinine 0.77 urine was negative urine drug screen was negative and tested negative for influenza RSV and COVID. Review of Systems Positive point and negatives has been mentioned in the HPI, complete review of systems was performed and all other systems are negative Past Medical History Past Medical History: COPD, Osteoarthritis (OA) Additional Past Medical History / Comment(s): scoliosis History of Any Multi-Drug Resistant Organisms: Other MDRO Past Surgical History: Tubal Ligation Past Anesthesia/Blood Transfusion Reactions: No Reported Reaction Past Psychological History: Anxiety, Depression Smoking Status: Current every day smoker Past Alcohol Use History: None Reported Past Drug Use History: Marijuana - Past Family History Mother Family Medical History: Cancer Medications and Allergies Home Medications Medication Instructions Recorded Confirmed Type Atorvastatin Calcium [Lipitor] 20 mg PO DAILY 04/22/21 12/10/24 History Cholecalciferol [Vitamin D3 (25 25 mcg PO DAILY 03/01/23 12/10/24 History Mcg = 1000 Iu)] Albuterol Inhaler [Ventolin Hfa 2 puff INHALATION RT-Q6H PRN 08/11/23 12/10/24 History Inhaler] FLUoxetine HCL [PROzac] 80 mg PO DAILY 30 Days #60 cap 11/03/24 12/10/24 Rx Metoprolol Succinate [Toprol XL] 50 mg PO DAILY 30 Days #30 tab 11/03/24 12/10/24 Rx OLANZapine [ZyPREXA] 10 mg PO HS 30 Days #30 tab 11/03/24 12/10/24 Rx hydrOXYzine pamoate [Vistaril] 25 mg PO BID PRN 30 Days #60 cap 11/03/24 12/10/24 Rx traZODone HCL [Desyrel] 50 mg PO HS PRN 30 Days #30 tab 11/03/24 12/10/24 Rx Losartan [Cozaar] 50 mg PO DAILY 12/10/24 12/10/24 History Nicotine 21Mg/24Hr Patch [Habitrol] 1 patch TRANSDERM DAILY 12/10/24 12/10/24 History Allergies Allergy/AdvReac Type Severity Reaction Status Date / Time ibuprofen [From Motrin] Allergy Intermediate Rash/Hives Verified 12/10/24 20:03 Physical Exam Vitals: Vital Signs Pulse BP 12/14/24 09:29 80 108/73 12/14/24 08:00 79 94/65 GENERAL DESCRIPTION: Middle-aged male up in bed, no distress. No tachypnea or accessory muscle of respiration use. HEENT: Shows Pallor , no scleral icterus. Oral mucous membrane is dry. NECK: Trachea central, no thyromegaly. LUNGS: Unlabored breathing. Clear to auscultation anteriorly. No wheeze or crackle. HEART: S1, S2, regular rate and rhythm. No loud murmur ABDOMEN: Soft, no tenderness , EXTREMITIES: No edema of feet. SKIN: Left breast did have an area of dry scaly skin erythema with no induration fluctuation wound no drainage NEUROLOGICAL: The patient is awake, alert, oriented x3, mood and affect normal. Results CBC & Chem 7: 12/11/24 06:52 12/11/24 06:46 Assessment and Plan (1) Cellulitis of left breast Current Visit: Yes Status: Acute Code(s): N61.0 - MASTITIS WITHOUT ABSCESS SNOMED Code(s): 20891221 Plan: 1patient with an area of left breast redness with dry scaly skin concerning for possible component of fungal dermatitis and secondary bacterial cellulitis with no evidence of any induration or fluctuation to be suggestive of underlying abscess and likely gram-positive skin jay 2-nursing staff is advised to renaldo the area of the redness 3-we will apply Mycolog cream to the area twice a day 4-oral Keflex 500 mg p.o. every 6 hours We will follow on clinical condition and cultures to further adjust medication if needed Thank you for this consultation we will follow the patient along with you Dictation was produced using [employer] dictation software. please excuse any grammatical, word or spelling errors. Time with Patient: Greater than 30
[2024-12-15 07:26] LABS: Basophils % (A) 1 %; Eosinophils # (A) 0.3 k/uL (0-0.7); Eosinophils % (A) 4 %; HCT 43.1 % (34.0-46.0); HGB 14.3 gm/dL (11.4-16.0); Lymphocytes # (A) 2.5 k/uL (1.0-4.8); Lymphocytes % (A) 31 %; MCHC 33.2 g/dL (31.0-37.0); MCV 96.2 fL (80.0-100.0); Mean Platelet Volume 6.9; Monocytes # (A) 0.6 k/uL (0-1.0); Monocytes % (A) 7 %; Neutrophils # (A) 4.5 k/uL (1.3-7.7); Neutrophils % (A) 55 %; Platelet Count 322 k/uL (150-450); RBC 4.48 m/uL (3.80-5.40); RDW 12.2 % (11.5-15.5); WBC 8.1 k/uL (3.8-10.6)
[2024-12-15 07:45] LABS: ALT 16 U/L (4-34); AST 19 U/L (14-36); African American GFR (CKD) >90 (>60 ml/min/1.73 sqM); Albumin 4.3 g/dL (3.5-5.0); Alkaline Phosphatase 103 U/L (38-126); Anion Gap 9 mmol/L; Blood Urea Nitrogen 13 mg/dL (7-17); C Reactive Protein 0.9 mg/dL (<1.0); Calcium 9.4 mg/dL (8.4-10.2); Carbon Dioxide 28 mmol/L (22-30); Chloride 100 mmol/L (98-107); Glucose 102 mg/dL (74-99); Non-African American GFR(CKD) >90 (>60 ml/min/1.73 sqM); Potassium 4.7 mmol/L (3.5-5.1); Sodium 137 mmol/L (137-145); Total Bilirubin 0.3 mg/dL (0.2-1.3); Total Protein 7.3 g/dL (6.3-8.2)
--- NOTE | 2024-12-15 13:06 | P.PN ---
Progress Note - Text Progress Note Date: 12/15/24 Interval History: Patient was seen wandering the hallways and was directable and agreeable to sp mireya with signwriter in the office. She states feeling well today, notably bright in affect. She reports good sleep and appetite and minimal depression today. She states speaking to her ex and children that her ex can pick her up tomorrow. At this time patient denies any suicidal or homicidal ideations, intent or plan. Patient denies any auditory, visual hallucinations and denies any paranoia or de lusions. Patient denies any side effects from the medications and has been compliant with meds. Mental Status Exam: General Appearance: Patient appears to be stated age is alert, directable, and cooperative. Behavior: Patient is calmly seated without any agitated behavior. Speech: Patient's speech is fluent and nonpressured. Mood/Affect: Mood is improving mildly, affect is congruent and bright, reactive. Suicidality/Homicidality: Patient denies having any suicidal or homicidal ideation intent or plan. Perceptions: Patient denies any visual hallucinations and denies any auditory hallucinations Though content/process: There is no evidence of any delusional thought content and thought process is linear and goal-directed. Memory and concentration: AOX3, grossly intact for the purposes of this session Judgment and insight: Improving mildly Assessment Major depressive disorder, recurrent, moderate Anxiety, unspecified Nicotine dependence Plan: -Patient continues to meet criteria for inpatient psychiatric admission for symptom stabilization and safety. Patient has signed adult voluntary form and medication consent and was placed in patient's chart. -Medications: Continue Zoloft 50 mg daily for depression, Zyprexa 5 mg at bedtime for mood stabilization/sleep, trazodone 50 mg at bedtime for sleep -When necessary Atarax and Zyprexa for agitation/aggression. -Labs: Reviewed -NRT -nicotine patch -SW on board for discharge planning. Encouraged the patient to participate in milieu. Anticipate discharge back with children and ex tomorrow, will set up outpatient appointments tomorrow when [facility] reopens
[2024-12-16 07:13] VITALS: TEMP 97.8
[2024-12-16 08:34] VITALS: BP 115/76; PULSE 72
--- NOTE | 2024-12-16 10:59 | P.PN ---
Subjective Progress Note Date: 12/15/24 Principal diagnosis: Reason for follow-up is left breast cellulitis Patient is a 49-year-old female past medical history significant for COPD osteoarthritis scoliosis anxiety depression current everyday smoker presenting to the hospital for evaluation of suicidal ideation patient developing swelling and redness to the (concerning for cellulitis prompting this consultation. On today's evaluation that is 12/15/2024, patient has been afebrile, patient is breathing comfortably and is currently on room air, patient denies having any significant cough no chest pain, patient denies nausea vomiting or diarrhea and no abdominal pain, the patient pain and redness to left breast has decreased in intensity. Patient white count is 8.1, creatinine 0.72 Objective - Vital Signs Vital signs: Vital Signs Temp 97.7 F 12/15/24 06:43 Pulse 89 12/15/24 08:28 Resp 16 12/13/24 06:38 BP 105/72 12/15/24 08:28 Pulse Ox 98 12/15/24 06:43 FiO2 - Exam Middle-age female up in the bed in no distress Unlabored breathing Left breast swelling and has decreased no point wound or drainage Patient seen with the patient nurse - Labs CBC & Chem 7: 12/15/24 06:52 12/15/24 06:52 Labs: Abnormal Lab Results - Last 24 Hours (Table) 12/15/24 Range/Units 06:52 Glucose 102 H (74-99) mg/dL Assessment and Plan (1) Cellulitis of left breast Current Visit: Yes Status: Acute Code(s): N61.0 - MASTITIS WITHOUT ABSCESS SNOMED Code(s): 54593281 Plan: 1patient with an area of left breast redness with dry scaly skin concerning for possible component of fungal dermatitis and secondary bacterial cellulitis with no evidence of any induration or fluctuation to be suggestive of underlying abscess and likely gram-positive skin jay 2-patient vies to continue Mycolog cream to the area twice a day along with oral Keflex 500 mg p.o. every 6 hours Dictation was produced using [employer] dictation software. please excuse any grammatical, word or spelling errors. Time with Patient: Less than 30
--- NOTE | 2024-12-16 12:54 | P.DS ---
Providers Date of admission: 12/10/24 22:42 Expected date of discharge: 12/16/24 Attending physician: Layla Aguirre MD Consults: 12/10/24 22:43 Consult Physician Routine Consulting Provider: Wu Brown Consult Reason/Comments: large amount of redness on left breast, soreness, burning Do you want consulting provider notified?: Yes Primary care physician: Efren Madera - Discharge Diagnosis(es) (1) Major depressive disorder Status: Acute Priority: High (2) Anxiety disorder, unspecified Status: Acute Priority: Low (3) Nicotine dependence Status: Chronic Priority: Low Hospital Course: Admission HPI: Admission note was completed by writer producer "Patient presented to the hospital with suicidal ideations. EPS note states, "Pt brought herself to the ER d/t in creased depression. Pt feels like her medications are not working. She states that she is consistent with her meds. She admits to being inconsistent with [facility] apts d/t transportation. RN spoke with pt about [facility] providing a ride to her apts as they do they for other pts if they are available to do so. Pt admits to SI with plan and intent to overdose on her ex's Seroquel. She does not feel safe with herself to leave and feels she is a burden. She is struggling finacially and having a hard time finding a job and she feels that her ex is hounding her to do so and it stresses her out more. Pt declined HI but does state she wants to punch her ex in the face. Admits to , not command in nature but voices telling her that she is worthless. Pt has been eating less and feels she may have lost about 10 lbs this month. She is over sleeping and has a lack of motivation. Pt states that her self care has decreased, she states that she showered yesterday for the first time in a week. Pt admits to occasional marijuana use but denies the use of any other substances or etoh." Patient seen and evaluated on the unit and was agreeable with speaking to writer producer in office. She states being adherent with medications however does not find them helpful due to crying spells, increase in sleep, decrease in appetite, poor concentration and low energy. She states ongoing stressors include financial as she has not worked in a year. She states living with her children's father as she is homeless and reportedly this has been stressful for her as well. Patient denies any suicidal or homicidal ideations intent or plan. At this time patient denies any auditory or visual hallucinations. Patient denies any flight of ideas racing thoughts and increased in goal directed behavior. Patient admits to using alcohol occasionally, smoking one half pack a day of cigarettes" Hospital course: Upon admission to the unit patient was directable and agreeable to commence treatment and signed adult voluntary form.. Patient got along well with other patients on the unit and followed unit protocol. Patient was compliant with the medications and denied any side effects throughout hospital course. Patient was started on Zoloft 50 mg daily for depression and Prozac was discontinued, Zyprexa decreased to 5 mg at bedtime for mood stabilization/sleep, trazodone 50 mg at bedtime for sleep. Patient spoke of her stressors and engaged in therapy both group and individual. Patient was also seen by medical team for history and physical exam. He was started on oral Keflex and antibiotic cream for left breast cellulitis and was given a week supply of the antibiotic once discharged. Throughout the course of the hospitalization patient gradually improved with regards to mood, anxiety, sleep and became more future oriented with improved insight and judgment. On the day of discharge patient denied any suicidal or homicidal ideations intent or plan denied any auditory or visual hallucinations. The patient denied any access to guns or weapons. Patient denied any paranoia and did not endorse any delusions. Patient does not have a significant history of substance abuse and was counseled on abstaining from all substances including alcohol and marijuana. Patient was also counseled on the medications and need for regular compliance and was encouraged to follow-up with their outpatient appointment for mental health and also for primary care. Prior to discharge a family meeting will be arranged by licensed social worker to answer any questions and ensure safety upon discharge incuding making sure that guns/weapons are either removed from the home or locked away. Patient to be discharged back home with ex with [facility] follow-up. She will continue to work with [facility] for employment as this is a significant stressor for her Mental status exam: General Appearance: Patient appears to be stated age is alert, pleasant, and cooperative. Patient is in no acute distress and has improved hygiene and grooming Behavior: Patient is calmly seated without any agitated behavior. Speech: Patient's speech is fluent and nonpressured. Mood/Affect: Patient reports their mood is "better", affect is congruent and euthymic. Suicidality/Homicidality: Patient denies having any suicidal or homicidal ideation intent or plan. Perceptions: Patient denies any auditory or visual hallucinations. Though content/process: There is no evidence of any delusional thought content and thought process is linear and goal-directed. More future oriented Memory and concentration: AOX3, grossly intact for the purposes of this session. Can spell "WORLD" backwards correctly. Judgment and insight: Chronically poor, however has improved with guarded prognosis Impression: Major depressive disorder, recurrent, moderate Anxiety, unspecified Nicotine dependence Plan: -Continue with discharge today as patient has improved and stabilized psychiatrically and is not currently an imminent threat to themself and/or others. -Continue medications: Zoloft 50 mg daily, Zyprexa 5 mg at bedtime, trazodone 50 mg at bedtime -Patient was counseled on the need for medication compliance and appropriate follow-up at mental health and also primary care for medical issues. Patient verbalized understanding and agreed. -Social work to help coordinate patients discharge today arrange for and conduct family meeting to ensure safety upon discharge and answer any questions/concerns. also to ensure safe home environment that guns/weapons are either removed from the home or locked away. Social work also to arrange for patients follow up appointments with [facility] for psychiatric care along with follow up with primary care provider. -Patient counseled on abstaining from recreational drugs and marijuana and alcohol. Was informed/educated on the adverse effects on their physical and mental health. Patient verbally agreed and understood. -Patient was instructed to return to the hospital or seek immediate medical care if their psychiatric or medical symptoms do worsen or reoccur. Abnormal Labs 12/10/24 12/11/24 12/15/24 21:37 06:46 06:52 Glucose 106 H 102 H Vitamin D 25-Hydroxy 28.3 L Urine Ketones 1+ H Vital Signs Temp 97.8 F 12/16/24 06:43 Pulse 72 12/16/24 08:34 Resp 16 12/16/24 06:43 BP 115/76 12/16/24 08:34 Pulse Ox 98 12/16/24 06:43 FiO2 Allergies Allergy/AdvReac Type Severity Reaction Status Date / Time ibuprofen [From Motrin] Allergy Intermediate Rash/Hives Verified 12/10/24 20:03 Patient Condition at Discharge: Stable Plan - Discharge Summary Discharge Rx Participant: No New Discharge Prescriptions: New Aspirin 81 mg PO DAILY 14 Days #14 tab Triamcinolone 0.1% Cream [Kenalog 0.1% Cream] 1 applic TOPICAL BID each Nystatin 100,000Unit/gm Cream [Mycostatin Cream] 1 applic TOPICAL BID #1 each Sertraline [Zoloft] 50 mg PO DAILY 14 Days #14 tab OLANZapine [ZyPREXA] 5 mg PO HS 14 Days #14 tab Nicotine 21Mg/24Hr Patch [Habitrol] 1 patch TRANSDERM DAILY 30 Days #30 patch Cephalexin [Keflex] 500 mg PO QID 7 Days #28 cap Atorvastatin [Lipitor] 20 mg PO HS 14 Days #14 tab lisinopriL [Zestril] 20 mg PO BID 14 Days #28 tab Continue Losartan [Cozaar] 50 mg PO DAILY 14 Days #14 tab traZODone HCL [Desyrel] 50 mg PO HS PRN 30 Days #30 tab PRN Reason: Insomnia Metoprolol Succinate [Toprol XL] 50 mg PO DAILY 14 Days #14 tab Cholecalciferol [Vitamin D3 (25 Mcg = 1000 Iu)] 25 mcg PO DAILY 14 Days #14 tab Albuterol Inhaler [Ventolin Hfa Inhaler] 2 puff INHALATION RT-Q6H PRN PRN Reason: Shortness Of Breath Nicotine 21Mg/24Hr Patch [Habitrol] 1 patch TRANSDERM DAILY Discontinued Atorvastatin Calcium [Lipitor] 20 mg PO DAILY OLANZapine [ZyPREXA] 10 mg PO HS 30 Days #30 tab FLUoxetine HCL [PROzac] 80 mg PO DAILY 30 Days #60 cap hydrOXYzine pamoate [Vistaril] 25 mg PO BID PRN 30 Days #60 cap PRN Reason: Anxiety Discharge Medication List Albuterol Inhaler [Ventolin Hfa Inhaler] 2 puff INHALATION RT-Q6H PRN 08/11/23 [History] Nicotine 21Mg/24Hr Patch [Habitrol] 1 patch TRANSDERM DAILY 12/10/24 [History] Aspirin 81 mg PO DAILY 14 Days #14 tab 12/16/24 [Rx] Atorvastatin [Lipitor] 20 mg PO HS 14 Days #14 tab 12/16/24 [Rx] Cephalexin [Keflex] 500 mg PO QID 7 Days #28 cap 12/16/24 [Rx] Cholecalciferol [Vitamin D3 (25 Mcg = 1000 Iu)] 25 mcg PO DAILY 14 Days #14 tab 12/16/24 [Rx] Losartan [Cozaar] 50 mg PO DAILY 14 Days #14 tab 12/16/24 [Rx] Metoprolol Succinate [Toprol XL] 50 mg PO DAILY 14 Days #14 tab 12/16/24 [Rx] Nicotine 21Mg/24Hr Patch [Habitrol] 1 patch TRANSDERM DAILY 30 Days #30 patch 12/16/24 [Rx] Nystatin 100,000Unit/gm Cream [Mycostatin Cream] 1 applic TOPICAL BID #1 each 12/16/24 [Rx] OLANZapine [ZyPREXA] 5 mg PO HS 14 Days #14 tab 12/16/24 [Rx] Sertraline [Zoloft] 50 mg PO DAILY 14 Days #14 tab 12/16/24 [Rx] Triamcinolone 0.1% Cream [Kenalog 0.1% Cream] 1 applic TOPICAL BID each 12/16/24 [Rx] lisinopriL [Zestril] 20 mg PO BID 14 Days #28 tab 12/16/24 [Rx] traZODone HCL [Desyrel] 50 mg PO HS PRN 30 Days #30 tab 12/16/24 [Rx] Follow up Appointment(s)/Referral(s): [facility] [Outside] - 12/18/24 10:00 am (12/18/2024 10:00AM - 11:00AM MALVIN JOHNSON 12/30/2024 9:00AM - 10:00AM BEAR MCCARTY ) Efren Madera MD [Primary Care Provider] - 1-2 days Patient Instructions/Handouts: How to Stop Smoking (DC), Depression (DC), Anxiety (GEN) Activity/Diet/Wound Care/Special Instructions: [facility] Discharge Info Avoid the use of street drugs and alcohol. Take all medications as prescribed. When you are in need of refills on your medications, please contact your outpatient medical provider and/or outpatient psychiatrist. Please go to your scheduled outpatient appointments for aftercare treatment. If symptoms return or become worse, call the crisis line at or and/or visit the nearest emergency room for assistance. National Suicide and Crisis Lifeline - call or text 988 Discharge Disposition: HOME SELF-CARE
== END 2024-12-16 12:17 | disposition home or self-care (01) | DRG 751 ==
LOC: EC 17:07 → 3MHU 22:42
PROVIDERS: ADMIT Psychiatry & Neurology Psychiatry; ATTEND Psychiatry & Neurology Psychiatry
DX: F33.1 Major depressive disorder, recurrent, moderate (principal); F41.9 Anxiety disorder, unspecified; F17.210 Nicotine dependence, cigarettes, uncomplicated; N61.0 Mastitis without abscess; R45.851 Suicidal ideations; J44.9 Chronic obstructive pulmonary disease, unspecified; I10 Essential (primary) hypertension; E78.5 Hyperlipidemia, unspecified; F12.10 Cannabis abuse, uncomplicated; Z81.8 Family history of other mental and behavioral disorders; Z56.0 Unemployment, unspecified; Z88.6 Allergy status to analgesic agent; Z79.899 Other long term (current) drug therapy; Z59.00 Homelessness unspecified
CPT/HCPCS: 36415; 80053; 80143; 80179; 80306; 81003; 81025; 82075; 82306; 83036; 84443; 85025; 86140; 87636; 99285

== ENCOUNTER 2025-01-21 13:07 | Emergency (ER) | payer OTHER ==
[2025-01-21 13:17] VITALS: TEMP 98.3
--- NOTE | 2025-01-21 13:49 | XR ---
EXAMINATION TYPE: XR chest 2V DATE OF EXAM: 01/21/2025 1:43 PM COMPARISON: Chest x-ray October 27, 2024 CLINICAL INDICATION: Female, 49 years old with history of cough, TECHNIQUE: Frontal and lateral views of the chest are obtained. FINDINGS: There is no focal air space opacity, pleural effusion, or pneumothorax seen. The cardiac silhouette size remains within normal limits. The osseous structures are intact. IMPRESSION: No acute pulmonary infiltrate. No significant change from prior. [facility], , 01/21/2025 1:47 PM
[2025-01-21 14:15] LABS: Influenza A Not Detected (Not Detectd); Influenza B Not Detected (Not Detectd); RSV Not Detected (Not Detectd)
--- NOTE | 2025-01-21 14:49 | ED ---
URI HPI - General Chief Complaint: Upper Respiratory Infection Stated Complaint: Dejon/Diar/ear pain Time Seen by Provider: 01/21/25 13:20 Source: patient, RN notes reviewed Mode of arrival: ambulatory Limitations: no limitations - History of Present Illness Initial Comments: 49-year-old female presents emergency department with chief complaint alcohol Gleick symptoms states that she has not felt well the last several days. Patient states she has productive cough, left ear pain sore throat and congestion. Possible fever. Patient does have a history of COPD. - Related Data Home Medications Medication Instructions Recorded Confirmed Albuterol Inhaler [Ventolin Hfa 2 puff INHALATION RT-Q6H PRN 08/11/23 12/10/24 Inhaler] Nicotine 21Mg/24Hr Patch [Habitrol] 1 patch TRANSDERM DAILY 12/10/24 12/10/24 Previous Rx's Medication Instructions Recorded Aspirin 81 mg PO DAILY 14 Days #14 tab 12/16/24 Atorvastatin [Lipitor] 20 mg PO HS 14 Days #14 tab 12/16/24 Cephalexin [Keflex] 500 mg PO QID 7 Days #28 cap 12/16/24 Cholecalciferol [Vitamin D3 (25 25 mcg PO DAILY 14 Days #14 tab 12/16/24 Mcg = 1000 Iu)] Losartan [Cozaar] 50 mg PO DAILY 14 Days #14 tab 12/16/24 Metoprolol Succinate [Toprol XL] 50 mg PO DAILY 14 Days #14 tab 12/16/24 Nicotine 21Mg/24Hr Patch [Habitrol] 1 patch TRANSDERM DAILY 30 Days 12/16/24 #30 patch Nystatin 100,000Unit/gm Cream 1 applic TOPICAL BID #1 each 12/16/24 [Mycostatin Cream] OLANZapine [ZyPREXA] 5 mg PO HS 14 Days #14 tab 12/16/24 Sertraline [Zoloft] 50 mg PO DAILY 14 Days #14 tab 12/16/24 Triamcinolone 0.1% Cream [Kenalog 1 applic TOPICAL BID each 12/16/24 0.1% Cream] lisinopriL [Zestril] 20 mg PO BID 14 Days #28 tab 12/16/24 traZODone HCL [Desyrel] 50 mg PO HS PRN 30 Days #30 tab 12/16/24 Amoxic-Pot Clav 875-125Mg 1 tab PO Q12HR #20 tab 01/21/25 [Augmentin 875-125] predniSONE 50 mg PO DAILY #5 tab 01/21/25 Allergies Allergy/AdvReac Type Severity Reaction Status Date / Time ibuprofen [From Motrin] Allergy Intermediate Rash/Hives Verified 01/21/25 13:19 Review of Systems ROS Statement: Those systems with pertinent positive or pertinent negative responses have been documented in the HPI. ROS Other: All systems not noted in ROS Statement are negative. Past Medical History Past Medical History: COPD, Osteoarthritis (OA) Additional Past Medical History / Comment(s): scoliosis History of Any Multi-Drug Resistant Organisms: Other MDRO Past Surgical History: Tubal Ligation Past Anesthesia/Blood Transfusion Reactions: No Reported Reaction Past Psychological History: Anxiety, Depression Smoking Status: Current every day smoker Past Alcohol Use History: Occasional Past Drug Use History: Marijuana - Past Family History Mother Family Medical History: Cancer General Exam Limitations: no limitations General appearance: alert, in no apparent distress Head exam: Present: atraumatic, normocephalic, normal inspection Eye exam: Present: normal appearance, PERRL, EOMI. Absent: scleral icterus, conjunctival injection, periorbital swelling ENT exam: Present: normal oropharynx, mucous membranes moist, TM's normal bilaterally (Erythematous). Absent: normal exam Neck exam: Present: normal inspection, full ROM. Absent: tenderness, meningismus, lymphadenopathy Respiratory exam: Present: wheezes. Absent: normal lung sounds bilaterally, respiratory distress, rales, rhonchi, stridor Cardiovascular Exam: Present: regular rate, normal rhythm, normal heart sounds. Absent: systolic murmur, diastolic murmur, rubs, gallop, clicks Course Vital Signs 01/21/25 13:15 Temperature 98.3 F Pulse Rate 86 Respiratory 19 Rate Blood Pressure 136/81 O2 Sat by Pulse 97 Oximetry Medical Decision Making - Medical Decision Making Was pt. sent in by a medical professional or institution (, PA, INSPECTOR OF WEIGHTS AND MEASURES, urgent care, hospital, or long term...) When possible be specific @ -No Did you speak to anyone other than the patient for history (EMS, parent, family, police, friend...)? What history was obtained from this source @ -No Did you review nursing and triage notes (agree or disagree)? Why? @ -I reviewed and agree with nursing and triage notes Were old charts reviewed (outside hosp., previous admission, EMS record, old EKG, old radiological studies, urgent care reports/EKG's, long term records)? Report findings @ -No old charts were reviewed Differential Diagnosis (chest pain, altered mental status, abdominal pain women, abdominal pain men, vaginal bleeding, weakness, fever, dyspnea, syncope, headache, dizziness, GI bleed, back pain, seizure, CVA, palpatations, mental health, musculoskeletal)? @ -COVID 19, RSV, influenza, pneumonia, acute bronchitis, URI, this list is not all inclusive EKG interpreted by me (3pts min.). @ -None X-rays interpreted by me (1pt min.). @ -Chest x-ray shows no acute cardiopulmonary process, COPD changes noted CT interpreted by me (1pt min.). @ -None done U/S interpreted by me (1pt. min.). @ -None done What testing was considered but not performed or refused? (CT, X-rays, U/S, labs)? Why? @ -None What meds were considered but not given or refused? Why? @ -None Did you discuss the management of the patient with other professionals (professionals i.e. , PA, INSPECTOR OF WEIGHTS AND MEASURES, lab, RT, psych nurse, group social worker, marketer, teacher, real estate utilization officer, rn case mgr)? Give summary @ -No Was smoking cessation discussed for >3mins.? @ -No Was critical care preformed (if so, how long)? @ -No Were there social determinants of health that impacted care today? How? (Homelessness, low income, unemployed, alcoholism, drug addiction, transportation, low edu. Level, literacy, decrease access to med. care, skilled nursing, rehab)? @ -No Was there de-escalation of care discussed even if they declined (Discuss DNR or withdrawal of care, Hospice)? DNR status @ -No What co-morbidities impacted this encounter? (DM, HTN, Smoking, COPD, CAD, Cancer, CVA, ARF, Chemo, Hep., AIDS, mental health diagnosis, sleep apnea, morbid obesity)? @ -None Was patient admitted / discharged? Hospital course, mention meds given and route, prescriptions, significant lab abnormalities, going to OR and other pertinent info. @ -[Discharge patient has acute tracheobronchitis, otitis media COPD exacerbation discharged on prednisone, Augmentin return parameters gracy. Undiagnosed new problem with uncertain prognosis? @ -No Drug Therapy requiring intensive monitoring for toxicity (Heparin, Nitro, Insulin, Cardizem)? @ -No Were any procedures done? @ -No Diagnosis/symptom? @ -Otitis media, COPD, acute tracheobronchitis Acute, or Chronic, or Acute on Chronic? @ -Acute Uncomplicated (without systemic symptoms) or Complicated (systemic symptoms)? @ -Uncomplicated Side effects of treatment? @ -No Exacerbation, Progression, or Severe Exacerbation? @ -No Poses a threat to life or bodily function? How? (Chest pain, [place], [place], pneumonia, PE, COPD, DKA, ARF, appy, cholecystitis, CVA, Diverticulitis, Homicidal, Suicidal, threat to staff... and all critical care pts) @ -No - Lab Data Lab Results 01/21/25 Range/Units 13:30 Influenza Type A (PCR) Not Detected (Not Detectd) Influenza Type B (PCR) Not Detected (Not Detectd) RSV (PCR) Not Detected (Not Detectd) SARS-CoV-2 (PCR) Not Detected (Not Detectd) Disposition Clinical Impression: Otitis media, Acute tracheobronchitis, COPD (chronic obstructive pulmonary disease) Disposition: HOME SELF-CARE Condition: Stable Instructions (If sedation given, give patient instructions): Upper Respiratory Infection (ED) Additional Instructions: Please return to the Emergency Department if symptoms worsen or any other concerns. Prescriptions: Amoxic-Pot Clav 875-125Mg [Augmentin 875-125] 1 tab PO Q12HR #20 tab predniSONE 50 mg PO DAILY #5 tab Is patient prescribed a controlled substance at d/c from ED?: No Referrals: Efren Madera MD [Primary Care Provider] - 1-2 days Time of Disposition: 14:49
[2025-01-21 15:26] VITALS: BP 138/79; PULSE 90; RESP 18
== END 2025-01-21 15:28 | disposition home or self-care (01) ==
LOC: EC 13:07
DX: H66.92 Otitis media, unspecified, left ear (principal); J20.9 Acute bronchitis, unspecified; J44.9 Chronic obstructive pulmonary disease, unspecified; Z88.6 Allergy status to analgesic agent; F17.200 Nicotine dependence, unspecified, uncomplicated
CPT/HCPCS: 71046; 87636; 99284

== ENCOUNTER 2025-05-06 12:48 | Emergency (ER) | payer MEDICAID, OTHER ==
[2025-05-06 12:55] VITALS: TEMP 98.3
--- NOTE | 2025-05-06 13:35 | XR ---
EXAMINATION TYPE: XR chest 2V DATE OF EXAM: 05/06/2025 1:23 PM COMPARISON: 01/21/2025 CLINICAL INDICATION: Female, 49 years old with history of abdominal pain, TECHNIQUE: XR chest 2V view(s) obtained. FINDINGS: The heart size is normal. The pulmonary vasculature is normal. The lungs are clear. No free air under the diaphragm is evident. IMPRESSION: 1. No acute pulmonary process. [facility], , 05/06/2025 1:32 PM
[2025-05-06] MEDS: SODIUM CHLORIDE 0.9% 1,000 ML IV ONE (13:54)
[2025-05-06] MEDS: MORPHINE SULFATE 2 MG/ML SYRINGE IVP STA (13:54)
[2025-05-06] MEDS: ONDANSETRON 4 MG/2 ML VIAL IVP STA ×2 (13:54→15:21)
[2025-05-06 13:56] LABS: Basophils # (A) 0.06 10*3/uL (0.00-0.10); Basophils % (A) 0.5 %; Eosinophils % (A) 0.9 %; HGB 14.2 g/dL (12.0-15.0); Lymphocytes # (A) 2.77 10*3/uL (0.90-5.00); Lymphocytes % (A) 23.9 %; MCH 32.3 pg (27.0-32.0); MCHC 34.6 g/dL (32.0-37.0); MCV 93.4 fL (80.0-97.0); Mean Platelet Volume 9.6 fL (9.5-12.2); Monocytes # (A) 0.65 10*3/uL (0.20-1.00); Monocytes % (A) 5.6 %; Neutrophils # (A) 8.01 10*3/uL (1.80-7.70); Neutrophils % (A) 68.9 %; Platelet Count 280 10*3/uL (140-440); RBC 4.39 10*6/uL (4.10-5.20); RDW 12.3 % (11.5-14.5); WBC 11.61 10*3/uL (4.50-10.00)
[2025-05-06] MEDS: PANTOPRAZOLE 40 MG/10 ML VIAL IVP STA (13:57)
[2025-05-06 14:01] LABS: Appearance,Urine Clear (Clear); Bacteria,Urine Rare /hpf; Bilirubin,Urine Negative (Negative); Blood,Urine Negative (Negative); Color,Urine Yellow; Glucose,Urine (UA) Negative (Negative); Ketones,Urine 1+ (Negative); Leukocyte Esterase,Urine Trace (Negative); Nitrite,Urine Negative (Negative); PH, Urine 6.5 (5.0-8.0); Protein,Urine Negative (Negative); Specific Gravity,Urine 1.017 (1.001-1.035); Squamous Epithelial Cell,Urine 2 /hpf (0-4); WBC,Urine 6 /hpf (0-5)
[2025-05-06 14:14] LABS: Partial Thromboplastin Time 24.7 sec (22.0-30.0); Prothrombin Time 10.6 sec (10.0-12.5)
[2025-05-06 14:16] LABS: ALT 25 U/L (4-34); AST 36 U/L (14-36); African American GFR (CKD) >90 (>60 ml/min/1.73 sqM); Albumin 4.6 g/dL (3.5-5.0); Alkaline Phosphatase 96 U/L (38-126); Amylase 38 U/L (30-110); Anion Gap 9 mmol/L; Blood Urea Nitrogen 8 mg/dL (7-17); Calcium 9.7 mg/dL (8.4-10.2); Carbon Dioxide 27 mmol/L (22-30); Chloride 104 mmol/L (98-107); Glucose 98 mg/dL (74-99); Lipase 45 U/L (23-300); Non-African American GFR(CKD) >90 (>60 ml/min/1.73 sqM); Potassium 3.8 mmol/L (3.5-5.1); Sodium 140 mmol/L (137-145); Total Bilirubin 0.4 mg/dL (0.2-1.3); Total Protein 7.7 g/dL (6.3-8.2)
[2025-05-06 14:36] LABS: Influenza A Not Detected (Not Detectd); Influenza B Not Detected (Not Detectd); RSV Not Detected (Not Detectd)
--- NOTE | 2025-05-06 14:53 | US ---
EXAMINATION TYPE: US gallbladder DATE OF EXAM: 05/06/2025 COMPARISON: NONE CLINICAL INDICATION: Female, 49 years old with history of abd pain; abdominal pain Pt more tender right flank during exam. TECHNIQUE: Grayscale and color Doppler imaging of the right upper quadrant was performed. FINDINGS: EXAM MEASUREMENTS: Liver Length: 16.8 cm Gallbladder Wall: 0.19 cm CBD: 0.56 cm Right Kidney: 11.0 x 6.7 x 6.5 cm CROTCH PIECE BASTER NOTES: Pancreas: parts seen appear wnl Liver: heterogeneous compatible with fatty infiltration Gallbladder: 3 mobile echogenic foci seen with posterior shadowing Evidence for sonographic Shrestha's sign: No CBD: wnl Right Kidney: Mild hydronephrosis seen IMPRESSION: 1. Cholelithiasis. 2. Hepatomegaly with fatty infiltration [facility], , 05/06/2025 2:51 PM
--- NOTE | 2025-05-06 15:37 | ED ---
General Adult HPI - General Chief complaint: Abdominal Pain Stated complaint: CHRISTA,Abd pain Time Seen by Provider: 05/06/25 13:04 Source: patient, RN notes reviewed, old records reviewed Mode of arrival: ambulatory Limitations: no limitations - History of Present Illness Initial comments: Patient is a 49-year-old female presents emergency department with right upper quadrant abdominal pain. Notices it over the last few days and is associated with nausea and vomiting. States that the vomiting seems to be related mostly to what she eats, particularly last night when she had a burger. States the emesis appears green in color. No emesis today but still feels nauseous with some mild pain. Presents for further evaluation at this time. She still has her gallbladder. History of COPD. No other acute complaints at this time. Occasional marijuana use. Pain is isolated to the right upper quadrant. Is also complaining of some right ear fullness. - Related Data Home Medications Medication Instructions Recorded Confirmed Albuterol Inhaler [Ventolin Hfa 2 puff INHALATION RT-Q6H PRN 08/11/23 12/10/24 Inhaler] Nicotine 21Mg/24Hr Patch [Habitrol] 1 patch TRANSDERM DAILY 12/10/24 12/10/24 Previous Rx's Medication Instructions Recorded Aspirin 81 mg PO DAILY 14 Days #14 tab 12/16/24 Atorvastatin [Lipitor] 20 mg PO HS 14 Days #14 tab 12/16/24 Cephalexin [Keflex] 500 mg PO QID 7 Days #28 cap 12/16/24 Cholecalciferol [Vitamin D3 (25 25 mcg PO DAILY 14 Days #14 tab 12/16/24 Mcg = 1000 Iu)] Losartan [Cozaar] 50 mg PO DAILY 14 Days #14 tab 12/16/24 Metoprolol Succinate [Toprol XL] 50 mg PO DAILY 14 Days #14 tab 12/16/24 Nicotine 21Mg/24Hr Patch [Habitrol] 1 patch TRANSDERM DAILY 30 Days 12/16/24 #30 patch Nystatin 100,000Unit/gm Cream 1 applic TOPICAL BID #1 each 12/16/24 [Mycostatin Cream] OLANZapine [ZyPREXA] 5 mg PO HS 14 Days #14 tab 12/16/24 Sertraline [Zoloft] 50 mg PO DAILY 14 Days #14 tab 12/16/24 Triamcinolone 0.1% Cream [Kenalog 1 applic TOPICAL BID each 12/16/24 0.1% Cream] lisinopriL [Zestril] 20 mg PO BID 14 Days #28 tab 12/16/24 traZODone HCL [Desyrel] 50 mg PO HS PRN 30 Days #30 tab 12/16/24 Amoxic-Pot Clav 875-125Mg 1 tab PO Q12HR #20 tab 01/21/25 [Augmentin 875-125] predniSONE 50 mg PO DAILY #5 tab 01/21/25 Famotidine [Pepcid] 20 mg PO DAILY 14 Days #14 tablet 05/06/25 Allergies Allergy/AdvReac Type Severity Reaction Status Date / Time ibuprofen [From Motrin] Allergy Intermediate Rash/Hives Verified 01/21/25 13:19 Review of Systems ROS Statement: Those systems with pertinent positive or pertinent negative responses have been documented in the HPI. Review of Systems: CONST: Denies fever EYES: Denies blurry vision ENT: Denies nasal congestion C/V: Denies Chest pain RESP: Denies shortness of breath GI: Endorses abdominal pain : Denies dysuria SKIN: Denies rash. MSK: Denies joint pain. NEURO: Denies headache ROS Other: All systems not noted in ROS Statement are negative. Past Medical History Past Medical History: COPD, Osteoarthritis (OA) Additional Past Medical History / Comment(s): scoliosis History of Any Multi-Drug Resistant Organisms: Other MDRO Past Surgical History: Tubal Ligation Past Anesthesia/Blood Transfusion Reactions: No Reported Reaction Past Psychological History: Anxiety, Depression Smoking Status: Current every day smoker Past Alcohol Use History: Occasional Past Drug Use History: Marijuana - Past Family History Mother Family Medical History: Cancer General Exam - General Exam Comments Initial Comments: General: Appears in no acute distress. HEAD: Normal with no signs of head trauma. EYES: PERRLA, EOMI, conjunctiva normal, no discharge. ENT: Hearing grossly intact, normal oropharynx. Right tympanic membrane does have some fullness behind it with some fluid. No erythema. Left tympanic membrane within normal limits. RESPIRATORY: Clear breath sounds bilaterally. No wheezes, rales, or rhonchi. C/V: Regular rate and rhythm. S1 and S2 auscultated, no edema, peripheral pulses 2+ and intact throughout ABD: Abdomen soft, nondistended. Tender to palpation in the epigastrium and right upper quadrant. No guarding or rebound tenderness. No peritoneal signs. EXT: Normal range of motion, no obvious deformity SKIN: No rashes or lesions observed on exposed skin. NEURO: Alert and oriented x 4. Limitations: no limitations Course Vital Signs 05/06/25 05/06/25 12:53 15:51 Temperature 98.3 F Pulse Rate 107 H 100 Respiratory 20 17 Rate Blood Pressure 151/87 145/87 O2 Sat by Pulse 97 98 Oximetry Medical Decision Making - Medical Decision Making Was pt. sent in by a medical professional or institution (, PA, BUILD AND DEPLOYMENT ENGINEER, urgent care, hospital, or retirement...) When possible be specific @ -No Did you speak to anyone other than the patient for history (EMS, parent, family, police, friend...)? What history was obtained from this source @ -No Did you review nursing and triage notes (agree or disagree)? Why? @ -I reviewed and agree with nursing and triage notes Were old charts reviewed (outside hosp., previous admission, EMS record, old EKG, old radiological studies, urgent care reports/EKG's, retirement records)? Report findings @ -No old charts were reviewed Differential Diagnosis (chest pain, altered mental status, abdominal pain women, abdominal pain men, vaginal bleeding, weakness, fever, dyspnea, syncope, headache, dizziness, GI bleed, back pain, seizure, CVA, palpatations, mental health, musculoskeletal)? @ -Differential Abdominal Pain Women: Appendicitis, Cholecystitis, diverticulosis, ischemic bowel, pancreatitis, hepatitis, UTI, gastroenteritis, AAA, incarcerated hernia, bowel obstruction, constipation, inflammatory bowel, hepatitis, peptic ulcer disease, splenic infarction, perforated viscus, vulvitis, ovarian torsion, PID, kidney stone, placenta abruption, this is not meant to be an all-inclusive list EKG interpreted by me (3pts min.). @ -As above X-rays interpreted by me (1pt min.). @ -X-ray reveals no obvious acute cardiopulmonary process CT interpreted by me (1pt min.). @ -None done U/S interpreted by me (1pt. min.). @ -Gallbladder ultrasound reveals no obvious acute cholecystitis but does show multiple gallstones. Cholelithiasis without cholecystitis. What testing was considered but not performed or refused? (CT, X-rays, U/S, labs)? Why? @ -None What meds were considered but not given or refused? Why? @ -None Did you discuss the management of the patient with other professionals (professionals i.e. , [employer], BUILD AND DEPLOYMENT ENGINEER, lab, RT, psych nurse, dialysis social worker, electronics tech, teacher, equal employment opportunity officer, case fitter)? Give summary @ -No Was smoking cessation discussed for >3mins.? @ -No Was critical care preformed (if so, how long)? @ -No Were there social determinants of health that impacted care today? How? (Homelessness, low income, unemployed, alcoholism, drug addiction, transportation, low edu. Level, literacy, decrease access to med. care, custodial, rehab)? @ -No Was there de-escalation of care discussed even if they declined (Discuss DNR or withdrawal of care, Hospice)? DNR status @ -No What co-morbidities impacted this encounter? (DM, HTN, Smoking, COPD, CAD, Cancer, CVA, ARF, Chemo, Hep., AIDS, mental health diagnosis, sleep apnea, morbid obesity)? @ -None Was patient admitted / discharged? Hospital course, mention meds given and route, prescriptions, significant lab abnormalities, going to OR and other pertinent info. @ -Presents with primarily right upper quadrant abdominal pain. We will obtain abdominal workup. She was in agreement this plan. Vital signs within acceptable limits. She will be given IV fluids, Zofran, Protonix. She also received a dose of pain medication. EKG shows no signs of acute ischemia. Chest x-ray unremarkable. Labs remarkable for mild leukocytosis of 11 which is likely reactive. Remainder the labs within acceptable limits. Gallbladder ultrasound shows cholelithiasis without evidence of cholecystitis. On reevaluation I updated the patient. She was feeling improved. We discussed her findings. She is likely having some biliary colic with the cholelithiasis. She expressed understanding. She be discharged home at this time with presc riptions for a Tylenol 3 starter pack, ODT Zofran starter pack, as well as Pepcid. Recommend follow-up with her PCP and she also received follow-up with general surgery and gastroenterology. She was in agreement this plan. Strict return precautions discussed. Recommended correct diet including avoiding fried and fatty foods. She was in agreement this plan. I instructed the patient to follow up with their PCP in the next 1-3 days. I explained that the patient should return to the emergency department if they experience any worsening symptoms. Strict return precautions were discussed with the patient. The patient expressed understanding of these instructions. I answered all questions that the patient had. The patient was discharged home in good condition with their prescriptions and follow up information. Undiagnosed new problem with uncertain prognosis? @ -No Drug Therapy requiring intensive monitoring for toxicity (Heparin, Nitro, Insulin, Cardizem)? @ -No Were any procedures done? @ -No Diagnosis/symptom? @ -Biliary colic Acute, or Chronic, or Acute on Chronic? @ -Acute Uncomplicated (without systemic symptoms) or Complicated (systemic symptoms)? @ -Uncomplicated Side effects of treatment? @ -No Exacerbation, Progression, or Severe Exacerbation? @ -No Poses a threat to life or bodily function? How? (Chest pain, USA, CA, pneumonia, PE, COPD, DKA, ARF, appy, cholecystitis, CVA, Diverticulitis, Homicidal, Suicidal, threat to staff... and all critical care pts) @ -Unlikely at this time - Lab Data Result diagrams: 05/06/25 13:14 05/06/25 13:14 Lab Results 05/06/25 05/06/25 05/06/25 Range/Units 13:14 13:14 13:15 WBC 11.61 H (4.50-10.00) 10*3/uL RBC 4.39 (4.10-5.20) 10*6/uL Hgb 14.2 (12.0-15.0) g/dL Hct 41.0 (37.2-46.3) % MCV 93.4 (80.0-97.0) fL MCH 32.3 H (27.0-32.0) pg MCHC 34.6 (32.0-37.0) g/dL Plt Count 280 (140-440) 10*3/uL MPV 9.6 (9.5-12.2) fL Immature Gran % (Auto) 0.2 % Neutrophils % 68.9 % Lymphocytes % 23.9 % Monocytes % 5.6 % Eosinophils % 0.9 % Basophils % 0.5 % Immature Gran # 0.02 (0.00-0.04) 10*3/uL Neutrophils # 8.01 H (1.80-7.70) 10*3/uL Lymphocytes # 2.77 (0.90-5.00) 10*3/uL Monocytes # 0.65 (0.20-1.00) 10*3/uL Eosinophils # 0.10 (0.04-0.35) 10*3/uL Basophils # 0.06 (0.00-0.10) 10*3/uL PT 10.6 (10.0-12.5) sec INR 1.0 (<1.2) APTT 24.7 (22.0-30.0) sec Sodium 140 (137-145) mmol/L Potassium 3.8 (3.5-5.1) mmol/L Chloride 104 (98-107) mmol/L Carbon Dioxide 27 (22-30) mmol/L Anion Gap 9 mmol/L BUN 8 (7-17) mg/dL Creatinine 0.62 (0.52-1.04) mg/dL Est GFR (CKD-EPI)AfAm >90 (>60 ml/min/1.73 sqM) Est GFR (CKD-EPI)NonAf >90 (>60 ml/min/1.73 sqM) Glucose 98 (74-99) mg/dL Plasma Lactic Acid Jose (0.7-2.0) mmol/L Calcium 9.7 (8.4-10.2) mg/dL Total Bilirubin 0.4 (0.2-1.3) mg/dL AST 36 (14-36) U/L ALT 25 (4-34) U/L Alkaline Phosphatase 96 (38-126) U/L Total Protein 7.7 (6.3-8.2) g/dL Albumin 4.6 (3.5-5.0) g/dL Amylase 38 (30-110) U/L Lipase 45 (23-300) U/L Urine Color Urine Appearance (Clear) Urine pH (5.0-8.0) Ur Specific [place] (1.001-1.035) Urine Protein (Negative) Urine Glucose (UA) (Negative) Urine Ketones (Negative) Urine Blood (Negative) Urine Nitrite (Negative) Urine Bilirubin (Negative) Urine Urobilinogen (<2.0) mg/dL Ur Leukocyte Esterase (Negative) Urine WBC (0-5) /hpf Ur Squamous Epith Cells (0-4) /hpf Urine Bacteria (None) /hpf Urine HCG, Qual (Not Detectd) Influenza Type A (PCR) (Not Detectd) Influenza Type B (PCR) (Not Detectd) RSV (PCR) (Not Detectd) SARS-CoV-2 (PCR) (Not Detectd) 05/06/25 05/06/25 05/06/25 Range/Units 13:15 13:15 13:15 WBC (4.50-10.00) 10*3/uL RBC (4.10-5.20) 10*6/uL Hgb (12.0-15.0) g/dL Hct (37.2-46.3) % MCV (80.0-97.0) fL MCH (27.0-32.0) pg MCHC (32.0-37.0) g/dL Plt Count (140-440) 10*3/uL MPV (9.5-12.2) fL Immature Gran % (Auto) % Neutrophils % % Lymphocytes % % Monocytes % % Eosinophils % % Basophils % % Immature Gran # (0.00-0.04) 10*3/uL Neutrophils # (1.80-7.70) 10*3/uL Lymphocytes # (0.90-5.00) 10*3/uL Monocytes # (0.20-1.00) 10*3/uL Eosinophils # (0.04-0.35) 10*3/uL Basophils # (0.00-0.10) 10*3/uL PT (10.0-12.5) sec INR (<1.2) APTT (22.0-30.0) sec Sodium (137-145) mmol/L Potassium (3.5-5.1) mmol/L Chloride (98-107) mmol/L Carbon Dioxide (22-30) mmol/L Anion Gap mmol/L BUN (7-17) mg/dL Creatinine (0.52-1.04) mg/dL Est GFR (CKD-EPI)AfAm (>60 ml/min/1.73 sqM) Est GFR (CKD-EPI)NonAf (>60 ml/min/1.73 sqM) Glucose (74-99) mg/dL Plasma Lactic Acid Jose 0.9 (0.7-2.0) mmol/L Calcium (8.4-10.2) mg/dL Total Bilirubin (0.2-1.3) mg/dL AST (14-36) U/L ALT (4-34) U/L Alkaline Phosphatase (38-126) U/L Total Protein (6.3-8.2) g/dL Albumin (3.5-5.0) g/dL Amylase (30-110) U/L Lipase (23-300) U/L Urine Color Yellow Urine Appearance Clear (Clear) Urine pH 6.5 (5.0-8.0) Ur Specific [place] 1.017 (1.001-1.035) Urine Protein Negative (Negative) Urine Glucose (UA) Negative (Negative) Urine Ketones 1+ H (Negative) Urine Blood Negative (Negative) Urine Nitrite Negative (Negative) Urine Bilirubin Negative (Negative) Urine Urobilinogen 2.0 (<2.0) mg/dL Ur Leukocyte Esterase Trace H (Negative) Urine WBC 6 H (0-5) /hpf Ur Squamous Epith Cells 2 (0-4) /hpf Urine Bacteria Rare H (None) /hpf Urine HCG, Qual Not Detected (Not Detectd) Influenza Type A (PCR) (Not Detectd) Influenza Type B (PCR) (Not Detectd) RSV (PCR) (Not Detectd) SARS-CoV-2 (PCR) (Not Detectd) 05/06/25 Range/Units 13:15 WBC (4.50-10.00) 10*3/uL RBC (4.10-5.20) 10*6/uL Hgb (12.0-15.0) g/dL Hct (37.2-46.3) % MCV (80.0-97.0) fL MCH (27.0-32.0) pg MCHC (32.0-37.0) g/dL Plt Count (140-440) 10*3/uL MPV (9.5-12.2) fL Immature Gran % (Auto) % Neutrophils % % Lymphocytes % % Monocytes % % Eosinophils % % Basophils % % Immature Gran # (0.00-0.04) 10*3/uL Neutrophils # (1.80-7.70) 10*3/uL Lymphocytes # (0.90-5.00) 10*3/uL Monocytes # (0.20-1.00) 10*3/uL Eosinophils # (0.04-0.35) 10*3/uL Basophils # (0.00-0.10) 10*3/uL PT (10.0-12.5) sec INR (<1.2) APTT (22.0-30.0) sec Sodium (137-145) mmol/L Potassium (3.5-5.1) mmol/L Chloride (98-107) mmol/L Carbon Dioxide (22-30) mmol/L Anion Gap mmol/L BUN (7-17) mg/dL Creatinine (0.52-1.04) mg/dL Est GFR (CKD-EPI)AfAm (>60 ml/min/1.73 sqM) Est GFR (CKD-EPI)NonAf (>60 ml/min/1.73 sqM) Glucose (74-99) mg/dL Plasma Lactic Acid Jose (0.7-2.0) mmol/L Calcium (8.4-10.2) mg/dL Total Bilirubin (0.2-1.3) mg/dL AST (14-36) U/L ALT (4-34) U/L Alkaline Phosphatase (38-126) U/L Total Protein (6.3-8.2) g/dL Albumin (3.5-5.0) g/dL Amylase (30-110) U/L Lipase (23-300) U/L Urine Color Urine Appearance (Clear) Urine pH (5.0-8.0) Ur Specific [place] (1.001-1.035) Urine Protein (Negative) Urine Glucose (UA) (Negative) Urine Ketones (Negative) Urine Blood (Negative) Urine Nitrite (Negative) Urine Bilirubin (Negative) Urine Urobilinogen (<2.0) mg/dL Ur Leukocyte Esterase (Negative) Urine WBC (0-5) /hpf Ur Squamous Epith Cells (0-4) /hpf Urine Bacteria (None) /hpf Urine HCG, Qual (Not Detectd) Influenza Type A (PCR) Not Detected (Not Detectd) Influenza Type B (PCR) Not Detected (Not Detectd) RSV (PCR) Not Detected (Not Detectd) SARS-CoV-2 (PCR) Not Detected (Not Detectd) - EKG Data -: EKG Interpreted by Me EKG Comments: 12-lead Electrocardiogram Interpretation Note EKG was reviewed and interpreted by myself. 12-lead ECG performed at 1339 is interpreted by me as revealing normal sinus rhythm at a rate of 80 beats per minute. axis is normal. HI interval is 174 ms incarcerations 101 ms, QTc is 4170 ms.. There were no ST or T wave abnormalities to suggest myocardial ischemia or injury. R wave progression across the precordium was satisfactory. By my interpretation this EKG is non-diagnostic for acute ischemia. Disposition Clinical Impression: Biliary colic Disposition: HOME SELF-CARE Condition: Good Instructions (If sedation given, give patient instructions): Biliary Colic (ED) Prescriptions: Famotidine [Pepcid] 20 mg PO DAILY 14 Days #14 tablet Is patient prescribed a controlled substance at d/c from ED?: No Referrals: Efren Madera MD [Primary Care Provider] - 1-2 days Oriana Harden MD [STAFF PHYSICIAN] - 1-2 days Deven Rolle MD [Medical Doctor] - 1-2 days Time of Disposition: 15:36
[2025-05-06] MEDS: ACET/COD 300 MG/30 MG STARTER PACK 6 TAB BTL PO STA (15:47)
[2025-05-06] MEDS: ONDANSETRON 4 MG ODT STARTER PACK 2 TAB BTL PO STA (15:47)
[2025-05-06 15:52] VITALS: BP 145/87; PULSE 100; RESP 17
== END 2025-05-06 15:52 | disposition home or self-care (01) ==
LOC: EC 12:48
DX: K80.70 Calculus of gallbladder and bile duct without cholecystitis without obstruction (principal); F17.200 Nicotine dependence, unspecified, uncomplicated; Z88.6 Allergy status to analgesic agent; Z11.52 Encounter for screening for COVID-19
CPT/HCPCS: 36415; 93005; 80053; 82150; 83605; 83690; 85025; 85610; 85730; 81001; 81025; 87636; 71046; 76705; 99284; 96374; 96375 ×2; 96376; 96361; J2405; J2270; S0119; J2470

== ENCOUNTER 2025-05-08 15:09 | Observation (INO) | payer OTHER ==
--- NOTE | 2025-05-08 15:55 | ED ---
Abdominal Pain HPI - General Source: patient, RN notes reviewed Mode of arrival: ambulatory Limitations: no limitations - History of Present Illness MD Complaint: abdominal pain <Michelle Albert - Last Filed: 05/08/25 15:54> - General Source: patient, RN notes reviewed Mode of arrival: ambulatory Limitations: no limitations - History of Present Illness MD Complaint: abdominal pain Onset/Timin -: days(s) Location: LUQ, RUQ Radiation: R flank Migration to: no migration Severity scale (1-10): 10 Quality: cramping, stabbing Consistency: intermittent Improves With: nothing Worsens With: nothing Associated Symptoms: nausea, vomiting Treatments Prior to Arrival: prescription analgesics <Al Cummings - Last Filed: 05/08/25 20:46> - General Chief Complaint: Abdominal Pain Stated Complaint: Left and right flank pain Time Seen by Provider: 05/08/25 15:38 - History of Present Illness Initial Comments: Quick Note: This is a 50-year-old female who presents to the emergency department for abdominal pain. Patient reports right upper quadrant and left upper quadrant abdominal pain. She was evaluated here for this 2 days ago and diagnosed with gallstones. States however that she continues to be symptomatic with associated nausea and vomiting. (Michelle Albert) This is a 49-year-old female smoker with history of COPD, OA and tubal ligation presenting for ongoing abdominal pain. Patient was seen in this ER on 05/06/2025 where she was diagnosed with cholelithiasis and biliary colic. Patient states pain started several days prior to initial visit, stating Tylenol 3 starter pack provided at discharge provided minimal relief, having already run out of medication for pain control. Patient states she has not followed up with PCP or GI for ongoing management. Describes pain as intermittent and pulsating (/) and radiates to her right flank and lower back with associated nausea. Denies fever, chills, chest pain, dyspnea, diarrhea, constipation, urinary symptoms. (Al Ambrose) - Related Data Home Medications Medication Instructions Recorded Confirmed Albuterol Inhaler [Ventolin Hfa 2 puff INHALATION RT-Q6H PRN 08/11/23 12/10/24 Inhaler] Nicotine 21Mg/24Hr Patch [Habitrol] 1 patch TRANSDERM DAILY 12/10/24 12/10/24 Previous Rx's Medication Instructions Recorded Aspirin 81 mg PO DAILY 14 Days #14 tab 12/16/24 Atorvastatin [Lipitor] 20 mg PO HS 14 Days #14 tab 12/16/24 Cephalexin [Keflex] 500 mg PO QID 7 Days #28 cap 12/16/24 Cholecalciferol [Vitamin D3 (25 25 mcg PO DAILY 14 Days #14 tab 12/16/24 Mcg = 1000 Iu)] Losartan [Cozaar] 50 mg PO DAILY 14 Days #14 tab 12/16/24 Metoprolol Succinate [Toprol XL] 50 mg PO DAILY 14 Days #14 tab 12/16/24 Nicotine 21Mg/24Hr Patch [Habitrol] 1 patch TRANSDERM DAILY 30 Days 12/16/24 #30 patch Nystatin 100,000Unit/gm Cream 1 applic TOPICAL BID #1 each 12/16/24 [Mycostatin Cream] OLANZapine [ZyPREXA] 5 mg PO HS 14 Days #14 tab 12/16/24 Sertraline [Zoloft] 50 mg PO DAILY 14 Days #14 tab 12/16/24 Triamcinolone 0.1% Cream [Kenalog 1 applic TOPICAL BID each 12/16/24 0.1% Cream] lisinopriL [Zestril] 20 mg PO BID 14 Days #28 tab 12/16/24 traZODone HCL [Desyrel] 50 mg PO HS PRN 30 Days #30 tab 12/16/24 Amoxic-Pot Clav 875-125Mg 1 tab PO Q12HR #20 tab 01/21/25 [Augmentin 875-125] predniSONE 50 mg PO DAILY #5 tab 01/21/25 Famotidine [Pepcid] 20 mg PO DAILY 14 Days #14 tablet 05/06/25 Allergies Allergy/AdvReac Type Severity Reaction Status Date / Time ibuprofen [From Motrin] Allergy Intermediate Rash/Hives Verified 05/08/25 15:37 Review of Systems ROS Other: All systems not noted in ROS Statement are negative. <Michelle Albert - Last Filed: 05/08/25 15:54> ROS Other: All systems not noted in ROS Statement are negative. <Al Cummings - Last Filed: 05/08/25 20:46> ROS Statement: Those systems with pertinent positive or pertinent negative responses have been documented in the HPI. Past Medical History Past Medical History: COPD, Osteoarthritis (OA) Additional Past Medical History / Comment(s): scoliosis History of Any Multi-Drug Resistant Organisms: Other MDRO Past Surgical History: Tubal Ligation Past Anesthesia/Blood Transfusion Reactions: No Reported Reaction Past Psychological History: Anxiety, Depression Smoking Status: Current every day smoker Past Alcohol Use History: Occasional Past Drug Use History: Marijuana - Past Family History Mother Family Medical History: Cancer <Michelle Albert - Last Filed: 05/08/25 15:54> General Exam Limitations: no limitations <Michelle Albert - Last Filed: 05/08/25 15:54> Limitations: no limitations General appearance: alert, in no apparent distress Head exam: Present: atraumatic, normocephalic, normal inspection Eye exam: Present: normal appearance, PERRL, EOMI. Absent: scleral icterus, conjunctival injection, periorbital swelling ENT exam: Present: normal exam, mucous membranes moist Neck exam: Present: normal inspection. Absent: tenderness, meningismus, lymphadenopathy Respiratory exam: Present: normal lung sounds bilaterally. Absent: respiratory distress, wheezes, rales, rhonchi, stridor, accessory muscle use, decreased breath sounds, prolonged expiratory Cardiovascular Exam: Present: regular rate, normal rhythm, normal heart sounds. Absent: systolic murmur, diastolic murmur, rubs, gallop, clicks GI/Abdominal exam: Present: soft, tenderness (Positive RUQ TTP with positive Shrestha sign. Positive bilateral flank TTP without guarding), diminished bowel sounds, hypoactive bowel sounds. Absent: distended, guarding, rebound, rigid Extremities exam: Present: normal inspection, full ROM, normal capillary refill. Absent: tenderness, pedal edema, joint swelling, calf tenderness Back exam: Present: normal inspection Neurological exam: Present: alert, oriented X3, CN II-XII intact Psychiatric exam: Present: normal affect, normal mood Skin exam: Present: warm, dry, intact, normal color. Absent: rash <Al Cummings - Last Filed: 05/08/25 20:46> - General Exam Comments Initial Comments: Visual Physical Exam Vital signs reviewed General: Well-appearing, nontoxic, no acute distress. Head: Normocephalic, atraumatic Eyes: PERRLA, EOMI ENT: Airway patent Chest: Nonlabored breathing Skin: No visual rash, normal skin tone Neuro: Alert and oriented 3 Musculoskeletal: No gross abnormalities (Michelle Albert) Course Vital Signs 05/08/25 05/08/25 05/08/25 15:35 18:18 20:34 Temperature 98 F 98.2 F 98.7 F Pulse Rate 93 63 85 Respiratory 20 15 18 Rate Blood Pressure 163/91 134/92 141/87 O2 Sat by Pulse 97 98 97 Oximetry Medical Decision Making <Michelle Albert - Last Filed: 05/08/25 15:54> - Lab Data Result diagrams: 05/08/25 18:03 05/08/25 18:03 <Al Cummings - Last Filed: 05/08/25 20:46> - Medical Decision Making I performed the QuickNote portion of this chart. Signed Michelle Albert PA-C. (Michelle Albert) Was pt. sent in by a medical professional or institution (SUZANNE Armijo, PRINCIPAL IOS DEVELOPER, urgent care, hospital, or retirement...) When possible be specific @ -No Did you speak to anyone other than the patient for history (EMS, parent, family, police, friend...)? What history was obtained from this source @ -No Did you review nursing and triage notes (agree or disagree)? Why? @ -I reviewed and agree with nursing and triage notes Were old charts reviewed (outside hosp., previous admission, EMS record, old EKG, old radiological studies, urgent care reports/EKG's, retirement records)? Report findings @ -ER chart from prior visit on 05/06/2025 reviewed, with discovery of cholel ithiasis without cholecystitis. Differential Diagnosis (chest pain, altered mental status, abdominal pain women, abdominal pain men, vaginal bleeding, weakness, fever, dyspnea, syncope, headache, dizziness, GI bleed, back pain, seizure, CVA, palpatations, mental health, musculoskeletal)? @ -Differential Abdominal Pain Women: Appendicitis, Cholecystitis, diverticulosis, ischemic bowel, pancreatitis, hepatitis, UTI, gastroenteritis, AAA, incarcerated hernia, bowel obstruction, constipation, inflammatory bowel, hepatitis, peptic ulcer disease, splenic infarction, perforated viscus, vulvitis, ovarian torsion, PID, kidney stone, placenta abruption, this is not meant to be an all-inclusive list EKG interpreted by me (3pts min.). @ -Not done X-rays interpreted by me (1pt min.). @ -None done CT interpreted by me (1pt min.). @ -None done U/S interpreted by me (1pt. min.). @ -Gallbladder ultrasound shows cholelithiasis with biliary sludge and no acute process. What testing was considered but not performed or refused? (CT, X-rays, U/S, labs)? Why? @ -None What meds were considered but not given or refused? Why? @ -None Did you discuss the management of the patient with other professionals (professionals i.e. , PA, PRINCIPAL IOS DEVELOPER, lab, RT, psych nurse, social psychologist, tip puncher, t eacher, corporate responsibility officer, gearcase assembler)? Give summary @ -Spoke to Dr. Cervantes who advised to admit patient under him, consult medicine, clear liquid diet and n.p.o. after midnight. Was smoking cessation discussed for >3mins.? @ -No Was critical care preformed (if so, how long)? @ -No Were there social determinants of health that impacted care today? How? (Homelessness, low income, unemployed, alcoholism, drug addiction, transportation, low edu. Level, literacy, decrease access to med. care, snf, rehab)? @ -No Was there de-escalation of care discussed even if they declined (Discuss DNR or withdrawal of care, Hospice)? DNR status @ -No What co-morbidities impacted this encounter? (DM, HTN, Smoking, COPD, CAD, Cancer, CVA, ARF, Chemo, Hep., AIDS, mental health diagnosis, sleep apnea, morbid obesity)? @ -None Was patient admitted / discharged? Hospital course, mention meds given and route, prescriptions, significant lab abnormalities, going to OR and other pertinent info. @ -Patient initially provided IV normal saline, morphine and Zofran. Lab work unremarkable WBC 9.15, normal LFTs and kidney function and unremarkable UA. Gallbladder ultrasound shows cholelithiasis with biliary sludge and no acute process. Patient denies change in pain, stating pain is still 10/10 following administration of morphine. Spoke to Dr. Cervantes, due to intractable biliary colic, who advised admission under him, consult to medicine and n.p.o. after midnight. Discussed patient with Dr. Will. Undiagnosed new problem with uncertain prognosis? @ -No Drug Therapy requiring intensive monitoring for toxicity (Heparin, Nitro, Insulin, Cardizem)? @ -No Were any procedures done? @ -No Diagnosis/symptom? @ -Cholelithiasis, intractable biliary colic Acute, or Chronic, or Acute on Chronic? @ -Acute Uncomplicated (without systemic symptoms) or Complicated (systemic symptoms)? @ -Uncomplicated Side effects of treatment? @ -No Exacerbation, Progression, or Severe Exacerbation? @ -Severe exacerbation Poses a threat to life or bodily function? How? (Chest pain, [place], [place], pneumonia, PE, COPD, DKA, ARF, appy, cholecystitis, CVA, Diverticulitis, Homicidal, Suicidal, threat to staff... and all critical care pts) @ -No (Al Cummings) - Lab Data Lab Results 05/08/25 05/08/25 05/08/25 Range/Units 18:03 18:03 18:03 WBC 9.15 (4.50-10.00) 10*3/uL RBC 4.51 (4.10-5.20) 10*6/uL Hgb 14.9 (12.0-15.0) g/dL Hct 42.8 (37.2-46.3) % MCV 94.9 (80.0-97.0) fL MCH 33.0 H (27.0-32.0) pg MCHC 34.8 (32.0-37.0) g/dL Plt Count 283 (140-440) 10*3/uL MPV 9.5 (9.5-12.2) fL Immature Gran % (Auto) 0.2 % Neutrophils % 57.9 % Lymphocytes % 31.8 % Monocytes % 7.8 % Eosinophils % 1.6 % Basophils % 0.7 % Immature Gran # 0.02 (0.00-0.04) 10*3/uL Neutrophils # 5.30 (1.80-7.70) 10*3/uL Lymphocytes # 2.91 (0.90-5.00) 10*3/uL Monocytes # 0.71 (0.20-1.00) 10*3/uL Eosinophils # 0.15 (0.04-0.35) 10*3/uL Basophils # 0.06 (0.00-0.10) 10*3/uL Sodium 141 (137-145) mmol/L Potassium 3.7 (3.5-5.1) mmol/L Chloride 102 (98-107) mmol/L Carbon Dioxide 27 (22-30) mmol/L Anion Gap 12 mmol/L BUN 7 (7-17) mg/dL Creatinine 0.71 (0.52-1.04) mg/dL Est GFR (CKD-EPI)AfAm >90 (>60 ml/min/1.73 sqM) Est GFR (CKD-EPI)NonAf >90 (>60 ml/min/1.73 sqM) Glucose 116 H (74-99) mg/dL Plasma Lactic Acid Jose 1.4 (0.7-2.0) mmol/L Calcium 9.9 (8.4-10.2) mg/dL Total Bilirubin 0.4 (0.2-1.3) mg/dL AST 36 (14-36) U/L ALT 26 (4-34) U/L Alkaline Phosphatase 121 (38-126) U/L Total Protein 8.1 (6.3-8.2) g/dL Albumin 4.8 (3.5-5.0) g/dL Amylase 41 (30-110) U/L Lipase 58 (23-300) U/L Urine Color Urine Appearance (Clear) Urine pH (5.0-8.0) Ur Specific [place] (1.001-1.035) Urine Protein (Negative) Urine Glucose (UA) (Negative) Urine Ketones (Negative) Urine Blood (Negative) Urine Nitrite (Negative) Urine Bilirubin (Negative) Urine Urobilinogen (<2.0) mg/dL Ur Leukocyte Esterase (Negative) Urine RBC (0-5) /hpf Urine WBC (0-5) /hpf Ur Squamous Epith Cells (0-4) /hpf 05/08/25 Range/Units 19:15 WBC (4.50-10.00) 10*3/uL RBC (4.10-5.20) 10*6/uL Hgb (12.0-15.0) g/dL Hct (37.2-46.3) % MCV (80.0-97.0) fL MCH (27.0-32.0) pg MCHC (32.0-37.0) g/dL Plt Count (140-440) 10*3/uL MPV (9.5-12.2) fL Immature Gran % (Auto) % Neutrophils % % Lymphocytes % % Monocytes % % Eosinophils % % Basophils % % Immature Gran # (0.00-0.04) 10*3/uL Neutrophils # (1.80-7.70) 10*3/uL Lymphocytes # (0.90-5.00) 10*3/uL Monocytes # (0.20-1.00) 10*3/uL Eosinophils # (0.04-0.35) 10*3/uL Basophils # (0.00-0.10) 10*3/uL Sodium (137-145) mmol/L Potassium (3.5-5.1) mmol/L Chloride (98-107) mmol/L Carbon Dioxide (22-30) mmol/L Anion Gap mmol/L BUN (7-17) mg/dL Creatinine (0.52-1.04) mg/dL Est GFR (CKD-EPI)AfAm (>60 ml/min/1.73 sqM) Est GFR (CKD-EPI)NonAf (>60 ml/min/1.73 sqM) Glucose (74-99) mg/dL Plasma Lactic Acid Jose (0.7-2.0) mmol/L Calcium (8.4-10.2) mg/dL Total Bilirubin (0.2-1.3) mg/dL AST (14-36) U/L ALT (4-34) U/L Alkaline Phosphatase (38-126) U/L Total Protein (6.3-8.2) g/dL Albumin (3.5-5.0) g/dL Amylase (30-110) U/L Lipase (23-300) U/L Urine Color Colorless Urine Appearance Clear (Clear) Urine pH 7.0 (5.0-8.0) Ur Specific [place] 1.005 (1.001-1.035) Urine Protein Negative (Negative) Urine Glucose (UA) Negative (Negative) Urine Ketones 1+ H (Negative) Urine Blood Trace H (Negative) Urine Nitrite Negative (Negative) Urine Bilirubin Negative (Negative) Urine Urobilinogen <2.0 (<2.0) mg/dL Ur Leukocyte Esterase Negative (Negative) Urine RBC 1 (0-5) /hpf Urine WBC <1 (0-5) /hpf Ur Squamous Epith Cells <1 (0-4) /hpf Disposition <Michelle Albert - Last Filed: 05/08/25 15:54> Time of Disposition: 20:27 Decision Date: 05/08/25 Decision Time: 20: <Al Cummings - Last Filed: 05/08/25 20:46> Clinical Impression: Biliary colic, Cholelithiasis, Intractable right upper quadrant abdominal pain Disposition: ADMITTED IP TO THIS HOSP Condition: Fair Referrals: Efren Madera MD [Primary Care Provider] - 1-2 days Dixon Cervantes MD [STAFF PHYSICIAN] - 1-2 days Oriana Harden MD [STAFF PHYSICIAN] - 1-2 days
[2025-05-08 18:10] LABS: Basophils # (A) 0.06 10*3/uL (0.00-0.10); Basophils % (A) 0.7 %; Eosinophils # (A) 0.15 10*3/uL (0.04-0.35); Eosinophils % (A) 1.6 %; HCT 42.8 % (37.2-46.3); HGB 14.9 g/dL (12.0-15.0); Lymphocytes # (A) 2.91 10*3/uL (0.90-5.00); Lymphocytes % (A) 31.8 %; MCHC 34.8 g/dL (32.0-37.0); MCV 94.9 fL (80.0-97.0); Mean Platelet Volume 9.5 fL (9.5-12.2); Monocytes # (A) 0.71 10*3/uL (0.20-1.00); Monocytes % (A) 7.8 %; Neutrophils % (A) 57.9 %; Platelet Count 283 10*3/uL (140-440); RBC 4.51 10*6/uL (4.10-5.20); RDW 12.5 % (11.5-14.5); WBC 9.15 10*3/uL (4.50-10.00)
[2025-05-08] MEDS: ONDANSETRON 4 MG/2 ML VIAL IVP STA (18:42)
[2025-05-08] MEDS: SODIUM CHLORIDE 0.9% 1,000 ML IV STA (18:43)
[2025-05-08] MEDS: MORPHINE SULFATE 4 MG/ML SYRINGE IVP STA (18:43)
[2025-05-08 18:45] LABS: ALT 26 U/L (4-34); AST 36 U/L (14-36); African American GFR (CKD) >90 (>60 ml/min/1.73 sqM); Albumin 4.8 g/dL (3.5-5.0); Alkaline Phosphatase 121 U/L (38-126); Amylase 41 U/L (30-110); Anion Gap 12 mmol/L; Blood Urea Nitrogen 7 mg/dL (7-17); Calcium 9.9 mg/dL (8.4-10.2); Carbon Dioxide 27 mmol/L (22-30); Chloride 102 mmol/L (98-107); Glucose 116 mg/dL (74-99); Lipase 58 U/L (23-300); Non-African American GFR(CKD) >90 (>60 ml/min/1.73 sqM); Potassium 3.7 mmol/L (3.5-5.1); Sodium 141 mmol/L (137-145); Total Bilirubin 0.4 mg/dL (0.2-1.3); Total Protein 8.1 g/dL (6.3-8.2)
[2025-05-08 19:35] LABS: Appearance,Urine Clear (Clear); Bilirubin,Urine Negative (Negative); Blood,Urine Trace (Negative); Color,Urine Colorless; Glucose,Urine (UA) Negative (Negative); Ketones,Urine 1+ (Negative); Leukocyte Esterase,Urine Negative (Negative); Nitrite,Urine Negative (Negative); Protein,Urine Negative (Negative); RBC,Urine 1 /hpf (0-5); Specific Gravity,Urine 1.005 (1.001-1.035); Squamous Epithelial Cell,Urine <1 /hpf (0-4); Urobilinogen,Urine <2.0 mg/dL (<2.0); WBC,Urine <1 /hpf (0-5)
--- NOTE | 2025-05-08 20:07 | US ---
EXAMINATION TYPE: US gallbladder DATE OF EXAM: 05/08/2025 COMPARISON: Same exam 2 days prior CLINICAL INDICATION: Female, 49 years old with history of Ongoing RUQ pain, recent cholelithiasis; TECHNIQUE: Grayscale and color Doppler imaging of the right upper quadrant was performed. FINDINGS: EXAM MEASUREMENTS: Liver Length: 18.8 cm Gallbladder Wall: 0.2 cm CBD: 0.6 cm Right Kidney: 11.4 x 4.6 x 5.8 cm Pancreas: visualized portions wnl, limited by overlying midline bowel gas Liver: enlarged Gallbladder: known cholelithiasis Evidence for sonographic Shrestha's sign: no CBD: borderline dilated Right Kidney: dilated renal pelvis IMPRESSION: 1. No evidence for acute process. 2. Cholelithiasis/biliary sludge. [facility], , 05/08/2025 8:05 PM
[2025-05-08] MEDS ORDERED: NALOXONE 0.4 MG/ML 1 ML VIAL IV PRN (20:32)
[2025-05-08] MEDS ORDERED: traZODone HCL 50 MG TAB PO PRN (20:35)
[2025-05-08] MEDS: SODIUM CHLORIDE 0.9% 1,000 ML IV SCH (20:44)
[2025-05-08] MEDS: OLANZapine 5 MG TAB PO SCH (20:46)
[2025-05-08] MEDS: ATORVASTATIN 20 MG TAB PO SCH (20:46)
[2025-05-08] MEDS: HYDROmorphone 1 MG/ML 1 ML SYRINGE IVP PRN (22:10)
--- NOTE | 2025-05-09 07:08 | P.GSHP ---
History of Present Illness H&P Date: 05/09/25 Chief Complaint: Right upper quadrant pain Is a 49-year-old female who has complaints of right upper quadrant pain. Patient was seen in the emergency room 2 days ago. Patient presented back to emergency room complaints of right quadrant pain. Her ultrasound shows evidence of cholelithiasis and sludge. Past Medical History Past Medical History: COPD, Osteoarthritis (OA) Additional Past Medical History / Comment(s): scoliosis History of Any Multi-Drug Resistant Organisms: Other MDRO Past Surgical History: Tubal Ligation Past Anesthesia/Blood Transfusion Reactions: No Reported Reaction Past Psychological History: Anxiety, Depression Additional Psychological History / Comment(s): zolaf and zypreexa Smoking Status: Current every day smoker Past Alcohol Use History: Occasional Additional Past Alcohol Use History / Comment(s): "through seventh month of " Past Drug Use History: Marijuana - Past Family History Mother Family Medical History: Cancer Medications and Allergies Home Medications Medication Instructions Recorded Confirmed Type Albuterol Inhaler [Ventolin Hfa 2 puff INHALATION RT-Q6H PRN 08/11/23 12/10/24 History Inhaler] Nicotine 21Mg/24Hr Patch [Habitrol] 1 patch TRANSDERM DAILY 12/10/24 12/10/24 History Aspirin 81 mg PO DAILY 14 Days #14 tab 12/16/24 Rx Atorvastatin [Lipitor] 20 mg PO HS 14 Days #14 tab 12/16/24 Rx Cephalexin [Keflex] 500 mg PO QID 7 Days #28 cap 12/16/24 Rx Cholecalciferol [Vitamin D3 (25 25 mcg PO DAILY 14 Days #14 tab 12/16/24 Rx Mcg = 1000 Iu)] Losartan [Cozaar] 50 mg PO DAILY 14 Days #14 tab 12/16/24 Rx Metoprolol Succinate [Toprol XL] 50 mg PO DAILY 14 Days #14 tab 12/16/24 Rx Nicotine 21Mg/24Hr Patch [Habitrol] 1 patch TRANSDERM DAILY 30 Days 12/16/24 Rx #30 patch Nystatin 100,000Unit/gm Cream 1 applic TOPICAL BID #1 each 12/16/24 Rx [Mycostatin Cream] OLANZapine [ZyPREXA] 5 mg PO HS 14 Days #14 tab 12/16/24 Rx Sertraline [Zoloft] 50 mg PO DAILY 14 Days #14 tab 12/16/24 Rx Triamcinolone 0.1% Cream [Kenalog 1 applic TOPICAL BID each 12/16/24 Rx 0.1% Cream] lisinopriL [Zestril] 20 mg PO BID 14 Days #28 tab 12/16/24 Rx traZODone HCL [Desyrel] 50 mg PO HS PRN 30 Days #30 tab 12/16/24 Rx Amoxic-Pot Clav 875-125Mg 1 tab PO Q12HR #20 tab 01/21/25 Rx [Augmentin 875-125] predniSONE 50 mg PO DAILY #5 tab 01/21/25 Rx Famotidine [Pepcid] 20 mg PO DAILY 14 Days #14 tablet 05/06/25 Rx Allergies Allergy/AdvReac Type Severity Reaction Status Date / Time ibuprofen [From Motrin] Allergy Intermediate Rash/Hives Verified 05/08/25 15:37 Surgical - Exam Vital Signs Temp Pulse Resp BP Pulse Ox 98 F 93 20 163/91 97 05/08/25 15:35 05/08/25 15:35 05/08/25 15:35 05/08/25 15:35 05/08/25 15:35 - General well developed, well nourished, no distress - Eyes PERRL - ENT normal pinna - Neck no masses - Respiratory normal expansion - Cardiovascular Rhythm: regular - Abdomen Abdomen: soft, non tender Results - Labs 05/08/25 18:03 05/08/25 18:03 Abnormal Lab Results - Last 24 Hours (Table) 05/08/25 05/08/25 05/08/25 Range/Units 18:03 18:03 19:15 MCH 33.0 H (27.0-32.0) pg Glucose 116 H (74-99) mg/dL Urine Ketones 1+ H (Negative) Urine Blood Trace H (Negative) Diabetes panel 05/08/25 Range/Units 18:03 Sodium 141 (137-145) mmol/L Potassium 3.7 (3.5-5.1) mmol/L Chloride 102 (98-107) mmol/L Carbon Dioxide 27 (22-30) mmol/L BUN 7 (7-17) mg/dL Creatinine 0.71 (0.52-1.04) mg/dL Glucose 116 H (74-99) mg/dL Calcium 9.9 (8.4-10.2) mg/dL AST 36 (14-36) U/L ALT 26 (4-34) U/L Alkaline Phosphatase 121 (38-126) U/L Total Protein 8.1 (6.3-8.2) g/dL Albumin 4.8 (3.5-5.0) g/dL Calcium panel 05/08/25 Range/Units 18:03 Calcium 9.9 (8.4-10.2) mg/dL Albumin 4.8 (3.5-5.0) g/dL Pituitary panel 05/08/25 Range/Units 18:03 Sodium 141 (137-145) mmol/L Potassium 3.7 (3.5-5.1) mmol/L Chloride 102 (98-107) mmol/L Carbon Dioxide 27 (22-30) mmol/L BUN 7 (7-17) mg/dL Creatinine 0.71 (0.52-1.04) mg/dL Glucose 116 H (74-99) mg/dL Calcium 9.9 (8.4-10.2) mg/dL Adrenal panel 05/08/25 Range/Units 18:03 Sodium 141 (137-145) mmol/L Potassium 3.7 (3.5-5.1) mmol/L Chloride 102 (98-107) mmol/L Carbon Dioxide 27 (22-30) mmol/L BUN 7 (7-17) mg/dL Creatinine 0.71 (0.52-1.04) mg/dL Glucose 116 H (74-99) mg/dL Calcium 9.9 (8.4-10.2) mg/dL Total Bilirubin 0.4 (0.2-1.3) mg/dL AST 36 (14-36) U/L ALT 26 (4-34) U/L Alkaline Phosphatase 121 (38-126) U/L Total Protein 8.1 (6.3-8.2) g/dL Albumin 4.8 (3.5-5.0) g/dL Assessment and Plan Assessment: Biliary colic, symptomatic cholelithiasis. Patient is currently pain-free. Patient was scheduled for laparoscopic cholecystectomy in the a.m.
[2025-05-09 13:07] VITALS: BMI 31.6
[2025-05-09] MEDS ORDERED: ALBUTEROL NEBULIZED 2.5 MG/3 ML INHALATION PRN (13:38)
--- NOTE | 2025-05-09 13:38 | P.CON ---
Consult Note - . Consult date: 05/09/25 Assessment/Plan:: Medical consult Requested by Dr. Cervantes, general surgeon Patient admitted because of abdominal pain and he planned for lap paddy tomorrow requested a consult for medical management. Dictation by Dr. Madera Location 460 bed 1. Patient seen and evaluated at bedside Patient stated that she had nausea and vomiting and right upper quadrant abdominal pain with the food greasy food has been bothering her with diarrhea and flatus Patient seen by Dr. Ceballos and scheduled for lap paddy tomorrow. Patient does not have no other symptoms really associated with the gallbladder with the cholelithiasis. Past medical history she has underlying history She had hypertension, hyperlipidemia, intermittent palpitation, underlying psychiatric disorder, and anxiety depression bipolar. And history of current smoker for more than 30 years currently cutting down with stated that 3 cigarettes a day and she currently taking patch of nicotine. She has been seen by [facility] for her psychiatric disorder and has been treated her with the current medication for her illness. Patient 2 para 2. Patient . Has 1 brother. Patient history of cholelithiasis in the past however was not symptomatic and currently she is symptomatic. On exam vital sign temperature 98F oral and heart rate 58 associated with metoprolol succinate, respiratory rate 19/min nonlabored Initial blood pressure was 100/81 and subsequently his blood pressure at the time of exam 118/75 with the mean [address] parameter for using the medication Her oxygen saturation initially was 99 on room air and subsequently dropping to 94 on room air no evidence of shortness of breath. I did the EKG which indicate sinus bradycardia with a right bundle branch block no acute events. REVIEW OF SYSTEMS: CONSTITUTIONAL: Reports normal sleep, Denies weight loss. EYES: Denies change in vision, Denies pain. EARS, NOSE, MOUTH, THROAT: Denies headaches, denies sore throat. CARDIOVASCULAR: Denies chest pain, denies heart murmur. RESPIRATORY: Denies shortness of breath, denies cough. GASTROINTESTINAL: Abdominal pain below the ribs with tenderness and deep palpation with the history of cholelithiasis. GENITOURINARY: Denies hematuria, denies infections. MUSKULOSKELETAL: Denies pain, denies swelling. INTEGUMENTARY: Denies rash, denies eczema. NEUROLOGICAL: Denies delayed motor development, denies delayed speech development, denies seizures. PSYCHIATRIC: Denies anxiety, denies depression. HEMATOLOGIC/LYMPHATIC: Denies anemia, denies enlarged lymph nodes. On exam: Head was normocephalic atraumatic pupils equal reactive conjunctiva was pink sclera was nonicteric Oropharynx natural teeth She have mild complaint of the right ear Neck was supple no JVD no thyromegaly no lymphadenopathy trachea midline Chest was clear to auscultation percussion she has history of asthma and COPD with chronic smoker. Heart: Regular sinus rhythm lungs arrhythmias but she had history of palpitations in the past and the EKG is normal with the right bundle branch block chronically present No chest pain. Abdomen soft positive bowel sound and she had a right upper quadrant discomfort. Patient. Extremities no edema and positive pulses. Psychiatry she has underlying history of chronic psychiatric disorder and several admission to the psych floor. Neurologically stable and no lateralizing sign. Assessment and recommendation. 1. Patient cleared for surgical intervention 2. History of mild COPD, chronic smoker, asthma 3. Hyperlipidemia carotid 4. Hypertension currently controlled with the blood pressure on admission in the low side we will adjust medication. 5. Reconciliation of the medication done and adjusted medication. An EKG was done. 6. Patient cleared to have surgery for lap paddy tomorrow. Laboratories: WBC 9.15, hemoglobin 14.9, hematocrit 42.8, platelet count 283, MCV 94.9 Chemistry: Sodium 141, potassium 3.7, chloride 102, carbon dioxide 27, creatinine 0.71 and BUN of 7 and EGFR more than 90. Glucose 116 nonfasting and normal liver enzyme and normal amylase and lipase and lactic acid 1.4, calcium 9.9 Urine analysis: Routine negative, glucose negative ketone 1+. Urine bilirubin negative, nitrite negative with nonspecific. Patient stable for surgery, and will add inhalation therapy with albuterol and as needed basis.
[2025-05-09] MEDS: NICOTINE 21MG/24HR PATCH TRANSDERM SCH (13:48)
[2025-05-09] MEDS: LOSARTAN 50 MG TAB PO SCH (13:48)
[2025-05-09] MEDS: ACETAMINOPHEN TAB 325 MG TAB PO PRN (18:13)
[2025-05-10] MEDS: LIDOCAINE 1%-EPI 1:100,000 20 ML VIAL SQ ONE ×2 (07:32→08:38)
[2025-05-10] MEDS ORDERED: LIDOCAINE 1% INJ 10MG/ML (20 ML MDV) ONE (08:10)
[2025-05-10] MEDS ORDERED: PROPOFOL 10 MG/ML 20 ML VIAL IV ONE (08:10)
[2025-05-10] MEDS ORDERED: HEPARIN SODIUM,PORCINE 5,000 UNIT/ML 1 ML VIAL ONE (08:10)
[2025-05-10] MEDS ORDERED: ROCURONIUM 10 MG/ML (5 ML VIAL) IV ONE (08:10)
[2025-05-10] MEDS ORDERED: NEOSTIGMINE 1 MG/ML 10 ML VIAL ONE (08:10)
[2025-05-10] MEDS ORDERED: fentaNYL (PF) 50 MCG/ML 2 ML AMP ONE (08:10)
[2025-05-10] MEDS ORDERED: SUCCINYLCHOLINE CHLORIDE 200 MG/10 ML VIAL IV ONE (08:10)
[2025-05-10] MEDS ORDERED: MIDAZOLAM 2 MG/2 ML VIAL ONE (08:10)
[2025-05-10] MEDS ORDERED: GLYCOPYRROLATE 0.2 MG/ML 2 ML VIAL ONE (08:10)
[2025-05-10] MEDS: SODIUM CHLORIDE 0.9% 100 ML with ceFAZolin 2,000 MG IV ONE (08:15)
[2025-05-10] MEDS: SODIUM CHLORIDE 0.9% 1,000 ML IV ONE (08:15)
[2025-05-10] MEDS: LACTATED RINGERS 1,000 ML IV ONE ×2 (08:57)
--- NOTE | 2025-05-10 09:07 | P.OP ---
Date of Procedure: 05/10/25 Preoperative Diagnosis: Cholecystitis Postoperative Diagnosis: Cholecystitis Procedure(s) Performed: Laparoscopic cholecystectomy Anesthesia: KATHARINE Surgeon: Dixon Cervantes Estimated Blood Loss (ml): 10 Pathology: other (Gallbladder) Condition: stable Disposition: PACU Description of Procedure: T the patient was placed on the operating table. The patient received a general endotracheal tube anesthesia. The patients abdomen was prepped and draped in the usual sterile fashion. Through an infraumbilical stab incision, the fascia of the anterior abdominal wall was grasped with a pair of Kochers and then the Veress needle was placed in the peritoneal cavity. Position of the Veress needle was confirmed with positive drop test. The abdomen was then insufflated. After adequate insufflation, the 10 mm trocar was placed in the peritoneal cavity. Following this the laparoscope was placed in the peritoneal cavity. The patient was placed in the head-up, right side up position and then a 5 mm trocar was placed in the right lateral and right subcostal position under direct visualization. A 8 mm trocar was placed in the epigastric position. The gallbladder was grasped in the fundus and infundibulum. Traction on the gallbladder was placed in the lateral and the cephalad positions. The triangle of Calot was visualized.. The cystic duct was bluntly dissected until the union of the cystic duct and common bile duct was seen. A critical view of safety was achieved. The cystic duct was then divided and sealed with the Harmonic scissors. A PDS Endoloop was then placed throughout the cystic duct stump. The cystic artery divided and sealed with the Harmonic scissors. The gallbladder was then removed from the liver bed using Harmonic scissors. The gallbladder was then extracted through the epigastric port site. Operative field was checked for any bleeding spots and Harmonic scissors was used to coagulate the liver bed. The abdomen was irrigated. The trocars were removed. The skin was closed using interrupted 3-0 Vicryl suture. Dermabond dressing were applied. The patient tolerated the procedure well.
[2025-05-10] MEDS: ONDANSETRON 4 MG/2 ML VIAL IVP PRN (09:29)
[2025-05-10] MEDS: HYDROmorphone 0.5 MG/0.5 ML SYRINGE IVP STA (09:33)
[2025-05-10] MEDS: CHOLECALCIFEROL 25 MCG (1000 IU) TABLET PO SCH (10:55)
[2025-05-10] MEDS: METOPROLOL SUCCINATE (ER) 25 MG TAB.ER.24H PO SCH (10:55)
[2025-05-10] MEDS ORDERED: NON FORMULARY DRUG (Albuterol Inhaler 90 MCG Puff) INHALATION PRN (13:00)
--- NOTE | 2025-05-10 13:11 | P.PN ---
Subjective Progress Note Date: 05/10/25 Progress note Follow-up on the medical consult Patient seen today, date of service 05/10/[address] Madera Patient seen and evaluated [id number] Status post today laparoscopic cholecystectomy. Due to cholelithiasis. Pain has been improved significantly per patient. Temperature 97.2 FL temporal Heart rate 89 regular Respiratory rate 14/min normal nonlabored Blood pressure 148/93 supine with repeat blood pressure repeat blood pressure at the time of the visit 107/72. Patient is conscious alert oriented x 3 no respiratory distress and no severe abdominal pain Status post laparoscopic cholecystectomy today on 05/10/2025 and that she is comfortable at this time On exam: HEENT head was normocephalic atraumatic pupil was equal reactive conjunctiva was pink sclera was nonicteric and oropharynx natural teeth. Neck was supple no JVD no thyromegaly no lymph adenopathy trachea midline Chest clear to auscultation percussion no wheezes no rhonchi's Heart was regular sinus rhythm no evidence of abnormalities. Abdomen if the presence of postoperative for laparoscopic cholecystectomy howeve r she had bowel sound Extremities no edema and positive pulses. Neuro no lateralizing sign Psychiatry stable with her current medication Assessment: Hypertension is controlled Hyperlipidemia Psychiatric disorder and stable History of COPD with the chronic smoker, no wheezes no rhonchi History of asthma not active. Plan: 1. Medications reconciled 2. Patient stable and blood pressure vital signs stable 3. Patient cleared with continued her medication at home when Dr. Olsen decided to discharge the patient 4. I did reconsolidation of the medication already 5. Follow-up in the office in 1 week. Objective - Vital Signs Vital signs: Vital Signs Temp 97.2 F L 05/10/25 09:12 Pulse 68 05/10/25 12:19 Resp 16 05/10/25 12:19 BP 107/71 05/10/25 11:15 Pulse Ox 98 05/10/25 11:15 FiO2 Intake & Output 05/09/25 05/10/25 05/10/25 18:59 06:59 18:59 Intake Total 1740 1600 Output Total 305 Balance 1740 1295 Weight 78.471 kg Intake: IV 1600 Oral 1740 Output: Urine 300 Estimated Blood Loss 5 Other: Voiding Method Toilet Toilet Toilet # Voids 3 6 - Labs CBC & Chem 7: 05/08/25 18:03 05/08/25 18:03
[2025-05-11 07:56] VITALS: BP 154/91; PULSE 82; RESP 16; TEMP 98.3
[2025-05-11] MEDS: ENOXAPARIN 40 MG/0.4 ML SYRINGE SQ SCH (08:36)
[2025-05-11] MEDS: HYDROcodone/APAP 5-325MG 1 EACH TAB PO PRN (08:41)
[2025-05-11] MEDS ORDERED: CHOLECALCIFEROL 25 MCG (1000 IU) TABLET PO SCH (09:00)
--- NOTE | 2025-05-11 11:33 | P.PN ---
Subjective Progress Note Date: 05/11/25 Progress note follow-up on the consult for medical management Date of service 05/11/[address] Madera Location 460 bed 1 Patient seen evaluated [id number]. Patient had Dilaudid which caused a reaction with allergy, For pain and discomfort they started her by the surgical team with T[place]in which did help without any nausea and vomiting Pain control her surgical team post operative for cholecystectomy laparoscopically. Her vital signs are stable, patient need to be ambulated. Patient able to eat breakfast this morning. Vital sign on the chart stable with the current medication Head was normocephalic atraumatic pupil was equal reactive conjunctiva was pink sclera was nonicteric extraocular muscle movement intact Oropharynx natural teeth able to eat and swallow Neck was supple no JVD no thyromegaly no lymphadenopathy trachea midline. Chest was clear to auscultation percussion Heart was regular sinus rhythm no palpitation no arrhythmias Abdomen is soft positive bowel sound was tenderness post laparoscopic cholecystectomy. EXTR Extremities no edema positive pulses Neurologically stable Psychiatrically stable on the current medication. Assessment: Vital signs stable and she is comfortable with the history status post cholecystectomy Hypertension controlled History of hyperlipidemia COPD no exacerbation Chronic smoker Anxiety depression bipolar stable Plan and recommendation: Pain medication. Surgical team postoperative Follow-up in the office in 1 week Patient stable for discharge per surgical team. Objective - Vital Signs Vital signs: Vital Signs Temp 98.3 F 05/11/25 07:02 Pulse 82 05/11/25 07:02 Resp 16 05/11/25 07:02 BP 154/91 05/11/25 07:02 Pulse Ox 94 L 05/11/25 07:02 FiO2 Intake & Output 05/10/25 05/11/25 05/11/25 18:59 06:59 18:59 Intake Total 1600 2760 240 Output Total 305 Balance 1295 2760 240 Intake: IV 1600 Oral 2760 240 Output: Urine 300 Estimated Blood Loss 5 Other: Voiding Method Toilet Toilet Toilet # Voids 4 7 1 - Labs CBC & Chem 7: 05/08/25 18:03 05/08/25 18:03
--- NOTE | 2025-05-11 13:43 | P.DS ---
Providers Date of admission: 05/08/25 23:31 Expected date of discharge: 05/11/25 Attending physician: Dixon Cervantes Consults: 05/08/25 20:32 Consult Physician Stat Consulting Provider: Efren Madera Consult Reason/Comments: Cholelithiasis, intractable biliary colic Do you want consulting provider notified?: Yes, Notify in am Primary care physician: Efren Madera Hospital Course: Discharge diagnosis 1. Cholecystitis Hospital course This is a 49-year-old female who presented to the hospital right upper quadrant abdominal pain. Her ultrasound had shown evidence of cholelithiasis. Patient is status post laparoscopic cholecystectomy. Her pain is controlled. She tolerated surgery well. She is tolerating diet. She has been up and ambulating. She is urinating without difficulty. She is having flatus. She is afebrile. She is stable for discharge. Please refer to chart for further details. Physician Principal Archaeologist note has been reviewed by physician. Signing provider agrees with the documented findings, assessment, and plan of care. Patient Condition at Discharge: Stable Plan - Discharge Summary Discharge Rx Participant: Yes New Discharge Prescriptions: New HYDROcodone/APAP 5-325MG [Stendal 5-325] 1 tab PO Q6HR PRN 3 Days #12 tab PRN Reason: Pain Docusate [Colace] 100 mg PO BID #30 capsule Continue OLANZapine [ZyPREXA] 5 mg PO HS 14 Days #14 tab Losartan [Cozaar] 50 mg PO DAILY 14 Days #14 tab traZODone HCL [Desyrel] 50 mg PO HS PRN 30 Days #30 tab PRN Reason: Insomnia Metoprolol Succinate [Toprol XL] 50 mg PO DAILY 14 Days #14 tab Sertraline [Zoloft] 100 mg PO DAILY Cholecalciferol [Vitamin D3 (25 Mcg = 1000 Iu)] 25 mcg PO DAILY Albuterol Inhaler [Ventolin Hfa Inhaler] 2 puff INHALATION RT-Q6H PRN PRN Reason: Shortness Of Breath Nicotine 21Mg/24Hr Patch [Habitrol] 1 patch TRANSDERM DAILY Atorvastatin [Lipitor] 20 mg PO HS 14 Days #14 tab Discharge Medication List Albuterol Inhaler [Ventolin Hfa Inhaler] 2 puff INHALATION RT-Q6H PRN 08/11/23 [History] Nicotine 21Mg/24Hr Patch [Habitrol] 1 patch TRANSDERM DAILY 12/10/24 [History] Atorvastatin [Lipitor] 20 mg PO HS 14 Days #14 tab 12/16/24 [Rx] Losartan [Cozaar] 50 mg PO DAILY 14 Days #14 tab 12/16/24 [Rx] Metoprolol Succinate [Toprol XL] 50 mg PO DAILY 14 Days #14 tab 12/16/24 [Rx] OLANZapine [ZyPREXA] 5 mg PO HS 14 Days #14 tab 12/16/24 [Rx] traZODone HCL [Desyrel] 50 mg PO HS PRN 30 Days #30 tab 12/16/24 [Rx] Cholecalciferol [Vitamin D3 (25 Mcg = 1000 Iu)] 25 mcg PO DAILY 05/09/25 [History] Sertraline [Zoloft] 100 mg PO DAILY 05/09/25 [History] Docusate [Colace] 100 mg PO BID #30 capsule 05/11/25 [Rx] HYDROcodone/APAP 5-325MG [Stendal 5-325] 1 tab PO Q6HR PRN 3 Days #12 tab 05/11/25 [Rx] Follow up Appointment(s)/Referral(s): Oriana Harden MD [STAFF PHYSICIAN] - 1-2 days Efren Madera MD [Primary Care Provider] - 1-2 days Dixon Cervantes MD [STAFF PHYSICIAN] - 1 Week Activity/Diet/Wound Care/Special Instructions: No driving while taking Stendal No lifting over 10 pounds Shower daily. No soaking or tub baths for 2 weeks Very light activity until you are reevaluated at your follow up appointment with your surgeon Discharge Disposition: HOME SELF-CARE
== END 2025-05-11 14:43 | disposition home or self-care (01) ==
LOC: EC 15:09 → 4SSUR 23:31
PROVIDERS: ADMIT Surgery; ATTEND Surgery
DX: K80.64 Calculus of gallbladder and bile duct with chronic cholecystitis without obstruction (principal); J44.89 Other specified chronic obstructive pulmonary disease; F41.9 Anxiety disorder, unspecified; I10 Essential (primary) hypertension; E78.5 Hyperlipidemia, unspecified; F31.9 Bipolar disorder, unspecified; F17.210 Nicotine dependence, cigarettes, uncomplicated; Z79.52 Long term (current) use of systemic steroids; Z79.82 Long term (current) use of aspirin; Z79.899 Other long term (current) drug therapy; Z88.6 Allergy status to analgesic agent
CPT/HCPCS: 96376 ×2; 96372; 96361; 96374; 96375; 99285; 36415; 88304; 80053; 82150; 83605; 83690; 85025; 81001; 76705; 47562; G0378 ×4; S4990 ×3; J2250; J0330; J2270; J1644; J2710; J2405 ×2; J0690; J2003; J1650; J3010; J1171 ×4; J2704; J1596

== ENCOUNTER 2025-06-11 15:56 | Emergency (ER) | payer OTHER ==
--- NOTE | 2025-06-11 16:23 | ED ---
Headache HPI - General Chief Complaint: Headache Stated Complaint: Headache Time Seen by Provider: 06/11/25 16:06 Mode of arrival: ambulatory Limitations: no limitations - History of Present Illness Initial Comments: 49-year-old female presenting with chief complaint of headache abdominal pain nausea and diarrhea. Patient states that yesterday her headache started it was accompanied by light sensitivity, nausea, vomiting. Primarily in the frontal region. She states it feels like headaches that she has had in the past. She is also complaining of burning abdominal pain that goes across her abdomen. She was having some diarrhea as well. States that her throat feels "scratchy". No cough. Some congestion. No chest pain or difficulty breathing. - Related Data Home Medications Medication Instructions Recorded Confirmed Albuterol Inhaler [Ventolin Hfa 2 puff INHALATION RT-Q6H PRN 08/11/23 05/09/25 Inhaler] Nicotine 21Mg/24Hr Patch [Habitrol] 1 patch TRANSDERM DAILY 12/10/24 05/09/25 Cholecalciferol [Vitamin D3 (25 25 mcg PO DAILY 05/09/25 05/09/25 Mcg = 1000 Iu)] Sertraline [Zoloft] 100 mg PO DAILY 05/09/25 05/09/25 Previous Rx's Medication Instructions Recorded Atorvastatin [Lipitor] 20 mg PO HS 14 Days #14 tab 12/16/24 Losartan [Cozaar] 50 mg PO DAILY 14 Days #14 tab 12/16/24 Metoprolol Succinate [Toprol XL] 50 mg PO DAILY 14 Days #14 tab 12/16/24 OLANZapine [ZyPREXA] 5 mg PO HS 14 Days #14 tab 12/16/24 traZODone HCL [Desyrel] 50 mg PO HS PRN 30 Days #30 tab 12/16/24 Docusate [Colace] 100 mg PO BID #30 capsule 05/11/25 HYDROcodone/APAP 5-325MG [[place] 1 tab PO Q6HR PRN 3 Days #12 tab 05/11/25 5-325] Allergies Allergy/AdvReac Type Severity Reaction Status Date / Time ibuprofen [From Motrin] Allergy Intermediate Rash/Hives Verified 05/09/25 13:32 Review of Systems ROS Statement: Those systems with pertinent positive or pertinent negative responses have been documented in the HPI. ROS Other: All systems not noted in ROS Statement are negative. Past Medical History Past Medical History: COPD, Osteoarthritis (OA) Additional Past Medical History / Comment(s): scoliosis History of Any Multi-Drug Resistant Organisms: Other MDRO Past Surgical History: Tubal Ligation Past Anesthesia/Blood Transfusion Reactions: No Reported Reaction Past Psychological History: Anxiety, Depression Smoking Status: Current every day smoker Past Alcohol Use History: Occasional Past Drug Use History: Marijuana - Past Family History Mother Family Medical History: Cancer General Exam Limitations: no limitations General appearance: alert, in no apparent distress Head exam: Present: atraumatic, normocephalic, normal inspection Eye exam: Present: normal appearance, EOMI. Absent: periorbital swelling Neck exam: Present: normal inspection. Absent: meningismus Respiratory exam: Present: normal lung sounds bilaterally. Absent: respiratory distress, wheezes, rales, rhonchi, stridor Cardiovascular Exam: Present: regular rate, normal rhythm, normal heart sounds. Absent: systolic murmur, diastolic murmur, rubs, gallop, clicks GI/Abdominal exam: Present: soft, tenderness. Absent: distended, guarding, rebound, rigid Neurological exam: Present: alert, oriented X3 Psychiatric exam: Present: normal affect, normal mood Skin exam: Present: warm, dry, normal color Course Vital Signs 06/11/25 06/11/25 06/11/25 16:00 18:33 19:08 Temperature 97.8 F 98 F 98.1 F Pulse Rate 65 70 88 Respiratory 16 18 18 Rate Blood Pressure 141/95 127/80 122/78 O2 Sat by Pulse 98 97 Oximetry Medical Decision Making - Medical Decision Making Was pt. sent in by a medical professional or institution (, PA, PEDIATRIC UROLOGIST, urgent care, hospital, or group home...) When possible be specific @ -No Did you speak to anyone other than the patient for history (EMS, parent, family, police, friend...)? What history was obtained from this source @ -No Did you review nursing and triage notes (agree or disagree)? Why? @ -I reviewed and agree with nursing and triage notes Were old charts reviewed (outside hosp., previous admission, EMS record, old EKG, old radiological studies, urgent care reports/EKG's, group home records)? Report findings @ -No old charts were reviewed Differential Diagnosis (chest pain, altered mental status, abdominal pain women, abdominal pain men, vaginal bleeding, weakness, fever, dyspnea, syncope, headache, dizziness, GI bleed, back pain, seizure, CVA, palpatations, mental health, musculoskeletal)? @ -MDM Differential Headache: Migraine, tension, cluster, carbon monoxide, central venous thrombosis, pension karma temporal arteritis, acute closure glaucoma, intercranial hemorrhage, mastoiditis, sinusitis, head injury… this is not meant to be an all-inclusive list. MDM Differential Abdominal Pain Women: Appendicitis, Cholecystitis, diverticulosis, ischemic bowel, pancreatitis, hepatitis, UTI, gastroenteritis, AAA, incarcerated hernia, bowel obstruction, constipation, inflammatory bowel, hepatitis, peptic ulcer disease, splenic infar ction, perforated viscus, vulvitis, ovarian torsion, PID, kidney stone, placenta abruption... This is not meant to be an all-inclusive list EKG interpreted by me (3pts min.). @ -EKG shows sinus bradycardia ventricular rate 58. TN interval 183 QRS 102 QT 438 QTc 435 X-rays interpreted by me (1pt min.). @ -None done CT interpreted by me (1pt min.). @ -CT abdomen and pelvis shows no acute process U/S interpreted by me (1pt. min.). @ -None done What testing was considered but not performed or refused? (CT, X-rays, U/S, labs)? Why? @ -None What meds were considered but not given or refused? Why? @ -None Did you discuss the management of the patient with other professionals (professionals i.e. , PA, PEDIATRIC UROLOGIST, lab, RT, psych nurse, social media senior associate, concrete crusher loader operator, teacher, house officer, therapeutic case manager)? Give summary @ -No Was smoking cessation discussed for >3mins.? @ -No Was critical care preformed (if so, how long)? @ -No Were there social determinants of health that impacted care today? How? (Homelessness, low income, unemployed, alcoholism, drug addiction, transportation, low edu. Level, literacy, decrease access to med. care, [facility], rehab)? @ -No Was there de-escalation of care discussed even if they declined (Discuss DNR or withdrawal of care, Hospice)? DNR status @ -No What co-morbidities impacted this encounter? (DM, HTN, Smoking, COPD, CAD, Cancer, CVA, ARF, Chemo, Hep., AIDS, mental health diagnosis, sleep apnea, morbid obesity)? @ -None Was patient admitted / discharged? Hospital course, mention meds given and route, prescriptions, significant lab abnormalities, going to OR and other pertinent info. @ -49-year-old female presenting with chief complaint of headache and abdominal pain. History and physical examination are conducted. GCS 15 no focal neurological deficits on exam. She does have some right lower quadrant tenderness on exam. Lab work is essentially unremarkable. CT shows no acute intra-abdominal findings. On reassessment she does report improvement in her symptoms. She is educated on today's findings and supportive management at home as well as alarm symptoms that should prompt reevaluation. Follow-up with PCP. Report back to ER with any new or worsening symptoms. Discussed return parameters and answered all questions. Patient conveyed verbal understanding and agreed to the plan. I discussed this case in detail with my attending Dr. Will Undiagnosed new problem with uncertain prognosis? @ -No Drug Therapy requiring intensive monitoring for toxicity (Heparin, Nitro, Insulin, Cardizem)? @ -No Were any procedures done? @ -No Diagnosis/symptom? @ -Headache, abdominal pain Acute, or Chronic, or Acute on Chronic? @ -Acute Uncomplicated (without systemic symptoms) or Complicated (systemic symptoms)? @ -Uncomplicated Side effects of treatment? @ -No Exacerbation, Progression, or Severe Exacerbation? @ -No Poses a threat to life or bodily function? How? (Chest pain, [place], [place], pneumonia, PE, COPD, DKA, ARF, appy, cholecystitis, CVA, Diverticulitis, Homicidal, Suicidal, threat to staff... and all critical care pts) @ -Unlikely - Lab Data Result diagrams: 06/11/25 16:36 06/11/25 16:36 Lab Results 06/11/25 06/11/25 06/11/25 Range/Units 16:36 16:36 16:36 WBC 8.79 (4.50-10.00) 10*3/uL RBC 4.34 (4.10-5.20) 10*6/uL Hgb 14.2 (12.0-15.0) g/dL Hct 40.4 (37.2-46.3) % MCV 93.1 (80.0-97.0) fL MCH 32.7 H (27.0-32.0) pg MCHC 35.1 (32.0-37.0) g/dL Plt Count 301 (140-440) 10*3/uL MPV 9.9 (9.5-12.2) fL Immature Gran % (Auto) 0.1 % Neutrophils % 60.6 % Lymphocytes % 31.2 % Monocytes % 6.8 % Eosinophils % 0.8 % Basophils % 0.5 % Immature Gran # 0.01 (0.00-0.04) 10*3/uL Neutrophils # 5.33 (1.80-7.70) 10*3/uL Lymphocytes # 2.74 (0.90-5.00) 10*3/uL Monocytes # 0.60 (0.20-1.00) 10*3/uL Eosinophils # 0.07 (0.04-0.35) 10*3/uL Basophils # 0.04 (0.00-0.10) 10*3/uL Sodium 139 (137-145) mmol/L Potassium 4.2 (3.5-5.1) mmol/L Chloride 102 (98-107) mmol/L Carbon Dioxide 25 (22-30) mmol/L Anion Gap 12 mmol/L BUN 10 (7-17) mg/dL Creatinine 0.55 (0.52-1.04) mg/dL Est GFR (CKD-EPI)AfAm >90 (>60 ml/min/1.73 sqM) Est GFR (CKD-EPI)NonAf >90 (>60 ml/min/1.73 sqM) Glucose 96 (74-99) mg/dL Calcium 9.8 (8.4-10.2) mg/dL Total Bilirubin 0.6 (0.2-1.3) mg/dL AST 33 (14-36) U/L ALT 22 (4-34) U/L Alkaline Phosphatase 117 (38-126) U/L Troponin I <0.012 (0.000-0.034) ng/mL Total Protein 7.7 (6.3-8.2) g/dL Albumin 4.7 (3.5-5.0) g/dL Lipase 37 (23-300) U/L Influenza Type A (PCR) (Not Detectd) Influenza Type B (PCR) (Not Detectd) RSV (PCR) (Not Detectd) SARS-CoV-2 (PCR) (Not Detectd) Group A Strep (PCR) (Not Detectd) 06/11/25 06/11/25 Range/Units 16:36 16:36 WBC (4.50-10.00) 10*3/uL RBC (4.10-5.20) 10*6/uL Hgb (12.0-15.0) g/dL Hct (37.2-46.3) % MCV (80.0-97.0) fL MCH (27.0-32.0) pg MCHC (32.0-37.0) g/dL Plt Count (140-440) 10*3/uL MPV (9.5-12.2) fL Immature Gran % (Auto) % Neutrophils % % Lymphocytes % % Monocytes % % Eosinophils % % Basophils % % Immature Gran # (0.00-0.04) 10*3/uL Neutrophils # (1.80-7.70) 10*3/uL Lymphocytes # (0.90-5.00) 10*3/uL Monocytes # (0.20-1.00) 10*3/uL Eosinophils # (0.04-0.35) 10*3/uL Basophils # (0.00-0.10) 10*3/uL Sodium (137-145) mmol/L Potassium (3.5-5.1) mmol/L Chloride (98-107) mmol/L Carbon Dioxide (22-30) mmol/L Anion Gap mmol/L BUN (7-17) mg/dL Creatinine (0.52-1.04) mg/dL Est GFR (CKD-EPI)AfAm (>60 ml/min/1.73 sqM) Est GFR (CKD-EPI)NonAf (>60 ml/min/1.73 sqM) Glucose (74-99) mg/dL Calcium (8.4-10.2) mg/dL Total Bilirubin (0.2-1.3) mg/dL AST (14-36) U/L ALT (4-34) U/L Alkaline Phosphatase (38-126) U/L Troponin I (0.000-0.034) ng/mL Total Protein (6.3-8.2) g/dL Albumin (3.5-5.0) g/dL Lipase (23-300) U/L Influenza Type A (PCR) Not Detected (Not Detectd) Influenza Type B (PCR) Not Detected (Not Detectd) RSV (PCR) Not Detected (Not Detectd) SARS-CoV-2 (PCR) Not Detected (Not Detectd) Group A Strep (PCR) NOT DETECTED (Not Detectd) Disposition Clinical Impression: Headache, Abdominal pain Disposition: HOME SELF-CARE Condition: Good Instructions (If sedation given, give patient instructions): Acute Headache (ED), Abdominal Pain (ED) Additional Instructions: Follow-up with your PCP. Report back to ER with any new or worsening symptoms. Is patient prescribed a controlled substance at d/c from ED?: No Referrals: Efren Madera MD [Primary Care Provider] - 1-2 days Time of Disposition: 19:01
[2025-06-11] MEDS: SODIUM CHLORIDE 0.9% 1,000 ML IV ONE (16:40)
[2025-06-11] MEDS: ONDANSETRON 4 MG/2 ML VIAL IVP STA (16:41)
[2025-06-11] MEDS: ACETAMINOPHEN TAB 325 MG TAB PO STA (16:41)
[2025-06-11 16:54] LABS: Basophils # (A) 0.04 10*3/uL (0.00-0.10); Basophils % (A) 0.5 %; Eosinophils # (A) 0.07 10*3/uL (0.04-0.35); Eosinophils % (A) 0.8 %; HCT 40.4 % (37.2-46.3); HGB 14.2 g/dL (12.0-15.0); Lymphocytes # (A) 2.74 10*3/uL (0.90-5.00); Lymphocytes % (A) 31.2 %; MCH 32.7 pg (27.0-32.0); MCHC 35.1 g/dL (32.0-37.0); MCV 93.1 fL (80.0-97.0); Monocytes # (A) 0.60 10*3/uL (0.20-1.00); Monocytes % (A) 6.8 %; Neutrophils # (A) 5.33 10*3/uL (1.80-7.70); Neutrophils % (A) 60.6 %; Platelet Count 301 10*3/uL (140-440); RBC 4.34 10*6/uL (4.10-5.20); RDW 12.3 % (11.5-14.5); WBC 8.79 10*3/uL (4.50-10.00)
[2025-06-11 17:06] LABS: ALT 22 U/L (4-34); AST 33 U/L (14-36); African American GFR (CKD) >90 (>60 ml/min/1.73 sqM); Albumin 4.7 g/dL (3.5-5.0); Alkaline Phosphatase 117 U/L (38-126); Anion Gap 12 mmol/L; Blood Urea Nitrogen 10 mg/dL (7-17); Calcium 9.8 mg/dL (8.4-10.2); Carbon Dioxide 25 mmol/L (22-30); Chloride 102 mmol/L (98-107); Glucose 96 mg/dL (74-99); Lipase 37 U/L (23-300); Non-African American GFR(CKD) >90 (>60 ml/min/1.73 sqM); Potassium 4.2 mmol/L (3.5-5.1); Sodium 139 mmol/L (137-145); Total Protein 7.7 g/dL (6.3-8.2)
[2025-06-11 17:30] LABS: RSV Not Detected (Not Detectd)
--- NOTE | 2025-06-11 18:25 | CT ---
EXAMINATION TYPE: CT abdomen pelvis w con CT DLP: 895.3 mGycm, Automated exposure control for dose reduction was used. DATE OF EXAM: 06/11/2025 6:12 PM COMPARISON: Gallbladder ultrasound 05/08/2025, 05/06/2025, CT chest 09/14/2020, pelvic ultrasound 2019, CT abdomen and pelvis 05/04/2024, 09/30/2019 CLINICAL INDICATION:Female, 49 years old with history of pain; abd pain/diarrhea TECHNIQUE: Standard CT of the abdomen and pelvis following the administration of 100 cc of Isovue 3 00 IV contrast material. Coronal and sagittal reformats were performed. FINDINGS: LOWER CHEST: Small fat filled right posterior Bochdalek hernia. Stable peripheral left lower lobe 6.2 mm subpleural pulmonary nodule dating back to 2018 and considered benign. No new pulmonary nodules i dentified. ABDOMEN LIVER: Unremarkable GALLBLADDER AND BILE DUCTS: The gallbladder appears to be surgically absent with some trace fluid wit hin the fossa. No biliary duct dilatation. PANCREAS: Unremarkable. SPLEEN: Unremarkable. ADRENAL GLANDS: Unremarkable. KIDNEYS AND URETERS: No evidence of hydronephrosis or renal calculus. The kidneys enhance symmetrica lly. Left mid kidney exophytic 2.6 cm simple cyst. Additional subcentimeter right renal lower pole co rtical cyst. No follow-up recommended. Contrast is demonstrated within both collecting systems on the delayed phase. PELVIS BLADDER: Underdistended but grossly unremarkable. REPRODUCTIVE: The uterus with a right tubal ligation clip. The left tube ligation clip has migrated t o the right lower quadrant. ABDOMEN & PELVIS STOMACH AND BOWEL: Small hiatal hernia, duodenum is unremarkable. Low-lying cecum within the anterior right pelvis. No focal bowel wall thickening or surrounding inflammatory changes. The appendix is wi thin normal limits. No evidence of bowel obstruction. PERITONEUM: No evidence of pneumoperitoneum or free fluid. VASCULATURE: Mild atherosclerotic calcifications are present throughout the abdominal aorta and its b ranches. No evidence of aortic aneurysm. MUSCULOSKELETAL: No acute osseous abnormalities. Degenerative disc disease which is most prominent at L4-L5 with disc space narrowing, vacuum disc disease, endplate sclerosis and posterior osteophyte re sulting in at least mild spinal canal stenosis. LYMPH NODES: No evidence for lymphadenopathy. SOFT TISSUE/ABDOMINAL WALL: Unremarkable IMPRESSION: No CT evidence for acute abdominal/pelvic process. [facility], , 06/11/2025 6:23 PM
[2025-06-11 18:36] VITALS: RESP 18
[2025-06-11] MEDS: MAG HYDROX/AL HYDROX/SIMETH 30 ML CUP PO STA (19:07)
[2025-06-11] MEDS: FAMOTIDINE 20 MG/2 ML VIAL IV STA (19:07)
[2025-06-11] MEDS: LIDOCAINE VISCOUS 2% 15 ML CUP PO ONE (19:07)
[2025-06-11 19:10] VITALS: BP 122/78; PULSE 88; TEMP 98.1
== END 2025-06-11 19:08 | disposition home or self-care (01) ==
LOC: EC 15:56
DX: R51.9 Headache, unspecified (principal); R10.9 Unspecified abdominal pain; F17.200 Nicotine dependence, unspecified, uncomplicated; Z88.6 Allergy status to analgesic agent
CPT/HCPCS: 36415; 93005; 87651; 80053; 83690; 84484; 85025; 87636; 74177; 99285; 96374; 96375; 96361; J2405; Q9967; J1308

== ENCOUNTER 2025-06-19 14:34 | Emergency (ER) | payer OTHER ==
[2025-06-19 14:39] VITALS: RESP 18
--- NOTE | 2025-06-19 14:46 | ED ---
Headache HPI - General Mode of arrival: ambulatory Limitations: no limitations <Kira Collins - Last Filed: 06/19/25 20:26> <Mandy Frank - Last Filed: 06/20/25 10:21> - General Chief Complaint: Headache Stated Complaint: headache Time Seen by Provider: 06/19/25 14:45 - History of Present Illness Initial Comments: 49-year-old female with COPD, osteoarthritis, marijuana use here for headache. Patient reported that she is having persistent headache bitemporal that is aching in nature with associated facial pain at the cheeks, sore throat and left ear pain, nausea, lightheadedness. She has tried Excedrin and Tylenol sinus p.o. but has not worked. She reported that she is concerned about a tooth that is rotten but mentions that she has an appointment with her dentist next Sunday to have it looked at. Denied cough, vomiting, facial symmetry, focal weakness, speech changes, vision changes, gait changes chills, shortness of breath, palpitations (Kira Collins) - Related Data Home Medications Medication Instructions Recorded Confirmed Albuterol Inhaler [Ventolin Hfa 2 puff INHALATION RT-Q6H PRN 08/11/23 05/09/25 Inhaler] Nicotine 21Mg/24Hr Patch [Habitrol] 1 patch TRANSDERM DAILY 12/10/24 05/09/25 Cholecalciferol [Vitamin D3 (25 25 mcg PO DAILY 05/09/25 05/09/25 Mcg = 1000 Iu)] Sertraline [Zoloft] 100 mg PO DAILY 05/09/25 05/09/25 Previous Rx's Medication Instructions Recorded Atorvastatin [Lipitor] 20 mg PO HS 14 Days #14 tab 12/16/24 Losartan [Cozaar] 50 mg PO DAILY 14 Days #14 tab 12/16/24 Metoprolol Succinate [Toprol XL] 50 mg PO DAILY 14 Days #14 tab 12/16/24 OLANZapine [ZyPREXA] 5 mg PO HS 14 Days #14 tab 12/16/24 traZODone HCL [Desyrel] 50 mg PO HS PRN 30 Days #30 tab 12/16/24 Docusate [Colace] 100 mg PO BID #30 capsule 05/11/25 HYDROcodone/APAP 5-325MG [[place] 1 tab PO Q6HR PRN 3 Days #12 tab 05/11/25 5-325] Amoxicillin/Potassium Clav 1 each PO TID #15 tablet 06/19/25 [Amox-Clav 500-125 mg Tablet] Fluticasone Nasal [place] [Flonase 2 spray EA NOSTRIL DAILY #16 gm 06/19/25 Nasal [place]] Allergies Allergy/AdvReac Type Severity Reaction Status Date / Time ibuprofen [From Motrin] Allergy Intermediate Rash/Hives Verified 06/19/25 14:39 Review of Systems ROS Other: All systems not noted in ROS Statement are negative. <Kira Collins - Last Filed: 06/19/25 20:26> ROS Other: All systems not noted in ROS Statement are negative. <Mandy Frank - Last Filed: 06/20/25 10:21> ROS Statement: Those systems with pertinent positive or pertinent negative responses have been documented in the HPI. Past Medical History Past Medical History: COPD, Osteoarthritis (OA) Additional Past Medical History / Comment(s): scoliosis History of Any Multi-Drug Resistant Organisms: Other MDRO Past Surgical History: Tubal Ligation Past Anesthesia/Blood Transfusion Reactions: No Reported Reaction Past Psychological History: Anxiety, Depression Smoking Status: Current every day smoker Past Alcohol Use History: Occasional Past Drug Use History: Marijuana - Past Family History Mother Family Medical History: Cancer <Kira Collins - Last Filed: 06/19/25 20:26> General Exam Limitations: no limitations <Kira Collins - Last Filed: 06/19/25 20:26> - General Exam Comments Initial Comments: Physical examination: Vital signs reviewed General: non toxic, no distress, appears at stated age Head: atraumatic, normocephalic, symmetric, tenderness on palpation of cheeks, bitemporal areas Eyes: Anicteric, EOMI, PERRLA Ears: No masses or lesions noted on external ear, negative tenderness on ear pulling, TM intact bilaterally, noted cerumen and excess skin in left ear Mouth: no lip lesion, mucus membranes moist, erythema of the throat, discolored upper premolar, Cardiovascular: S1S2 reg, no murmur Lungs: CTA bilateral, no rhonchi, no rales, no accessory muscle use Abdominal: soft, nondistended, nontender to palpation, no guarding Ext: muscle strength 5 out of 5 in all 4 extremities grossly, no gross muscle atrophy, no contractures, positive dorsalis pedis pulse bilateral, no edema Neuro: no gross focal neuro deficits Psych: Alert and oriented x3, appropriate affect and mood (Kira Collins) Course Vital Signs 06/19/25 06/19/25 14:37 18:06 Temperature 97.9 F 97.8 F Pulse Rate 89 80 Respiratory 18 18 Rate Blood Pressure 144/90 149/80 O2 Sat by Pulse 99 97 Oximetry Medical Decision Making <Kira Collins - Last Filed: 06/19/25 20:26> <EnglishMandy - Last Filed: 06/20/25 10:21> - Medical Decision Making Was pt. sent in by a medical professional or institution (, PA, AOC AADC OPERATIONS STAFF OFFICER, urgent care, hospital, or usp...) When possible be specific @ -No Did you speak to anyone other than the patient for history (EMS, parent, family, police, friend...)? What history was obtained from this source @ -No Did you review nursing and triage notes (agree or disagree)? Why? @ -I reviewed and agree with nursing and triage notes Were old charts reviewed (outside hosp., previous admission, EMS record, old EKG, old radiological studies, urgent care reports/EKG's, usp records)? Report findings @ -Old charts reviewed Differential Diagnosis? @ -Differential Headache: Migraine, tension, cluster, carbon monoxide, central venous thrombosis, pension karma temporal arteritis, acute closure glaucoma, intercranial hemorrhage, mastoiditis, sinusitis, head injury, this is not meant to be an all-inclusive list. EKG interpreted by me (3pts min.). @ -None done X-rays interpreted by me (1pt min.). @ -None done CT interpreted by me (1pt min.). @ -CT brain doesn't show any overt masses or fluid accumulation or midline shift U/S interpreted by me (1pt. min.). @ -None done What testing was considered but not performed or refused? (CT, X-rays, U/S, labs)? Why? @ -None What meds were considered but not given or refused? Why? @ -None Did you discuss the management of the patient with other professionals (professionals i.e. , PA, AOC AADC OPERATIONS STAFF OFFICER, lab, RT, psych nurse, administrator social welfare, fire management specialist, teacher, aoc aadc operations staff officer, pillowcase folder)? Give summary @ -Dr. Frank, supervising physician Was smoking cessation discussed for >3mins.? @ -No Was critical care preformed (if so, how long)? @ -No Were there social determinants of health that impacted care today? How? (Homelessness, low income, unemployed, alcoholism, drug addiction, tr ansportation, low edu. Level, literacy, decrease access to med. care, [facility]cf[facility], rehab)? @ -No Was there de-escalation of care discussed even if they declined (Discuss DNR or withdrawal of care, Hospice)? DNR status @ -No What co-morbidities impacted this encounter? (DM, HTN, Smoking, COPD, CAD, Cancer, CVA, ARF, Chemo, Hep., AIDS, mental health diagnosis, sleep apnea, morbid obesity)? @ -None Was patient admitted / discharged? Hospital course, mention meds given and route, prescriptions, significant lab abnormalities, going to OR and other pertinent info. @ -Discharge. CT brain without contrast ordered. Given Reglan, Benadryl, Toradol, Flonase. CT brain without contrast showed no acute cranial process. Patient's symptoms improved throughout her stay. No new complications or symptoms occurred. She is sent home with Flonase and amox-clav p.o. for 5 days. She has advised follow-up with PCP and dentist closely. Undiagnosed new problem with uncertain prognosis? @ -No Drug Therapy requiring intensive monitoring for toxicity (Heparin, Nitro, Insulin, Cardizem)? @ -No Were any procedures done? @ -No Diagnosis/symptom? @ -Default Acute, or Chronic, or Acute on Chronic? @ -Acute Uncomplicated (without systemic symptoms) or Complicated (systemic symptoms)? @ -Uncomplicated Side effects of treatment? @ -No Exacerbation, Progression, or Severe Exacerbation? @ -No Poses a threat to life or bodily function? How? (Chest pain, [place], [place], pneumonia, PE, COPD, DKA, ARF, appy, cholecystitis, CVA, Diverticulitis, Homicidal, Suicidal, threat to staff... and all critical care pts) @ -No (Kira Collins) I personally saw the patient and performed the critical portion of the service. I discussed the patient care with the resident physician. I directed management, care planning and final disposition of the patient. This includes, but not limited to, review of all lab work, radiological studies, EKG's, consultations, vital signs, and nursing notes. CT interpreted by me ( 1pt min.) @Personally reviewed CT brain I see no evidence of hemorrhage or mass effect I agree with radiologist interpretation Critical care time of [0] minutes excluding separately billable procedures was spent in conjunction with critical care activities provided by the Resident and Attending simultaneously. I was present during [no procedures] for all critical portions of the procedure and as immediately available to furnish service during the entire procedure. (Mandy Frank) Disposition Is patient prescribed a controlled substance at d/c from ED?: No Time of Disposition: 17:47 <Kira Collins - Last Filed: 06/19/25 20:26> <Mandy Frank - Last Filed: 06/20/25 10:21> Clinical Impression: Sinusitis Disposition: HOME SELF-CARE Condition: Good Instructions (If sedation given, give patient instructions): Sinusitis (ED) Prescriptions: Amoxicillin/Potassium Clav [Amox-Clav 500-125 mg Tablet] 1 each PO TID #15 tablet Fluticasone Nasal [place] [Flonase Nasal [place]] 2 spray EA NOSTRIL DAILY #16 gm Referrals: Efren Madera MD [Primary Care Provider] - 1-2 days
[2025-06-19] MEDS: KETOROLAC 15 MG/ML 1 ML VIAL IVP STA (16:15)
[2025-06-19] MEDS: diphenhydrAMINE 50 MG/ML 1 ML VIAL IVP STA (16:18)
[2025-06-19] MEDS: METOCLOPRAMIDE 5 MG/ML 2 ML VIAL IVP STA (16:20)
--- NOTE | 2025-06-19 17:11 | CT ---
EXAMINATION TYPE: CT brain wo con DATE OF EXAM: 06/19/2025 COMPARISON: none CLINICAL INDICATION: Female, 49 years old with history of Headache; PHH, headache TECHNIQUE: CT scan of the head is performed without contrast. CT DLP: 1125.[address] CTDI: mGy Automated exposure control for dose reduction was used. FINDINGS: There is no acute intracranial hemorrhage or midline shift identified. There is diffuse v entricular and sulcal prominence consistent with diffuse age-related cerebral atrophy. There is low- attenuation in the periventricular white matter consistent with chronic small vessel ischemic change. The globes are intact and the visualized sinuses are clear. IMPRESSION: No acute intracranial hemorrhage or midline shift. There is diffuse age-related cerebra l atrophy and chronic small vessel ischemic change noted. [facility], , 06/19/2025 5:08 PM
[2025-06-19] MEDS: FLUTICASONE NASAL 50MCG/SPRAY 16GM BTL EA NOSTRIL SCH (17:13)
[2025-06-19 18:08] VITALS: BP 149/80; PULSE 80; TEMP 97.8
== END 2025-06-19 18:08 | disposition home or self-care (01) ==
LOC: EC 14:34
DX: J32.9 Chronic sinusitis, unspecified (principal); F17.200 Nicotine dependence, unspecified, uncomplicated; Z88.6 Allergy status to analgesic agent
CPT/HCPCS: 70450; 99284; 96374; 96375 ×2; J1200; J2765; J1885